=== PATIENT | female | born 1940 | race Caucasian/White ===

== ENCOUNTER 2017-10-31 10:10 | Emergency (ER) | payer OTHER ==
--- NOTE | 2017-10-31 11:12 | RAD REPORT ---
EXAM DESCRIPTION: CT - CTHCSPWOC - 10/31/2017 11:03 am CLINICAL HISTORY: Fall, head and neck injury COMPARISON: CT imaging February 2017 TECHNIQUE: Axial 5 mm thick images of the head were obtained. Axial 2 mm thick images of the cervic al spine were obtained with sagittal and coronal reconstruction images generated and reviewed. All CT scans are performed using dose optimization technique as appropriate and may include automated exposure control or mA/KV adjustment according to patient size. FINDINGS: No intracranial hemorrhage, mass, edema or acute intracranial finding. No acute cortical based infarc tion. Mild to moderate atrophy and chronic ischemic changes are present. Ventricular size is in propo rtion. Intracranial findings are similar to the comparison. There is a small right parietal scalp hem atoma. No extra-axial fluid collections. Mastoid air cells and paranasal sinuses are clear. No globe or orbit abnormality seen. Cervical bodies are normal in height. Subluxation of C3 on C4 is similar to the comparison. Prominent degenerative disc and endplate changes present at C6-7. Significant but less prominent degenerative changes involve the discs and endplates at C3-4, C4-5 and C5-6. Advanced facet joint degenerative alicia nges are present at C3-4 with mild bilateral foraminal encroachment. Left foraminal encroachment at C 4-5 and mild bilateral encroachment at C5-6. Patient generally has significant facet degenerative alicia nge throughout the cervical spine. No fracture or acute bony abnormality. Central canal detail is inh erently limited. No paraspinal mass or hematoma. IMPRESSION: Atrophy and chronic ischemic change similar to comparison. No acute finding. Advanced cervical spine degenerative change similar to comparison. No acute findings confirmed.
--- NOTE | 2017-10-31 11:13 | RAD REPORT ---
EXAM DESCRIPTION: RAD - Humerus Right - 10/31/2017 11:00 am CLINICAL HISTORY: Fall, shoulder pain COMPARISON: None. FINDINGS: No fracture is identified. There is no dislocation or periosteal reaction noted. Mild dege nerative change at the AC joint. No suspicious soft tissue calcification. IMPRESSION: Negative right humerus examination for acute or significant finding.
--- NOTE | 2017-10-31 11:14 | RAD REPORT ---
EXAM DESCRIPTION: RAD - Chest Single View - 10/31/2017 11:00 am CLINICAL HISTORY: Fall, chest pain COMPARISON: November 2015 TECHNIQUE: AP portable chest image was obtained 1046 hours . FINDINGS: No focal mass or consolidation. Lung markings are prominent but not clearly different. Hea rt size and vasculature are similar to comparison. Heart and vasculature are normal. No measurable pl eural effusion and no pneumothorax. Bony degenerative change present. No acute finding suspected. No acute aortic findings suspected. IMPRESSION: No acute cardiopulmonary process. Chest findings are similar to November 2015.
--- NOTE | 2017-10-31 11:22 | ER ---
Nurse's Notes [facility] Name: Ember Meade Age: 77 yrs Sex: Female : 1940 Arrival Date: 10/31/2017 Time: : Bed 6 Private MD: Diagnosis: Superficial injury of head;Scalp Hematoma Presentation: 10/31 10:08 Presenting complaint: EMS states: pt doesn't know if she tripped or lost her balance sv but she hit her right forehead and right knee after falling. Pt has a hx of repeated falls. BP 154/87 RH-76 96% RA. Care prior to arrival: None. Mechanism of Injury: Fall from standing position. Trauma event details: Injury occurred in the [facility], Injury occurred: at home. Injury occurred: October 31, 2017. 10:08 Acuity: SANTOSH 3 sv 10:08 Method Of Arrival: EMS: [facility] sv 10:08 Transition of care: patient was not received from another setting of care. Onset of sv symptoms was October 31, 2017. Risk Assessment: Do you want to hurt yourself or someone else? Patient reports no desire to harm self or others. Initial Sepsis Screen: Does the patient meet any 2 criteria? No. Patient's initial sepsis screen is negative. Does the patient have a suspected source of infection? No. Patient's initial sepsis screen is negative. Triage Assessment: 10:10 General: Appears in no apparent distress. uncomfortable, Behavior is calm, cooperative, sv appropriate for age. Pain: Complains of pain in right side of forehead and right knee Pain currently is 3 out of 10 on a pain scale. EENT: No signs and/or symptoms were reported regarding the EENT system. Neuro: Level of Consciousness is awake, alert, obeys commands, Oriented to person, place, time, situation, Moves all extremities. Full function Speech is normal. Respiratory: Respiratory effort is even, unlabored, Respiratory pattern is regular, symmetrical. Derm: Skin is pink, warm \T\ dry. Musculoskeletal: Range of motion: intact in all extremities. Injury Description: Abrasion sustained to right knee is not bleeding Head injury sustained to right side of forehead is closed, unknown LOC was sustained 30-60 minutes ago. Trauma Activation: Not Applicable Physician: ED Physician; Name: ; Notified At: ; Arrived At: Physician: General Surgeon; Name: ; Notified At: ; Arrived At: Physician: Radiology; Name: ; Notified At: ; Arrived At: Physician: Respiratory; Name: ; Notified At: ; Arrived At: Physician: Lab; Name: ; Notified At: ; Arrived At: Historical: - Allergies: 10: NKA; sv - Home Meds: 10: alendronate 70 mg Oral tab 1 tab once wkly [Active]; aripiprazole 5 mg Oral tab 1 tab sv once daily [Active]; aspirin 81 mg Oral TbEC 2 tabs once daily [Active]; benztropine 0.5 mg Oral tab 1 tab once daily [Active]; Calcium 500 + D Oral twice a day [Active]; carvedilol 3.125 mg Oral tab 1 tab 2 times per day [Active]; docusate sodium 100 mg Oral cap 1 cap 2 times per day [Active]; duloxetine 30 mg Oral cpDR 1 cap once daily [Active]; quetiapine 50 mg Oral tab 1 tab at bedtime [Active]; ropinirole 3 mg Oral tab 1 tab 4 times per day [Active]; tramadol 50 mg Oral tab 1 tab every 4 hours [Active]; Restasis ophthalmic ophthalmic [Active]; - PMHx: 10:22 Anemia; Depression; Esophagitis; Hypertension; Hypothyroidism; Schizophrenia; sv - PSHx: 10: Appendectomy; sv - Immunization history:: Adult Immunizations up to date. - Social history:: Smoking status: Patient/guardian denies using tobacco. - Ebola Screening: : No symptoms or risks identified at this time. - Code Status:: Full code. Screenin:28 Abuse screen: Denies threats or abuse. Denies injuries from another. Nutritional sv screening: No deficits noted. Tuberculosis screening: No symptoms or risk factors identified. Fall Risk Fall in past 12 months (25 points). No secondary diagnosis (0 pts). IV access (20 points). Ambulatory Aid- None/Bed Rest/Nurse Assist (0 pts). Gait- Normal/Bed Rest/Wheelchair (0 pts) Mental Status- Oriented to own ability (0 pts). Total Velasquez Fall Scale indicates High Risk Score (45 or more points). Fall prevention measures have been instituted. Side Rails Up X 2 Placed Close to Nursing Station Frequent Obs/Assessments Occuring As available patient and family educated on Fall Prevention Program and Strategies. Assessment: 10:26 Reassessment: No changes from previously documented assessment. See triage assessment. sv 10:50 Injury Description: Head injury sustained to right side of forehead and right occipital sv area is closed. 11:06 Reassessment: Patient appears in no apparent distress at this time. No changes from sv previously documented assessment. Patient and/or family updated on plan of care and expected duration. Pain level reassessed. Patient is alert, oriented x 3, equal unlabored respirations, skin warm/dry/pink. 11:45 Reassessment: Spoke with Kassidy, nursing staff from [facility], report given, awaiting hb transport to [facility] at this time. 11:53 Reassessment: Patient appears in no apparent distress at this time. No changes from sv previously documented assessment. Patient and/or family updated on plan of care and expected duration. Pain level reassessed. Patient is alert, oriented x 3, equal unlabored respirations, skin warm/dry/pink. Vital Signs: 10:23 BP 166 / 87; Pulse 71; Resp 15; Temp 98.9(TE); Pulse Ox 99% ; Pain 3/10; sv 11:50 BP 160 / 88; Pulse 72; Resp 18; Pulse Ox 99% ; sv 12:45 BP 158 / 72; Pulse 74; Resp 16; Pulse Ox 99% ; sv Vitals: 10:28 Cardiac Rhythm Assessment Sinus rhythm W/unifocal PVC's. sv Shabbir Coma Score: 10:18 Eye Response: spontaneous(4). Verbal Response: oriented(5). Motor Response: obeys sv commands(6). Total: 15. Trauma Score (Adult): 10:18 Eye Response: spontaneous(1); Verbal Response: oriented(1); Motor Response: obeys sv commands(2); Systolic BP: > 89 mm Hg(4); Respiratory Rate: 10 to 29 per min(4); Shabbir Score: 15; Trauma Score: 12 ED Course: 10:08 Arm band placed on right wrist. Patient placed in an exam room, on a stretcher, on sv manager cardiac, on pulse oximetry. 10:10 Patient has correct armband on for positive identification. Placed in gown. Bed in low sv position. Call light in reach. Side rails up X2. court recording monitor on. Pulse ox on. NIBP on. Door closed. Head of bed elevated. 10:17 Patient arrived in ED. sv 10:17 Erna Saenz, RN is Primary Nurse. sv 10:17 Olegario Barth PA is PHCP. [facility] 10:17 Bala Chawla MD is Attending Physician. [facility] 10:19 Triage completed. sv 10:28 Missed attempt(s): 22 gauge in left forearm. Bleeding controlled, band aid applied, dh3 catheter tip intact. 10:30 Missed attempt(s): 22 gauge in left hand. Bleeding controlled, band aid applied, dh3 catheter tip intact. 10:41 Inserted saline lock: 24 gauge in left hand, using aseptic technique. Blood collected. [facility] 10:41 X-ray(s) taken. sv 10:58 X-ray completed. Portable x-ray completed in exam room. Patient tolerated procedure la2 well. 11:00 Humerus Right XRAY In Process Unspecified. EDMS 11:00 Chest Single View XRAY In Process Unspecified. EDMS 11:03 CT Head C Spine In Process Unspecified. EDMS 11:06 Patient moved back from [address]. sv 11:53 No provider procedures requiring assistance completed. IV discontinued, intact, sv bleeding controlled, No redness/swelling at site. Pressure dressing applied. Administered Medications: No medications were administered Outcome: 11:22 Discharge ordered by . [facility] 11:53 Discharged to home via wheelchair, Waiting for transportation from [facility] to come sv get her. 11:53 Condition: stable 11:53 Discharge instructions given to patient, Instructed on discharge instructions, follow up and referral plans. Demonstrated understanding of instructions, follow-up care. 13:13 Patient left the ED. sv Signatures: Dispatcher [employer] EDMS Erna Saenz, Olegario Frey RN, PA PA jmm Baxter, Heather, RN RN hb Herrera, Deanna [facility] Cony Chan2
--- NOTE | 2017-10-31 11:22 | EDPHYS ---
Physician Documentation [facility] Name: Ember Meade Age: 77 yrs Sex: Female : 1940 Arrival Date: 10/31/2017 Time: : Bed 6 Private MD: ED Physician Bala Chawla HPI: 10/31 10:25 This 77 yrs old Female presents to ER via EMS with complaints of Fall Injury, jmm Head Injury-Adult. 10:25 Details of fall: The patient fell from an upright position, while walking. Onset: The jmm symptoms/episode began/occurred acutely, just prior to arrival. This is a 77 year old female with a history of htn that presents to the ED with a fall which occurred just prior to arrival. The patient states that as she was walking, she turned and slipped, falling on her right side hitting her head against a counter. Patient denies LOC, vomiting, but states she felt dazed. Also complains of pain to her right arm and right rib cage. Patient denies other injury. Historical: - Allergies: 10: NKA; sv - Home Meds: 10:22 alendronate 70 mg Oral tab 1 tab once wkly [Active]; aripiprazole 5 mg Oral tab 1 tab sv once daily [Active]; aspirin 81 mg Oral TbEC 2 tabs once daily [Active]; benztropine 0.5 mg Oral tab 1 tab once daily [Active]; Calcium 500 + D Oral twice a day [Active]; carvedilol 3.125 mg Oral tab 1 tab 2 times per day [Active]; docusate sodium 100 mg Oral cap 1 cap 2 times per day [Active]; duloxetine 30 mg Oral cpDR 1 cap once daily [Active]; quetiapine 50 mg Oral tab 1 tab at bedtime [Active]; ropinirole 3 mg Oral tab 1 tab 4 times per day [Active]; tramadol 50 mg Oral tab 1 tab every 4 hours [Active]; Restasis ophthalmic ophthalmic [Active]; - PMHx: 10:22 Anemia; Depression; Esophagitis; Hypertension; Hypothyroidism; Schizophrenia; sv - PSHx: 10:22 Appendectomy; sv - Immunization history:: Adult Immunizations up to date. - Social history:: Smoking status: Patient/guardian denies using tobacco. - Ebola Screening: : No symptoms or risks identified at this time. - Code Status:: Full code. ROS: 10:25 Constitutional: Negative for fever, chills, and weight loss. jmm 10:25 Respiratory: Negative for shortness of breath, cough, wheezing, and pleuritic chest pain, Abdomen/GI: Negative for abdominal pain, nausea, vomiting, diarrhea, and constipation, Back: Negative for injury and pain. 10:25 Cardiovascular: Positive for traumatic chest pain. 10:25 Neuro: Positive for headache. 10:25 All other systems are negative. Exam: 10:25 Constitutional: This is a well developed, well nourished patient who is awake, alert, jmm and in no acute distress. 10:25 Head/face: hematoma noted to the right frontal bone. 10:25 Neck: C-spine: appears grossly normal, no vertebral tenderness, no crepitus. 10:25 Chest/axilla: right lateral chest pain on palpation. 10:25 Cardiovascular: Rate: normal, Rhythm: regular, Pulses: no pulse deficits are appreciated. 10:25 Respiratory: the patient does not display signs of respiratory distress, Respirations: normal, Breath sounds: are clear throughout. 10:25 Musculoskeletal/extremity: ROM: intact in all extremities, ecchymosis noted ot the right mid humeral region, TTP, compartments soft, NVI. 10:25 Skin: Appearance: Color: normal in color. 10:25 Neuro: Orientation: is normal, Mentation: is normal, Memory: is normal. 10:25 Psych: Behavior/mood is pleasant, cooperative. Vital Signs: 10:23 BP 166 / 87; Pulse 71; Resp 15; Temp 98.9(TE); Pulse Ox 99% ; Pain 3/10; sv 11:50 BP 160 / 88; Pulse 72; Resp 18; Pulse Ox 99% ; sv 12:45 BP 158 / 72; Pulse 74; Resp 16; Pulse Ox 99% ; sv Shabbir Coma Score: 10:18 Eye Response: spontaneous(4). Verbal Response: oriented(5). Motor Response: obeys sv commands(6). Total: 15. Trauma Score (Adult): 10:18 Eye Response: spontaneous(1); Verbal Response: oriented(1); Motor Response: obeys sv commands(2); Systolic BP: > 89 mm Hg(4); Respiratory Rate: 10 to 29 per min(4); Helen Score: 15; Trauma Score: 12 MDM: 10:23 Patient medically screened. [facility] 11:20 ED course: Imaging studies negative. Patient is alert and non toxic in appearance in [facility] the ED. fall appears to be mechanical in nature. . 11:21 Data reviewed: vital signs, nurses notes, radiologic studies, CT scan, plain films. [facility] Counseling: I had a detailed discussion with the patient and/or guardian regarding: the historical points, exam findings, and any diagnostic results supporting the discharge/admit diagnosis, the need for outpatient follow up, to return to the emergency department if symptoms worsen or persist or if there are any questions or concerns that arise at home. 10/31 10:25 Order name: CT Head C Spine; Complete Time: 11:18 [facility] 10/31 10:25 Order name: Humerus Right XRAY; Complete Time: 11:18 [facility] 10/31 10:25 Order name: Chest Single View XRAY; Complete Time: 11:18 [facility] Administered Medications: No medications were administered Disposition: 14:40 Co-signature as Attending Physician, Bala Chawla MD. rn Disposition: 10/31/17 11:22 Discharged to Home. Impression: Superficial injury of head, Scalp Hematoma. - Condition is Stable. - Discharge Instructions: Head Injury, Adult. - Medication Reconciliation Form, Thank You Letter, Antibiotic Education, Prescription Opioid Use form. - Follow up: Private Physician; When: 2 - 3 days; Reason: Recheck today's complaints, Continuance of care, Re-evaluation by your physician. Signatures: Dispatcher [employer] Erna West RN RN Olegario Mcguire PA PA [facility] Bala Chawla MD MD metal furniture repairer: (The following items were deleted from the chart) 13:13 11:22 10/31/2017 11:22 Discharged to Home. Impression: Superficial injury of head; sv Scalp Hematoma. Condition is Stable. Forms are Medication Reconciliation Form, Thank You Letter, Antibiotic Education, Prescription Opioid Use. Follow up: Private Physician; When: 2 - 3 days; Reason: Recheck today's complaints, Continuance of care, Re-evaluation by your physician. [facility]
[2017-10-31 13:19] VITALS: TEMP 98.9; O2SAT 99
[2017-10-31 13:21] VITALS: BP 158/72
== END 2017-10-31 13:13 | disposition home or self-care (01) ==
LOC: ER 10:10
DX: S00.03XA Contusion of scalp, initial encounter (principal); W01.0XXA Fall on same level from slipping, tripping and stumbling without subsequent striking against object, initial encounter; Y93.01 Activity, walking, marching and hiking; Y92.9 Unspecified place or not applicable; I10 Essential (primary) hypertension; E03.9 Hypothyroidism, unspecified; F32.9 Major depressive disorder, single episode, unspecified; Z79.82 Long term (current) use of aspirin
CPT/HCPCS: 70450; 71045; 72125; 99285

== ENCOUNTER 2019-02-13 14:11 | Emergency (ER) | payer OTHER ==
--- OUTSIDE RECORDS SUMMARY | 2019-02-13 14:14 | XMS REPORT ---
:1940 Author Organization [facility] Address [address] [place] [place] [address] Care Team Providers Name Role Phone Unavailable Unavailable Unavailable Problems This patient has no known problems. Allergies, Adverse Reactions, Alerts This patient has no known allergies or adverse reactions. Medications This patient has no known medications.
--- NOTE | 2019-02-13 15:06 | RAD REPORT ---
EXAM DESCRIPTION: CT - CTHCSPWOC - 02/13/2019 2:57 pm CLINICAL HISTORY: Trauma, head and neck injury. PAIN COMPARISON: Head C Spine Mpr Wo Con dated 10/31/2017; Head C Spine Mpr Wo Con dated 03/06/2017; Head C Spine Mpr Wo Con dated 06/01/2016; Head C Spine Mpr Wo Con dated 11/28/2015 TECHNIQUE: Axial 5 mm thick images of the head were obtained. Axial 2 mm thick images of the cervical spine were obtained with sagittal and coronal reconstruction images generated and reviewed. All CT scans are performed using dose optimization technique as appropriate and may include automated exposure control or mA/KV adjustment according to patient size. FINDINGS: CT HEAD WITHOUT CONTRAST: No acute hemorrhage, hydrocephalus or extra-axial collection is identified.Mild brain.No areas of bra in edema or midline shift. The paranasal sinuses and mastoids are clear.The calvarium is intact. CT CERVICAL SPINE WITHOUT CONTRAST: No fracture or subluxation.Multilevel degenerative changes are present, most notable involving the lo wer levels of the cervical spine. Stable 3 mm degenerative anterolisthesis of C3 on 4.No prevertebral soft tissues swelling is identified. IMPRESSION: No acute intracranial or cervical spine findings.
[2019-02-13] MEDS ORDERED: ACETAMINOPHEN 500 MG TAB ONE (15:08)
--- NOTE | 2019-02-13 15:38 | RAD REPORT ---
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 Old traumatic changes affect the right hemipelvis. No evidence of AVN. No acute fracture or dislocation.
--- NOTE | 2019-02-13 15:39 | RAD REPORT ---
EXAM DESCRIPTION: RAD - Lumbar Spine 3 Views - 02/13/2019 3:31 pm CLINICAL HISTORY: PAIN Radiculopathy COMPARISON: No comparisons FINDINGS: Vertebral body heights appear maintained. No compression fracture noted. Vacuum disc degen eration is present L4-5. Moderate anterolisthesis of L5 on S1.
--- NOTE | 2019-02-13 15:48 | EDPHYS ---
Physician Documentation [facility] Name: Ember Meade Age: 79 yrs Sex: Female : 1940 Arrival Date: 02/13/2019 Time: 14:12 Bed 6 Private MD: ED Physician Jesus Russo HPI: 02/13 15:17 This 79 yrs old Female presents to ER via Wheelchair with complaints of Fall jr8 Injury. 15:17 Details of fall: The patient fell from an upright position, while standing. Onset: The jr8 symptoms/episode began/occurred acutely, today. Associated injuries: The patient sustained injury to the head, injury to the low back. Severity of symptoms: At their worst the symptoms were mild, in the emergency department the symptoms are unchanged. The patient has not experienced similar symptoms in the past. The patient has not recently seen a physician. Accidental fall backwards. Hit head and low back. Denies LOC. Historical: - Allergies: 14:16 NKA; la1 - PMHx: 14:16 Anemia; Depression; Esophagitis; Hypertension; Schizophrenia; la1 - Immunization history:: Adult Immunizations up to date. - Social history:: Smoking status: Patient/guardian denies using tobacco. - Ebola Screening: : No symptoms or risks identified at this time. ROS: 15:17 Eyes: Negative for injury, pain, redness, and discharge, ENT: Negative for injury, jr8 pain, and discharge, Neck: Negative for injury, pain, and swelling, Cardiovascular: Negative for chest pain, palpitations, and edema, Respiratory: Negative for shortness of breath, cough, wheezing, and pleuritic chest pain, Abdomen/GI: Negative for abdominal pain, nausea, vomiting, diarrhea, and constipation, MS/Extremity: Negative for injury and deformity, Skin: Negative for injury, rash, and discoloration, Neuro: Negative for headache, weakness, numbness, tingling, and seizure. 15:17 Back: Positive for pain at rest, pain with movement, of the low back area. Exam: 15:17 Eyes: Pupils equal round and reactive to light, extra-ocular motions intact. Lids and jr8 lashes normal. Conjunctiva and sclera are non-icteric and not injected. Cornea within normal limits. Periorbital areas with no swelling, redness, or edema. ENT: Nares patent. No nasal discharge, no septal abnormalities noted. Tympanic membranes are normal and external auditory canals are clear. Oropharynx with no redness, swelling, or masses, exudates, or evidence of obstruction, uvula midline. Mucous membranes moist. Neck: Trachea midline, no thyromegaly or masses palpated, and no cervical lymphadenopathy. Supple, full range of motion without nuchal rigidity, or vertebral point tenderness. No Meningismus. Cardiovascular: Regular rate and rhythm with a normal S1 and S2. No gallops, murmurs, or rubs. Normal PMI, no JVD. No pulse deficits. Respiratory: Lungs have equal breath sounds bilaterally, clear to auscultation and percussion. No rales, rhonchi or wheezes noted. No increased work of breathing, no retractions or nasal flaring. Abdomen/GI: Soft, non-tender, with normal bowel sounds. No distension or tympany. No guarding or rebound. No evidence of tenderness throughout. Skin: Warm, dry with normal turgor. Normal color with no rashes, no lesions, and no evidence of cellulitis. MS/ Extremity: Pulses equal, no cyanosis. Neurovascular intact. Full, normal range of motion. Neuro: Awake and alert, GCS 15, oriented to person, place, time, and situation. Cranial nerves II-XII grossly intact. Motor strength 5/5 in all extremities. Sensory grossly intact. Cerebellar exam normal. Normal gait. 15:17 Back: pain, that is mild, of the right low back. Vital Signs: 14:18 BP 155 / 76; Pulse 80; Resp 16; Temp 98.0; Pulse Ox 99% on R/A; Weight 61.23 kg; Height la1 4 ft. 10 in. (147.32 cm); 14:18 Body Mass Index 28.21 (61.23 kg, 147.32 cm) la1 MDM: 14:38 Patient medically screened. jr8 15:17 Data reviewed: vital signs, nurses notes, radiologic studies, CT scan, plain films. jr8 Data interpreted: Pulse oximetry: on room air is 99 %. Interpretation: normal. Counseling: I had a detailed discussion with the patient and/or guardian regarding: the historical points, exam findings, and any diagnostic results supporting the discharge/admit diagnosis, radiology results, the need for outpatient follow up, a family practitioner, to return to the emergency department if symptoms worsen or persist or if there are any questions or concerns that arise at home. 02/13 14:38 Order name: CT Head C Spine; Complete Time: 15:17 jr8 02/13 14:38 Order name: XRAY Lumbar Spine (3 Views); Complete Time: 15:46 jr8 02/13 15:06 Order name: XRAY Hip RIGHT 2 view; Complete Time: 15:46 tw2 Administered Medications: 15:08 Drug: Tylenol 500 mg Route: PO; tw2 15:46 Follow up: Response: No adverse reaction; Pain is decreased jl7 Disposition: 18:21 Co-signature as Attending Physician, Jesus Russo MD Did not see or evaluate patient. ps1 Signing chart for administrative purposes. Not an endorsement of care provided. . Disposition: 02/13/19 15:47 Discharged to Home. Impression: Low back pain, Acute pain due to trauma. - Condition is Stable. - Discharge Instructions: Back Pain, Adult, Head Injury, Adult, Fall Prevention in the Home, Musculoskeletal Pain, Heat Therapy. - Medication Reconciliation Form, Thank You Letter, Antibiotic Education, Prescription Opioid Use form. - Follow up: Private Physician; When: As needed; Reason: Recheck today's complaints, Continuance of care, Re-evaluation by your physician. - Problem is new. - Symptoms have improved. Signatures: Dispatcher [employer] EDMS Jaspal Mittal PA PA jr8 Bear Low RN RN la1 Laureen Odell RN RN tw2 Jesus Russo MD MD ps1 Jw Hirsch RN jl7 Corrections: (The following items were deleted from the chart) 15:56 15:47 02/13/2019 15:47 Discharged to Home. Impression: Low back pain; Acute pain due to tw2 trauma. Condition is Stable. Forms are Medication Reconciliation Form, Thank You Letter, Antibiotic Education, Prescription Opioid Use. Follow up: Private Physician; When: As needed; Reason: Recheck today's complaints, Continuance of care, Re-evaluation by your physician. Problem is new. Symptoms have improved. jr8
--- NOTE | 2019-02-13 15:48 | ER ---
Nurse's Notes [facility] Name: Ember Meade Age: 79 yrs Sex: Female : 1940 Arrival Date: 02/13/2019 Time: 14:12 Bed 6 Private MD: Diagnosis: Low back pain;Acute pain due to trauma Presentation: 02/13 14:16 Presenting complaint: Sister states she fell backwards hitting the back of her head and la1 lower back, Denies LOC, denies vomiting, no blood thinners. Transition of care: patient was not received from another setting of care. Onset of symptoms was February 13, 2019. Risk Assessment: Do you want to hurt yourself or someone else? Patient reports no desire to harm self or others. Initial Sepsis Screen: Does the patient meet any 2 criteria? No. Patient's initial sepsis screen is negative. Does the patient have a suspected source of infection? No. Patient's initial sepsis screen is negative. Care prior to arrival: None. 14:16 Method Of Arrival: Wheelchair la1 14:16 Acuity: SANTOSH 3 la1 Historical: - Allergies: 14:16 NKA; la1 - PMHx: 14:16 Anemia; Depression; Esophagitis; Hypertension; Schizophrenia; la1 - Immunization history:: Adult Immunizations up to date. - Social history:: Smoking status: Patient/guardian denies using tobacco. - Ebola Screening: : No symptoms or risks identified at this time. Screenin:19 Abuse screen: Denies threats or abuse. Nutritional screening: No deficits noted. tw2 Tuberculosis screening: No symptoms or risk factors identified. Fall Risk Secondary diagnosis (15 points) impaired mobility. Assessment: 14:40 General: Appears in no apparent distress. uncomfortable, Behavior is calm, cooperative, jl7 appropriate for age. Pain: Complains of pain in coccyx Pain currently is 5 out of 10 on a pain scale. Quality of pain is described as aching, Is continuous. Neuro: Level of Consciousness is awake, alert, obeys commands, Oriented to person, place, time, situation. Cardiovascular: Patient's skin is warm and dry. Respiratory: Airway is patent Respiratory effort is even, unlabored, Respiratory pattern is regular, symmetrical. Derm: Skin is pink, warm \T\ dry. Musculoskeletal: Range of motion: intact in all extremities. 15:56 Reassessment: Patient appears in no apparent distress at this time. No changes from tw2 previously documented assessment. Patient and/or family updated on plan of care and expected duration. Pain level reassessed. Patient is alert, oriented x 3, equal unlabored respirations, skin warm/dry/pink. Vital Signs: 14:18 BP 155 / 76; Pulse 80; Resp 16; Temp 98.0; Pulse Ox 99% on R/A; Weight 61.23 kg; Height la1 4 ft. 10 in. (147.32 cm); 14:18 Body Mass Index 28.21 (61.23 kg, 147.32 cm) la1 ED Course: 14:12 Patient arrived in ED. as 14:17 Triage completed. la1 14:17 Arm band placed on left wrist. la1 14:20 Jw Hirsch RN is Primary Nurse. jl7 14:20 Bed in low position. Call light in reach. Side rails up X2. tw2 14:33 Jaspal Mittal PA is PHCP. jr8 14:33 Jesus Russo MD is Attending Physician. jr8 15:05 CT Head C Spine In Process Unspecified. EDMS 15:30 XRAY Lumbar Spine (3 Views) In Process Unspecified. EDMS 15:30 XRAY Hip RIGHT 2 view In Process Unspecified. EDMS 15:56 No provider procedures requiring assistance completed. Patient did not have IV access tw2 during this emergency room visit. Administered Medications: 15:08 Drug: Tylenol 500 mg Route: PO; tw2 15:46 Follow up: Response: No adverse reaction; Pain is decreased jl7 Outcome: 15:47 Discharge ordered by . jr8 15:56 Discharged to home via wheelchair. tw2 15:56 Condition: stable 15:56 Discharge instructions given to patient, Instructed on discharge instructions, follow up and referral plans. Demonstrated understanding of instructions, follow-up care. 15:56 Patient left the ED. tw2 Signatures: Dispatcher [employer] EDMS Chantelle Moctezuma Josh, PA PA jr8 Bear Low RN RN la1 Laureen Odell RN RN tw2 Jw Hirsch RN RN jl7
[2019-02-13 18:27] VITALS: BP 155/76; TEMP 98; O2SAT 99
== END 2019-02-13 15:56 | disposition home or self-care (01) ==
LOC: ER 14:11
DX: G89.11 Acute pain due to trauma (principal); W18.39XA Other fall on same level, initial encounter; Y93.89 Activity, other specified; Y92.9 Unspecified place or not applicable; I10 Essential (primary) hypertension
CPT/HCPCS: 70450; 72100; 72125; 99283

== ENCOUNTER 2019-02-14 09:39 | Emergency (ER) | payer OTHER ==
--- OUTSIDE RECORDS SUMMARY | 2019-02-14 09:41 | XMS REPORT ---
:1940 [facility] Address [address] [place] [place] [address] Care Team Providers Name Role Phone Unavailable Unavailable Unavailable Problems This patient has no known problems. Allergies, Adverse Reactions, Alerts This patient has no known allergies or adverse reactions. Medications This patient has no known medications.
[2019-02-14 10:54] LABS: Absolute Lymphocytes (CBC) 1.5 K/uL (0.7-4.9); Basophils % 0.8 % (0-1.3); Lymphocytes % 23.4 % (15.3-44.8); RBC Red Blood Cell Count 3.86 M/uL (3.86-4.86)
--- NOTE | 2019-02-14 10:59 | RAD REPORT ---
EXAM DESCRIPTION: RAD - Knee Left 3 View - 02/14/2019 10:50 am CLINICAL HISTORY: fall injury COMPARISON: Knee Left 3 View dated 03/24/2017; Knee Left 3 View dated 06/01/2016 FINDINGS: Comminuted fracture involves the patella. Small lipoma hemarthrosis is evident. 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 IMPRESSION: Comminuted patella fracture.
[2019-02-14 11:10] LABS: Magnesium 2.2 mg/dL (1.8-2.4)
--- NOTE | 2019-02-14 11:25 | EDPHYS ---
Physician Documentation [facility] Name: Ember Meade Age: 79 yrs Sex: Female : 1940 Arrival Date: 02/14/2019 Time: 09:42 Bed 16 Private MD: ED Physician Jesus Russo HPI: 02/14 10:32 This 79 yrs old Female presents to ER via Wheelchair with complaints of Fall jr8 Injury, Knee Pain. 10:32 Details of fall: The patient fell from an upright position, while standing. Onset: The jr8 symptoms/episode began/occurred acutely, today. Associated injuries: The patient sustained left leg, painful injury. Severity of symptoms: At their worst the symptoms were mild, in the emergency department the symptoms are unchanged. The patient has experienced similar episodes in the past, a few times. The patient has been recently seen by a physician:. Patient stated that she started to feel unsteady on feet. Fell hitting left knee. Had another fall yesterday and was evaluated with negative injuries. Multiple falls from unknown cause over the past few weeks. Denies any other complaints at this time . Historical: - Allergies: 09:47 NKA; la1 - PMHx: 09:47 Anemia; Depression; Esophagitis; Hypertension; Hypothyroidism; Schizophrenia; la1 - Immunization history:: Adult Immunizations up to date. - Social history:: Smoking status: Patient/guardian denies using tobacco. - Ebola Screening: : No symptoms or risks identified at this time. ROS: 10:32 Eyes: Negative for injury, pain, redness, and discharge, ENT: Negative for injury, jr8 pain, and discharge, Neck: Negative for injury, pain, and swelling, Cardiovascular: Negative for chest pain, palpitations, and edema, Respiratory: Negative for shortness of breath, cough, wheezing, and pleuritic chest pain, Abdomen/GI: Negative for abdominal pain, nausea, vomiting, diarrhea, and constipation, Back: Negative for injury and pain, Skin: Negative for injury, rash, and discoloration, Neuro: Negative for headache, weakness, numbness, tingling, and seizure. 10:32 MS/extremity: Positive for pain, tenderness, of the left knee. Exam: 10:32 Head/Face: Normocephalic, atraumatic. Eyes: Pupils equal round and reactive to light, jr8 extra-ocular motions intact. Lids and lashes normal. Conjunctiva and sclera are non-icteric and not injected. Cornea within normal limits. Periorbital areas with no swelling, redness, or edema. ENT: Nares patent. No nasal discharge, no septal abnormalities noted. Tympanic membranes are normal and external auditory canals are clear. Oropharynx with no redness, swelling, or masses, exudates, or evidence of obstruction, uvula midline. Mucous membranes moist. Neck: Trachea midline, no thyromegaly or masses palpated, and no cervical lymphadenopathy. Supple, full range of motion without nuchal rigidity, or vertebral point tenderness. No Meningismus. Cardiovascular: Regular rate and rhythm with a normal S1 and S2. No gallops, murmurs, or rubs. Normal PMI, no JVD. No pulse deficits. Respiratory: Lungs have equal breath sounds bilaterally, clear to auscultation and percussion. No rales, rhonchi or wheezes noted. No increased work of breathing, no retractions or nasal flaring. Abdomen/GI: Soft, non-tender, with normal bowel sounds. No distension or tympany. No guarding or rebound. No evidence of tenderness throughout. Back: No spinal tenderness. No costovertebral tenderness. Full range of motion. Skin: Warm, dry with normal turgor. Normal color with no rashes, no lesions, and no evidence of cellulitis. Neuro: Awake and alert, GCS 15, oriented to person, place, time, and situation. Cranial nerves II-XII grossly intact. Motor strength 5/5 in all extremities. Sensory grossly intact. Cerebellar exam normal. 10:32 Musculoskeletal/extremity: Extremities: grossly normal except: noted in the left knee: pain, notable effusion to left knee. No bruising noted. No obvious deformity present , ROM: intact in all extremities, full active range of motion, full passive range of motion, limited active range of motion due to pain, limited passive range of motion due to pain, Circulation is intact in all extremities. Sensation intact. Vital Signs: 09:47 BP 116 / 73; Pulse 75; Resp 16; Temp 98.5; Pulse Ox 100% on R/A; la1 10:45 BP 139 / 64; Pulse 71; Resp 16; Pulse Ox 96% on R/A; Pain 5/10; rb1 11:44 BP 122 / 68; Pulse 75; Resp 17; Pulse Ox 96% on R/A; rb1 Procedures: 11:12 Splinting: Splint applied to left leg using knee immobilizer, applied by nurse. jr8 Examined by me, post splint application: neurovascular intact, 2+ distal pulses palpable, brisk capillary refill noted, Patient tolerated well. MDM: 10:01 Patient medically screened. jr8 11:12 Data reviewed: vital signs, nurses notes, lab test result(s), EKG, radiologic studies, jr8 plain films. Data interpreted: Pulse oximetry: on room air is 100 %. Interpretation: normal. Counseling: I had a detailed discussion with the patient and/or guardian regarding: the historical points, exam findings, and any diagnostic results supporting the discharge/admit diagnosis, lab results, radiology results, the need for outpatient follow up, a orthopedic surgeon, to return to the emergency department if symptoms worsen or persist or if there are any questions or concerns that arise at home. 02/14 10:13 Order name: CBC with Diff; Complete Time: 11:05 8 02/14 10:13 Order name: Basic Metabolic Panel; Complete Time: 11:11 8 02/14 09:53 Order name: EKG; Complete Time: 09:53 02/14 09:53 Order name: EKG - Nurse/Tech; Complete Time: 10:33 02/14 10:13 Order name: XRAY Knee LEFT 3 view; Complete Time: 11:05 8 02/14 10:13 Order name: Magnesium; Complete Time: 11:11 8 02/14 10:13 Order name: IV; Complete Time: 10:33 8 02/14 11:06 Order name: Knee Immobilizer; Complete Time: 12:04 [facility] Administered Medications: No medications were administered Disposition: 17:51 Co-signature as Attending Physician, Jesus Russo MD Did not see or evaluate patient. ps1 Chart signed for administrative purposes. Not an endorsement of care. . Disposition: 02/14/19 11:24 Discharged to Home. Impression: Comminuted fracture of patella. - Condition is Stable. - Discharge Instructions: Patellar Fracture, Adult. - Prescriptions for Mobic 7.5 mg Oral Tablet - take 1 tablet by ORAL route once daily take with food; 20 tablet. - Medication Reconciliation Form, Thank You Letter, Antibiotic Education, Prescription Opioid Use form. - Follow up: Meng Curiel MD; When: 5 - 6 days; Reason: Recheck today's complaints, Continuance of care, Re-evaluation by your physician. - Problem is new. - Symptoms have improved. Signatures: Dispatcher [employer] EDMS Serena Henry RN RN iw Jaspal Mittal PA PA jr8 Bear Low RN RN la1 Tila Farah RN RN ph Jesus Russo MD MD ps1 Corrections: (The following items were deleted from the chart) 12:23 11:24 02/14/2019 11:24 Discharged to Home. Impression: Comminuted fracture of patella. ph Condition is Stable. Forms are Medication Reconciliation Form, Thank You Letter, Antibiotic Education, Prescription Opioid Use. Follow up: Meng Curiel; When: 5 - 6 days; Reason: Recheck today's complaints, Continuance of care, Re-evaluation by your physician. Problem is new. Symptoms have improved. jr8
--- NOTE | 2019-02-14 11:25 | ER ---
Nurse's Notes [facility] Name: Ember Meade Age: 79 yrs Sex: Female : 1940 Arrival Date: 02/14/2019 Time: 09:42 Bed 16 Private MD: Diagnosis: Comminuted fracture of patella Presentation: 02/14 09:46 Presenting complaint: Patient states: I was here for a fall yesterday and I fell again la1 this morning, today my left knee hurts. Pt denies LOC, states her foot "dragged" which caused her to fall forward. Transition of care: patient was not received from another setting of care. Onset of symptoms was February 14, 2019. Risk Assessment: Do you want to hurt yourself or someone else? Patient reports no desire to harm self or others. Initial Sepsis Screen: Does the patient meet any 2 criteria? No. Patient's initial sepsis screen is negative. Does the patient have a suspected source of infection? No. Patient's initial sepsis screen is negative. Care prior to arrival: None. 09:46 Method Of Arrival: Wheelchair la1 09:46 Acuity: SANTOSH 3 la1 Triage Assessment: 09:55 General: Appears in no apparent distress. comfortable, Behavior is calm, cooperative. rb1 Historical: - Allergies: 09:47 NKA; la1 - PMHx: 09:47 Anemia; Depression; Esophagitis; Hypertension; Hypothyroidism; Schizophrenia; la1 - Immunization history:: Adult Immunizations up to date. - Social history:: Smoking status: Patient/guardian denies using tobacco. - Ebola Screening: : No symptoms or risks identified at this time. Screenin:55 Abuse screen: Denies threats or abuse. Nutritional screening: No deficits noted. rb1 Tuberculosis screening: No symptoms or risk factors identified. Fall Risk Fall in past 12 months (25 points). Secondary diagnosis (15 points) impaired mobility, No IV (0 pts). Ambulatory Aid- Crutches/Cane/Walker (15 pts). Gait- Impaired (20 pts.). Mental Status- Oriented to own ability (0 pts). Total Velasquez Fall Scale indicates High Risk Score (45 or more points). Fall prevention measures have been instituted. Side Rails Up X 2 Placed Close to Nursing Station 1:1 Attendant Assigned Frequent Obs/Assessments Occuring Family Present and informed to notify staff if the need to leave the bedside As available patient and family educated on Fall Prevention Program and Strategies. Assessment: 09:55 General: Appears in no apparent distress. comfortable, Behavior is calm, cooperative. rb1 General: Denies Denies hitting head or LOC. Neuro: Level of Consciousness is awake, alert, obeys commands, Oriented to person, place, time, situation. Cardiovascular: Capillary refill < 3 seconds is brisk in bilateral fingers. Respiratory: Airway is patent Respiratory effort is even, unlabored, Respiratory pattern is regular, symmetrical. GI: No signs and/or symptoms were reported involving the gastrointestinal system. : No signs and/or symptoms were reported regarding the genitourinary system. Derm: Skin is pink, warm \\T\\ dry. Musculoskeletal: Range of motion: limited in left knee. 09:55 Pain: Complains of pain in left leg Pain currently is 8 out of 10 on a pain scale. Pain rb1 began 0915 Aggravated by weight bearing. 10:55 Reassessment: Patient appears in no apparent distress at this time. No changes from rb1 previously documented assessment. Family at the bedside. 11:32 Reassessment: Discharge pending due to transportation. Family went to get her [facility] wheelchair to transport the pt. home. Pt. is in a knee immobilizer and cannot walk with it. 11:54 Reassessment: Patient appears in no apparent distress at this time. Patient and/or rb1 family updated on plan of care and expected duration. Pain level reassessed. Patient is alert, oriented x 3, equal unlabored respirations, skin warm/dry/pink. Awaiting transportation. Family is on their way. Vital Signs: 09:47 BP 116 / 73; Pulse 75; Resp 16; Temp 98.5; Pulse Ox 100% on R/A; la1 10:45 BP 139 / 64; Pulse 71; Resp 16; Pulse Ox 96% on R/A; Pain 5/10; rb1 11:44 BP 122 / 68; Pulse 75; Resp 17; Pulse Ox 96% on R/A; rb1 ED Course: 09:42 Patient arrived in ED. as 09:47 Triage completed. la1 09:48 Arm band placed on right wrist. la1 09:53 Consuelo Porras, RN is Primary Nurse. rb1 09:55 Patient has correct armband on for positive identification. Bed in low position. Call rb1 light in reach. Side rails up X 1. Pulse ox on. NIBP on. Warm blanket given. 09:58 Jaspal Mittal PA is PHCP. jr8 09:58 Jesus Russo MD is Attending Physician. jr8 10:30 EKG done, by document image technician. reviewed by Jaspal PINTO. sm3 10:33 Initial lab(s) drawn, by ED staff, sent to lab. Inserted saline lock: 22 gauge em1 antecubital area, using aseptic technique. wrist, using aseptic technique. Blood collected. Missed attempt(s): 22 gauge in left wrist. Bleeding controlled, band aid applied, catheter tip intact. 10:51 XRAY Knee LEFT 3 view In Process Unspecified. EDMS 11:24 Meng Curiel MD is Referral Physician. jr8 12:04 Knee immobilizer applied on left knee. em1 12:15 IV discontinued, intact, bleeding controlled, No redness/swelling at site. Pressure rb1 dressing applied. 12:20 No provider procedures requiring assistance completed. rb1 Administered Medications: No medications were administered Outcome: 11:24 Discharge ordered by . jr8 12:20 Discharged to home via wheelchair, with family. rb1 12:20 Condition: stable 12:20 Discharge instructions given to patient, Instructed on discharge instructions, follow up and referral plans. medication usage, Demonstrated understanding of instructions, follow-up care, medications, Prescriptions given X 1. 12:23 Patient left the ED. ph Signatures: Dispatcher [employer] EDMS Chantelle Moctezuma Eric em1 Jaspal Mittal PA PA jr8 Bear Low, RN RN la1 Tila Farah RN RN Consuelo Porras, RN RN rb1 Usha Olivera sm3
[2019-02-14 12:28] VITALS: BP 116/73; TEMP 98.5; O2SAT 100
--- NOTE | 2019-02-14 16:32 | EKG ---
Test Date: 2019-02-14 Test Time: 09:57:08 Investment Strategist: JACQUELINE MEASUREMENT RESULTS: Intervals: Rate: 72 TX: 136 QRSD: 120 QT: 440 QTc: 481 [place]: P: 56 TX: 136 QRS: 76 T: 13 INTERPRETIVE STATEMENTS: Normal sinus rhythm Right bundle branch block Abnormal ECG Compared to ECG 03/22/2014 10:25:22 No significant changes Electronically Signed On 02-14-19 16:30:17 PREP COOK by Andi Casey
== END 2019-02-14 12:23 | disposition home or self-care (01) ==
LOC: ER 09:39
DX: S82.042A Displaced comminuted fracture of left patella, initial encounter for closed fracture (principal); W19.XXXA Unspecified fall, initial encounter; Y93.89 Activity, other specified; Y92.9 Unspecified place or not applicable; I10 Essential (primary) hypertension
CPT/HCPCS: 36415; 80048; 83735; 85025; 93005; 99284

== ENCOUNTER 2019-03-27 23:02 | Emergency (ER) | payer OTHER ==
--- OUTSIDE RECORDS SUMMARY | 2019-03-27 23:04 | XMS REPORT ---
:1940 [facility] Address [address] [place] [address] Care Team Providers Name Role Phone Unavailable Unavailable Unavailable Problems This patient has no known problems. Allergies, Adverse Reactions, Alerts This patient has no known allergies or adverse reactions. Medications This patient has no known medications.
[2019-03-28] MEDS ORDERED: HYDROCODONE/APAP 5/325 MG TAB ONE (00:27)
--- NOTE | 2019-03-28 01:55 | ER ---
Nurse's Notes [facility] Name: Ember Meade Age: 79 yrs Sex: Female : 1940 Arrival Date: 03/27/2019 Time: 23:07 Bed 6 Private MD: Diagnosis: Pain left leg Presentation: 03/27 23:33 Presenting complaint: Child states: fractured left patella 6 weeks ago and were seeing 5 Dr. Bar, has appt Wednesday afternoon. Brace was removed on 03/23. Pt had been complaining of left ankle pain but they believed it was from the brace. But there is still pain and left ankle and leg is swollen up to knee. pt is unable to sleep comfortably. Pt took an advil at 1500 and tramadol at 2100. Pain rated at 3/10 at this time but 10/10 when weight bearing. Transition of care: patient was not received from another setting of care. Onset of symptoms was March 23, 2018. Risk Assessment: Do you want to hurt yourself or someone else? Patient reports no desire to harm self or others. Care prior to arrival: None. 23:33 Method Of Arrival: Wheelchair [facility] 23:33 Acuity: SANTOSH 4 5 03/28 01:20 Initial Sepsis Screen: Does the patient meet any 2 criteria? No. Patient's initial ea sepsis screen is negative. Does the patient have a suspected source of infection? No. Patient's initial sepsis screen is negative. Historical: - Allergies: 03/27 23:41 NKA; dm5 - Home Meds: 23:41 tramadol 50 mg Oral tab 1 tab every 4 hours [Active]; Cymbalta 20 mg oral cpDR 1 cap 2 dm5 times per day [Active]; aspirin 81 mg Oral TbEC 2 tabs once daily [Active]; benztropine 0.5 mg Oral tab 1 tab once daily [Active]; carvedilol 3.125 mg Oral tab 1 tab 2 times per day [Active]; docusate sodium 100 mg Oral cap 1 cap 2 times per day [Active]; ropinirole 3 mg Oral tab 1 tab 4 times per day [Active]; quetiapine 25 mg oral tab 1 tab nightly [Active]; Restasis ophthalmic [Active]; alendronate 70 mg Oral tab 1 tab once wkly [Active]; aripiprazole 5 mg Oral tab 1 tab once daily [Active]; Calcium 500 + D Oral twice a day [Active]; duloxetine 30 mg Oral cpDR 1 cap once daily [Active]; - PMHx: 23:41 Depression; Esophagitis; Hypertension; Schizophrenia; dm5 - PSHx: 23:41 R Tibia fx repair; Appendectomy; dm5 - Immunization history:: Adult Immunizations up to date. - Social history:: Smoking status: Patient/guardian denies using tobacco. - Ebola Screening: : No symptoms or risks identified at this time. Screenin/07 00:32 Abuse screen: Denies threats or abuse. Nutritional screening: No deficits noted. ea Tuberculosis screening: No symptoms or risk factors identified. Fall Risk None identified. Assessment: 00:32 General: Appears in no apparent distress. Behavior is calm, cooperative, appropriate ea for age. Pain: Complains of pain in left leg. Neuro: Level of Consciousness is awake, alert, obeys commands, Oriented to person, place, time. Cardiovascular: Patient's skin is warm and dry. Respiratory: Airway is patent Respiratory effort is even, unlabored, Respiratory pattern is regular, symmetrical. Derm: Skin is pink, warm \T\ dry. Musculoskeletal: Swelling present in left lateral ankle. 01:20 Reassessment: Patient and/or family updated on plan of care and expected duration. Pain ea level reassessed. Patient is alert, oriented x 3, equal unlabored respirations, skin warm/dry/pink. 02:00 Reassessment: Patient and/or family updated on plan of care and expected duration. Pain ea level reassessed. Patient is alert, oriented x 3, equal unlabored respirations, skin warm/dry/pink. Discharge instruction given to family and patient, both verbalize the understaging of instruction. Pt denies pain at this time. Pt left ED via wheelchair assisted by family. Pt tolerating well. Patient states feeling better. Vital Signs: 03/27 23:41 BP 113 / 61; Pulse 76; Resp 18; Temp 97.7; Pulse Ox 98% on R/A; Weight 61.23 kg; Height dm5 4 ft. 10 in. (147.32 cm); Pain 3/10; 03/28 01:27 BP 139 / 64; Pulse 70; Resp 18; Pulse Ox 98% ; ea 03/27 23:41 Body Mass Index 28.21 (61.23 kg, 147.32 cm) 5 ED Course: 03/27 23:07 Patient arrived in ED. ds1 23:36 Triage completed. dm5 03/28 00:10 Rober Ramey MD is Attending Physician. pkl 00:23 Astrid Patel, RN is Primary Nurse. ea 01:20 Patient has correct armband on for positive identification. Placed in gown. Bed in low ea position. Call light in reach. Side rails up X2. 01:21 Arm band placed on right wrist. Patient placed in an exam room, on a stretcher, on ea pulse oximetry. 01:29 Meng Bar MD is Referral Physician. pkl 01:37 Ankle Left 3 View XRAY In Process Unspecified. EDMS 01:37 Foot Left 3 View XRAY In Process Unspecified. EDMS 02:00 US Extremity Venous Unilateral Ltd In Process Unspecified. EDMS 02:00 No provider procedures requiring assistance completed. Patient did not have IV access ea during this emergency room visit. Administered Medications: 00:28 Drug: [place] 5 mg-325 mg 1 tabs {Note: RASS 0.} Route: PO; ea 02:12 Follow up: Response: No adverse reaction; RASS: Alert and Calm (0) ea Outcome: 01:30 Discharge ordered by . pkl 02:00 Discharged to home via wheelchair, with family. ea 02:00 Condition: stable 02:00 Discharge instructions given to patient, family, Instructed on discharge instructions, follow up and referral plans. medication usage, Demonstrated understanding of instructions, follow-up care, medications, Prescriptions given X 1. 02:06 Patient left the ED. ea Signatures: Dispatcher [employer] Whit Lee RN RN 5 Rober Ramey MD MD pk SmithDomiinci ds Astrid Patel, EDIE RN armando Corrections: (The following items were deleted from the chart) 02:12 01:30 Response: No adverse reaction ea ea
--- NOTE | 2019-03-28 01:58 | EDPHYS ---
Physician Documentation [facility] Name: Ember Meade Age: 79 yrs Sex: Female : 1940 Arrival Date: 03/27/2019 Time: 23:07 Bed 6 Private MD: ED Physician Rober Ramey HPI: 03/28 00:21 This 79 yrs old Female presents to ER via Wheelchair with complaints of Leg pkl Pain - Ankle-L. 00:21 The patient presents with pain, that is acute. The complaints affect the left ankle and pkl foot. Onset: The symptoms/episode began/occurred 2 day(s) ago. Associated signs and symptoms: Pertinent positives: swelling, of the left leg. Historical: - Allergies: 03/27 23:41 NKA; dm5 - Home Meds: 23:41 tramadol 50 mg Oral tab 1 tab every 4 hours [Active]; Cymbalta 20 mg oral cpDR 1 cap 2 dm5 times per day [Active]; aspirin 81 mg Oral TbEC 2 tabs once daily [Active]; benztropine 0.5 mg Oral tab 1 tab once daily [Active]; carvedilol 3.125 mg Oral tab 1 tab 2 times per day [Active]; docusate sodium 100 mg Oral cap 1 cap 2 times per day [Active]; ropinirole 3 mg Oral tab 1 tab 4 times per day [Active]; quetiapine 25 mg oral tab 1 tab nightly [Active]; Restasis ophthalmic [Active]; alendronate 70 mg Oral tab 1 tab once wkly [Active]; aripiprazole 5 mg Oral tab 1 tab once daily [Active]; Calcium 500 + D Oral twice a day [Active]; duloxetine 30 mg Oral cpDR 1 cap once daily [Active]; - PMHx: 23:41 Depression; Esophagitis; Hypertension; Schizophrenia; dm5 - PSHx: 23:41 R Tibia fx repair; Appendectomy; dm5 - Immunization history:: Adult Immunizations up to date. - Social history:: Smoking status: Patient/guardian denies using tobacco. - Ebola Screening: : No symptoms or risks identified at this time. ROS: 03/28 00:21 Eyes: Negative for injury, pain, redness, and discharge, ENT: Negative for injury, pkl pain, and discharge, Neck: Negative for injury, pain, and swelling, Cardiovascular: Negative for chest pain, palpitations, and edema, Respiratory: Negative for shortness of breath, cough, wheezing, and pleuritic chest pain, Abdomen/GI: Negative for abdominal pain, nausea, vomiting, diarrhea, and constipation, Back: Negative for injury and pain, : Negative for injury, bleeding, discharge, and swelling. MS/extremity: Positive for pain, swelling, of the left leg and ankle. Skin: Negative for rash. Neuro: Negative for altered mental status. Exam: 00:21 Head/Face: Normocephalic, atraumatic. Eyes: Pupils equal round and reactive to light, pkl extra-ocular motions intact. Lids and lashes normal. Conjunctiva and sclera are non-icteric and not injected. Cornea within normal limits. Periorbital areas with no swelling, redness, or edema. ENT: Nares patent. No nasal discharge, no septal abnormalities noted. Tympanic membranes are normal and external auditory canals are clear. Oropharynx with no redness, swelling, or masses, exudates, or evidence of obstruction, uvula midline. Mucous membranes moist. Neck: Trachea midline, no thyromegaly or masses palpated, and no cervical lymphadenopathy. Supple, full range of motion without nuchal rigidity, or vertebral point tenderness. No Meningismus. Chest/axilla: Normal chest wall appearance and motion. Nontender with no deformity. No lesions are appreciated. Cardiovascular: Regular rate and rhythm with a normal S1 and S2. No gallops, murmurs, or rubs. Normal PMI, no JVD. No pulse deficits. Respiratory: Lungs have equal breath sounds bilaterally, clear to auscultation and percussion. No rales, rhonchi or wheezes noted. No increased work of breathing, no retractions or nasal flaring. Abdomen/GI: Soft, non-tender, with normal bowel sounds. No distension or tympany. No guarding or rebound. No evidence of tenderness throughout. Back: No spinal tenderness. No costovertebral tenderness. Full range of motion. Skin: Warm, dry with normal turgor. Normal color with no rashes, no lesions, and no evidence of cellulitis. Neuro: Awake and alert, GCS 15, oriented to person, place, time, and situation. Cranial nerves II-XII grossly intact. Motor strength 5/5 in all extremities. Sensory grossly intact. Cerebellar exam normal. Normal gait. 00:21 Musculoskeletal/extremity: Extremities: grossly normal except: noted in the left leg: pain, swelling, noted in the left ankle and foot: pain, swelling, tenderness. Vital Signs: 03/27 23:41 BP 113 / 61; Pulse 76; Resp 18; Temp 97.7; Pulse Ox 98% on R/A; Weight 61.23 kg; Height dm5 4 ft. 10 in. (147.32 cm); Pain 3/; 03/28 01:27 BP 139 / 64; Pulse 70; Resp 18; Pulse Ox 98% ; ea 03/27 23:41 Body Mass Index 28.21 (61.23 kg, 147.32 cm) dm5 MDM: 00:10 Patient medically screened. pkl 01:28 Data reviewed: vital signs, nurses notes, radiologic studies, plain films, ultrasound. pkl 03/28 00:20 Order name: Ankle Left 3 View XRAY pkl 03/28 00:20 Order name: Foot Left 3 View XRAY pkl 03/28 00:20 Order name: US Extremity Venous Unilateral Ltd pkl Administered Medications: 00:28 Drug: [place] 5 mg-325 mg 1 tabs {Note: RASS 0.} Route: PO; ea 02:12 Follow up: Response: No adverse reaction; RASS: Alert and Calm (0) ea Disposition: 03/28/19 01:30 Discharged to Home. Impression: Pain left leg. - Condition is Stable. - Prescriptions for Tylenol- Codeine #3 300-30 mg Oral Tablet - take 1 tablet by ORAL route every 8 hours As needed; 15 tablet. - Medication Reconciliation Form, Thank You Letter, Antibiotic Education, Prescription Opioid Use form. - Follow up: Meng Curiel MD; When: 2 - 3 days; Reason: Re-evaluation by your physician. - Problem is new. - Symptoms have improved. Signatures: Dispatcher [employer] Whit Alonso RN RN dm5 Rober Ramey MD MD pkl Antunez, Elena, RN RN ea Corrections: (The following items were deleted from the chart) 02:06 01:30 03/28/2019 01:30 Discharged to Home. Impression: Pain left leg. Condition is ea Stable. Forms are Medication Reconciliation Form, Thank You Letter, Antibiotic Education, Prescription Opioid Use. Follow up: Meng Curiel; When: 2 - 3 days; Reason: Re-evaluation by your physician. Problem is new. Symptoms have improved. pkl
[2019-03-28 02:27] VITALS: TEMP 97.7; O2SAT 98
[2019-03-28 02:28] VITALS: BP 139/64
--- NOTE | 2019-03-28 07:52 | RAD REPORT ---
[facility] DES[facility]28[facility]2019 1:10 am CLINICAL HISTORY: left leg pain and swelling. COMPARISON: None. FINDINGS: Left common femoral, superficial femoral, popliteal and posterior tibial veins are compre ssible and demonstrate augmentation. Doppler demonstrates good flow. A 2.8 centimeter left Du's cyst IMPRESSION: No evidence of deep venous thrombosis involving the left lower extremity. 2.8 centimeter left Du's cyst
--- NOTE | 2019-03-28 07:54 | RAD REPORT ---
EXAM DESCRIPTION: RAD - Ankle Left 3 View -03/28/2019 12:55 am CLINICAL HISTORY: Left ankle pain FINDINGS: No fracture or dislocation is seen. Soft tissue swelling
--- NOTE | 2019-03-28 07:57 | RAD REPORT ---
EXAM DESCRIPTION: RAD - Foot Left 3 View - 03/28/2019 12:56 am CLINICAL HISTORY: Left Foot pain FINDINGS: The bones are osteoporotic. Soft tissue swelling is seen. Spur extends off posterior aspect of the calcaneus. 6 millimeter bony density lies medial to the medi al cuneiform bone. This presumably is chronic. An acute avulsion fracture although possible is consid ered less likely and should be correlated clinically. No dislocation
== END 2019-03-28 02:06 | disposition home or self-care (01) ==
LOC: ER 23:02
DX: M79.605 Pain in left leg (principal); I10 Essential (primary) hypertension; F32.9 Major depressive disorder, single episode, unspecified
CPT/HCPCS: 93971; 99284

== ENCOUNTER 2019-11-18 10:26 | Emergency (ER) | payer OTHER ==
--- OUTSIDE RECORDS SUMMARY | 2019-11-18 10:29 | XMS REPORT | Summary of Care ---
:1940 Author Organization [facility] Address [address] [place] [address] Care Team Providers Name Role Phone Pcp, Patient Does Not Have A Primary Care Provider +1-000-00 0-0000 Reason for Visit Radiology Services (Routine) Status Reason Specialty Diagnoses / Referred By Referred To Procedures Contact Contact New Request Diagnostic Diagnoses Pain Meng Bar Radiology Procedures XR KNEE <3 VW LEFT MD Eugene [address] [place] [address] Encounter Details Date Type Department Care Team Description 11/01/2019 [facility] [address] [facility] [address] [place] [phone] Allergies No Known Allergiesdocumented as of this encounter (statuses as of 11/02/2019) Medications Medication Sig Dispensed Refills Start Date End Date Status ARIPiprazole (ABILIFY) 5 Take 5 mg by 0 Active mg tablet mouth at bedtime. aspirin 81 mg chewable Take 81 mg by 0 Active tablet mouth daily. benztropine (COGENTIN) Take 0.5 mg by 0 Active 0.5 mg tablet mouth 2 (two) times daily. CALCIUM Take by mouth 2 0 Act deep CARBONATE/VITAMIN D3 (two) times (CALCIUM 500 + D, D3, daily. ORAL) carvedilol (COREG) 3.125 Take 3.125 mg by 0 Active mg tablet mouth 2 (two) times daily with meals. docusate (COLACE) 100 mg Take 100 mg by 0 Active capsule mouth 2 (two) times daily. DULoxetine (CYMBALTA) 30 Take 30 mg by 0 Active mg capsule mouth daily. escitalopram oxalate Take 10 mg by 0 Active (LEXAPRO) 10 mg tablet mouth at bedtime. ibandronate (BONIVA) 150 Take 150 mg by 0 Active mg tablet mouth once every month. meloxicam (MOBIC) 15 mg Take 15 mg by 0 Active tablet mouth daily. MULTIVIT-MIN/FA/CA Take by mouth. 0 Active CARB/VIT K (ONE-A-DAY WOMEN'S 50+ ORAL) bromfenac (PROLENSA) Place in left 0 Active 0.07 % Drop eye. QUEtiapine (SEROQUEL) 50 Take 50 mg by 0 Active mg tablet mouth at bedtime. cycloSPORINE (RESTASIS) Place 1 Drop in 0 Active 0.05 % drops both eyes every 12 (twelve) hours. rOPINIRole (REQUIP) 3 mg Take 3 mg by 0 Active tablet mouth 4 (four) times daily. tiZANidine (ZANAFLEX) 4 Take 4 mg by 0 Active mg tabletIndications: mouth every 6 1/2 tablet as needed (six) hours as needed. Indications: 1/2 tablet as needed diclofenac (VOLTAREN) 75 0 12/27/2014 Active mg EC tablet methylPREDNISolone Take 21 tablets 1 Each 0 05/17/2017 Active (MEDROL, LEXY,) 4 mg by mouth tablets SEE-INSTRUCTIONS . follow package directions alendronate 70 mg tablet Take 70 mg by 0 Active mouth. sulfamethoxazole-trimeth TAKE 1 TABLET BY 0 05/12/19 18 Active oprim 800-160 mg per MOUTH EVERY 12 tablet HOURS FOR 10 DAYS documented as of this encounter (statuses as of 11/02/2019) Active Problems Problem Noted Date Lumbar radiculopathy 01/28/2015 documented as of this encounter (statuses as of 11/02/2019) Social History Tobacco Use Types Packs/Day Years Used Date Never Smoker Smokeless Tobacco: Never Used Alcohol Use Drinks/Week oz/Week Comments No 0 Standard drinks or equivalent 0.0 Sex Assigned at Date Recorded Not on file COVID-19 Exposure Response Date Recorded In the last month, have you been in contact with No / Unsure 11/01/2019 2:45 PM CDT someone who was confirmed or suspected to have Coronavirus / COVID-19? documented as of this encounter Last Filed Vital Signs Not on filedocumented in this encounter Plan of Treatment Name Type Priority Associated Diagnoses Date/Ti me XR KNEE <3 VW LEFT IMAGING Routine Pain 0 3:11 PM CDT Name Type Priority Associated Diagnoses Order S chedule XR KNEE <3 VW LEFT IMAGING Routine Pain ONCE for 1 Occurrences starting 2019 until 11/01/2019 Health Maintenance Due Date Last Done Comments DTaP,Tdap,and Td Vaccines (1 - Tdap) 1957 Zoster Recombinant Vaccine (SHINGRIX) (1 of 2) 01/06/1988 Medicare Wellness Visit 2003 Osteoporosis Screening 2003 PNEUMOCOCCAL VACCINES 65+ (1 of 1 - PPSV23) 2003 INFLUENZA VACCINE (#1) 2019 Depression Screening 03/23/2020 03/23/2019 documented as of this encounter Results Not on filedocumented in this encounter Visit Diagnoses Diagnosis Pain Generalized pain documented in this encounter Insurance Payer Benefit Plan / Subscriber ID Effective Dates Phone Addre ss Type Group MEDICARE MEDICARE PART [id number] 1972-Presen [phone] Medicare A & B t 2 [id number] [place] [address] [facility] MEDICAID OF [id number] 2014-Presen [phone] Medicaid [place] t 0 [id number] [place] [address] documented as of this encounter
--- OUTSIDE RECORDS SUMMARY | 2019-11-18 10:29 | XMS REPORT | Continuity of Care Document ---
:1940 Author Organization [facility] Address [address] [place] [address] Care Team Providers Name Role Phone Hudson SWARTZ Primary Care Physician Unavailable [place] ALLRED Attending Clinician Unavailable Doctor Unassigned, Name Attending Clinician Unavailable Dipika GONZALEZ, L Attending Clinician Austin IRIZARRY, G Attending Clinician Unavailable [place] ALLRED Admitting Clinician Unavailable Payers Payer Name Policy Type Policy Number Effective Date Expiration Date S our MEDICARE PART A AND [id number] 1974 B 00:00:00 [place]ICA[place] [id number] 2015 TRADITIONAL STAR 00:00:00 PLUS SSI Problems Condition Condition Condition Status Onset Resolution Last Treating Co mments Source Name Details Category Date Date Treatment Clinician Date Personal Personal Disease Active 2016-03 Overview: history of history of 0-09 Added An derso colonic colonic 00:00: automatic n polyp polyp 00 ally from request for surgery [id number] Allergies, Adverse Reactions, Alerts This patient has no known allergies or adverse reactions. Family History Family Member Diagnosis Comments Start Date Stop Date Source Natural father Heart disease MD Quang hurst Natural mother Heart disease MD Quang hurst Social History Social Habit Start Date Stop Date Quantity Comments Source Sex Assigned At MD Zendejas on Tobacco use and 2017-11-29 2017-11-29 Never used MD Zendejas on exposure 00:00:00 00:00:00 Alcohol intake 2017-11-29 2017-11-29 Current drinker MD Dora anton 00:00:00 00:00:00 of alcohol (finding) Alcohol Comment 2015-09-20 2015-09-20 paxton Zendejas on 00:00:00 00:00:00 Smoking Status Start Date Stop Date Source Never smoker MD [place] Medications Ordered Filled Start Stop Current Ordering Indication Dosage Frequency Signature Comments Components Source Medication Medication Date Date Medication? Clinician (SIG) Name Name ARIPiprazol 2018-0 Yes 5mg Take 5 mg M D e (ABILIFY) 907 by mouth Quang rso 10 mg 15:37: at n tablet 36 bedtime. IBANDRONATE 2018-0 Yes 150mg Take 150 M D SODIUM 9-07 mg by Anderso (BONIVA 15:37: mouth n ORAL) 36 daily. carvedilol 2018-0 Yes 1{tbl} Take 1 MD (COREG) 11-26 tablet by Anderso 3.125 mg 15:37: mouth n tablet 36 daily. QUEtiapine 2018-0 Yes 25mg Take 25 mg M D (SEROquel) 07 by mouth Rishi so 25 mg 15:37: at n tablet 36 bedtime. bisacodyl 2018-0 Yes 10mg Take 10 mg MD (DULCOLAX) 07 by mouth 3 And erso 5 mg EC 15:37: (three) n tablet 36 times a day. calcium 2018-0 Yes 1{tbl} Take 1 MD carbonate-v 11-26 tablet by And erso itamin D3 15:37: mouth 2 n (calcium-vi 36 (two) tamin D) times a 1,250 mg day with (500 mg as meals. elemental)- 200 units tablet rOPINIRole 2018-0 Yes 3mg Take 3 mg MD (REQUIP) 3 07 by mouth 4 And erso mg tablet 15:37: (four) n 36 times a day. tiZANidine 2018-0 Yes 2mg Take 2 mg MD (ZANAFLEX) 07 by mouth 3 And erso 4 MG 15:37: (three) n capsule 36 times a day. traMADol 2018-0 Yes 50mg Take 50 mg MD (ULTRAM) 50 07 by mouth Quang rso mg tablet 15:37: every 4 n 36 (four) hours as needed. DULoxetine 2018-0 Yes 30mg Take 30 mg M D (CYMBALTA) 907 by mouth Rishi so 30 mg 15:37: daily. n capsule 36 escitalopra 2018-0 Yes 10mg Take 10 mg MD m (LEXAPRO) 11-26 by mouth. And erso 10 mg 15:37: n tablet 36 meloxicam Yes 15mg Take 15 mg MD (MOBIC) 15 11-26 by mouth Rishi so mg tablet 15:37: daily. n 36 aspirin 81 Yes 81mg Take 81 mg M D mg EC 11-26 by mouth Anderso tablet 15:37: daily. n 36 cycloSPORIN Yes 1[drp] Administer MD E 11-26 1 drop to Anderso (RESTASIS) 15:37: both eyes n 0.05% 36 twice ophthalmic daily. emulsion alendronate Yes postmenopau 70mg Take 70 mg MD (FOSAMAX) 11-26 valeria by mouth Aashish o 70 mg 15:37: osteoporosi every 7 n tablet 36 s days. . peg Yes Colonoscopy Use as MD 3350-electr 11-16 planned directed A celia benton 00:00: by n (GOLYTELY) 00 ordering [id number] provider. .74 g solution promethazin Yes 5mL Take 5 mL M D e-codeine 1-20 by mouth Aashish o (PHENERGAN 00:00: nightly as n with 00 needed. CODEINE) 6.25-10 mg/5 mL syrup Procedures This patient has no known procedures. Plan of Care Planned Activity Planned Date Details Comments Source Future Appointment 2019-12-05 09:50:00 Tahira Allred MD, [address] [place] [address] Future Appointment 2019-12-05 09:50:00 Tahira Allred MD, [address], [place] [address] Encounters Start End Encounter Admission Attending Care Care Encounter Source Date/Time Date/Time Type Type Clinicians Facility Department ID 2019-09-14 Outpatient HUBER ALLRED Tommy/Hep/Nu [id number] 06:51:13 TAHIRA ma 2019-12-04 2019-12-04 Outpatient [facility] [id number] 00:00:00 00:00:00 Aashish o n 2019-11-09 2019-11-09 Orders Doctor SHEIKH [id number] 00:00:00 00:00:00 Only Unassigned, [place] [id number] [facility] [id number] 2019-11-01 2019-11-01 Office Dipika TNROSA [id number] 14:43:31 15:28:43 Visit [facility] [id number] Surgical [id number] Special [id number] [address] Results This patient has no known results.
--- OUTSIDE RECORDS SUMMARY | 2019-11-18 10:29 | XMS REPORT | Summary of Care ---
:1940 Author Organization [facility] Address [address] [place] [address] Care Team Providers Name Role Phone Pcp, Patient Does Not Have A Primary Care Provider +[id number] 0-0000 Reason for Referral Radiology Services (Routine) Status Reason Specialty Diagnoses / Referred By Referred To Procedures Contact Contact New Request Diagnostic Diagnoses Pain Meng Bar Radiology Procedures XR KNEE <3 VW LEFT MD Eugene [address] [place] [address] Reason for Visit Reason Comments New Evaluation Lt knee pain Encounter Details Date Type Department Care Team Description 11/01/2019 Office Visit [facility] [place] [facility]opaedic Meng Bar , Pain (Primary Dx) Surgery- Felipa GONZALEZ [address] [facility] [address] [place] [address] [address] [place], [place] [phone] Allergies No Known Allergiesdocumented as of this encounter (statuses as of 11/08/2019) Medications Medication Sig Dispensed Refills Start Date [...] as of this encounter (statuses as of 11/08/2019) Active Problems Problem Noted Date Lumbar radiculopathy 01/28/2015 documented as of this encounter (statuses as of 11/08/2019) Social History Tobacco Use Types Packs/Day Years [...] of this encounter Last Filed Vital Signs Vital Sign Reading Time Taken Comments Blood Pressure 137/80 11/01/2019 2:59 PM CDT Pulse 80 11/01/2019 2:59 PM CDT Temperature - - Respiratory Rate - - Oxygen Saturation - - Inhaled Oxygen Concentration - - Weight 61.2 kg (135 lb) 11/01/2019 2:51 PM CDT stated Height 149.9 cm (4' 11") 11/01/2019 2:51 PM CDT Body Mass Index 27.27 11/01/2019 2:51 PM CDT documented in this encounter Progress Notes Meng Bar MD - 11/01/2019 3:00 PM CDT Cc: Chief Complaint Patient presents with New Evaluation Lt knee pain Vitals: 11/01/19 1451 BP: (!) 170/82 Pulse: 87 Weight: 61.2 kg (135 lb) Height: 59" (149.9 cm) [id number] [place], [place] - [address] AT [facility] X months, 03/2019 Xray, and US done at [facility]. Has swelling in leg to her foot. Came in wbat using walker. Brought in films with reports. Has not been able to come in sooner due to covid. 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 Painful with physical activity, bending, standing, walking, squatting. All Vitals taken, allergies and all medications reviewed, fall risk assessed. Pain level 4. Josefina Schmidt 11/01/2019 2:53 PM Ember Meade is a 79 year old female. Knee Pain The incident occurred more than 1 week ago. The incident occurred at home. There was no injury mechanism. The pain is present in the left knee. The quality of the pain is described as aching, burning and stabbing. The pain is at a severity of 8/10. The pain is severe. The pain has been worsening sinceonset. Associated symptoms include an inability to bear weight and a loss of motion. The symptoms are aggravated by movement and weight bearing. She has tried NSAIDs, non-weight bearing, rest, immobilization, ice, heat, elevation and acetaminophen for the symptoms. The treatment provided no relief. Allergies Ember has No Known Allergies. Medications Outpatient Medications Prior to Visit Medication Sig Dispense Refill alendronate 70 mg tablet Take 70 mg by mouth. sulfamethoxazole-trimethoprim 800-160 mg per tablet TAKE 1 TABLET BY MOUTH EVERY 12 HOURS FOR 10DAYS 0 methylPREDNISolone (MEDROL, LEXY,) 4 mg tablets Take 21 tablets by mouth SEE- INSTRUCTIONS. followpackage directions 1 Each 0 diclofenac (VOLTAREN) 75 mg EC tablet ARIPiprazole (ABILIFY) 5 mg tablet Take 5 mg by mouth at bedtime. aspirin 81 mg chewable tablet Take 81 mg by mouth daily. benztropine (COGENTIN) 0.5 mg tablet Take 0.5 mg by mouth 2 (two) times daily. bromfenac (PROLENSA) 0.07 % Drop Place in left eye. CALCIUM CARBONATE/VITAMIN D3 (CALCIUM 500 + D, D3, ORAL) Take by mouth 2 (two) times daily. carvedilol (COREG) 3.125 mg tablet Take 3.125 mg by mouth 2 (two) times daily with meals. cycloSPORINE (RESTASIS) 0.05 % drops Place 1 Drop in both eyes every 12 (twelve) hours. docusate (COLACE) 100 mg capsule Take 100 mg by mouth 2 (two) times daily. DULoxetine (CYMBALTA) 30 mg capsule Take 30 mg by mouth daily. escitalopram oxalate (LEXAPRO) 10 mg tablet Take 10 mg by mouth at bedtime. ibandronate (BONIVA) 150 mg tablet Take 150 mg by mouth once every month. meloxicam (MOBIC) 15 mg tablet Take 15 mg by mouth daily. MULTIVIT-MIN/FA/CA CARB/VIT K (ONE-A-DAY WOMEN'S 50+ ORAL) Take by mouth. QUEtiapine (SEROQUEL) 50 mg tablet Take 50 mg by mouth at bedtime. rOPINIRole (REQUIP) 3 mg tablet Take 3 mg by mouth 4 (four) times daily. tiZANidine (ZANAFLEX) 4 mg tablet Take 4 mg by mouth every 6 (six) hours as needed. Indications:1/2 tablet as needed No facility-administered medications prior to visit. Histories Past Medical History: Diagnosis Date Hypertension Schizophrenia Tremor Past Surgical History: Procedure Laterality Date APPENDECTOMY IN COLONOSCOPY STOMA RMVL LES BY HOT BIOPSY FORCEPS 08/2014 TIBIA ORIF Right 10/[address] Bar Social History Socioeconomic History Marital status: Single Spouse name: Not on file Number of children: Not on file Years of education: Not on file Highest education level: Not on file Occupational History Not on file Social Needs Financial resource strain: Not on file Food insecurity Worry: Not on file Inability: Not on file Transportation needs Medical: Not on file Non-medical: Not on file Tobacco Use Smoking status: Never Smoker Smokeless tobacco: Never Used Substance and Sexual Activity Alcohol use: No Alcohol/week: 0.0 standard drinks Drug use: Not on file Sexual activity: Not on file Lifestyle Physical activity Days per week: Not on file Minutes per session: Not on file Stress: Not on file Relationships Social connections Talks on phone: Not on file Gets together: Not on file Attends jewish service: Not on file Active member of club or organization: Not on file Attends meetings of clubs or organizations: Not on file Relationship status: Not on file Intimate partner violence Fear of current or ex partner: Not on file Emotionally abused: Not on file Physically abused: Not on file Forced sexual activity: Not on file Other Topics Concern Not on file Social History Narrative Not on file Family History Problem Relation Age of Onset Heart Mother Heart Father Review of Systems Constitutional: Negative. HENT: Negative. Eyes: Negative. Respiratory: Negative. Breasts: Negative. Cardiovascular: Negative. Gastrointestinal: Negative. Genitourinary: Negative. Musculoskeletal: Positive for joint swelling. Skin: Negative. Neurological: Negative. Psychiatric/Behavioral: Negative. Endocrine: Endocrine negative Vital Signs Physical Exam Vitals signs and nursing note reviewed. Musculoskeletal: Comments: General: Well-developed well-nourished oriented to person place and time HEENT normocephalic atraumatic atraumatic pupils equal round reactive to light extraocular muscles intact Cervical thoracic and lumbar spine without focal deficit normal kyphosis and lordosis Chest clear to auscultation and percussion Cardiovascular regular rate and rhythm without gallop rub or murmur soft without organomegaly Normal bowel sounds Neurologic: Focal myotome or dermatomal deficits Vascular: Intact symmetrical bilateral upper and lower extremities Skin without stasis varicosities or breakdown Extremities without cyanosis clubbing or edema Lymphatics no peripheral lymphedema Psych normal mood and affect. Neurovascular function is intact. To include brisk capillary refill warm pink skin active motor function and sensory function intact. Assessment/Plan Left knee osteoarthritis Patient's knee(s) is/are wearing out and will eventually need a total knee replacement but will takepreventative measures prior to discussing surgery. Will take this in a stepwise fashion first beginning with NSAIDs. Next would be a cortisone injection. A cortisone injection will only help with the inflammatory response. Cortisone injections will be given no less than 3 months in a 3 year time frame. Hymalecular weight hylaronic acid injection series would follow cortisone injections. If the response is well to the cortisone this is usually an indication of how one will respond to Hymalecular weight hylaronic injections. These injections are given once weekly to the affected knee for 3 weeks. This can give at least 6 months of relief in 3 out of 4 people. If these steps do not help the last option would be to have a total knee replacement. The Rehab department will reach out to discuss making an appointment for an informational session called Total Replacement Boot Camp. This does not mean you are ready for a total knee replacement, it's simply preparation should you eventually decide to have/need a joint replacement. Patient's only option at this point is to have a total knee replacement. Prescription for an uploading brace written today. documented in this encounter Plan of Treatment Name Type Priority Associated Diagnoses Date/Ti me XR KNEE <3 VW LEFT IMAGING Routine Pain 0 3:11 PM CDT Name Type Priority Associated Diagnoses Order S chedule XR KNEE <3 VW LEFT IMAGING Routine Pain Expected: 11/01/2019, Expires: 2020 Health Maintenance Due Date Last Done Comments DTaP,Tdap,and Td Vaccines (1 - Tdap) 1957 Zoster Recombinant Vaccine (SHINGRIX) (1 of 2) 01/06/1988 Medicare Wellness Visit 2003 Osteoporosis Screening 2003 PNEUMOCOCCAL VACCINES 65+ (1 of 1 - PPSV23) 2003 INFLUENZA VACCINE (#1) 2019 Depression Screening 03/23/2020 03/23/2019 documented as of this encounter Results Not on filedocumented in this encounter Visit Diagnoses Diagnosis Pain - Primary Generalized pain documented in this encounter Insurance Payer Benefit Plan / Subscriber ID Effective Dates Phone Addre ss Type Group MEDICARE MEDICARE PART [id number] 1974-Jane [phone] Medicare A & B t 2 [id number] [place] [id number] [facility] MEDICAID OF [id number] 2014-Jane [phone] Medicaid [place] t 0 [id number] [place] [address] documented as of this encounter
--- OUTSIDE RECORDS SUMMARY | 2019-11-18 10:29 | XMS REPORT | Summary of Care ---
:1940 Author Organization [facility] Address [address] [place] [address] Care Team Providers Name Role Phone Pcp, Patient Does Not Have A Primary Care Provider +[id number] 0-0000 Encounter Details Date Type Department Care Team Description 11/09/2019 Orders Only [facility] Doctor Unassigned, No [address] [facility] [place] [address] [address] [place] [address] Allergies No Known Allergiesdocumented as of this encounter (statuses as of 11/09/2019) Medications Medication Sig Dispensed Refills Start Date [...] as of this encounter (statuses as of 11/09/2019) Active Problems Problem Noted Date Lumbar radiculopathy 01/28/2015 documented as of this encounter (statuses as of 11/09/2019) Social History Tobacco Use Types Packs/Day Years [...] filedocumented in this encounter Plan of Treatment Health Maintenance Due Date Last Done Comments DTaP,Tdap,and Td Vaccines (1 - Tdap) 1957 Zoster Recombinant Vaccine (SHINGRIX) (1 of 2) 01/06/1988 Medicare Wellness Visit 2003 Osteoporosis Screening 2003 PNEUMOCOCCAL VACCINES 65+ (1 of 1 - PPSV23) 2003 INFLUENZA VACCINE (#1) 2019 Depression Screening 03/23/2020 03/23/2019 documented as of this encounter Procedures Procedure Name Priority Date/Time Associated Diagnosis Comme nts EXTERNAL PROVIDER Routine 11/09/2019 12:01 AM CDT RECORDS documented in this encounter Results Not on filedocumented in this encounter Insurance Payer Benefit Plan / Subscriber ID Effective Dates Phone Addre ss Type Group MEDICARE MEDICARE PART [id number] 1974-[place] [phone] Medicare A & B t 2 [id number] [place] [id number] [facility] MEDICAID OF [id number] 2016-Jane [phone] Medicaid [place] t 0 [id number] [place] [address] documented as of this encounter
--- OUTSIDE RECORDS SUMMARY | 2019-11-18 10:29 | XMS REPORT | Summary of Care ---
:1940 Author Organization [facility] Address [address] [place] [address] Care Team Providers Name Role Phone Pcp, Patient Does Not Have A Primary Care Provider +1-000-00 0-0000 Reason for Referral Radiology Services (Routine) Status Reason Specialty Diagnoses / Referred By Referred To Procedures Contact Contact New Request Diagnostic Diagnoses Pain Meng Bar Radiology Procedures XR KNEE <3 VW LEFT MD Eugene [address] [place] [address] Reason for Visit Reason Comments New Evaluation Lt knee pain Encounter Details Date Type Department Care Team Description 11/01/2019 Office Visit [facility] Orthopaedic Meng Bar , Pain (Primary Dx) Surgery- Felipa GONZALEZ [address] [facility] [address] [place] [address] [address] [place], [place] [phone] Allergies No Known Allergiesdocumented as of [...] Height: 59" (149.9 cm) [id number] [place], [place] - [address] AT [facility] X months, 03/2019 Xray, and US done at [facility]. Has swelling in leg to her [...] Past Surgical History: Procedure Laterality Date APPENDECTOMY CA COLONOSCOPY STOMA RMVL LES BY HOT BIOPSY [...] Addre ss Type Group MEDICARE MEDICARE PART [id number] 1974-Jane [phone] Medicare A & B t 2 [id number] [place] [id number] [facility] MEDICAID OF [id number] 2016-Jane [phone] Medicaid [place] t 0 [id number] [place] [address] documented as of this encounter
--- NOTE | 2019-11-18 11:54 | RAD REPORT ---
EXAM DESCRIPTION: CT - [id number] - 11/18/2019 11:23 am CLINICAL HISTORY: PAINfall, head and neck trauma COMPARISON: Head C Spine Mpr Wo Con dated 02/13/2019 TECHNIQUE: Axial 5 mm thick images of the head were obtained. Axial 2 mm thick images of the cervic al spine were obtained with sagittal and coronal reconstruction images generated and reviewed. All CT scans are performed using dose optimization technique as appropriate and may include automated exposure control or mA/KV adjustment according to patient size. FINDINGS: No intracranial hemorrhage, mass, edema or acute intracranial finding. No acute cortical b ased infarction. Atrophy and chronic ischemic changes are present with ventricles in proportion. Occupational Therapy Assist binh ischemic changes are present. Arterial and physiologic calcifications are present. No extra-axial fluid collections. Mastoid air cells and paranasal sinuses are clear. No globe or orbit abnormality seen. Intracranial findings are similar to comparison. Cervical bodies are normal in height. Anterior subluxation C3 on C4 has not changed. Slight anterior subluxation C7 on T1 also unchanged. All disc spaces except C2-3 show loss in height. This is severe at C6-7. Advanced endplate degenerative change noted at the C6-7 level. No fracture or acute bony abn ormality. Bony foraminal encroachment noted on the left at C3-4, left C4-5. Canal is borderline steno tic at C6-7. Central canal detail is inherently limited. No paraspinal mass or hematoma. IMPRESSION: Atrophy and chronic ischemic changes matching comparison. No acute intracranial finding. Advanced cervical spine degenerative change without acute finding. Pattern is similar to comparison. Negative CT cervical spine examination for acute or significant finding.
--- NOTE | 2019-11-18 11:58 | RAD REPORT ---
EXAM DESCRIPTION: Shoulder Right 2 View - 11/18/2019 11:37 am CLINICAL HISTORY: PAIN, fall with shoulder trauma COMPARISON: No comparisons TECHNIQUE: Internal and external rotation views of the right shoulder were obtained. FINDINGS: There is no fracture or dislocation. Mild degenerative change at the AC joint. Acromial h umeral joint space is normal. No acute or suspicious findings. IMPRESSION: No fracture or acute finding identifiable.
--- NOTE | 2019-11-18 12:17 | ER ---
Nurse's Notes [facility] Name: Ember Meade Age: 79 yrs Sex: Female : 1940 Arrival Date: 11/18/2019 Time: 10:27 Bed 13 Private MD: Diagnosis: Acute post-traumatic headache Presentation: 11/17 10:37 Chief complaint: Patient states: Was cleaning under a table 30 minutes ago when she ss lost balance and fell backwards and hit the back of her head on the floor. Denies pain. No obvious injury noted. Denies LOC. Coronavirus screen: Client denies travel out of the [place] in the last 14 days. Ebola Screen: Patient denies exposure to infectious person. Patient denies travel to an Ebola-affected area in the 21 days before illness onset. Initial Sepsis Screen: Does the patient meet any 2 criteria? No. Patient's initial sepsis screen is negative. Does the patient have a suspected source of infection? No. Patient's initial sepsis screen is negative. Risk Assessment: Do you want to hurt yourself or someone else? Patient reports no desire to harm self or others. Onset of symptoms was November 18, 2019. 10:37 Method Of Arrival: Wheelchair ss 10:37 Acuity: SANTOSH 4 ss Historical: - Allergies: 10:35 No Known Drug Allergies; ss - PMHx: 10:35 Anemia; Esophagitis; Hypertension; Schizophrenia; Depression; ss - PSHx: 10:35 R Tibia fx repair; Appendectomy; ss - Immunization history:: Adult Immunizations up to date. - Social history:: Smoking status: Patient denies any tobacco usage or history of. Patient/guardian denies using alcohol, street drugs, The patient lives with family. - Family history:: not pertinent. Screenin:05 Abuse screen: Denies threats or abuse. Denies injuries from another. Nutritional iw screening: No deficits noted. Tuberculosis screening: No symptoms or risk factors identified. Fall Risk Fall in past 12 months (25 points). Assessment: 11:04 General: Appears in no apparent distress. Behavior is calm, cooperative. Pain: iw Complains of pain in back of head. Neuro: Level of Consciousness is awake, alert, obeys commands, Moves all extremities. Cardiovascular: Patient's skin is warm and dry. Respiratory: Respiratory effort is even, unlabored. Derm: Skin is fragile, is thin. 12:01 Reassessment: Patient appears in no apparent distress at this time. Patient and/or ls4 family updated on plan of care and expected duration. Pain level reassessed. Patient is alert, oriented x 3, equal unlabored respirations, skin warm/dry/pink. Vital Signs: 10:35 BP 157 / 78; Pulse 71; Resp 17; Temp 97.6(O); Pulse Ox 98% on R/A; Weight 58.97 kg; ss Height 4 ft. 10 in. (147.32 cm); Pain 0/10; 10:37 BP 157 / 78; Pulse 71; Resp 17; Temp 97.6(O); Pulse Ox 98% on R/A; Weight 58.97 kg; ss Height 4 ft. 10 in. (147.32 cm); Pain 0/10; 10:37 Body Mass Index 27.17 (58.97 kg, 147.32 cm) ED Course: 10:27 Patient arrived in ED. ds1 10:35 Arm band placed on right wrist. ss 10:38 Triage completed. ss 10:41 Khanh Silver MD is Attending Physician. ma2 10:57 Serena Henry, EDIE is Primary Nurse. iw 11:23 CT Head C Spine In Process Unspecified. EDMS 11:38 Shoulder Right (2 View) XRAY In Process Unspecified. EDMS 12:49 Patient did not have IV access during this emergency room visit. ls4 Administered Medications: No medications were administered Outcome: 12:17 Discharge ordered by . ma2 12:48 Discharged to home via wheelchair, DAUGHTER BROUG[facility] HER BACK TO [facility]. DISCHARGE ls4 PAPERS AND PRESCRIPTION GIVEN TO HER. 12:48 Condition: stable 12:48 Discharge instructions given to patient, family, Instructed on discharge instructions, follow up and referral plans. medication usage, safety practices, Demonstrated understanding of instructions, follow-up care, medications, Prescriptions given X 1. 12:49 Patient left the ED. ls4 Signatures: Dispatcher [employer] EDNV Shawna Smith ds1 Serena Henry, EDIE IRIZARRY Joselyn Bui RN RN Khanh Silver MD MD ma2 Sherley Velazquez RN RN ls4
--- NOTE | 2019-11-18 12:17 | EDPHYS ---
Physician Documentation [facility] Name: Ember Meade Age: 79 yrs Sex: Female : 1940 Arrival Date: 11/18/2019 Time: 10:27 Bed 13 Private MD: ED Physician Khanh Silver HPI: 11/17 11:41 This 79 yrs old Female presents to ER via Wheelchair with complaints of Fall ma2 Injury - Hit Head. 11:41 Details of fall: The patient fell from a height. Onset: The symptoms/episode ma2 began/occurred suddenly, 1 day(s) ago. Severity of symptoms: At their worst the symptoms were moderate, in the emergency department the symptoms are unchanged. The patient has not experienced similar symptoms in the past. Historical: - Allergies: 10:35 No Known Drug Allergies; ss - PMHx: 10:35 Anemia; Esophagitis; Hypertension; Schizophrenia; Depression; ss - PSHx: 10:35 R Tibia fx repair; Appendectomy; ss - Immunization history:: Adult Immunizations up to date. - Social history:: Smoking status: Patient denies any tobacco usage or history of. Patient/guardian denies using alcohol, street drugs, The patient lives with family. - Family history:: not pertinent. ROS: 11:41 Constitutional: Negative for fever, chills, and weight loss. ma2 11:41 All other systems are negative. Exam: 11:41 Constitutional: This is a well developed, well nourished patient who is awake, alert, ma2 and in no acute distress. Head/Face: Normocephalic, atraumatic. ENT: Nares patent. No nasal discharge, no septal abnormalities noted. Tympanic membranes are normal and external auditory canals are clear. Oropharynx with no redness, swelling, or masses, exudates, or evidence of obstruction, uvula midline. Mucous membranes moist. Chest/axilla: Normal chest wall appearance and motion. Nontender with no deformity. No lesions are appreciated. Cardiovascular: Regular rate and rhythm with a normal S1 and S2. No gallops, murmurs, or rubs. Normal PMI, no JVD. No pulse deficits. Respiratory: Lungs have equal breath sounds bilaterally, clear to auscultation and percussion. No rales, rhonchi or wheezes noted. No increased work of breathing, no retractions or nasal flaring. Abdomen/GI: Soft, non-tender, with normal bowel sounds. No distension or tympany. No guarding or rebound. No evidence of tenderness throughout. Skin: Warm, dry with normal turgor. Normal color with no rashes, no lesions, and no evidence of cellulitis. MS/ Extremity: Pulses equal, no cyanosis. Neurovascular intact. Full, normal range of motion. Neuro: Awake and alert, GCS 15, oriented to person, place, time, and situation. Cranial nerves II-XII grossly intact. Motor strength 5/5 in all extremities. Sensory grossly intact. Cerebellar exam normal. Normal gait. Vital Signs: 10:35 BP 157 / 78; Pulse 71; Resp 17; Temp 97.6(O); Pulse Ox 98% on R/A; Weight 58.97 kg; ss Height 4 ft. 10 in. (147.32 cm); Pain 0/10; 10:37 BP 157 / 78; Pulse 71; Resp 17; Temp 97.6(O); Pulse Ox 98% on R/A; Weight 58.97 kg; ss Height 4 ft. 10 in. (147.32 cm); Pain 0/10; 10:37 Body Mass Index 27.17 (58.97 kg, 147.32 cm) MDM: 10:41 Patient medically screened. [facility] 11:41 Differential diagnosis: abrasion, fracture, laceration, multiple trauma, sprain, strain.[facility] 12:16 Data reviewed: vital signs, nurses notes. Counseling: I had a detailed discussion with [facility] the patient and/or guardian regarding: the historical points, exam findings, and any diagnostic results supporting the discharge/admit diagnosis, the presence of at least one elevated blood pressure reading (>120/80) during this emergency department visit, the need for outpatient follow up. Response to treatment: the patient's symptoms have markedly improved after treatment. 11/17 10:52 Order name: CT Head C Spine; Complete Time: 12:14 [facility] 11/17 10:52 Order name: Shoulder Right (2 View) XRAY; Complete Time: 12:14 nd2 Administered Medications: No medications were administered Disposition: 11/18/19 12:17 Discharged to Home. Impression: Acute post-traumatic headache. - Condition is Stable. - Discharge Instructions: Fall Prevention in Hospitals, Adult. - Prescriptions for Diclofenac Sodium 75 mg Oral Tablet Sustained Release - take 1 tablet by ORAL route 2 times per day; 30 tablet. - Medication Reconciliation Form, Thank You Letter, Antibiotic Education, Prescription Opioid Use form. - Follow up: Private Physician; When: Tomorrow; Reason: Continuance of care. Signatures: Dispatcher [employer] EDGA Joselyn Bui RN RN Khanh Silver MD MD ma2 Sherley Velazquez RN RN ls4 Corrections: (The following items were deleted from the chart) 12:49 12:17 11/18/2019 12:17 Discharged to Home. Impression: Acute post-traumatic headache. ls4 Condition is Stable. Forms are Medication Reconciliation Form, Thank You Letter, Antibiotic Education, Prescription Opioid Use. Follow up: Private Physician; When: Tomorrow; Reason: Continuance of care. ma2
[2019-11-22 00:55] VITALS: TEMP 97.4
[2019-11-22 00:56] VITALS: BP 101/50; O2SAT 99
== END 2019-11-18 12:49 | disposition home or self-care (01) ==
LOC: ER 10:26
DX: G44.319 Acute post-traumatic headache, not intractable (principal); W19.XXXA Unspecified fall, initial encounter; Y93.89 Activity, other specified; Y92.9 Unspecified place or not applicable; I10 Essential (primary) hypertension
CPT/HCPCS: 70450; 72125; 99283

== ENCOUNTER 2021-04-26 09:31 | Emergency (ER) | payer OTHER ==
--- OUTSIDE RECORDS SUMMARY | 2021-04-26 09:34 | XMS REPORT | Clinical Summary ---
:1940 Author Organization [facility] MD [facility] Address [address] [place] [address] Care Team Providers Name Role Phone Hudson Peña MD Primary Care Provider Joao Valdovinos MD Unavailable Joao Valdovinos MD Unavailable Rosalino Hastings MD Unavailable MD Prabhakar Unavailable Benito Martinez NP Unavailable Hudson Arriaga Unavailable Hudson Peña MD Unavailable Allergies No known active allergies Medications Medication Sig Dispensed Refills Start Date End Date Status promethazine-codeine Take 5 mL by mouth 0 04/10/2015 Active (PHENERGAN with nightly as needed. CODEINE) 6.25-10 mg/5 mL syrup ARIPiprazole (ABILIFY) Take 5 mg by mouth 0 Active 10 mg tablet at bedtime. IBANDRONATE SODIUM Take 150 mg by 0 Active (BONIVA ORAL) mouth daily. carvedilol (COREG) Take 1 tablet by 0 Active 3.125 mg tablet mouth daily. QUEtiapine (SEROquel) Take 25 mg by 0 Active 25 mg tablet mouth at bedtime. bisacodyl (DULCOLAX) 5 Take 10 mg by 0 Active mg EC tablet mouth 3 (three) times a day. calcium Take 1 tablet by 0 Act deep carbonate-vitamin D3 mouth 2 (two) (calcium-vitamin D) times a day with 1,250 mg (500 mg as meals. elemental)-200 units tablet rOPINIRole (REQUIP) 3 Take 3 mg by mouth 0 Active mg tablet 4 (four) times a day. tiZANidine (ZANAFLEX) Take 2 mg by mouth 0 Active 4 MG capsule 3 (three) times a day. traMADol (ULTRAM) 50 Take 50 mg by 0 Active mg tablet mouth every 4 (four) hours as needed. DULoxetine (CYMBALTA) Take 30 mg by 0 Active 30 mg capsule mouth daily. escitalopram (LEXAPRO) Take 10 mg by 0 Active 10 mg tablet mouth. meloxicam (MOBIC) 15 Take 15 mg by 0 Active mg tablet mouth daily. aspirin 81 mg EC Take 81 mg by 0 Active tablet mouth daily. cycloSPORINE Administer 1 drop 0 Active (RESTASIS) 0.05% to both eyes twice ophthalmic emulsion daily. alendronate (FOSAMAX) Take 70 mg by 0 Active 70 mg mouth every 7 tabletIndications: days. . postmenopausal osteoporosis peg 3350-electrolytes Use as directed by 4000 mL 0 8 Active ([employer]) ordering provider. 236-22.74-6.74 g solutionIndications: Colonoscopy planned peg 3350-electrolytes Use as directed by 4000 mL 0 0 Active ([employer] [place]) ordering provider. 236-22.74-6.74 g solutionIndications: Colonoscopy planned Active Problems Problem Noted Date Personal history of colonic polyp 12/28/2016 Overview: Added automatically from request for magdiel kim [id number] Surgical History Surgery Date Site/Laterality Comments COLONOSCOPY 02/11/2015 multiple OTHER SURGICAL 02/11/2015 EMR w/ [place] py HISTORY APPENDECTOMY TIBIA FRACTURE 03/22/2012 - Right w/ right tibial ludy insertion SURGERY 03/21/2013 GA 09/20/2015 Anus/N/A Procedure: DIAGN OSTIC FLEXIBLE SIGMOIDOSCOPY,DIAGNOS SIGMOIDOSC OPY, WITH OR WITHOUT TIC COLLECTION OF SP ECIMEN(S) BY BRUSHING OR WASH ING; Surgeon: Esperanza Stoddard i, MD; Location: MAIN ENDOSCOPY; Service: GASTROENTEROLOGY GA EGD TRANSORAL 09/20/2015 Anus/N/A Procedure: FLEX IBLE ENDOSCOPIC MUCOSAL ESOPHAGOGASTR ODUODENOSCOPY WITH RESECTION MUCOSAL RESECTIO N; Surgeon: Esperanza Allred MD; Location: MAIN ENDOSCOPY; Serv ice: GASTROENTEROLOGY GA 01/15/2016 Anus/N/A Procedure: DIAGN OSTIC FLEXIBLE SIGMOIDOSCOPY,DIAGNOS SIGMOIDOSC OPY, WITH OR WITHOUT TIC COLLECTION OF SP ECIMEN(S) BY BRUSHING OR WASH ING; Surgeon: Esperanza Stoddard i, MD; Location: MAIN ENDOSCOPY; Service: GASTROENTEROLOGY GA COLONOSCOPY FLX 04/17/2016 N/A Procedure: FL EXIBLE COLONOSCOPY W/ENDOSCOPIC MUCOSAL WITH ENDOSC OPIC MUCOSAL RESECTION; RESECTION Surgeon: Esperanza Allred MD; Location: MAIN E NDOSCOPY; Service: GASTROENTEROLOGY GA COLONOSCOPY FLX 11/06/2016 N/A Procedure: FL EXIBLE COLONOSCOPY W/ENDOSCOPIC MUCOSAL WITH ENDOSC OPIC MUCOSAL RESECTION; RESECTION Surgeon: Esperanza Allred MD; Location: MAIN E NDOSCOPY; Service: GASTROENTEROLOGY GA COLONOSCOPY FLX DX 11/26/2017 N/A Procedure: DIAGNOSTIC FLEXIBLE W/COLLJ SPEC WHEN COLONOSCOPY GA OXIMAL TO SPLENIC PFRMD FLEXURE; Surgeo n: Esperanza Allred MD; Lo cation: MAIN ENDOSCOPY; Serv ice: GASTROENTEROLOGY Medical History Medical History Date Comments Polyp Tubulovillous Adenom a Sciatica Schizophrenia mild since 1970s Hypertension Schizophrenia Family History Medical History Relation Name Comments Heart disease Father Heart disease Mother Relation Name Status Comments Father Mother Social History Tobacco Use Types Packs/Day Years Used Date Never Smoker Smokeless Tobacco: Never Used Alcohol Use Standard Drinks/Week Comments Yes 0 (1 standard drink = 0.6 oz pure alcoho l) rare Alcohol Habits Answer Date Recorded How often do you have a drink containing alcohol? Not asked How many drinks containing alcohol do you have on a typical Not asked day when you are drinking? How often do you have six or more drinks on one occasion? No t asked Comment: rare 09/20/2015 Sex Assigned at Date Recorded Not on file Obstetrics History Last Filed Vital Signs Not on file Plan of Treatment Health Maintenance Due Date Last Done Comments COVID-19 Vaccination (1) 1945 Results Not on fileafter 04/26/2020 Insurance Payer Benefit Plan / Subscriber ID Effective Phone Address T ype Group Dates MEDICARE MEDICARE PART A [id number] 1972-Pres [phone] [employer] Medicare AND B ent [address] [employer] [id number] [place] [id number] 2015-Pres [address] Medicaid TRADITIONAL TRADITIONAL ent [id number] [place] [address] Advance Directives Type Date Recorded Patient Core Fitter Explanati on Advance Directives: Medical 01/17/2015 12:00 AM Historical 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 of 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 Relationship Specialty Start Date End Date Rojas Peña MD PCP - General 05/22/[address] [place] [id number] Hola Valdovinos MD PCP - External Referring 12/24/14 [address] [facility] [address] [place] [address] Hola Valdovinos MD PCP - External Follow Up A 12/24/14 [address] [facility] [address] [place] [address] Kirk Hastings MD PCP - External Follow Up B 01/01/15 [address] [facility] [place] [address] Meng Radford MD Physician [address] [place] [address] Joi Martinez, HOME SUPPORT WORKER Nurse Practitioner 05/29/151514 [place] [address] Archana Arriaga PA Physician [employer] 05/29/15 [place] [address] Rojas Peña MD Physician 05/29/151514 [place] [address]
--- OUTSIDE RECORDS SUMMARY | 2021-04-26 09:40 | XMS REPORT | Continuity of Care Document ---
:1940 Author Organization [facility] t Address [address] [place] [place] [address] Care Team Providers Name Role Phone Hudson SWARTZ Primary Care Physician Unavailable [place] RCOW Attending Clinician Unavailable Doctor Unassigned, Name Attending Clinician Unavailable Stocks, W Attending Clinician Unavailable Ric GONZALEZ, L Attending Clinician Eugene LARIOS Attending Clinician Unavailable Ana Laura MORA S Attending Clinician Daisy DEE Attending Clinician Unavailable [place] CROW Admitting Clinician Unavailable Stocks, W Admitting Clinician Unavailable Payers Payer Name Policy Type Policy Number Effective Date Expiration Date S [facility] [place] A AND [id number] 1972 B 00:00:00 MEDICAID [place] [id number] 2015 TRADITIONAL STAR 00:00:00 PLUS SSI Problems Condition Condition Condition Status Onset Resolution Last Treating Co mments Source Name Details Category Date Date Treatment Clinician Date Personal Personal Disease Active 2016-03 Overview: history of history of 0-09 Formattin Anderso colonic colonic 00:00: g of this n polyp polyp 00 note might be different from the original. Added automatic ally from request for surgery [id number] Lumbar Lumbar Disease Active 2014-03 [facility] radiculopa radiculopa - it y of thy thy 00:00: [address] Branch Allergies, Adverse Reactions, Alerts Allergy Allergy Status Severity Reaction(s) Onset Inactive Treating Comm ents Source Name Type Date Date Clinician No Known DA Active U 2020-03 [facility]-13 [place] s [facility] No Known DA Active U 2020-03 [facility] Allergie 1-30 [place] s 00:00: [place] 00 [facility] NO KNOWN Drug Active Univers ALLERGIE Class ity of S [place] [facility] Family History Family Member Diagnosis Comments Start Date Stop Date Source Natural father Heart disease MD Quang hurst Natural mother Heart disease MD Quang [place] Social History Social Habit Start Date Stop Date Quantity Comments Source Exposure to Not sure [facility] [place] [facility]-CoV-2 [facility] [place] [facility] (event) Branch History SDOH [place] Alcohol Binge History SDOH [facility] [place] Alcohol Frequency History SDOH [facility] [place] Alcohol Std Drinks Alcohol intake 2017-11-29 2017-11-29 Current drinker MD Dora anton 00:00:00 00:00:00 of alcohol (finding) History SDOH 2015-09-20 2015-09-20 rare [facility] [place] Alcohol Comment 00:00:00 00:00:00 Tobacco use and 2015-09-20 2015-09-20 Smokeless tobacco MD [place] exposure 00:00:00 00:00:00 non-user Sex Ass[birth year] At [birth year] MD Zendejas on 00:00:00 00:00:00 Smoking Status Start Date Stop Date Source [facility] smoker [facility] Medications Ordered Filled Start Stop Current Ordering Indication Dosage Frequency Signature Comments Components Source Medication Medication Date Date Medication? Clinician (SIG) Name Name ARIPiprazol Yes 5mg Take 5 mg U nivers e (ABILIFY) 8-25 by mouth ity of 5 mg tablet 18:40: at [place] [address] bedtime. Medical Branch aspirin 81 Yes 81mg Take 81 mg U nivers mg chewable 8-25 by mouth ity of tablet 18:40: daily. [place] [address] Medical Branch benztropine Yes .5mg Take 0.5 Un kayla (COGENTIN) 8-25 mg by ity of 0.5 mg 18:40: mouth 2 [place] tablet 54 (two) Medical times Branch daily. CALCIUM Yes Take by Univer s CARBONATE/V 8-25 mouth 2 ity o f ITAMIN D3 18:40: (two) [place] (CALCIUM 54 times Medical 500 + D, daily. Branch D3, ORAL) carvedilol Yes 3.125mg Take 3.125 Univers (COREG) 8-25 mg by ity of 3.125 mg 18:40: mouth 2 [place] tablet 54 (two) Medical times Branch daily with meals. docusate Yes 100mg Take 100 Univ ers (COLACE) 8-25 mg by ity of 100 mg 18:40: mouth 2 [place] capsule 54 (two) Medical times Branch daily. DULoxetine Yes 30mg Take 30 mg U nivers (CYMBALTA) 8-25 by mouth ity o f 30 mg 18:40: daily. [place] capsule 54 Medical Branch escitalopra Yes 10mg Take 10 mg Univers m oxalate 8-25 by mouth ity of (LEXAPRO) 18:40: at [place] 10 mg 54 bedtime. Medical tablet Branch ibandronate Yes 150mg Take 150 U nivers (BONIVA) 8-25 mg by ity of 150 mg 18:40: mouth once [place] tablet 54 every Medical month. Branch meloxicam Yes 15mg Take 15 mg Un kayla (MOBIC) 15 8-25 by mouth ity o f mg tablet 18:40: daily. [address] Branch MULTIVIT-WV Yes Take by Un kayla N/FA/CA 8-25 mouth. ity of CARB/VIT K 18:40: [place] (ONE-A-DAY 54 Medical WOMEN'S 50+ Branch ORAL) bromfenac Yes Place in Uni vers (PROLENSA) 8-25 left eye. ity of 0.07 % Drop 18:40: [address] Branch QUEtiapine Yes 50mg Take 50 mg U nivers (SEROQUEL) 8-25 by mouth ity o f 50 mg 18:40: at [place] tablet 54 bedtime. Medical Branch cycloSPORIN Yes 1[drp] Place 1 U nivers E 8-25 Drop in ity of (RESTASIS) 18:40: [place] eyes [place] 0.05 % 54 every 12 Medical drops (twelve) Branch hours. rOPINIRole Yes 3mg Take 3 mg Un kayla (REQUIP) 3 8-25 by mouth 4 ity of mg tablet 18:40: (four) [place] 54 times Medical daily. Branch tiZANidine Yes 4mg Take 4 mg Un kayla (ZANAFLEX) 8-25 by mouth ity o f 4 mg tablet 18:40: every 6 [place] 54 (six) Medical hours as Branch needed. Indication s: 1/2 tablet as needed alendronate Yes 70mg Take 70 mg Univers 70 mg 8-25 by mouth. ity of tablet 18:40: [place] [address] Medical Branch ARIPiprazol Yes 5mg Take 5 mg U nivers e (ABILIFY) 8-25 by mouth ity of 5 mg tablet 18:40: at [place] 54 bedtime. Medical Branch aspirin 81 Yes 81mg Take 81 mg U nivers mg chewable 8-25 by mouth ity of tablet 18:40: daily. [place] [address] Medical Branch benztropine Yes .5mg Take 0.5 Un kayla (COGENTIN) 8-25 mg by ity of 0.5 mg 18:40: mouth 2 [place] tablet 54 (two) Medical times Branch daily. CALCIUM Yes Take by Univer s CARBONATE/V 8-25 mouth 2 ity o f ITAMIN D3 18:40: (two) [place] (CALCIUM 54 times Medical 500 + D, daily. Branch D3, ORAL) carvedilol Yes 3.125mg Take 3.125 Univers (COREG) 8-25 mg by ity of 3.125 mg 18:40: mouth 2 [place] tablet 54 (two) Medical times Branch daily with meals. docusate Yes 100mg Take 100 Univ ers (COLACE) 8-25 mg by ity of 100 mg 18:40: mouth 2 [place] capsule 54 (two) Medical times Branch daily. DULoxetine Yes 30mg Take 30 mg U nivers (CYMBALTA) 8-25 by mouth ity o f 30 mg 18:40: daily. [place] capsule Medical Branch escitalopra Yes 10mg Take 10 mg Univers m oxalate 8-25 by mouth ity of (LEXAPRO) 18:40: at [place] 10 mg 54 bedtime. Medical tablet Branch ibandronate Yes 150mg Take 150 U nivers (BONIVA) 8-25 mg by ity of 150 mg 18:40: mouth once [place] tablet 54 every Medical month. Branch meloxicam Yes 15mg Take 15 mg Un kayla (MOBIC) 15 8-25 by mouth ity o f mg tablet 18:40: daily. [place] [address] Medical Branch MULTIVIT-WV Yes Take by Un kayla N/FA/CA 8-25 mouth. ity of CARB/VIT K 18:40: [place] (ONE-A-DAY 54 Medical WOMEN'S 50+ Branch ORAL) bromfenac Yes Place in Uni vers (PROLENSA) 8-25 left eye. ity of 0.07 % Drop 18:40: [place] [address] Medical Branch QUEtiapine Yes 50mg Take 50 mg U nivers (SEROQUEL) 8-25 by mouth ity o f 50 mg 18:40: at [place] tablet 54 bedtime. Medical Branch cycloSPORIN Yes 1[drp] Place 1 U nivers E 8-25 Drop in ity of (RESTASIS) 18:40: [place] eyes [place] 0.05 % 54 every 12 Medical drops (twelve) Branch hours. rOPINIRole Yes 3mg Take 3 mg Un kayla (REQUIP) 3 8-25 by mouth 4 ity of mg tablet 18:40: (four) [place] 54 times Medical daily. Branch tiZANidine Yes 4mg Take 4 mg Un [place] (ZANAFLEX) 8-25 by mouth ity o f 4 mg tablet 18:40: every 6 [place] 54 (six) Medical hours as Branch needed. Indication s: 1/2 tablet as needed alendronate Yes 70mg Take 70 mg [facility] 70 mg 8-25 by mouth. ity of tablet 18:40: [place] [address] Medical Branch ARIPiprazol Yes 5mg Take 5 mg U nivers e (ABILIFY) 8-25 by mouth ity of 5 mg tablet 18:40: at [place] 54 bedtime. Medical Branch aspirin 81 Yes 81mg Take 81 mg U nivers mg chewable 8-25 by mouth ity of tablet 18:40: daily. [place] [address] Medical Branch benztropine Yes .5mg Take 0.5 Un [place] (COGENTIN) 8-25 mg by ity of 0.5 mg 18:40: mouth 2 [place] tablet 54 (two) Medical times Branch daily. CALCIUM Yes Take by Univer s CARBONATE/V 8-25 mouth 2 ity o f ITAMIN D3 18:40: (two) [place] (CALCIUM 54 times Medical 500 + D, daily. Branch D3, ORAL) carvedilol Yes 3.125mg Take 3.125 Univers (COREG) 8-25 mg by ity of 3.125 mg 18:40: mouth 2 [place] tablet 54 (two) Medical times Branch daily with meals. docusate Yes 100mg Take 100 Univ ers (COLACE) 8-25 mg by ity of 100 mg 18:40: mouth 2 [place] capsule 54 (two) Medical times Branch daily. DULoxetine Yes 30mg Take 30 mg U nivers (CYMBALTA) 8-25 by mouth ity o f 30 mg 18:40: daily. [place] capsule 54 Medical Branch escitalopra Yes 10mg Take 10 mg Univers m oxalate 8-25 by mouth ity of (LEXAPRO) 18:40: at [place] 10 mg 54 bedtime. Medical tablet Branch ibandronate Yes 150mg Take 150 U nivers (BONIVA) 8-25 mg by ity of 150 mg 18:40: mouth once [place] tablet 54 every Medical month. Branch meloxicam Yes 15mg Take 15 mg Un kay[place] (MOBIC) 15 8-25 by mouth ity o f mg tablet 18:40: daily. [place] [address] Medical Branch MULTIVIT-WV Yes Take by Un kayla N/FA/CA 8-25 mouth. ity of CARB/VIT K 18:40: [place] (ONE-A-DAY 54 Medical WOMEN'S 50+ Branch ORAL) bromfenac Yes Place in Uni vers (PROLENSA) 8-25 left eye. ity of 0.07 % Drop 18:40: [place] [address] Medical Branch QUEtiapine Yes 50mg Take 50 mg U nivers (SEROQUEL) 8-25 by mouth ity o f 50 mg 18:40: at [place] tablet 54 bedtime. Medical Branch cycloSPORIN Yes 1[drp] Place 1 U nivers E 8-25 Drop in ity of (RESTASIS) 18:40: [place] eyes [place] 0.05 % 54 every 12 Medical drops (twelve) Branch hours. rOPINIRole Yes 3mg Take 3 mg Un kayla (REQUIP) 3 8-25 by mouth 4 ity of mg tablet 18:40: (four) [place] 54 times Medical daily. Branch tiZANidine Yes 4mg Take 4 mg Un [place] (ZANAFLEX) 8-25 by mouth ity o f 4 mg tablet 18:40: every 6 [place] 54 (six) Medical hours as Branch needed. Indication s: 1/2 tablet as needed alendronate Yes 70mg Take 70 mg Univers 70 mg 8-25 by mouth. ity of tablet 18:40: [place] [address] Medical Branch ARIPiprazol Yes 5mg Take 5 mg U nivers e (ABILIFY) 8-25 by mouth ity of 5 mg tablet 13:40: at [place] [address] bedtime. Medical Branch aspirin 81 0 Yes 81mg Take 81 mg U nivers mg chewable 8-25 by mouth ity of tablet 13:40: daily. [place] [address] Medical Branch benztropine Yes .5mg Take 0.5 Un [place] (COGENTIN) 8-25 mg by ity of 0.5 mg 13:40: mouth 2 [place] tablet 54 (two) Medical times Branch daily. CALCIUM Yes Take by Univer s CARBONATE/V 8-25 mouth 2 ity o f ITAMIN D3 13:40: (two) [place] (CALCIUM 54 times [facility] 500 + D, daily. Branch D3, ORAL) carvedilol Yes 3.125mg Take 3.125 Univers (COREG) 8-25 mg by ity of 3.125 mg 13:40: mouth 2 [place] tablet 54 (two) Medical times Branch daily with meals. docusate 0 Yes 100mg Take 100 Univ ers (COLACE) 8-25 mg by ity of 100 mg 13:40: mouth 2 [place] capsule 54 (two) Medical times Branch daily. DULoxetine Yes 30mg Take 30 mg U nivers (CYMBALTA) 8-25 by mouth ity o f 30 mg 13:40: daily. [place] capsule 54 Medical Branch escitalopra Yes 10mg Take 10 mg Univers m oxalate 8-25 by mouth ity of (LEXAPRO) 13:40: at [place] 10 mg 54 bedtime. Medical tablet Branch ibandronate Yes 150mg Take 150 U nivers (BONIVA) 8-25 mg by ity of 150 mg 13:40: mouth once [place] tablet 54 every Medical month. Branch meloxicam Yes 15mg Take 15 mg Un [place] (MOBIC) 15 8-25 by mouth ity o f mg tablet 13:40: daily. [place] [address] Medical Branch MULTIVIT-WV Yes Take by Un kayla N/FA/CA 8-25 mouth. ity of CARB/VIT K 13:40: [place] (ONE-A-DAY 54 Medical WOMEN'S 50+ Branch ORAL) bromfenac Yes Place in Uni vers (PROLENSA) 8-25 left eye. ity of 0.07 % Drop 13:40: [place] [address] Medical Branch QUEtiapine Yes 50mg Take 50 mg U nivers (SEROQUEL) 8-25 by mouth ity o f 50 mg 13:40: at [place] tablet 54 bedtime. Medical Branch cycloSPORIN Yes 1[drp] Place 1 U nivers E 8-25 Drop in ity of (RESTASIS) 13:40: [place] eyes [place] 0.05 % 54 every 12 Medical drops (twelve) Branch hours. rOPINIRole Yes 3mg Take 3 mg Un kayla (REQUIP) 3 8-25 by mouth 4 ity of mg tablet 13:40: (four) [place] 54 times Medical daily. Branch tiZANidine Yes 4mg Take 4 mg Un kay[place] (ZANAFLEX) 8-25 by mouth ity o f 4 mg tablet 13:40: every 6 [place] 54 (six) Medical hours as Branch needed. Indication s: 1/2 tablet as needed alendronate Yes 70mg Take 70 mg Univers 70 mg 8-25 by mouth. ity of tablet 13:40: [place] [address] Medical Branch traMADoL 50 2020-0 2020- No [id number] 50mg Take 1 Uni vers mg tablet 08-02 tablet by ity of 00:00: 04:59 mouth [place] 00 :00 every 6 Medical (six) Branch hours for 7 days. Indication s: acute pain traMADoL 50 2020-0 2020- No [id number] 50mg Take 1 Uni vers mg tablet 08-02- tablet by ity of 00:00: 04:59 mouth [place] 00 :00 every 6 Medical (six) Branch hours for 7 days. Indication s: acute pain traMADoL 50 2020-0 2020- No [id number] 50mg Take 1 Uni vers mg tablet 08-02- tablet by ity of 00:00: 04:59 mouth [place] 00 :00 every 6 Medical (six) Branch hours for 7 days. Indication s: acute pain traMADoL 50 2020-0 2020- No [id number] 50mg Take 1 Uni vers mg tablet 08-02 tablet by ity of 00:00: 04:59 mouth [place] 00 :00 every 6 Medical (six) Branch hours for 7 days. Indication s: acute pain DICLOFENAC 2020-0 Yes [id number] TAKE 1 Univers 75 mg EC 9-24 TABLET BY ity of tablet 00:00: MOUTH [place] 00 TWICE A Medical DAY WITH A Branch MEAL DICLOFENAC 2020-0 Yes [id number] TAKE 1 Univers 75 mg EC 9-24 TABLET BY ity of tablet 00:00: MOUTH [place] 00 TWICE A Medical DAY WITH A Branch MEAL DICLOFENAC 2020-0 Yes [id number] TAKE 1 Univers 75 mg EC 9-24 TABLET BY ity of tablet 00:00: MOUTH [place] 00 TWICE A Medical DAY WITH A Branch MEAL DICLOFENAC 2020-0 Yes [id number] TAKE 1 Univers 75 mg EC 9-24 TABLET BY ity of tablet 00:00: MOUTH [place] 00 TWICE A Medical DAY WITH A Branch MEAL DICLOFENAC 2020-0 Yes [id number] TAKE 1 [facility] 75 mg EC 9-24 TABLET BY ity of tablet 00:00: MOUTH [place] 00 TWICE A Medical DAY WITH A Branch MEAL DICLOFENAC 2020-0 Yes [id number] TAKE 1 Univers 75 mg EC 9-24 TABLET BY ity of tablet 00:00: MOUTH [place] 00 TWICE A Medical DAY WITH A Branch MEAL DICLOFENAC 2020-0 Yes [id number] TAKE 1 [facility] 75 mg EC 9-24 TABLET BY ity of tablet 00:00: MOUTH [place] 00 TWICE A Medical DAY WITH A Branch MEAL DICLOFENAC 2020-0 Yes [id number] TAKE 1 Univers 75 mg EC 9-24 TABLET BY ity of tablet 00:00: MOUTH [place] 00 TWICE A Medical DAY WITH A Branch MEAL DICLOFENAC 2020-0 Yes [id number] TAKE 1 Univers 75 mg EC 9-24 TABLET BY ity of tablet 00:00: MOUTH [place] 00 TWICE A Medical DAY WITH A Branch MEAL DICLOFENAC 2020-0 Yes [id number] TAKE 1 [facility] 75 mg EC 9-24 TABLET BY ity of tablet 00:00: MOUTH 00 TWICE A Medical DAY WITH A Branch MEAL DICLOFENAC 2020-0 Yes [id number] TAKE 1 [facility] 75 mg EC 9-24 TABLET BY ity of tablet 00:00: MOUTH [place] 00 TWICE A Medical DAY WITH A Branch MEAL DICLOFENAC 2020-0 Yes [id number] TAKE 1 [facility] 75 mg EC 9-24 TABLET BY ity of tablet 00:00: MOUTH 00 TWICE A Medical DAY WITH A Branch MEAL DICLOFENAC 2020-0 Yes [id number] TAKE 1 [facility] 75 mg EC 9-24 TABLET BY ity of tablet 00:00: MOUTH 00 TWICE A Medical DAY WITH A Branch MEAL DICLOFENAC 2020-0 Yes [id number] TAKE 1 [facility] 75 mg EC 9-24 TABLET BY ity of tablet 00:00: MOUTH 00 TWICE A Medical DAY WITH A Branch MEAL DICLOFENAC 2020-0 Yes [id number] TAKE 1 [facility] 75 mg EC 9-24 TABLET BY ity of tablet 00:00: MOUTH 00 TWICE A Medical DAY WITH A Branch MEAL DICLOFENAC 2020-0 Yes [id number] TAKE 1 [facility] 75 mg EC 9-24 TABLET BY ity of tablet 00:00: MOUTH 00 TWICE A Medical DAY WITH A Branch MEAL DICLOFENAC 2020-0 Yes [id number] TAKE 1 [facility] 75 mg EC 9-24 TABLET BY ity of tablet 00:00: MOUTH [place] 00 TWICE A Medical DAY WITH A Branch MEAL DICLOFENAC 2020-0 Yes [id number] TAKE 1 [facility] 75 mg EC 9-24 TABLET BY ity of tablet 00:00: MOUTH 00 TWICE A Medical DAY WITH A Branch MEAL DICLOFENAC 2020-0 Yes [id number] TAKE 1 [facility] 75 mg EC 9-24 TABLET BY ity of tablet 00:00: MOUTH [place] 00 TWICE A Medical DAY WITH A Branch MEAL DICLOFENAC 2020-0 Yes [id number] TAKE 1 [facility] 75 mg EC 9-24 TABLET BY ity of tablet 00:00: MOUTH 00 TWICE A Medical DAY WITH A Branch MEAL DICLOFENAC 2020-0 Yes [id number] TAKE 1 [facility] 75 mg EC 9-24 TABLET BY ity of tablet 00:00: MOUTH [place] 00 TWICE A Medical DAY WITH A Branch MEAL DICLOFENAC 2020-0 Yes [id number] TAKE 1 [facility] 75 mg EC 9-24 TABLET BY ity of tablet 00:00: MOUTH [place] 00 TWICE A Medical DAY WITH A Branch MEAL DICLOFENAC 2020-0 Yes [id number] TAKE 1 [facility] 75 mg EC 9-24 TABLET BY ity of tablet 00:00: MOUTH [place] 00 TWICE A Medical DAY WITH A Branch MEAL DICLOFENAC 2020-0 Yes [id number] TAKE 1 [facility] 75 mg EC 9-24 TABLET BY ity of tablet 00:00: MOUTH [place] 00 TWICE A Medical DAY WITH A Branch MEAL peg 2020-0 Yes Colonoscopy Use as 3350-electr 11-20 planned directed A ndeloco olycarlos 00:00: by n ([place]) 00 ordering [id number] provider. .74 g solution DICLOFENAC 2020-0 2020- No [id number] 75mg TAKE 1 Univers 75 mg EC 4-21 05-22 TABLET BY ity o f tablet 00:00: 04:59 MOUTH 2 [place] 00 :00 (TWO) Medical TIMES Branch DAILY WITH MEALS FOR 30 DAYS. diclofenac 2020-0 2020- No [id number] 75mg Take 1 Univers 75 mg EC 3-26 04-26 tablet by ity o f tablet 00:00: 04:59 mouth 2 [place] 00 :00 (two) Medical times Branch daily with meals for 30 days. diclofenac 2020-0 2020- No [id number] 75mg Take 1 Univers 75 mg EC 3-26 04-21 tablet by ity o f tablet 00:00: 00:00 mouth 2 [place] 00 :00 (two) Medical times Branch daily with meals for 30 days. ARIPiprazol 2018-0 Yes 5mg Take 5 mg M D e (ABILIFY) 9-07 by mouth Quang rso 10 mg 10:37: at n tablet 36 bedtime. IBANDRONATE 2018-0 Yes 150mg Take 150 M D SODIUM 9-07 mg by Anderso (BONIVA 10:37: mouth n ORAL) 36 daily. carvedilol 2018-0 Yes 1{tbl} Take 1 MD (COREG) -07 tablet by Anderso 3.125 mg 10:37: mouth n tablet 36 daily. QUEtiapine 2018-0 Yes 25mg Take 25 mg M D (SEROquel) 907 by mouth Rishi so 25 mg 10:37: at n tablet 36 bedtime. bisacodyl 2018-0 Yes 10mg Take 10 mg MD (DULCOLAX) 9-07 by mouth 3 And erso 5 mg EC 10:37: (three) n tablet 36 times a day. calcium 2018-0 Yes 1{tbl} Take 1 MD carbonate-v 11-26 tablet by And erso itamin D3 10:37: mouth 2 n (calcium-vi 36 (two) tamin D) times a 1,250 mg day with (500 mg as meals. elemental)- 200 units tablet rOPINIRole 2018-0 Yes 3mg Take 3 mg MD (REQUIP) 3 9-07 by mouth 4 And erso mg tablet 10:37: (four) n 36 times a day. tiZANidine 2018-0 Yes 2mg Take 2 mg MD (ZANAFLEX) -07 by mouth 3 And erso 4 MG 10:37: (three) n capsule 36 times a day. traMADol 2018-0 Yes 50mg Take 50 mg MD (ULTRAM) 50 07 by mouth Quang rso mg tablet 10:37: every 4 n 36 (four) hours as needed. DULoxetine 2018-0 Yes 30mg Take 30 mg M D (CYMBALTA) 07 by mouth Rishi so 30 mg 10:37: daily. n capsule 36 escitalopra 2018-0 Yes 10mg Take 10 mg MD m (LEXAPRO) 07 by mouth. And erso 10 mg 10:37: n tablet 36 meloxicam 2018-0 Yes 15mg Take 15 mg MD (MOBIC) 15 11-26 by mouth Rishi so mg tablet 10:37: daily. n 36 aspirin 81 2018-0 Yes 81mg Take 81 mg M D mg EC 11-26 by mouth Anderso tablet 10:37: daily. n 36 cycloSPORIN 2018-0 Yes 1[drp] Administer MD E 11-26 1 drop to Anderso (RESTASIS) 10:37: both eyes n 0.05% 36 twice ophthalmic daily. emulsion alendronate 2018-0 Yes postmenopau 70mg Take 70 mg MD (FOSAMAX) 11-26 valeria by mouth Aashish o 70 mg 10:37: osteoporosi every 7 n tablet 36 s days. . peg 2017-0 Yes Colonoscopy Use as 3350-electr 11-16 planned directed A nderso olytes 00:00: by n ([place]) 00 ordering [id number] provider. .74 g solution alendronate 2017-0 Yes 70mg Take 70 mg Univers 70 mg 2-27 by mouth. ity of tablet 20:47: [address] alendronate 2018-0 Yes 70mg Take 70 mg Univers 70 mg 2-27 by mouth. ity of tablet 20:47: [address] alendronate 2017- Yes 70mg Take 70 mg Univers 70 mg 2-27 by mouth. ity of tablet 20:47: [address] alendronate 2017- Yes 70mg Take 70 mg Univers 70 mg 2-27 by mouth. ity of tablet 20:47: [address] alendronate 2017- Yes 70mg Take 70 mg Univers 70 mg 2-27 by mouth. ity of tablet 20:47: [address] alendronate 2017- Yes 70mg Take 70 mg Univers 70 mg 2-27 by mouth. ity of tablet 20:47: [address] alendronate Yes 70mg Take 70 mg Univers 70 mg 2-27 by mouth. ity of tablet 20:47: [address] alendronate 2017-0 Yes 70mg Take 70 mg Univers 70 mg 2-27 by mouth. ity of tablet 20:47: [address] alendronate Yes 70mg Take 70 mg Univers 70 mg 2-27 by mouth. ity of tablet 20:47: [address] alendronate 2017-0 Yes 70mg Take 70 mg Univers 70 mg 2-27 by mouth. ity of tablet 20:47: [address] alendronate 2017-0 Yes 70mg Take 70 mg Univers 70 mg 2-27 by mouth. ity of tablet 20:47: [address] alendronate 2018-0 Yes 70mg Take 70 mg Univers 70 mg 2-27 by mouth. ity of tablet 20:47: [address] alendronate 2017-0 Yes 70mg Take 70 mg Univers 70 mg 2-27 by mouth. ity of tablet 20:47: [address] alendronate 2017-0 Yes 70mg Take 70 mg Univers 70 mg 2-27 by mouth. ity of tablet 20:47: [address] alendronate Yes 70mg Take 70 mg Univers 70 mg 2-27 by mouth. ity of tablet 20:47: [address] alendronate 2017-0 Yes 70mg Take 70 mg Univers 70 mg 2-27 by mouth. ity of tablet 20:47: [address] alendronate Yes 70mg Take 70 mg Univers 70 mg 2-27 by mouth. ity of tablet 20:47: [address] alendronate Yes 70mg Take 70 mg Univers 70 mg 2-27 by mouth. ity of tablet 20:47: [address] alendronate Yes 70mg Take 70 mg Univers 70 mg 2-27 by mouth. ity of tablet 20:47: [address] alendronate Yes 70mg Take 70 mg Univers 70 mg 2-27 by mouth. ity of tablet 20:47: [address] alendronate Yes 70mg Take 70 mg Univers 70 mg 2-27 by mouth. ity of tablet 20:47: [address] alendronate Yes 70mg Take 70 mg Univers 70 mg 2-27 by mouth. ity of tablet 20:47: [address] alendronate Yes 70mg Take 70 mg Univers 70 mg 2-27 by mouth. ity of tablet 20:47: [address] alendronate Yes 70mg Take 70 mg Univers 70 mg 2-27 by mouth. ity of tablet 20:47: [address] alendronate Yes 70mg Take 70 mg Univers 70 mg 2-27 by mouth. ity of tablet 20:47: [address] alendronate 0 Yes 70mg Take 70 mg Univers 70 mg 2-27 by mouth. ity of tablet 20:47: [address] alendronate 2017-0 Yes 70mg Take 70 mg Univers 70 mg 2-27 by mouth. ity of tablet 20:47: [address] alendronate 0 Yes 70mg Take 70 mg Univers 70 mg 2-27 by mouth. ity of tablet 20:47: [address] alendronate 2017-0 Yes 70mg Take 70 mg Univers 70 mg 2-27 by mouth. ity of tablet 20:47: [address] alendronate 2018-0 Yes 70mg Take 70 mg Univers 70 mg 2-27 by mouth. ity of tablet 20:47: [address] meloxicam 2018-0 Yes 15mg Take 15 mg Un kayla (MOBIC) 15 2-26 by mouth ity o f mg tablet 22:08: daily. [address] tiZANidine 2018-0 Yes 4mg Take 4 mg Un kayla (ZANAFLEX) 2-26 by mouth ity o f 4 mg tablet 22:08: every 6 [place] 29 (six) Medical hours as Branch needed. Indication s: 1/2 tablet as needed meloxicam 2018-0 Yes 15mg Take 15 mg Un kayla (MOBIC) 15 2-26 by mouth ity o f mg tablet 22:08: daily. [address] tiZANidine 2017-0 Yes 4mg Take 4 mg Un [place] (ZANAFLEX) 2-26 by mouth ity o f 4 mg tablet 22:08: every 6 [place] 29 (six) Medical hours as Branch needed. Indication s: 1/2 tablet as needed meloxicam 2018-0 Yes 15mg Take 15 mg Un kayla (MOBIC) 15 2-26 by mouth ity o f mg tablet 22:08: daily. [address] tiZANidine 2018-0 Yes 4mg Take 4 mg Un kayla (ZANAFLEX) 2-26 by mouth ity o f 4 mg tablet 22:08: every 6 [place] 29 (six) Medical hours as Branch needed. Indication s: 1/2 tablet as needed meloxicam 2018-0 Yes 15mg Take 15 mg Un [place]la (MOBIC) 15 2-26 by mouth ity o f mg tablet 22:08: daily. [address] tiZANidine 2018-0 Yes 4mg Take 4 mg Un kayla (ZANAFLEX) 2-26 by mouth ity o f 4 mg tablet 22:08: every 6 [place] 29 (six) Medical hours as Branch needed. Indication s: 1/2 tablet as needed meloxicam 2018-0 Yes 15mg Take 15 mg Un [place]la (MOBIC) 15 2-26 by mouth ity o f mg tablet 22:08: daily. [address] tiZANidine 2018-0 Yes 4mg Take 4 mg Un kayla (ZANAFLEX) 2-26 by mouth ity o f 4 mg tablet 22:08: every 6 [place] as 29 (six) Medical hours as Branch needed. Indication s: 1/2 tablet as needed meloxicam 2018-0 Yes 15mg Take 15 mg [facility] (MOBIC) 15 2-26 by mouth ity o f mg tablet 22:08: daily. [address] tiZANidine 2018-0 Yes 4mg Take 4 mg [facility] (ZANAFLEX) 2-26 by mouth ity o f 4 mg tablet 22:08: every 6 [place] [facility] (six) Medical hours as Branch needed. Indication s: 1/2 tablet as needed meloxicam 2018-0 Yes 15mg Take 15 mg [facility] (MOBIC) 15 2-26 by mouth ity o f mg tablet 22:08: daily. [address] tiZANidine 2018-0 Yes 4mg Take 4 mg [facility] (ZANAFLEX) 2-26 by mouth ity o f 4 mg tablet 22:08: every 6 [place] (six) Medical hours as Branch needed. Indication s: 1/2 tablet as needed meloxicam 2018-0 Yes 15mg Take 15 mg [facility] [place] (MOBIC) 15 2-26 by mouth ity o f mg tablet 22:08: daily. [address] tiZANidine 2018-0 Yes 4mg Take 4 mg [facility] (ZANAFLEX) 2-26 by mouth ity o f 4 mg tablet 22:08: every 6 [place] (six) Medical hours as Branch needed. Indication s: 1/2 tablet as needed meloxicam 2018-0 Yes 15mg Take 15 mg [facility] (MOBIC) 15 2-26 by mouth ity o f mg tablet 22:08: daily. [address] tiZANidine 2018-0 Yes 4mg Take 4 mg [facility] (ZANAFLEX) 2-26 by mouth ity o f 4 mg tablet 22:08: every 6 [place] (six) Medical hours as Branch needed. Indication s: 1/2 tablet as needed meloxicam 2018-0 Yes 15mg Take 15 mg [place] (MOBIC) 15 2-26 by mouth ity o f mg tablet 22:08: daily. [address] tiZANidine 2018-0 Yes 4mg Take 4 mg [facility] (ZANAFLEX) 2-26 by mouth ity o f 4 mg tablet 22:08: every 6 [place] (six) Medical hours as Branch needed. Indication s: 1/2 tablet as needed meloxicam 2018-0 Yes 15mg Take 15 mg [place] (MOBIC) 15 2-26 by mouth ity o f mg tablet 22:08: daily. [address] tiZANidine 2018-0 Yes 4mg Take 4 mg [facility] (ZANAFLEX) 2-26 by mouth ity o f 4 mg tablet 22:08: every 6 [place] (six) Medical hours as Branch needed. Indication s: 1/2 tablet as needed meloxicam 2018-0 Yes 15mg Take 15 mg [place] (MOBIC) 15 2-26 by mouth ity o f mg tablet 22:08: daily. [address] tiZANidine 2018-0 Yes 4mg Take 4 mg [facility] (ZANAFLEX) 2-26 by mouth ity o f 4 mg tablet 22:08: every 6 [place] (six) Medical hours as Branch needed. Indication s: 1/2 tablet as needed meloxicam 2018-0 Yes 15mg Take 15 mg [facility] (MOBIC) 15 2-26 by mouth ity o f mg tablet 22:08: daily. [address] tiZANidine 2018-0 Yes 4mg Take 4 mg [facility] (ZANAFLEX) 2-26 by mouth ity o f 4 mg tablet 22:08: every 6 [place] (six) Medical hours as Branch needed. Indication s: 1/2 tablet as needed meloxicam 2018-0 Yes 15mg Take 15 mg [facility] (MOBIC) 15 2-26 by mouth ity o f mg tablet 22:08: daily. [address] tiZANidine 2018-0 Yes 4mg Take 4 mg [facility] (ZANAFLEX) 2-26 by mouth ity o f 4 mg tablet 22:08: every 6 [place] (six) Medical hours as Branch needed. Indication s: 1/2 tablet as needed meloxicam 2018-0 Yes 15mg Take 15 mg [facility] (MOBIC) 15 2-26 by mouth ity o f mg tablet 22:08: daily. [address] tiZANidine 2018-0 Yes 4mg Take 4 mg [facility] (ZANAFLEX) 2-26 by mouth ity o f 4 mg tablet 22:08: every 6 [place] (six) Medical hours as Branch needed. Indication s: 1/2 tablet as needed meloxicam 2018-0 Yes 15mg Take 15 mg [facility] (MOBIC) 15 2-26 by mouth ity o f mg tablet 22:08: daily. [address] tiZANidine 2018-0 Yes 4mg Take 4 mg [facility] (ZANAFLEX) 2-26 by mouth ity o f 4 mg tablet 22:08: every 6 [place] (six) Medical hours as Branch needed. Indication s: 1/2 tablet as needed meloxicam 2018-0 Yes 15mg Take 15 mg [place] (MOBIC) 15 2-26 by mouth ity o f mg tablet 22:08: daily. [address] tiZANidine 2018-0 Yes 4mg Take 4 mg [facility] (ZANAFLEX) 2-26 by mouth ity o f 4 mg tablet 22:08: every 6 [place] (six) Medical hours as Branch needed. Indication s: 1/2 tablet as needed meloxicam 2018-0 Yes 15mg Take 15 mg [facility] (MOBIC) 15 2-26 by mouth ity o f mg tablet 22:08: daily. [address] tiZANidine 2018-0 Yes 4mg Take 4 mg [facility] (ZANAFLEX) 2-26 by mouth ity o f 4 mg tablet 22:08: every 6 [place] (six) Medical hours as Branch needed. Indication s: 1/2 tablet as needed meloxicam 2018-0 Yes 15mg Take 15 mg [place] (MOBIC) 15 2-26 by mouth ity o f mg tablet 22:08: daily. [address] tiZANidine 2018-0 Yes 4mg Take 4 mg [facility] (ZANAFLEX) 2-26 by mouth ity o f 4 mg tablet 22:08: every 6 [place] (six) Medical hours as Branch needed. Indication s: 1/2 tablet as needed meloxicam 2018-0 Yes 15mg Take 15 mg [facility] (MOBIC) 15 2-26 by mouth ity o f mg tablet 22:08: daily. [address] tiZANidine 2018-0 Yes 4mg Take 4 mg [facility] (ZANAFLEX) 2-26 by mouth ity o f 4 mg tablet 22:08: every 6 [place] (six) Medical hours as Branch needed. Indication s: 1/2 tablet as needed meloxicam 2018-0 Yes 15mg Take 15 mg [facility] [place] (MOBIC) 15 2-26 by mouth ity o f mg tablet 22:08: daily. [address] tiZANidine 2018-0 Yes 4mg Take 4 mg [facility] (ZANAFLEX) 2-26 by mouth ity o f 4 mg tablet 22:08: every 6 [place] (six) Medical hours as Branch needed. Indication s: 1/2 tablet as needed meloxicam 2018-0 Yes 15mg Take 15 mg [place] (MOBIC) 15 2-26 by mouth ity o f mg tablet 22:08: daily. [address] tiZANidine 2018-0 Yes 4mg Take 4 mg [facility] (ZANAFLEX) 2-26 by mouth ity o f 4 mg tablet 22:08: every 6 [place] (six) Medical hours as Branch needed. Indication s: 1/2 tablet as needed meloxicam 2018-0 Yes 15mg Take 15 mg [place] (MOBIC) 15 2-26 by mouth ity o f mg tablet 22:08: daily. [address] tiZANidine 2018-0 Yes 4mg Take 4 mg [facility] (ZANAFLEX) 2-26 by mouth ity o f 4 mg tablet 22:08: every 6 [place] (six) Medical hours as Branch needed. Indication s: 1/2 tablet as needed meloxicam 2018-0 Yes 15mg Take 15 mg [place] (MOBIC) 15 2-26 by mouth ity o f mg tablet 22:08: daily. [address] tiZANidine 2018-0 Yes 4mg Take 4 mg [facility] [place] (ZANAFLEX) 2-26 by mouth ity o f 4 mg tablet 22:08: every 6 [place] (six) Medical hours as Branch needed. Indication s: 1/2 tablet as needed meloxicam 2018-0 Yes 15mg Take 15 mg [facility] [place] (MOBIC) 15 2-26 by mouth ity o f mg tablet 22:08: daily. [address] tiZANidine 2018-0 Yes 4mg Take 4 mg [facility] [place] (ZANAFLEX) 2-26 by mouth ity o f 4 mg tablet 22:08: every 6 [place] (six) Medical hours as Branch needed. Indication s: 1/2 tablet as needed meloxicam 2018-0 Yes 15mg Take 15 mg [place] (MOBIC) 15 2-26 by mouth ity o f mg tablet 22:08: daily. [address] tiZANidine 2018-0 Yes 4mg Take 4 mg [facility] (ZANAFLEX) 2-26 by mouth ity o f 4 mg tablet 22:08: every 6 [place] (six) Medical hours as Branch needed. Indication s: 1/2 tablet as needed meloxicam 2018-0 Yes 15mg Take 15 mg [place] (MOBIC) 15 2-26 by mouth ity o f mg tablet 22:08: daily. [address] tiZANidine 2018-0 Yes 4mg Take 4 mg [facility] (ZANAFLEX) 2-26 by mouth ity o f 4 mg tablet 22:08: every 6 [place] (six) Medical hours as Branch needed. Indication s: 1/2 tablet as needed meloxicam 2018-0 Yes 15mg Take 15 mg [place] (MOBIC) 15 2-26 by mouth ity o f mg tablet 22:08: daily. [address] tiZANidine 2018-0 Yes 4mg Take 4 mg [facility] (ZANAFLEX) 2-26 by mouth ity o f 4 mg tablet 22:08: every 6 [place] (six) Medical hours as Branch needed. Indication s: 1/2 tablet as needed meloxicam 2018-0 Yes 15mg Take 15 mg [place] (MOBIC) 15 2-26 by mouth ity o f mg tablet 22:08: daily. [address] tiZANidine 2018-0 Yes 4mg Take 4 mg [facility] (ZANAFLEX) 2-26 by mouth ity o f 4 mg tablet 22:08: every 6 [place] (six) Medical hours as Branch needed. Indication s: 1/2 tablet as needed meloxicam 2018-0 Yes 15mg Take 15 mg [facility] (MOBIC) 15 2-26 by mouth ity o f mg tablet 22:08: daily. [place] [id number] Medical Branch tiZANidine 2018-0 Yes 4mg Take 4 mg [facility] (ZANAFLEX) 2-26 by mouth ity o f 4 mg tablet 22:08: every 6 [place] [facility] 29 (six) Medical hours as Branch needed. Indication s: 1/2 tablet as needed methylPREDN 2018-0 Yes 84mg Take 21 [facility] ISolone 2-26 tablets by ity of (MEDROL, 00:00: mouth [place] LEXY,) 4 mg 00 SEE-INSTRU Med ical tablets CTIONS. Branch follow package directions methylPREDN 2018-0 Yes 84mg Take 21 [facility] ISolone 2-26 tablets by ity of (MEDROL, 00:00: mouth [place] LEXY,) 4 mg 00 SEE-INSTRU Med ical tablets CTIONS. Branch follow package directions methylPREDN 2018-0 Yes 84mg Take 21 [facility] ISolone 2-26 tablets by ity of (MEDROL, 00:00: mouth [place] LEXY,) 4 mg 00 SEE-INSTRU Med ical tablets CTIONS. Branch follow package directions methylPREDN 2018-0 Yes 84mg Take 21 [facility] ISolone 2-26 tablets by ity of (MEDROL, 00:00: mouth [place] LEXY,) 4 mg 00 SEE-INSTRU Med ical tablets CTIONS. Branch follow package directions methylPREDN 2018-0 Yes 84mg Take 21 [facility] ISolone 2-26 tablets by ity of (MEDROL, 00:00: mouth [place] LEXY,) 4 mg 00 SEE-INSTRU Med ical tablets CTIONS. Branch follow package directions methylPREDN 2018-0 Yes 84mg Take 21 [facility] ISolone 2-26 tablets by ity of (MEDROL, 00:00: mouth [place] LEX[place],) 4 mg 00 SEE-INSTRU Med ical tablets CTIONS. Branch follow package directions methylPREDN 2018-0 Yes 84mg Take 21 [facility] ISolone 2-26 tablets by ity of (MEDROL, 00:00: mouth [place] LEX[place],) 4 mg 00 SEE-INSTRU Med ical tablets CTIONS. Branch follow package directions methylPREDN 2018-0 Yes 84mg Take 21 [facility] ISolone 2-26 tablets by ity of (MEDROL, 00:00: mouth [place] LEX[place],) 4 mg 00 SEE-INSTRU Med ical tablets CTIONS. Branch follow package directions methylPREDN 2018-0 Yes 84mg Take 21 [facility] ISolone 2-26 tablets by ity of (MEDROL, 00:00: mouth [place] LEXY,) 4 mg 00 SEE-INSTRU Med ical tablets CTIONS. Branch follow package directions methylPREDN 2018-0 Yes 84mg Take 21 [facility] ISolone 2-26 tablets by ity of (MEDROL, 00:00: mouth [place] LEX[place],) 4 mg 00 SEE-INSTRU Med ical tablets CTIONS. Branch follow package directions methylPREDN 2018-0 Yes 84mg Take 21 [facility] ISolone 2-26 tablets by ity of (MEDROL, 00:00: mouth [place] LEX[place],) 4 mg 00 SEE-INSTRU Med ical tablets CTIONS. Branch follow package directions methylPREDN 2018-0 Yes 84mg Take 21 [facility] ISolone 2-26 tablets by ity of (MEDROL, 00:00: mouth [place] L[place],) 4 mg 00 SEE-INSTRU Med ical tablets CTIONS. Branch follow package directions methylPREDN 2018-0 Yes 84mg Take 21 [facility] ISolone 2-26 tablets by ity of (MEDROL, 00:00: mouth [place] LEX[place],) 4 mg 00 SEE-INSTRU Med ical tablets CTIONS. Branch follow package directions methylPREDN 2018-0 Yes 84mg Take 21 [facility] ISolone 2-26 tablets by ity of (MEDROL, 00:00: mouth [place] LEX[place],) 4 mg 00 SEE-INSTRU Med ical tablets CTIONS. Branch follow package directions methylPREDN 2018-0 Yes 84mg Take 21 [facility] ISolone 2-26 tablets by ity of (MEDROL, 00:00: mouth [place] L[place],) 4 mg 00 SEE-INSTRU Med ical tablets CTIONS. Branch follow package directions methylPREDN 2018-0 Yes 84mg Take 21 [facility] ISolone 2-26 tablets by ity of (MEDROL, 00:00: mouth [place] L[place],) 4 mg 00 SEE-INSTRU Med ical tablets CTIONS. Branch follow package directions methylPREDN 2018-0 Yes 84mg Take 21 [facility] ISolone 2-26 tablets by ity of (MEDROL, 00:00: mouth [place] LEX[place],) 4 mg 00 SEE-INSTRU Med ical tablets CTIONS. Branch follow package directions methylPREDN 2018-0 Yes 84mg Take 21 [facility] ISolone 2-26 tablets by ity of (MEDROL, 00:00: mouth [place],) 4 mg 00 SEE-INSTRU Med ical tablets CTIONS. Branch follow package directions methylPREDN 2018-0 Yes 84mg Take 21 [facility] ISolone 2-26 tablets by ity of (MEDROL, 00:00: mouth [place],) 4 mg 00 SEE-INSTRU Med ical tablets CTIONS. Branch follow package directions methylPREDN 2018-0 Yes 84mg Take 21 [facility] ISolone 2-26 tablets by ity of (MEDROL, 00:00: mouth [place],) 4 mg 00 SEE-INSTRU Med ical tablets CTIONS. Branch follow package directions methylPREDN 2018-0 Yes 84mg Take 21 [facility] ISolone 2-26 tablets by ity of (MEDROL, 00:00: mouth [place] L[place],) 4 mg 00 SEE-INSTRU Med ical tablets CTIONS. Branch follow package directions methylPREDN 2018-0 Yes 84mg Take 21 [facility] ISolone 2-26 tablets by ity of (MEDROL, 00:00: mouth [place] L[place],) 4 mg 00 SEE-INSTRU Med ical tablets CTIONS. Branch follow package directions methylPREDN 2018-0 Yes 84mg Take 21 [facility] ISolone 2-26 tablets by ity of (MEDROL, 00:00: mouth [place] L[place],) 4 mg 00 SEE-INSTRU Med ical tablets CTIONS. Branch follow package directions methylPREDN 2018-0 Yes 84mg Take 21 [facility] ISolone 2-26 tablets by ity of (MEDROL, 00:00: mouth [place],) 4 mg 00 SEE-INSTRU Med ical tablets CTIONS. Branch follow package directions methylPREDN 2018-0 Yes 84mg Take 21 [facility] ISolone 2-26 tablets by ity of (MEDROL, 00:00: mouth [place],) 4 mg 00 SEE-INSTRU Med ical tablets CTIONS. Branch follow package directions methylPREDN 2018-0 Yes 84mg Take 21 [facility] ISolone 2-26 tablets by ity of (MEDROL, 00:00: mouth [place],) 4 mg 00 SEE-INSTRU Med ical tablets CTIONS. Branch follow package directions methylPREDN 2018-0 Yes 84mg Take 21 [facility] ISolone 2-26 tablets by ity of (MEDROL, 00:00: mouth [place],) 4 mg 00 SEE-INSTRU Med ical tablets CTIONS. Branch follow package directions methylPREDN 2018-0 Yes 84mg Take 21 [facility] ISolone 2-26 tablets by ity of (MEDROL, 00:00: mouth [place],) 4 mg 00 SEE-INSTRU Med ical tablets CTIONS. Branch follow package directions methylPREDN 2018-0 Yes 84mg Take 21 [facility] ISolone 2-26 tablets by ity of (MEDROL, 00:00: mouth [place] L[place],) 4 mg 00 SEE-INSTRU Med ical tablets CTIONS. Branch follow package directions methylPREDN 2018-0 Yes 84mg Take 21 [facility] ISolone 2-26 tablets by ity of (MEDROL, 00:00: mouth [place],) 4 mg 00 SEE-INSTRU Med ical tablets CTIONS. Branch follow package directions methylPREDN 2018-0 Yes 84mg Take 21 [facility] ISolone 2-26 tablets by ity of (MEDROL, 00:00: mouth [place],) 4 mg 00 SEE-INSTRU Med ical tablets CTIONS. Branch follow package directions methylPREDN 2018-0 Yes 84mg Take 21 [facility] ISolone 2-26 tablets by ity of (MEDROL, 00:00: mouth [place],) 4 mg 00 SEE-INSTRU Med ical tablets CTIONS. Branch follow package directions methylPREDN 2018-0 Yes 84mg Take 21 [facility] ISolone 2-26 tablets by ity of (MEDROL, 00:00: mouth [place],) 4 mg 00 SEE-INSTRU Med ical tablets CTIONS. Branch follow package directions methylPREDN 2018-0 Yes 84mg Take 21 [facility] ISolone 2-26 tablets by ity of (MEDROL, 00:00: mouth [place] LEX[place],) 4 mg 00 SEE-INSTRU Med ical tablets CTIONS. Branch follow package directions sulfamethox 2018-0 Yes TAKE 1 [facility] azole-trime 2-21 TABLET BY ity of thoprim 00:00: MOUTH [place] 800-160 mg 00 EVERY 12 Medic al per tablet HOURS FOR [facility] ch 10 DAYS sulfamethox 2018-0 Yes TAKE 1 [facility] azole-trime 2-21 TABLET BY ity of thoprim 00:00: MOUTH [place] 800-160 mg 00 EVERY 12 Medic al per tablet HOURS FOR [facility] ch 10 DAYS sulfamethox 2018 Yes TAKE 1 [facility] azole-trime 2-21 TABLET BY ity of thoprim 00:00: MOUTH [place] 800-160 mg 00 EVERY 12 Medic al per tablet HOURS FOR [facility] ch 10 DAYS sulfamethox 2018 Yes TAKE 1 [facility] azole-trime 2-21 TABLET BY ity of thoprim 00:00: MOUTH [place] 800-160 mg 00 EVERY 12 Medic al per tablet HOURS FOR [facility] ch 10 DAYS sulfamethox Yes TAKE 1 [facility] azole-trime 2-21 TABLET BY ity of thoprim 00:00: MOUTH [place] 800-160 mg 00 EVERY 12 Medic al per tablet HOURS FOR [facility] ch 10 DAYS sulfamethox Yes TAKE 1 [facility] azole-trime 2-21 TABLET BY ity of thoprim 00:00: MOUTH [place] 800-160 mg 00 EVERY 12 Medic al per tablet HOURS FOR [facility] ch 10 DAYS sulfamethox Yes TAKE 1 [facility] azole-trime 2-21 TABLET BY ity of thoprim 00:00: MOUTH [place] 800-160 mg 00 EVERY 12 Medic al per tablet HOURS FOR [facility] ch 10 DAYS sulfamethox Yes TAKE 1 [facility] azole-trime 2-21 TABLET BY ity of thoprim 00:00: MOUTH [place] 800-160 mg 00 EVERY 12 Medic al per tablet HOURS FOR [facility] ch 10 DAYS sulfamethox Yes TAKE 1 [facility] azole-trime 2-21 TABLET BY ity of thoprim 00:00: MOUTH [place] 800-160 mg 00 EVERY 12 Medic al per tablet HOURS FOR [facility] ch 10 DAYS sulfamethox 2018 Yes TAKE 1 [facility] azole-trime 2-21 TABLET BY ity of thoprim 00:00: MOUTH [place] 800-160 mg 00 EVERY 12 Medic al per tablet HOURS FOR [facility] ch 10 DAYS sulfamethox 2018 Yes TAKE 1 [facility] azole-trime 2-21 TABLET BY ity of thoprim 00:00: MOUTH [place] 800-160 mg 00 EVERY 12 Medic al per tablet HOURS FOR [facility] ch 10 DAYS sulfamethox 2018 Yes TAKE 1 [facility] azole-trime 2-21 TABLET BY ity of thoprim 00:00: MOUTH [place] 800-160 mg 00 EVERY 12 Medic al per tablet HOURS FOR [facility] ch 10 DAYS sulfamethox Yes TAKE 1 [facility] azole-trime 2-21 TABLET BY ity of thoprim 00:00: MOUTH [place] 800-160 mg 00 EVERY 12 Medic al per tablet HOURS FOR [facility] ch 10 DAYS sulfamethox 2018 Yes TAKE 1 [facility] azole-trime 2-21 TABLET BY ity of thoprim 00:00: MOUTH [place] 800-160 mg 00 EVERY 12 Medic al per tablet HOURS FOR [facility] ch 10 DAYS sulfamethox Yes TAKE 1 [facility] azole-trime 2-21 TABLET BY ity of thoprim 00:00: MOUTH [place] 800-160 mg 00 EVERY 12 Medic al per tablet HOURS FOR [facility] ch 10 DAYS sulfamethox Yes TAKE 1 [facility] azole-trime 2-21 TABLET BY ity of thoprim 00:00: MOUTH [place] 800-160 mg 00 EVERY 12 Medic al per tablet HOURS FOR [facility] ch 10 DAYS sulfamethox Yes TAKE 1 [facility] azole-trime 2-21 TABLET BY ity of thoprim 00:00: MOUTH [place] 800-160 mg 00 EVERY 12 Medic al per tablet HOURS FOR [facility] ch 10 DAYS sulfamethox Yes TAKE 1 [facility] azole-trime 2-21 TABLET BY ity of thoprim 00:00: MOUTH [place] 800-160 mg 00 EVERY 12 Medic al per tablet HOURS FOR [facility] ch 10 DAYS sulfamethox 2018 Yes TAKE 1 [facility] azole-trime 2-21 TABLET BY ity of thoprim 00:00: MOUTH [place] 800-160 mg 00 EVERY 12 Medic al per tablet HOURS FOR [facility] ch 10 DAYS sulfamethox 2018 Yes TAKE 1 [facility] azole-trime 2-21 TABLET BY ity of thoprim 00:00: MOUTH [place] 800-160 mg 00 EVERY 12 Medic al per tablet HOURS FOR [facility] ch 10 DAYS sulfamethox 2018 Yes TAKE 1 [facility] azole-trime 2-21 TABLET BY ity of thoprim 00:00: MOUTH [place] 800-160 mg 00 EVERY 12 Medic al per tablet HOURS FOR Bran ch 10 DAYS sulfamethox 2018 Yes TAKE 1 [facility] azole-trime 2-21 TABLET BY ity of thoprim 00:00: MOUTH [place] 800-160 mg 00 EVERY 12 Medic al per tablet HOURS FOR Bran ch 10 DAYS sulfamethox 2018 Yes TAKE 1 [facility] azole-trime 2-21 TABLET BY ity of thoprim 00:00: MOUTH [place] 800-160 mg 00 EVERY 12 Medic al per tablet HOURS FOR Bran ch 10 DAYS sulfamethox 2018 Yes TAKE 1 [facility] azole-trime 2-21 TABLET BY ity of thoprim 00:00: MOUTH [place] 800-160 mg 00 EVERY 12 Medic al per tablet HOURS FOR Bran ch 10 DAYS sulfamethox 2018 Yes TAKE 1 [facility] azole-trime 2-21 TABLET BY ity of thoprim 00:00: MOUTH [place] 800-160 mg 00 EVERY 12 Medic al per tablet HOURS FOR Bran ch 10 DAYS sulfamethox Yes TAKE 1 [facility] azole-trime 2-21 TABLET BY ity of thoprim 00:00: MOUTH [place] 800-160 mg 00 EVERY 12 Medic al per tablet HOURS FOR Bran ch 10 DAYS sulfamethox Yes TAKE 1 [facility] azole-trime 2-21 TABLET BY ity of thoprim 00:00: MOUTH [place] 800-160 mg 00 EVERY 12 Medic al per tablet HOURS FOR Bran ch 10 DAYS sulfamethox 2018 Yes TAKE 1 [facility] azole-trime 2-21 TABLET BY ity of thoprim 00:00: MOUTH [place] 800-160 mg 00 EVERY 12 Medic al per tablet HOURS FOR Bran ch 10 DAYS sulfamethox 2018 Yes TAKE 1 [facility] azole-trime 2-21 TABLET BY ity of thoprim 00:00: MOUTH [place] 800-160 mg 00 EVERY 12 Medic al per tablet HOURS FOR Bran ch 10 DAYS sulfamethox 2018 Yes TAKE 1 [facility] azole-trime 2-21 TABLET BY ity of thoprim 00:00: MOUTH [place] 800-160 mg 00 EVERY 12 Medic al per tablet HOURS FOR Bran ch 10 DAYS sulfamethox 2018 Yes TAKE 1 [facility] azole-trime 2-21 TABLET BY ity of thoprim 00:00: MOUTH [place] 800-160 mg 00 EVERY 12 Medic al per tablet HOURS FOR Bran ch 10 DAYS sulfamethox 2018 Yes TAKE 1 [facility] azole-trime 2-21 TABLET BY ity of thoprim 00:00: MOUTH [place] 800-160 mg 00 EVERY 12 Medic al per tablet HOURS FOR Bran ch 10 DAYS sulfamethox 2018 Yes TAKE 1 [facility] azole-trime 2-21 TABLET BY ity of thoprim 00:00: MOUTH [place] 800-160 mg 00 EVERY 12 Medic al per tablet HOURS FOR Bran ch 10 DAYS sulfamethox Yes TAKE 1 [facility] azole-trime 2-21 TABLET BY ity of thoprim 00:00: MOUTH [place] 800-160 mg 00 EVERY 12 Medic al per tablet HOURS FOR Bran ch 10 DAYS promethazin Yes 5mL Take 5 mL M D e-codeine 1-20 by mouth [place] o (PHENERGAN 00:00: nightly as n with 00 needed. CODEINE) 6.25-10 mg/5 mL syrup ARIPiprazol 2014-03 Yes 5mg Take 5 mg U nivers e (ABILIFY) 2-10 by mouth ity of 5 mg tablet 17:44: at [place] 16 bedtime. Medical Branch aspirin 81 2014-03 Yes 81mg Take 81 mg [facility] mg chewable 2-10 by mouth ity of tablet 17:44: daily. [place] [address] Medical Branch benztropine 2014-03 Yes .5mg Take 0.5 [facility] (COGENTIN) 2-10 mg by ity of 0.5 mg 17:44: mouth 2 [place] tablet 16 (two) Medical times Branch daily. CALCIUM 2014-03 Yes Take by [facility] CARBONATE/V 2-10 mouth 2 ity o f ITAMIN D3 17:44: (two) [place] (CALCIUM 16 times Medical 500 + D, daily. Branch D3, ORAL) carvedilol 2014-03 Yes 3.125mg Take 3.125 [facility] (COREG) 2-10 mg by ity of 3.125 mg 17:44: mouth 2 [place] tablet 16 (two) Medical times Branch daily with meals. docusate 2014-03 Yes 100mg Take 100 Univ ers (COLACE) 2-10 mg by ity of 100 mg 17:44: mouth 2 [place] capsule 16 (two) Medical times Branch daily. DULoxetine 2014-03 Yes 30mg Take 30 mg U nivers (CYMBALTA) 2-10 by mouth ity o f 30 mg 17:44: daily. [place] capsule 16 Medical Branch escitalopra 2014-03 Yes 10mg Take 10 mg [facility] m oxalate 2-10 by mouth ity of (LEXAPRO) 17:44: at [place] 10 mg 16 bedtime. Medical tablet Branch ibandronate 2014-03 Yes 150mg Take 150 U nivers (BONIVA) 2-10 mg by ity of 150 mg 17:44: mouth once [place] tablet 16 every Medical month. Branch MULTIVIT-WV 2014-03 Yes Take by [facility] N/FA/CA 2-10 mouth. ity of CARB/VIT K 17:44: [place] (ONE-A-DAY 16 Medical WOMEN'S 50+ Branch ORAL) bromfenac 2014-[address] in Uni vers (PROLENSA) 2-10 left eye. ity of 0.07 % Drop 17:44: [place] [address] Medical Branch QUEtiapine 2014-03 Yes 50mg Take 50 mg U n[facility] (SEROQUEL) 2-10 by mouth ity o f 50 mg 17:44: at [place] tablet 16 bedtime. Medical Branch cycloSPORIN 2014-03 Yes 1[drp] Place 1 U nivers E 2-10 Drop in ity of (RESTASIS) 17:44: both eyes [place] 0.05 % 16 every 12 Medical drops (twelve) Branch hours. rOPINIRole 2014-03 Yes 3mg Take 3 mg [facility] (REQUIP) 3 2-10 by mouth 4 ity of mg tablet 17:44: (four) [place] 16 times Medical daily. Branch ARIPiprazol 2014-03 Yes 5mg Take 5 mg U nivers e (ABILIFY) 2-10 by mouth ity of 5 mg tablet 17:44: at [place] [address] bedtime. Medical Branch aspirin 81 2014-03 Yes 81mg Take 81 mg [facility] mg chewable 2-10 by mouth ity of tablet 17:44: daily. [place] [address] Medical Branch benztropine 2014-03 Yes .5mg Take 0.5 [facility] (COGENTIN) 2-10 mg by ity of 0.5 mg 17:44: mouth 2 [place] tablet 16 (two) Medical times Branch daily. CALCIUM 2014-03 Yes Take by Univer s CARBONATE/V 2-10 mouth 2 ity o f ITAMIN D3 17:44: (two) [place] (CALCIUM 16 times Medical 500 + D, daily. Branch D3, ORAL) carvedilol 2014-03 Yes 3.125mg Take 3.125 [facility] (COREG) 2-10 mg by ity of 3.125 mg 17:44: mouth 2 [place] tablet 16 (two) Medical times Branch daily with meals. docusate 2014-03 Yes 100mg Take 100 Univ ers (COLACE) 2-10 mg by ity of 100 mg 17:44: mouth 2 [place] capsule 16 (two) Medical times Branch daily. DULoxetine 2014-03 Yes 30mg Take 30 mg U nivers (CYMBALTA) 2-10 by mouth ity o f 30 mg 17:44: daily. [place] capsule 16 Medical Branch escitalopra 2014-03 Yes 10mg Take 10 mg [facility] m oxalate 2-10 by mouth ity of (LEXAPRO) 17:44: at [place] 10 mg 16 bedtime. Medical tablet Branch ibandronate 2014-03 Yes 150mg Take 150 U nivers (BONIVA) 2-10 mg by ity of 150 mg 17:44: mouth once [place] tablet 16 every Medical month. Branch MULTIVIT-WV 2014-03 Yes Take by [facility] N/FA/CA 2-10 mouth. ity of CARB/VIT K 17:44: [place] (ONE-A-DAY 16 Medical WOMEN'S 50+ Branch ORAL) bromfenac 2014-[address] in Uni vers (PROLENSA) 2-10 left eye. ity of 0.07 % Drop 17:44: [place] [address] Medical Branch QUEtiapine 2014-03 Yes 50mg Take 50 mg U nivers (SEROQUEL) 2-10 by mouth ity o f 50 mg 17:44: at [place] tablet 16 bedtime. Medical Branch cycloSPORIN 2014-03 Yes 1[drp] Place 1 U nivers E 2-10 Drop in ity of (RESTASIS) 17:44: both eyes [place] 0.05 % 16 every 12 Medical drops (twelve) Branch hours. rOPINIRole 2014-03 Yes 3mg Take 3 mg [facility] (REQUIP) 3 2-10 by mouth 4 ity of mg tablet 17:44: (four) [place] [address] times Medical daily. Branch ARIPiprazol 2014-03 Yes 5mg Take 5 mg [facility] nivers e (ABILIFY) 2-10 by mouth ity of 5 mg tablet 17:44: at [place] 16 bedtime. Medical Branch aspirin 81 2014-03 Yes 81mg Take 81 mg [facility]ivers mg chewable 2-10 by mouth ity of tablet 17:44: daily. [place] [address] Medical Branch benztropine 2014-03 Yes .5mg Take 0.5 [facility] [place] (COGENTIN) 2-10 mg by ity of 0.5 mg 17:44: mouth 2 [place] tablet 16 (two) Medical times Branch daily. CALCIUM 2014-03 Yes Take by Univer s CARBONATE/V 2-10 mouth 2 ity o f ITAMIN D3 17:44: (two) [place] (CALCIUM 16 times Medical 500 + D, daily. Branch D3, ORAL) carvedilol 2014-03 Yes 3.125mg Take 3.125 [facility] (COREG) 2-10 mg by ity of 3.125 mg 17:44: mouth 2 [place] tablet 16 (two) Medical times Branch daily with meals. docusate 2014-03 Yes 100mg Take 100 [facility] ers (COLACE) 2-10 mg by ity of 100 mg 17:44: mouth 2 [place] capsule 16 (two) Medical times Branch daily. DULoxetine 2014-03 Yes 30mg Take 30 mg [facility] nivers (CYMBALTA) 2-10 by mouth ity o f 30 mg 17:44: daily. [place] capsule 16 Medical Branch escitalopra 2014-03 Yes 10mg Take 10 mg [facility] m oxalate 2-10 by mouth ity of (LEXAPRO) 17:44: at [place] 10 mg 16 bedtime. Medical tablet Branch ibandronate 2014-03 Yes 150mg Take 150 U nivers (BONIVA) 2-10 mg by ity of 150 mg 17:44: mouth once [place] tablet 16 every Medical month. Branch MULTIVIT-WV 2014-03 Yes Take by [facility] N/FA/CA 2-10 mouth. ity of CARB/VIT K 17:44: [place] (ONE-A-DAY 16 Medical WOMEN'S 50+ Branch ORAL) bromfenac 2014-[address] in [facility] vers (PROLENSA) 2-10 left eye. ity of 0.07 % Drop 17:44: [place] [address] Medical Branch QUEtiapine 2014-03 Yes 50mg Take 50 mg U nivers (SEROQUEL) 2-10 by mouth ity o f 50 mg 17:44: at [place] tablet 16 bedtime. Medical Branch cycloSPORIN 2014-03 Yes 1[drp] Place 1 [facility] nivers E 2-10 Drop in ity of (RESTASIS) 17:44: both eyes [place] 0.05 % 16 every 12 Medical drops (twelve) Branch hours. rOPINIRole 2014-03 Yes 3mg Take 3 mg [facility] (REQUIP) 3 2-10 by mouth 4 ity of mg tablet 17:44: (four) [place] 16 times Medical daily. Branch ARIPiprazol 2014-03 Yes 5mg Take 5 mg [facility] nivers e (ABILIFY) 2-10 by mouth ity of 5 mg tablet 17:44: at [place] 16 bedtime. Medical Branch aspirin 81 2014-03 Yes 81mg Take 81 mg [facility] n[facility] mg chewable 2-10 by mouth ity of tablet 17:44: daily. [place] [address] Medical Branch benztropine 2014-03 Yes .5mg Take 0.5 [facility] (COGENTIN) 2-10 mg by ity of 0.5 mg 17:44: mouth 2 [place] tablet 16 (two) Medical times Branch daily. CALCIUM 2014-03 Yes Take by Univer s CARBONATE/V 2-10 mouth 2 ity o f ITAMIN D3 17:44: (two) [place] (CALCIUM [address] [place] [address] 500 + D, daily. Branch D3, ORAL) carvedilol 2014-03 Yes 3.125mg Take 3.125 [facility] (COREG) 2-10 mg by ity of 3.125 mg 17:44: mouth 2 [place] tablet 16 (two) Medical times [place] daily with meals. docusate 2014-03 Yes 100mg Take 100 [facility] ers (COLACE) 2-10 mg by ity of 100 mg 17:44: mouth 2 [place] capsule 16 (two) Medical times Branch daily. DULoxetine 2014-03 Yes 30mg Take 30 mg [facility] nivers (CYMBALTA) 2-10 by mouth ity o f 30 mg 17:44: daily. [place] capsule 16 Medical Branch escitalopra 2014-03 Yes 10mg Take 10 mg [facility] m oxalate 2-10 by mouth ity of (LEXAPRO) 17:44: at [place] 10 mg 16 bedtime. Medical tablet Branch ibandronate 2014-03 Yes 150mg Take 150 U nivers (BONIVA) 2-10 mg by ity of 150 mg 17:44: mouth once [place] tablet 16 every Medical month. Branch MULTIVIT-[place] 2014-03 Yes Take by [facility] N/FA/CA 2-10 mouth. ity of CARB/VIT K 17:44: [place] (ONE-A-DAY 16 Medical WOMEN'S 50+ Branch ORAL) bromfenac 2014-[address] in [facility] vers (PROLENSA) 2-10 left eye. ity of 0.07 % Drop 17:44: [place] [address] Medical Branch QUEtiapine 2014-03 Yes 50mg Take 50 mg U nivers (SEROQUEL) 2-10 by mouth ity o f 50 mg 17:44: at [place] tablet 16 bedtime. Medical Branch cycloSPORIN 2014-03 Yes 1[drp] Place 1 [facility] nivers E 2-10 Drop in ity of (RESTASIS) 17:44: both eyes [place] 0.05 % 16 every 12 Medical drops (twelve) Branch hours. rOPINIRole 2014-03 Yes 3mg Take 3 mg [facility] (REQUIP) 3 2-10 by mouth 4 ity of mg tablet 17:44: (four) [place] 16 times Medical daily. Branch ARIPiprazol 2014-03 Yes 5mg Take 5 mg [facility] n[facility] e (ABILIFY) 2-10 by mouth ity of 5 mg tablet 17:44: at [place] [address] bedtime. Medical Branch aspirin 81 2014-03 Yes 81mg Take 81 mg U nivers mg chewable 2-10 by mouth ity of tablet 17:44: daily. [address] Branch benztropine 2014-03 Yes .5mg Take 0.5 [facility] (COGENTIN) 2-10 mg by ity of 0.5 mg 17:44: mouth 2 [place] tablet 16 (two) Medical times Branch daily. CALCIUM 2014-03 Yes Take by Univer s CARBONATE/V 2-10 mouth 2 ity o f ITAMIN D3 17:44: (two) [place] (CALCIUM 16 times [facility] 500 + D, daily. Branch D3, ORAL) carvedilol 2014-03 Yes 3.125mg Take 3.125 [facility] (COREG) 2-10 mg by ity of 3.125 mg 17:44: mouth 2 [place] tablet 16 (two) Medical times Branch daily with meals. docusate 2014-03 Yes 100mg Take 100 [facility] ers (COLACE) 2-10 mg by ity of 100 mg 17:44: mouth 2 [place] capsule 16 (two) Medical times Branch daily. DULoxetine 2014-03 Yes 30mg Take 30 mg U nivers (CYMBALTA) 2-10 by mouth ity o f 30 mg 17:44: daily. [place] capsule 16 Medical Branch escitalopra 2014-03 Yes 10mg Take 10 mg [facility] m oxalate 2-10 by mouth ity of (LEXAPRO) 17:44: at [place] 10 mg 16 bedtime. Medical tablet Branch ibandronate 2014-03 Yes 150mg Take 150 U nivers (BONIVA) 2-10 mg by ity of 150 mg 17:44: mouth once [place] tablet 16 every Medical month. Branch MULTIVIT-WV 2014-03 Yes Take by [facility] N/FA/CA 2-10 mouth. ity of CARB/VIT K 17:44: [place] (ONE-A-DAY 16 Medical WOMEN'S 50+ Branch ORAL) bromfenac 2014-[address] in [facility] vers (PROLENSA) 2-10 left eye. ity of 0.07 % Drop 17:44: [place] [address] Medical Branch QUEtiapine 2014-03 Yes 50mg Take 50 mg U nivers (SEROQUEL) 2-10 by mouth ity o f 50 mg 17:44: at [place] tablet 16 bedtime. Medical Branch cycloSPORIN 2014-03 Yes 1[drp] Place 1 U nivers E 2-10 Drop in ity of (RESTASIS) 17:44: both eyes [place] 0.05 % 16 every 12 Medical drops (twelve) Branch hours. rOPINIRole 2014-03 Yes 3mg Take 3 mg [facility] [place] (REQUIP) 3 2-10 by mouth 4 ity of mg tablet 17:44: (four) [place] 16 times Medical daily. Branch ARIPiprazol 2014-03 Yes 5mg Take 5 mg U nivers e (ABILIFY) 2-10 by mouth ity of 5 mg tablet 17:44: at [place] 16 bedtime. Medical Branch aspirin 81 2014-03 Yes 81mg Take 81 mg U nivers mg chewable 2-10 by mouth ity of tablet 17:44: daily. [place] [address] Medical Branch benztropine 2014-03 Yes .5mg Take 0.5 [facility] [place] (COGENTIN) 2-10 mg by ity of 0.5 mg 17:44: mouth 2 [place] tablet 16 (two) Medical times Branch daily. CALCIUM 2014-03 Yes Take by Univer s CARBONATE/V 2-10 mouth 2 ity o f ITAMIN D3 17:44: (two) [place] (CALCIUM 16 times Medical 500 + D, daily. Branch D3, ORAL) carvedilol 2014-03 Yes 3.125mg Take 3.125 [facility] (COREG) 2-10 mg by ity of 3.125 mg 17:44: mouth 2 [place] tablet 16 (two) Medical times Branch daily with meals. docusate 2014-03 Yes 100mg Take 100 Univ ers (COLACE) 2-10 mg by ity of 100 mg 17:44: mouth 2 [place] capsule 16 (two) Medical times Branch daily. DULoxetine 2014-03 Yes 30mg Take 30 mg U nivers (CYMBALTA) 2-10 by mouth ity o f 30 mg 17:44: daily. [place] capsule 16 Medical Branch escitalopra 2014-03 Yes 10mg Take 10 mg [facility] m oxalate 2-10 by mouth ity of (LEXAPRO) 17:44: at [place] 10 mg 16 bedtime. Medical tablet Branch ibandronate 2014-03 Yes 150mg Take 150 U nivers (BONIVA) 2-10 mg by ity of 150 mg 17:44: mouth once [place] tablet 16 every Medical month. Branch MULTIVIT-WV 2014-03 Yes Take by [facility] N/FA/CA 2-10 mouth. ity of CARB/VIT K 17:44: [place] (ONE-A-DAY 16 Medical WOMEN'S 50+ Branch ORAL) bromfenac 2014-[address] in Uni vers (PROLENSA) 2-10 left eye. ity of 0.07 % Drop 17:44: [place] [address] Medical Branch QUEtiapine 2014-03 Yes 50mg Take 50 mg U nivers (SEROQUEL) 2-10 by mouth ity o f 50 mg 17:44: at [place] tablet 16 bedtime. Medical Branch cycloSPORIN 2014-03 Yes 1[drp] Place 1 U nivers E 2-10 Drop in ity of (RESTASIS) 17:44: both eyes [place] 0.05 % 16 every 12 Medical drops (twelve) Branch hours. rOPINIRole 2014-03 Yes 3mg Take 3 mg [facility] (REQUIP) 3 2-10 by mouth 4 ity of mg tablet 17:44: (four) [place] [address] times Medical daily. Branch ARIPiprazol 2014-03 Yes 5mg Take 5 mg U nivers e (ABILIFY) 2-10 by mouth ity of 5 mg tablet 17:44: at [place] 16 bedtime. Medical Branch aspirin 81 2014-03 Yes 81mg Take 81 mg U nivers mg chewable 2-10 by mouth ity of tablet 17:44: daily. [place] [address] Medical Branch benztropine 2014-03 Yes .5mg Take 0.5 [facility] [place] (COGENTIN) 2-10 mg by ity of 0.5 mg 17:44: mouth 2 [place] tablet 16 (two) Medical times Branch daily. CALCIUM 2014-03 Yes Take by Univer s CARBONATE/V 2-10 mouth 2 ity o f ITAMIN D3 17:44: (two) [place] (CALCIUM 16 times Medical 500 + D, daily. Branch D3, ORAL) carvedilol 2014-03 Yes 3.125mg Take 3.125 [facility] (COREG) 2-10 mg by ity of 3.125 mg 17:44: mouth 2 [place] tablet 16 (two) Medical times [place] daily with meals. docusate 2014-03 Yes 100mg Take 100 Univ ers (COLACE) 2-10 mg by ity of 100 mg 17:44: mouth 2 [place] capsule 16 (two) Medical times [place] daily. DULoxetine 2014-03 Yes 30mg Take 30 mg U nivers (CYMBALTA) 2-10 by mouth ity o f 30 mg 17:44: daily. [place] capsule Medical Branch escitalopra 2014-03 Yes 10mg Take 10 mg [facility] m oxalate 2-10 by mouth ity of (LEXAPRO) 17:44: at [place] 10 mg 16 bedtime. Medical tablet Branch ibandronate 2014-03 Yes 150mg Take 150 U nivers (BONIVA) 2-10 mg by ity of 150 mg 17:44: mouth once [place] tablet 16 every Medical month. Branch MULTIVIT-WV 2014-03 Yes Take by [facility] N/FA/CA 2-10 mouth. ity of CARB/VIT K 17:44: [place] (ONE-A-DAY 16 Medical WOMEN'S 50+ Branch ORAL) bromfenac 2014-[address] in Uni vers (PROLENSA) 2-10 left eye. ity of 0.07 % Drop 17:44: [place] [address] Medical Branch QUEtiapine 2014-03 Yes 50mg Take 50 mg U nivers (SEROQUEL) 2-10 by mouth ity o f 50 mg 17:44: at [place] tablet 16 bedtime. Medical Branch cycloSPORIN 2014-03 Yes 1[drp] Place 1 U nivers E 2-10 Drop in ity of (RESTASIS) 17:44: both eyes [place] 0.05 % 16 every 12 Medical drops (twelve) Branch hours. rOPINIRole 2014-03 Yes 3mg Take 3 mg [facility] (REQUIP) 3 2-10 by mouth 4 ity of mg tablet 17:44: (four) [place] 16 times Medical daily. Branch ARIPiprazol 2014-03 Yes 5mg Take 5 mg U nivers e (ABILIFY) 2-10 by mouth ity of 5 mg tablet 17:44: at [place] 16 bedtime. Medical Branch aspirin 81 2014-03 Yes 81mg Take 81 mg U nivers mg chewable 2-10 by mouth ity of tablet 17:44: daily. [place] [address] Medical Branch benztropine 2014-03 Yes .5mg Take 0.5 [facility] [place] (COGENTIN) 2-10 mg by ity of 0.5 mg 17:44: mouth 2 [place] tablet 16 (two) Medical times Branch daily. CALCIUM 2014-03 Yes Take by Univer s CARBONATE/V 2-10 mouth 2 ity o f ITAMIN D3 17:44: (two) [place] (CALCIUM 16 times Medical 500 + D, daily. Branch D3, ORAL) carvedilol 2014-03 Yes 3.125mg Take 3.125 [facility] (COREG) 2-10 mg by ity of 3.125 mg 17:44: mouth 2 [place] tablet 16 (two) Medical times Branch daily with meals. docusate 2014-03 Yes 100mg Take 100 Univ ers (COLACE) 2-10 mg by ity of 100 mg 17:44: mouth 2 [place] capsule 16 (two) Medical times Branch daily. DULoxetine 2014-03 Yes 30mg Take 30 mg U nivers (CYMBALTA) 2-10 by mouth ity o f 30 mg 17:44: daily. [place] capsule 16 Medical Branch escitalopra 2014-03 Yes 10mg Take 10 mg [facility] m oxalate 2-10 by mouth ity of (LEXAPRO) 17:44: at [place] 10 mg 16 bedtime. Medical tablet Branch ibandronate 2014-03 Yes 150mg Take 150 U nivers (BONIVA) 2-10 mg by ity of 150 mg 17:44: mouth once [place] tablet 16 every Medical month. Branch MULTIVIT-WV 2014-03 Yes Take by [facility] N/FA/CA 2-10 mouth. ity of CARB/VIT K 17:44: [place] (ONE-A-DAY 16 Medical WOMEN'S 50+ Branch ORAL) bromfenac 2014-[address] in Uni vers (PROLENSA) 2-10 left eye. ity of 0.07 % Drop 17:44: [place] [address] Medical Branch QUEtiapine 2014-03 Yes 50mg Take 50 mg U nivers (SEROQUEL) 2-10 by mouth ity o f 50 mg 17:44: at [place] tablet 16 bedtime. Medical Branch cycloSPORIN 2014-03 Yes 1[drp] Place 1 U nivers E 2-10 Drop in ity of (RESTASIS) 17:44: both eyes [place] 0.05 % 16 every 12 Medical drops (twelve) Branch hours. rOPINIRole 2014-03 Yes 3mg Take 3 mg [facility] [place] (REQUIP) 3 2-10 by mouth 4 ity of mg tablet 17:44: (four) [place] [address] times Medical daily. Branch ARIPiprazol 2014-03 Yes 5mg Take 5 mg U nivers e (ABILIFY) 2-10 by mouth ity of 5 mg tablet 17:44: at [place] [address] bedtime. Medical Branch aspirin 81 2014-03 Yes 81mg Take 81 mg U nivers mg chewable 2-10 by mouth ity of tablet 17:44: daily. [address] Branch benztropine 2014-03 Yes .5mg Take 0.5 [facility] [place] (COGENTIN) 2-10 mg by ity of 0.5 mg 17:44: mouth 2 [place] tablet 16 (two) Medical times [place] daily. CALCIUM 2014-03 Yes Take by Univer s CARBONATE/V 2-10 mouth 2 ity o f ITAMIN D3 17:44: (two) [place] (CALCIUM times [facility] 500 + D, daily. Branch D3, ORAL) carvedilol 2014-03 Yes 3.125mg Take 3.125 [facility] (COREG) 2-10 mg by ity of 3.125 mg 17:44: mouth 2 [place] tablet 16 (two) Medical times [place] daily with meals. docusate 2014-03 Yes 100mg Take 100 Univ ers (COLACE) 2-10 mg by ity of 100 mg 17:44: mouth 2 [place] capsule 16 (two) Medical times Branch daily. DULoxetine 2014-03 Yes 30mg Take 30 mg U nivers (CYMBALTA) 2-10 by mouth ity o f 30 mg 17:44: daily. [place] capsule 16 Medical Branch escitalopra 2014-03 Yes 10mg Take 10 mg [facility] m oxalate 2-10 by mouth ity of (LEXAPRO) 17:44: at [place] 10 mg 16 bedtime. Medical tablet Branch ibandronate 2014-03 Yes 150mg Take 150 U nivers (BONIVA) 2-10 mg by ity of 150 mg 17:44: mouth once [place] tablet 16 every Medical month. Branch MULTIVIT-[place] 2014-03 Yes Take by Un [facility] N/FA/CA 2-10 mouth. ity of CARB/VIT K 17:44: [place] (ONE-A-DAY 16 Medical WOMEN'S 50+ Branch ORAL) bromfenac 2014-[address] in Uni vers (PROLENSA) 2-10 left eye. ity of 0.07 % Drop 17:44: [place] [address] Medical Branch QUEtiapine 2014-03 Yes 50mg Take 50 mg U nivers (SEROQUEL) 2-10 by mouth ity o f 50 mg 17:44: at [place] tablet 16 bedtime. Medical Branch cycloSPORIN 2014-03 Yes 1[drp] Place 1 U nivers E 2-10 Drop in ity of (RESTASIS) 17:44: both eyes [place] 0.05 % 16 every 12 Medical drops (twelve) Branch hours. rOPINIRole 2014-03 Yes 3mg Take 3 mg [facility] [place] (REQUIP) 3 2-10 by mouth 4 ity of mg tablet 17:44: (four) [place] [address] times Medical daily. Branch ARIPiprazol 2014-03 Yes 5mg Take 5 mg U nivers e (ABILIFY) 2-10 by mouth ity of 5 mg tablet 17:44: at [place] 16 bedtime. Medical Branch aspirin 81 2014-03 Yes 81mg Take 81 mg U nivers mg chewable 2-10 by mouth ity of tablet 17:44: daily. [place] [address] Medical Branch benztropine 2014-03 Yes .5mg Take 0.5 [facility] [place] (COGENTIN) 2-10 mg by ity of 0.5 mg 17:44: mouth 2 [place] tablet 16 (two) Medical times Branch daily. CALCIUM 2014-03 Yes Take by Univer s CARBONATE/V 2-10 mouth 2 ity o f ITAMIN D3 17:44: (two) [place] (CALCIUM 16 times Medical 500 + D, daily. Branch D3, ORAL) carvedilol 2014-03 Yes 3.125mg Take 3.125 [facility] (COREG) 2-10 mg by ity of 3.125 mg 17:44: mouth 2 [place] tablet 16 (two) Medical times Branch daily with meals. docusate 2014-03 Yes 100mg Take 100 Univ ers (COLACE) 2-10 mg by ity of 100 mg 17:44: mouth 2 [place] capsule 16 (two) Medical times Branch daily. DULoxetine 2014-03 Yes 30mg Take 30 mg U nivers (CYMBALTA) 2-10 by mouth ity o f 30 mg 17:44: daily. [place] capsule 16 Medical Branch escitalopra 2014-03 Yes 10mg Take 10 mg [facility] m oxalate 2-10 by mouth ity of (LEXAPRO) 17:44: at [place] 10 mg 16 bedtime. Medical tablet Branch ibandronate 2014-03 Yes 150mg Take 150 U nivers (BONIVA) 2-10 mg by ity of 150 mg 17:44: mouth once [place] tablet 16 every Medical month. Branch MULTIVIT-[place] 2014-03 Yes Take by [facility] N/FA/CA 2-10 mouth. ity of CARB/VIT K 17:44: [place] (ONE-A-DAY 16 Medical WOMEN'S 50+ Branch ORAL) bromfenac 2014-[address] in Uni vers (PROLENSA) 2-10 left eye. ity of 0.07 % Drop 17:44: [place] [address] Medical Branch QUEtiapine 2014-03 Yes 50mg Take 50 mg U nivers (SEROQUEL) 2-10 by mouth ity o f 50 mg 17:44: at [place] tablet 16 bedtime. Medical Branch cycloSPORIN 2014-03 Yes 1[drp] Place 1 U nivers E 2-10 Drop in ity of (RESTASIS) 17:44: both eyes [place] 0.05 % 16 every 12 Medical drops (twelve) Branch hours. rOPINIRole 2014-03 Yes 3mg Take 3 mg [place] (REQUIP) 3 2-10 by mouth 4 ity of mg tablet 17:44: (four) [place] 16 times Medical daily. Branch ARIPiprazol 2014-03 Yes 5mg Take 5 mg U nivers e (ABILIFY) 2-10 by mouth ity of 5 mg tablet 17:44: at [place] 16 bedtime. Medical Branch aspirin 81 2014-03 Yes 81mg Take 81 mg U nivers mg chewable 2-10 by mouth ity of tablet 17:44: daily. [place] [address] Medical Branch benztropine 2014-03 Yes .5mg Take 0.5 [facility] [place] (COGENTIN) 2-10 mg by ity of 0.5 mg 17:44: mouth 2 [place] tablet 16 (two) Medical times Branch daily. CALCIUM 2014-03 Yes Take by Univer s CARBONATE/V 2-10 mouth 2 ity o f ITAMIN D3 17:44: (two) [place] (CALCIUM 16 times Medical 500 + D, daily. Branch D3, ORAL) carvedilol 2014-03 Yes 3.125mg Take 3.125 [facility] (COREG) 2-10 mg by ity of 3.125 mg 17:44: mouth 2 [place] tablet 16 (two) Medical times Branch daily with meals. docusate 2014-03 Yes 100mg Take 100 Univ ers (COLACE) 2-10 mg by ity of 100 mg 17:44: mouth 2 [place] capsule 16 (two) Medical times Branch daily. DULoxetine 2014-03 Yes 30mg Take 30 mg U nivers (CYMBALTA) 2-10 by mouth ity o f 30 mg 17:44: daily. [place] capsule 16 Medical Branch escitalopra 2014-03 Yes 10mg Take 10 mg [facility] m oxalate 2-10 by mouth ity of (LEXAPRO) 17:44: at [place] 10 mg 16 bedtime. Medical tablet Branch ibandronate 2014-03 Yes 150mg Take 150 U nivers (BONIVA) 2-10 mg by ity of 150 mg 17:44: mouth once [place] tablet 16 every Medical month. Branch MULTIVIT-[place] 2014-03 Yes Take by [facility] N/FA/CA 2-10 mouth. ity of CARB/VIT K 17:44: [place] (ONE-A-DAY 16 Medical WOMEN'S 50+ Branch ORAL) bromfenac 2014-[address] [facility] vers (PROLENSA) 2-10 left eye. ity of 0.07 % Drop 17:44: [place] 16 Medical Branch QUEtiapine 2014-03 Yes 50mg Take 50 mg U nivers (SEROQUEL) 2-10 by mouth ity o f 50 mg 17:44: at [place] tablet 16 bedtime. Medical Branch cycloSPORIN 2014-03 Yes 1[drp] Place 1 U nivers E 2-10 Drop in ity of (RESTASIS) 17:44: both eyes [place] 0.05 % 16 every 12 Medical drops (twelve) Branch hours. rOPINIRole 2014-03 Yes 3mg Take 3 mg [facility] (REQUIP) 3 2-10 by mouth 4 ity of mg tablet 17:44: (four) [place] 16 times Medical daily. Branch ARIPiprazol 2014-03 Yes 5mg Take 5 mg U nivers e (ABILIFY) 2-10 by mouth ity of 5 mg tablet 17:44: at [place] [address] bedtime. Medical Branch aspirin 81 2014-03 Yes 81mg Take 81 mg U nivers mg chewable 2-10 by mouth ity of tablet 17:44: daily. [address] Branch benztropine 2014-03 Yes .5mg Take 0.5 [facility] [place] (COGENTIN) 2-10 mg by ity of 0.5 mg 17:44: mouth 2 [place] tablet 16 (two) Medical times Branch daily. CALCIUM 2014-03 Yes Take by Univer s CARBONATE/V 2-10 mouth 2 ity o f ITAMIN D3 17:44: (two) [place] (CALCIUM 16 times [facility] 500 + D, daily. Branch D3, ORAL) carvedilol 2014-03 Yes 3.125mg Take 3.125 [facility] (COREG) 2-10 mg by ity of 3.125 mg 17:44: mouth 2 [place] tablet 16 (two) Medical times Branch daily with meals. docusate 2014-03 Yes 100mg Take 100 Univ ers (COLACE) 2-10 mg by ity of 100 mg 17:44: mouth 2 [place] capsule 16 (two) Medical times Branch daily. DULoxetine 2014-03 Yes 30mg Take 30 mg U nivers (CYMBALTA) 2-10 by mouth ity o f 30 mg 17:44: daily. [place] [address] Medical Branch escitalopra 2014-03 Yes 10mg Take 10 mg [facility] m oxalate 2-10 by mouth ity of (LEXAPRO) 17:44: at [place] 10 mg 16 bedtime. Medical tablet Branch ibandronate 2014-03 Yes 150mg Take 150 U nivers (BONIVA) 2-10 mg by ity of 150 mg 17:44: mouth once [place] tablet 16 every Medical month. Branch MULTIVIT-[place] 2014-03 Yes Take by [facility] N/FA/CA 2-10 mouth. ity of CARB/VIT K 17:44: [place] (ONE-A-DAY 16 Medical WOMEN'S 50+ Branch ORAL) bromfenac 2014-[address] in Uni vers (PROLENSA) 2-10 left eye. ity of 0.07 % Drop 17:44: [place] [address] Medical Branch QUEtiapine 2014-03 Yes 50mg Take 50 mg U nivers (SEROQUEL) 2-10 by mouth ity o f 50 mg 17:44: at [place] tablet 16 bedtime. Medical Branch cycloSPORIN 2014-03 Yes 1[drp] Place 1 U nivers E 2-10 Drop in ity of (RESTASIS) 17:44: both eyes [place] 0.05 % 16 every 12 Medical drops (twelve) Branch hours. rOPINIRole 2014-03 Yes 3mg Take 3 mg [facility] (REQUIP) 3 2-10 by mouth 4 ity of mg tablet 17:44: (four) [place] 16 times Medical daily. Branch ARIPiprazol 2014-03 Yes 5mg Take 5 mg U nivers e (ABILIFY) 2-10 by mouth ity of 5 mg tablet 17:44: at [place] 16 bedtime. Medical Branch aspirin 81 2014-03 Yes 81mg Take 81 mg U nivers mg chewable 2-10 by mouth ity of tablet 17:44: daily. [place] [address] Medical Branch benztropine 2014-03 Yes .5mg Take 0.5 [facility] [place] (COGENTIN) 2-10 mg by ity of 0.5 mg 17:44: mouth 2 [place] tablet 16 (two) Medical times Branch daily. CALCIUM 2014-03 Yes Take by Univer s CARBONATE/V 2-10 mouth 2 ity o f ITAMIN D3 17:44: (two) [place] (CALCIUM 16 times Medical 500 + D, daily. Branch D3, ORAL) carvedilol 2014-03 Yes 3.125mg Take 3.125 Univers (COREG) 2-10 mg by ity of 3.125 mg 17:44: mouth 2 [place] tablet 16 (two) Medical times Branch daily with meals. docusate 2014-03 Yes 100mg Take 100 Univ ers (COLACE) 2-10 mg by ity of 100 mg 17:44: mouth 2 [place] capsule 16 (two) Medical times Branch daily. DULoxetine 2014-03 Yes 30mg Take 30 mg U nivers (CYMBALTA) 2-10 by mouth ity o f 30 mg 17:44: daily. [place] capsule 16 Medical Branch escitalopra 2014-03 Yes 10mg Take 10 mg [facility] m oxalate 2-10 by mouth ity of (LEXAPRO) 17:44: at [place] 10 mg 16 bedtime. Medical tablet Branch ibandronate 2014-03 Yes 150mg Take 150 U nivers (BONIVA) 2-10 mg by ity of 150 mg 17:44: mouth once [place] tablet 16 every Medical month. Branch MULTIVIT-[place] 2014-03 Yes Take by [facility] N/FA/CA 2-10 mouth. ity of CARB/VIT K 17:44: [place] (ONE-A-DAY 16 Medical WOMEN'S 50+ Branch ORAL) bromfenac 2014-[address] in [facility] vers (PROLENSA) 2-10 left eye. ity of 0.07 % Drop 17:44: [place] [address] Medical Branch QUEtiapine 2014-03 Yes 50mg Take 50 mg U nivers (SEROQUEL) 2-10 by mouth ity o f 50 mg 17:44: at [place] tablet 16 bedtime. Medical Branch cycloSPORIN 2014-03 Yes 1[drp] Place 1 U nivers E 2-10 Drop in ity of (RESTASIS) 17:44: both eyes [place] 0.05 % 16 every 12 Medical drops (twelve) Branch hours. rOPINIRole 2014-03 Yes 3mg Take 3 mg [facility] (REQUIP) 3 2-10 by mouth 4 ity of mg tablet 17:44: (four) [place] [address] times Medical daily. Branch ARIPiprazol 2014-03 Yes 5mg Take 5 mg U nivers e (ABILIFY) 2-10 by mouth ity of 5 mg tablet 17:44: at [place] 16 bedtime. Medical Branch aspirin 81 2014-03 Yes 81mg Take 81 mg U nivers mg chewable 2-10 by mouth ity of tablet 17:44: daily. [place] [address] Medical Branch benztropine 2014-03 Yes .5mg Take 0.5 [facility] [place] (COGENTIN) 2-10 mg by ity of 0.5 mg 17:44: mouth 2 [place] tablet 16 (two) Medical times Branch daily. CALCIUM 2014-03 Yes Take by Univer s CARBONATE/V 2-10 mouth 2 ity o f ITAMIN D3 17:44: (two) [place] (CALCIUM 16 times Medical 500 + D, daily. Branch D3, ORAL) carvedilol 2014-03 Yes 3.125mg Take 3.125 Univers (COREG) 2-10 mg by ity of 3.125 mg 17:44: mouth 2 [place] tablet 16 (two) Medical times [place] daily with meals. docusate 2014-03 Yes 100mg Take 100 Univ ers (COLACE) 2-10 mg by ity of 100 mg 17:44: mouth 2 [place] capsule 16 (two) Medical times [place] daily. DULoxetine 2014-03 Yes 30mg Take 30 mg U nivers (CYMBALTA) 2-10 by mouth ity o f 30 mg 17:44: daily. [place] capsule Medical Branch escitalopra 2014-03 Yes 10mg Take 10 mg [facility] oxalate 2-10 by mouth ity of (LEXAPRO) 17:44: at [place] 10 mg 16 bedtime. Medical tablet Branch ibandronate 2014-03 Yes 150mg Take 150 U nivers (BONIVA) 2-10 mg by ity of 150 mg 17:44: mouth once [place] tablet 16 every Medical month. Branch MULTIVIT-WV 2014-03 Yes Take by [facility] N/FA/CA 2-10 mouth. ity of CARB/VIT K 17:44: [place] (ONE-A-DAY 16 Medical WOMEN'S 50+ Branch ORAL) bromfenac 2014-[address] in [facility] (PROLENSA) 2-10 left eye. ity of 0.07 % Drop 17:44: [address] Branch QUEtiapine 2014-03 Yes 50mg Take 50 mg [facility] nivers (SEROQUEL) 2-10 by mouth ity o f 50 mg 17:44: at [place] tablet 16 bedtime. Medical Branch cycloSPORIN 2014-03 Yes 1[drp] Place 1 U nivers E 2-10 Drop in ity of (RESTASIS) 17:44: both eyes [place] 0.05 % 16 every 12 Medical drops (twelve) Branch hours. rOPINIRole 2014-03 Yes 3mg Take 3 mg [facility] (REQUIP) 3 2-10 by mouth 4 ity of mg tablet 17:44: (four) [place] 16 times Medical daily. Branch ARIPiprazol 2014-03 Yes 5mg Take 5 mg [facility] nivers e (ABILIFY) 2-10 by mouth ity of 5 mg tablet 17:44: at [place] 16 bedtime. Medical Branch aspirin 81 2014-03 Yes 81mg Take 81 mg [facility] mg chewable 2-10 by mouth ity of tablet 17:44: daily. [place] [address] Medical Branch benztropine 2014-03 Yes .5mg Take 0.5 [facility] (COGENTIN) 2-10 mg by ity of 0.5 mg 17:44: mouth 2 [place] tablet 16 (two) Medical times Branch daily. CALCIUM 2014-03 Yes Take by Univer s CARBONATE/V 2-10 mouth 2 ity o f ITAMIN D3 17:44: (two) [place] (CALCIUM 16 times Medical 500 + D, daily. Branch D3, ORAL) carvedilol 2014-03 Yes 3.125mg Take 3.125 [facility] (COREG) 2-10 mg by ity of 3.125 mg 17:44: mouth 2 [place] tablet 16 (two) Medical times Branch daily with meals. docusate 2014-03 Yes 100mg Take 100 [facility] ers (COLACE) 2-10 mg by ity of 100 mg 17:44: mouth 2 [place] capsule 16 (two) Medical times Branch daily. DULoxetine 2014-03 Yes 30mg Take 30 mg [facility] (CYMBALTA) 2-10 by mouth ity o f 30 mg 17:44: daily. [place] capsule 16 Medical Branch escitalopra 2014-03 Yes 10mg Take 10 mg [facility] oxalate 2-10 by mouth ity of (LEXAPRO) 17:44: at [place] 10 mg 16 bedtime. Medical tablet Branch ibandronate 2014-03 Yes 150mg Take 150 [facility] n[facility] (BONIVA) 2-10 mg by ity of 150 mg 17:44: mouth once [place] tablet 16 every Medical month. Branch MULTIVIT-WV 2014-03 Yes Take by [facility] N/FA/CA 2-10 mouth. ity of CARB/VIT K 17:44: [place] (ONE-A-DAY 16 Medical WOMEN'S 50+ Branch ORAL) bromfenac 2014-[address] in [facility] (PROLENSA) 2-10 left eye. ity of 0.07 % Drop 17:44: [place] [address] Medical Branch QUEtiapine 2014-03 Yes 50mg Take 50 mg [facility] (SEROQUEL) 2-10 by mouth ity o f 50 mg 17:44: at [place] tablet 16 bedtime. Medical Branch cycloSPORIN 2014-03 Yes 1[drp] Place 1 U nivers E 2-10 Drop in ity of (RESTASIS) 17:44: both eyes [place] 0.05 % 16 every 12 Medical drops (twelve) Branch hours. rOPINIRole 2014-03 Yes 3mg Take 3 mg [facility] (REQUIP) 3 2-10 by mouth 4 ity of mg tablet 17:44: (four) [place] 16 times Medical daily. Branch ARIPiprazol 2014-03 Yes 5mg Take 5 mg [facility] nivers e (ABILIFY) 2-10 by mouth ity of 5 mg tablet 17:44: at [place] [address] bedtime. Medical Branch aspirin 81 2014-03 Yes 81mg Take 81 mg [facility] mg chewable 2-10 by mouth ity of tablet 17:44: daily. [address] Branch benztropine 2014-03 Yes .5mg Take 0.5 [facility] (COGENTIN) 2-10 mg by ity of 0.5 mg 17:44: mouth 2 [place] tablet 16 (two) Medical times Branch daily. CALCIUM 2014-03 Yes Take by Univer s CARBONATE/V 2-10 mouth 2 ity o f ITAMIN D3 17:44: (two) [place] (CALCIUM 16 times [facility] 500 + D, daily. Branch D3, ORAL) carvedilol 2014-03 Yes 3.125mg Take 3.125 [facility] (COREG) 2-10 mg by ity of 3.125 mg 17:44: mouth 2 [place] tablet 16 (two) Medical times [place] daily with meals. docusate 2014-03 Yes 100mg Take 100 [facility] ers (COLACE) 2-10 mg by ity of 100 mg 17:44: mouth 2 [place] capsule 16 (two) Medical times Branch daily. DULoxetine 2014-03 Yes 30mg Take 30 mg [facility] n[facility] (CYMBALTA) 2-10 by mouth ity o f 30 mg 17:44: daily. [place] [address] Medical Branch escitalopra 2014-03 Yes 10mg Take 10 mg [facility] oxalate 2-10 by mouth ity of (LEXAPRO) 17:44: at [place] 10 mg 16 bedtime. Medical tablet Branch ibandronate 2014-03 Yes 150mg Take 150 [facility] nivers (BONIVA) 2-10 mg by ity of 150 mg 17:44: mouth once [place] tablet 16 every Medical month. Branch MULTIVIT-WV 2014-03 Yes Take by [facility] N/FA/CA 2-10 mouth. ity of CARB/VIT K 17:44: [place] (ONE-A-DAY 16 Medical WOMEN'S 50+ Branch ORAL) bromfenac 2014-[address] in [facility] (PROLENSA) 2-10 left eye. ity of 0.07 % Drop 17:44: [place] [address] Medical Branch QUEtiapine 2014-03 Yes 50mg Take 50 mg [facility] n[facility] (SEROQUEL) 2-10 by mouth ity o f 50 mg 17:44: at [place] tablet 16 bedtime. Medical Branch cycloSPORIN 2014-03 Yes 1[drp] Place 1 [facility] nivers E 2-10 Drop in ity of (RESTASIS) 17:44: both eyes [place] 0.05 % 16 every 12 Medical drops (twelve) Branch hours. rOPINIRole 2014-03 Yes 3mg Take 3 mg [facility] (REQUIP) 3 2-10 by mouth 4 ity of mg tablet 17:44: (four) [place] [address] times Medical daily. Branch ARIPiprazol 2014-03 Yes 5mg Take 5 mg [facility] nivers e (ABILIFY) 2-10 by mouth ity of 5 mg tablet 17:44: at [place] 16 bedtime. Medical Branch aspirin 81 2014-03 Yes 81mg Take 81 mg [facility] nivers mg chewable 2-10 by mouth ity of tablet 17:44: daily. [place] [address] Medical Branch benztropine 2014-03 Yes .5mg Take 0.5 [facility] (COGENTIN) 2-10 mg by ity of 0.5 mg 17:44: mouth 2 [place] tablet 16 (two) Medical times Branch daily. CALCIUM 2014-03 Yes Take by Univer s CARBONATE/V 2-10 mouth 2 ity o f ITAMIN D3 17:44: (two) [place] (CALCIUM 16 times Medical 500 + D, daily. Branch D3, ORAL) carvedilol 2014-03 Yes 3.125mg Take 3.125 [facility] (COREG) 2-10 mg by ity of 3.125 mg 17:44: mouth 2 [place] tablet 16 (two) Medical times Branch daily with meals. docusate 2014-03 Yes 100mg Take 100 [facility] ers (COLACE) 2-10 mg by ity of 100 mg 17:44: mouth 2 [place] capsule 16 (two) Medical times Branch daily. DULoxetine 2014-03 Yes 30mg Take 30 mg [facility] nivers (CYMBALTA) 2-10 by mouth ity o f 30 mg 17:44: daily. [place] capsule Medical Branch escitalopra 2014-03 Yes 10mg Take 10 mg [facility] oxalate 2-10 by mouth ity of (LEXAPRO) 17:44: at [place] 10 mg 16 bedtime. Medical tablet Branch ibandronate 2014-03 Yes 150mg Take 150 [facility] nivers (BONIVA) 2-10 mg by ity of 150 mg 17:44: mouth once [place] tablet 16 every Medical month. Branch MULTIVIT-WV 2014-03 Yes Take by Un [facility] N/FA/CA 2-10 mouth. ity of CARB/VIT K 17:44: [place] (ONE-A-DAY 16 Medical WOMEN'S 50+ Branch ORAL) bromfenac 2014-[address] in [facility] vers (PROLENSA) 2-10 left eye. ity of 0.07 % Drop 17:44: [place] [address] Medical Branch QUEtiapine 2014-03 Yes 50mg Take 50 mg [facility] nivers (SEROQUEL) 2-10 by mouth ity o f 50 mg 17:44: at [place] tablet 16 bedtime. Medical Branch cycloSPORIN 2014-03 Yes 1[drp] Place 1 U nivers E 2-10 Drop in ity of (RESTASIS) 17:44: both eyes [place] 0.05 % 16 every 12 Medical drops (twelve) Branch hours. rOPINIRole 2014-03 Yes 3mg Take 3 mg [facility] (REQUIP) 3 2-10 by mouth 4 ity of mg tablet 17:44: (four) [place] 16 times Medical daily. Branch ARIPiprazol 2014-03 Yes 5mg Take 5 mg U nivers e (ABILIFY) 2-10 by mouth ity of 5 mg tablet 17:44: at [place] 16 bedtime. Medical Branch aspirin 81 2014-03 Yes 81mg Take 81 mg [facility] nivers mg chewable 2-10 by mouth ity of tablet 17:44: daily. [place] [address] Medical Branch benztropine 2014-03 Yes .5mg Take 0.5 [facility] (COGENTIN) 2-10 mg by ity of 0.5 mg 17:44: mouth 2 [place] tablet 16 (two) Medical times Branch daily. CALCIUM 2014-03 Yes Take by Univer s CARBONATE/V 2-10 mouth 2 ity o f ITAMIN D3 17:44: (two) [place] (CALCIUM 16 times Medical 500 + D, daily. Branch D3, ORAL) carvedilol 2014-03 Yes 3.125mg Take 3.125 [facility] (COREG) 2-10 mg by ity of 3.125 mg 17:44: mouth 2 [place] tablet 16 (two) Medical times Branch daily with meals. docusate 2014-03 Yes 100mg Take 100 [facility] ers (COLACE) 2-10 mg by ity of 100 mg 17:44: mouth 2 [place] capsule 16 (two) Medical times Branch daily. DULoxetine 2014-03 Yes 30mg Take 30 mg [facility] n[facility] (CYMBALTA) 2-10 by mouth ity o f 30 mg 17:44: daily. [place] capsule Medical Branch escitalopra 2014-03 Yes 10mg Take 10 mg [facility] m oxalate 2-10 by mouth ity of (LEXAPRO) 17:44: at [place] 10 mg 16 bedtime. Medical tablet Branch ibandronate 2014-03 Yes 150mg Take 150 U nivers (BONIVA) 2-10 mg by ity of 150 mg 17:44: mouth once [place] tablet 16 every Medical month. Branch MULTIVIT-WV 2014-03 Yes Take by Un [facility] N/FA/CA 2-10 mouth. ity of CARB/VIT K 17:44: [place] (ONE-A-DAY 16 Medical WOMEN'S 50+ Branch ORAL) bromfenac 2014-[address] [facility] vers (PROLENSA) 2-10 left eye. ity of 0.07 % Drop 17:44: [place] [address] Medical Branch QUEtiapine 2014-03 Yes 50mg Take 50 mg U nivers (SEROQUEL) 2-10 by mouth ity o f 50 mg 17:44: at [place] tablet 16 bedtime. Medical Branch cycloSPORIN 2014-03 Yes 1[drp] Place 1 U nivers E 2-10 Drop in ity of (RESTASIS) 17:44: both eyes [place] 0.05 % 16 every 12 Medical drops (twelve) Branch hours. rOPINIRole 2014-03 Yes 3mg Take 3 mg [facility] (REQUIP) 3 2-10 by mouth 4 ity of mg tablet 17:44: (four) [place] 16 times Medical daily. Branch ARIPiprazol 2014-03 Yes 5mg Take 5 mg U nivers e (ABILIFY) 2-10 by mouth ity of 5 mg tablet 17:44: at [place] 16 bedtime. Medical Branch aspirin 81 2014-03 Yes 81mg Take 81 mg U nivers mg chewable 2-10 by mouth ity of tablet 17:44: daily. [place] [address] Medical Branch benztropine 2014-03 Yes .5mg Take 0.5 [facility] (COGENTIN) 2-10 mg by ity of 0.5 mg 17:44: mouth 2 [place] tablet 16 (two) Medical times Branch daily. CALCIUM 2014-03 Yes Take by Univer s CARBONATE/V 2-10 mouth 2 ity o f ITAMIN D3 17:44: (two) [place] (CALCIUM [address] [place] [address] 500 + D, daily. Branch D3, ORAL) carvedilol 2014-03 Yes 3.125mg Take 3.125 [facility] (COREG) 2-10 mg by ity of 3.125 mg 17:44: mouth 2 [place] tablet 16 (two) Medical times Branch daily with meals. docusate 2014-03 Yes 100mg Take 100 Univ ers (COLACE) 2-10 mg by ity of 100 mg 17:44: mouth 2 [place] capsule 16 (two) Medical times Branch daily. DULoxetine 2014-03 Yes 30mg Take 30 mg U nivers (CYMBALTA) 2-10 by mouth ity o f 30 mg 17:44: daily. [place] capsule 16 Medical Branch escitalopra 2014-03 Yes 10mg Take 10 mg [facility] m oxalate 2-10 by mouth ity of (LEXAPRO) 17:44: at [place] 10 mg 16 bedtime. Medical tablet Branch ibandronate 2014-03 Yes 150mg Take 150 U nivers (BONIVA) 2-10 mg by ity of 150 mg 17:44: mouth once [place] tablet 16 every Medical month. Branch MULTIVIT-WV 2014-03 Yes Take by Un kayla N/FA/CA 2-10 mouth. ity of CARB/VIT K 17:44: [place] (ONE-A-DAY 16 Medical WOMEN'S 50+ Branch ORAL) bromfenac 2014-[address] in [facility] vers (PROLENSA) 2-10 left eye. ity of 0.07 % Drop 17:44: [place] [address] Medical Branch QUEtiapine 2014-03 Yes 50mg Take 50 mg U nivers (SEROQUEL) 2-10 by mouth ity o f 50 mg 17:44: at [place] tablet 16 bedtime. Medical Branch cycloSPORIN 2014-03 Yes 1[drp] Place 1 U nivers E 2-10 Drop in ity of (RESTASIS) 17:44: both eyes [place] 0.05 % 16 every 12 Medical drops (twelve) Branch hours. rOPINIRole 2014-03 Yes 3mg Take 3 mg [facility] (REQUIP) 3 2-10 by mouth 4 ity of mg tablet 17:44: (four) [place] 16 times Medical daily. Branch ARIPiprazol 2014-03 Yes 5mg Take 5 mg U nivers e (ABILIFY) 2-10 by mouth ity of 5 mg tablet 17:44: at [place] [address] bedtime. Medical Branch aspirin 81 2014-03 Yes 81mg Take 81 mg U nivers mg chewable 2-10 by mouth ity of tablet 17:44: daily. [place] [address] Medical Branch benztropine 2014-03 Yes .5mg Take 0.5 [facility] (COGENTIN) 2-10 mg by ity of 0.5 mg 17:44: mouth 2 [place] tablet 16 (two) Medical times Branch daily. CALCIUM 2014-03 Yes Take by Univer s CARBONATE/V 2-10 mouth 2 ity o f ITAMIN D3 17:44: (two) [place] (CALCIUM 16 times Medical 500 + D, daily. Branch D3, ORAL) carvedilol 2014-03 Yes 3.125mg Take 3.125 [facility] (COREG) 2-10 mg by ity of 3.125 mg 17:44: mouth 2 [place] tablet 16 (two) Medical times [place] daily with meals. docusate 2014-03 Yes 100mg Take 100 Univ ers (COLACE) 2-10 mg by ity of 100 mg 17:44: mouth 2 [place] capsule 16 (two) Medical times Branch daily. DULoxetine 2014-03 Yes 30mg Take 30 mg U nivers (CYMBALTA) 2-10 by mouth ity o f 30 mg 17:44: daily. [place] capsule 16 Medical Branch escitalopra 2014-03 Yes 10mg Take 10 mg [facility] m oxalate 2-10 by mouth ity of (LEXAPRO) 17:44: at [place] 10 mg 16 bedtime. Medical tablet Branch ibandronate 2014-03 Yes 150mg Take 150 U nivers (BONIVA) 2-10 mg by ity of 150 mg 17:44: mouth once [place] tablet 16 every Medical month. Branch MULTIVIT-WV 2014-03 Yes Take by Un kay[facility] N/FA/CA 2-10 mouth. ity of CARB/VIT K 17:44: [place] (ONE-A-DAY 16 Medical WOMEN'S 50+ Branch ORAL) bromfenac 2014-[address] in [facility] vers (PROLENSA) 2-10 left eye. ity of 0.07 % Drop 17:44: [place] [address] Medical Branch QUEtiapine 2014-03 Yes 50mg Take 50 mg U nivers (SEROQUEL) 2-10 by mouth ity o f 50 mg 17:44: at [place] tablet 16 bedtime. Medical Branch cycloSPORIN 2014-03 Yes 1[drp] Place 1 U nivers E 2-10 Drop in ity of (RESTASIS) 17:44: both eyes [place] 0.05 % 16 every 12 Medical drops (twelve) Branch hours. rOPINIRole 2014-03 Yes 3mg Take 3 mg [facility] (REQUIP) 3 2-10 by mouth 4 ity of mg tablet 17:44: (four) [place] [address] times Medical daily. Branch ARIPiprazol 2014-03 Yes 5mg Take 5 mg U nivers e (ABILIFY) 2-10 by mouth ity of 5 mg tablet 17:44: at [place] 16 bedtime. Medical Branch aspirin 81 2014-03 Yes 81mg Take 81 mg U nivers mg chewable 2-10 by mouth ity of tablet 17:44: daily. [place] [address] Medical Branch benztropine 2014-03 Yes .5mg Take 0.5 [facility] [place] (COGENTIN) 2-10 mg by ity of 0.5 mg 17:44: mouth 2 [place] tablet 16 (two) Medical times Branch daily. CALCIUM 2014-03 Yes Take by Univer s CARBONATE/V 2-10 mouth 2 ity o f ITAMIN D3 17:44: (two) [place] (CALCIUM 16 times Medical 500 + D, daily. Branch D3, ORAL) carvedilol 2014-03 Yes 3.125mg Take 3.125 [facility] (COREG) 2-10 mg by ity of 3.125 mg 17:44: mouth 2 [place] tablet 16 (two) Medical times Branch daily with meals. docusate 2014-03 Yes 100mg Take 100 Univ ers (COLACE) 2-10 mg by ity of 100 mg 17:44: mouth 2 [place] capsule 16 (two) Medical times Branch daily. DULoxetine 2014-03 Yes 30mg Take 30 mg U nivers (CYMBALTA) 2-10 by mouth ity o f 30 mg 17:44: daily. [place] capsule Medical Branch escitalopra 2014-03 Yes 10mg Take 10 mg [facility] m oxalate 2-10 by mouth ity of (LEXAPRO) 17:44: at [place] 10 mg 16 bedtime. Medical tablet Branch ibandronate 2014-03 Yes 150mg Take 150 U nivers (BONIVA) 2-10 mg by ity of 150 mg 17:44: mouth once [place] tablet 16 every Medical month. Branch MULTIVIT-WV 2014-03 Yes Take by Un kayla N/FA/CA 2-10 mouth. ity of CARB/VIT K 17:44: [place] (ONE-A-DAY 16 Medical WOMEN'S 50+ Branch ORAL) bromfenac 2014-[address] in [facility] vers (PROLENSA) 2-10 left eye. ity of 0.07 % Drop 17:44: [place] [address] Medical Branch QUEtiapine 2014-03 Yes 50mg Take 50 mg U nivers (SEROQUEL) 2-10 by mouth ity o f 50 mg 17:44: at [place] tablet 16 bedtime. Medical Branch cycloSPORIN 2014-03 Yes 1[drp] Place 1 U nivers E 2-10 Drop in ity of (RESTASIS) 17:44: both eyes [place] 0.05 % 16 every 12 Medical drops (twelve) Branch hours. rOPINIRole 2014-03 Yes 3mg Take 3 mg [facility] [place] (REQUIP) 3 2-10 by mouth 4 ity of mg tablet 17:44: (four) [place] 16 times Medical daily. Branch ARIPiprazol 2014-03 Yes 5mg Take 5 mg U nivers e (ABILIFY) 2-10 by mouth ity of 5 mg tablet 17:44: at [place] 16 bedtime. Medical Branch aspirin 81 2014-03 Yes 81mg Take 81 mg U nivers mg chewable 2-10 by mouth ity of tablet 17:44: daily. [place] [address] Medical Branch benztropine 2014-03 Yes .5mg Take 0.5 [facility] [place] (COGENTIN) 2-10 mg by ity of 0.5 mg 17:44: mouth 2 [place] tablet 16 (two) Medical times Branch daily. CALCIUM 2014-03 Yes Take by Univer s CARBONATE/V 2-10 mouth 2 ity o f ITAMIN D3 17:44: (two) [place] (CALCIUM 16 times Medical 500 + D, daily. Branch D3, ORAL) carvedilol 2014-03 Yes 3.125mg Take 3.125 [facility] (COREG) 2-10 mg by ity of 3.125 mg 17:44: mouth 2 [place] tablet 16 (two) Medical times Branch daily with meals. docusate 2014-03 Yes 100mg Take 100 Univ ers (COLACE) 2-10 mg by ity of 100 mg 17:44: mouth 2 [place] capsule 16 (two) Medical times Branch daily. DULoxetine 2014-03 Yes 30mg Take 30 mg U nivers (CYMBALTA) 2-10 by mouth ity o f 30 mg 17:44: daily. [place] capsule 16 Medical Branch escitalopra 2014-03 Yes 10mg Take 10 mg [facility] m oxalate 2-10 by mouth ity of (LEXAPRO) 17:44: at [place] 10 mg 16 bedtime. Medical tablet Branch ibandronate 2014-03 Yes 150mg Take 150 U nivers (BONIVA) 2-10 mg by ity of 150 mg 17:44: mouth once [place] tablet 16 every Medical month. Branch MULTIVIT-WV 2014-03 Yes Take by Un kay[facility] N/FA/CA 2-10 mouth. ity of CARB/VIT K 17:44: [place] (ONE-A-DAY 16 Medical WOMEN'S 50+ Branch ORAL) bromfenac 2014-[address] in [facility] vers (PROLENSA) 2-10 left eye. ity of 0.07 % Drop 17:44: [place] [address] Medical Branch QUEtiapine 2014-03 Yes 50mg Take 50 mg U nivers (SEROQUEL) 2-10 by mouth ity o f 50 mg 17:44: at [place] tablet 16 bedtime. Medical Branch cycloSPORIN 2014-03 Yes 1[drp] Place 1 U nivers E 2-10 Drop in ity of (RESTASIS) 17:44: both eyes [place] 0.05 % 16 every 12 Medical drops (twelve) Branch hours. rOPINIRole 2014-03 Yes 3mg Take 3 mg [facility] [place] (REQUIP) 3 2-10 by mouth 4 ity of mg tablet 17:44: (four) [place] [address] times Medical daily. Branch ARIPiprazol 2014-03 Yes 5mg Take 5 mg U nivers e (ABILIFY) 2-10 by mouth ity of 5 mg tablet 17:44: at [place] [address] bedtime. Medical Branch aspirin 81 2014-03 Yes 81mg Take 81 mg U nivers mg chewable 2-10 by mouth ity of tablet 17:44: daily. [address] Branch benztropine 2014-03 Yes .5mg Take 0.5 [facility] (COGENTIN) 2-10 mg by ity of 0.5 mg 17:44: mouth 2 [place] tablet 16 (two) Medical times Branch daily. CALCIUM 2014-03 Yes Take by Univer s CARBONATE/V 2-10 mouth 2 ity o f ITAMIN D3 17:44: (two) [place] (CALCIUM [address] [place] [address] 500 + D, daily. Branch D3, ORAL) carvedilol 2014-03 Yes 3.125mg Take 3.125 [facility] (COREG) 2-10 mg by ity of 3.125 mg 17:44: mouth 2 [place] tablet 16 (two) Medical times Branch daily with meals. docusate 2014-03 Yes 100mg Take 100 Univ ers (COLACE) 2-10 mg by ity of 100 mg 17:44: mouth 2 [place] capsule 16 (two) Medical times Branch daily. DULoxetine 2014-03 Yes 30mg Take 30 mg U nivers (CYMBALTA) 2-10 by mouth ity o f 30 mg 17:44: daily. [place] capsule Medical Branch escitalopra 2015-1 Yes 10mg Take 10 mg [facility] m oxalate 2-10 by mouth ity of (LEXAPRO) 17:44: at [place] 10 mg 16 bedtime. Medical tablet Branch ibandronate 2014-03 Yes 150mg Take 150 U nivers (BONIVA) 2-10 mg by ity of 150 mg 17:44: mouth once [place] tablet 16 every Medical month. Branch MULTIVIT-WV 2014-03 Yes Take by Un kayla N/FA/CA 2-10 mouth. ity of CARB/VIT K 17:44: [place] (ONE-A-DAY 16 Medical WOMEN'S 50+ Branch ORAL) bromfenac 2014-[address] in [facility] vers (PROLENSA) 2-10 left eye. ity of 0.07 % Drop 17:44: [place] [address] Medical Branch QUEtiapine 2014-03 Yes 50mg Take 50 mg U nivers (SEROQUEL) 2-10 by mouth ity o f 50 mg 17:44: at [place] tablet 16 bedtime. Medical Branch cycloSPORIN 2014-03 Yes 1[drp] Place 1 U nivers E 2-10 Drop in ity of (RESTASIS) 17:44: both eyes [place] 0.05 % 16 every 12 Medical drops (twelve) Branch hours. rOPINIRole 2014-03 Yes 3mg Take 3 mg [facility] (REQUIP) 3 2-10 by mouth 4 ity of mg tablet 17:44: (four) [place] 16 times Medical daily. Branch ARIPiprazol 2014-03 Yes 5mg Take 5 mg U nivers e (ABILIFY) 2-10 by mouth ity of 5 mg tablet 17:44: at [place] 16 bedtime. Medical Branch aspirin 81 2014-03 Yes 81mg Take 81 mg U nivers mg chewable 2-10 by mouth ity of tablet 17:44: daily. [place] [address] Medical Branch benztropine 2014-03 Yes .5mg Take 0.5 [facility] [place] (COGENTIN) 2-10 mg by ity of 0.5 mg 17:44: mouth 2 [place] tablet 16 (two) Medical times Branch daily. CALCIUM 2014-03 Yes Take by Univer s CARBONATE/V 2-10 mouth 2 ity o f ITAMIN D3 17:44: (two) [place] (CALCIUM 16 times Medical 500 + D, daily. Branch D3, ORAL) carvedilol 2014-03 Yes 3.125mg Take 3.125 [facility] (COREG) 2-10 mg by ity of 3.125 mg 17:44: mouth 2 [place] tablet 16 (two) Medical times Branch daily with meals. docusate 2014-03 Yes 100mg Take 100 Univ ers (COLACE) 2-10 mg by ity of 100 mg 17:44: mouth 2 [place] capsule 16 (two) Medical times Branch daily. DULoxetine 2014-03 Yes 30mg Take 30 mg U nivers (CYMBALTA) 2-10 by mouth ity o f 30 mg 17:44: daily. [place] capsule 16 Medical Branch escitalopra 2014-03 Yes 10mg Take 10 mg [facility] m oxalate 2-10 by mouth ity of (LEXAPRO) 17:44: at [place] 10 mg 16 bedtime. Medical tablet Branch ibandronate 2014-03 Yes 150mg Take 150 U nivers (BONIVA) 2-10 mg by ity of 150 mg 17:44: mouth once [place] tablet 16 every Medical month. Branch MULTIVIT-[place] 2014-03 Yes Take by Un kayla N/FA/CA 2-10 mouth. ity of CARB/VIT K 17:44: [place] (ONE-A-DAY 16 Medical WOMEN'S 50+ Branch ORAL) bromfenac 2014-[address] in [facility] vers (PROLENSA) 2-10 left eye. ity of 0.07 % Drop 17:44: [place] [address] Medical Branch QUEtiapine 2014-03 Yes 50mg Take 50 mg U nivers (SEROQUEL) 2-10 by mouth ity o f 50 mg 17:44: at [place] tablet 16 bedtime. Medical Branch cycloSPORIN 2014-03 Yes 1[drp] Place 1 U nivers E 2-10 Drop in ity of (RESTASIS) 17:44: both eyes [place] 0.05 % 16 every 12 Medical drops (twelve) Branch hours. rOPINIRole 2014-03 Yes 3mg Take 3 mg [facility] (REQUIP) 3 2-10 by mouth 4 ity of mg tablet 17:44: (four) [place] [address] times Medical daily. Branch ARIPiprazol 2014-03 Yes 5mg Take 5 mg U nivers e (ABILIFY) 2-10 by mouth ity of 5 mg tablet 17:44: at [place] 16 bedtime. Medical Branch aspirin 81 2014-03 Yes 81mg Take 81 mg U nivers mg chewable 2-10 by mouth ity of tablet 17:44: daily. [place] [address] Medical Branch benztropine 2014-03 Yes .5mg Take 0.5 [facility] [place] (COGENTIN) 2-10 mg by ity of 0.5 mg 17:44: mouth 2 [place] tablet 16 (two) Medical times Branch daily. CALCIUM 2014-03 Yes Take by Univer s CARBONATE/V 2-10 mouth 2 ity o f ITAMIN D3 17:44: (two) [place] (CALCIUM 16 times Medical 500 + D, daily. Branch D3, ORAL) carvedilol 2014-03 Yes 3.125mg Take 3.125 [facility] (COREG) 2-10 mg by ity of 3.125 mg 17:44: mouth 2 [place] tablet 16 (two) Medical times [place] daily with meals. docusate 2014-03 Yes 100mg Take 100 Univ ers (COLACE) 2-10 mg by ity of 100 mg 17:44: mouth 2 [place] capsule 16 (two) Medical times [place] daily. DULoxetine 2014-03 Yes 30mg Take 30 mg U nivers (CYMBALTA) 2-10 by mouth ity o f 30 mg 17:44: daily. [place] capsule Medical Branch escitalopra 2014-03 Yes 10mg Take 10 mg [facility] m oxalate 2-10 by mouth ity of (LEXAPRO) 17:44: at [place] 10 mg 16 bedtime. Medical tablet Branch ibandronate 2014-03 Yes 150mg Take 150 U nivers (BONIVA) 2-10 mg by ity of 150 mg 17:44: mouth once [place] tablet 16 every Medical month. Branch MULTIVIT-[place] 2014-03 Yes Take by Un [facility]la N/FA/CA 2-10 mouth. ity of CARB/VIT K 17:44: [place] (ONE-A-DAY 16 Medical WOMEN'S 50+ Branch ORAL) bromfenac 2014-[address] in [facility] vers (PROLENSA) 2-10 left eye. ity of 0.07 % Drop 17:44: [place] [address] Medical Branch QUEtiapine 2014-03 Yes 50mg Take 50 mg U nivers (SEROQUEL) 2-10 by mouth ity o f 50 mg 17:44: at [place] tablet 16 bedtime. Medical Branch cycloSPORIN 2014-03 Yes 1[drp] Place 1 U nivers E 2-10 Drop in ity of (RESTASIS) 17:44: both eyes [place] 0.05 % 16 every 12 Medical drops (twelve) Branch hours. rOPINIRole 2014-03 Yes 3mg Take 3 mg [facility] (REQUIP) 3 2-10 by mouth 4 ity of mg tablet 17:44: (four) [place] 16 times Medical daily. Branch ARIPiprazol 2014-03 Yes 5mg Take 5 mg U nivers e (ABILIFY) 2-10 by mouth ity of 5 mg tablet 17:44: at [place] 16 bedtime. Medical Branch aspirin 81 2014-03 Yes 81mg Take 81 mg U nivers mg chewable 2-10 by mouth ity of tablet 17:44: daily. [place] [address] Medical Branch benztropine 2014-03 Yes .5mg Take 0.5 Un kayla (COGENTIN) 2-10 mg by ity of 0.5 mg 17:44: mouth 2 [place] tablet 16 (two) Medical times Branch daily. CALCIUM 2014-03 Yes Take by Univer s CARBONATE/V 2-10 mouth 2 ity o f ITAMIN D3 17:44: (two) [place] (CALCIUM 16 times Medical 500 + D, daily. Branch D3, ORAL) carvedilol 2014-03 Yes 3.125mg Take 3.125 Univers (COREG) 2-10 mg by ity of 3.125 mg 17:44: mouth 2 [place] tablet 16 (two) Medical times Branch daily with meals. docusate 2014-03 Yes 100mg Take 100 Univ ers (COLACE) 2-10 mg by ity of 100 mg 17:44: mouth 2 [place] capsule 16 (two) Medical times Branch daily. DULoxetine 2014-03 Yes 30mg Take 30 mg U nivers (CYMBALTA) 2-10 by mouth ity o f 30 mg 17:44: daily. [place] capsule 16 Medical Branch escitalopra 2014-03 Yes 10mg Take 10 mg Univers m oxalate 2-10 by mouth ity of (LEXAPRO) 17:44: at [place] 10 mg 16 bedtime. Medical tablet Branch ibandronate 2014-03 Yes 150mg Take 150 U nivers (BONIVA) 2-10 mg by ity of 150 mg 17:44: mouth once [place] tablet 16 every Medical month. Branch MULTIVIT-WV 2015-1 Yes Take by Un kayla N/FA/CA 2-10 mouth. ity of CARB/VIT K 17:44: [place] (ONE-A-DAY 16 Medical WOMEN'S 50+ Branch ORAL) bromfenac 2014-[address] in Uni vers (PROLENSA) 2-10 left eye. ity of 0.07 % Drop 17:44: [place] [address] Medical Branch QUEtiapine 2014-03 Yes 50mg Take 50 mg U nivers (SEROQUEL) 2-10 by mouth ity o f 50 mg 17:44: at [place] tablet 16 bedtime. Medical Branch cycloSPORIN 2014-03 Yes 1[drp] Place 1 U nivers E 2-10 Drop in ity of (RESTASIS) 17:44: [place] eyes [place] 0.05 % 16 every 12 Medical drops (twelve) Branch hours. rOPINIRole 2014-03 Yes 3mg Take 3 mg Un kayla (REQUIP) 3 2-10 by mouth 4 ity of mg tablet 17:44: (four) [place] [address] times Medical daily. Branch ARIPiprazol 2014-03 Yes 5mg Take 5 mg U nivers e (ABILIFY) 2-10 by mouth ity of 5 mg tablet 17:44: at [place] [address] bedtime. Medical Branch aspirin 81 2014-03 Yes 81mg Take 81 mg U nivers mg chewable 2-10 by mouth ity of tablet 17:44: daily. [address] Branch benztropine 2014-03 Yes .5mg Take 0.5 Un kayla (COGENTIN) 2-10 mg by ity of 0.5 mg 17:44: mouth 2 [place] tablet 16 (two) Medical times Branch daily. CALCIUM 2014-03 Yes Take by Univer s CARBONATE/V 2-10 mouth 2 ity o f ITAMIN D3 17:44: (two) [place] (CALCIUM 16 times [facility] 500 + D, daily. Branch D3, ORAL) carvedilol 2014-03 Yes 3.125mg Take 3.125 Univers (COREG) 2-10 mg by ity of 3.125 mg 17:44: mouth 2 [place] tablet 16 (two) Medical times Branch daily with meals. docusate 2014-03 Yes 100mg Take 100 Univ ers (COLACE) 2-10 mg by ity of 100 mg 17:44: mouth 2 [place] capsule 16 (two) Medical times Branch daily. DULoxetine 2014-03 Yes 30mg Take 30 mg U nivers (CYMBALTA) 2-10 by mouth ity o f 30 mg 17:44: daily. [place] capsule Medical Branch escitalopra 2014-03 Yes 10mg Take 10 mg Univers m oxalate 2-10 by mouth ity of (LEXAPRO) 17:44: at [place] 10 mg 16 bedtime. Medical tablet Branch ibandronate 2014-03 Yes 150mg Take 150 U nivers (BONIVA) 2-10 mg by ity of 150 mg 17:44: mouth once [place] tablet 16 every Medical month. Branch MULTIVIT-WV 2014-03 Yes Take by Un kayla N/FA/CA 2-10 mouth. ity of CARB/VIT K 17:44: [place] (ONE-A-DAY 16 Medical WOMEN'S 50+ Branch ORAL) bromfenac 2014-[address] in Uni vers (PROLENSA) 2-10 left eye. ity of 0.07 % Drop 17:44: [place] [address] Medical Branch QUEtiapine 2014-03 Yes 50mg Take 50 mg U nivers (SEROQUEL) 2-10 by mouth ity o f 50 mg 17:44: at [place] tablet 16 bedtime. Medical Branch cycloSPORIN 2014-03 Yes 1[drp] Place 1 U nivers E 2-10 Drop in ity of (RESTASIS) 17:44: [place] eyes [place] 0.05 % 16 every 12 Medical drops (twelve) Branch hours. rOPINIRole 2014-03 Yes 3mg Take 3 mg Un kayla (REQUIP) 3 2-10 by mouth 4 ity of mg tablet 17:44: (four) [place] [address] times Medical daily. Branch ARIPiprazol 2014-03 Yes 5mg Take 5 mg U nivers e (ABILIFY) 2-10 by mouth ity of 5 mg tablet 17:44: at [place] 16 bedtime. Medical Branch aspirin 81 2014-03 Yes 81mg Take 81 mg U nivers mg chewable 2-10 by mouth ity of tablet 17:44: daily. [place] [address] Medical Branch benztropine 2014-03 Yes .5mg Take 0.5 Un kay[place] (COGENTIN) 2-10 mg by ity of 0.5 mg 17:44: mouth 2 [place] tablet 16 (two) Medical times Branch daily. CALCIUM 2014-03 Yes Take by Univer s CARBONATE/V 2-10 mouth 2 ity o f ITAMIN D3 17:44: (two) [place] (CALCIUM 16 times Medical 500 + D, daily. Branch D3, ORAL) carvedilol 2014-03 Yes 3.125mg Take 3.125 Univers (COREG) 2-10 mg by ity of 3.125 mg 17:44: mouth 2 [place] tablet 16 (two) Medical times Branch daily with meals. docusate 2014-03 Yes 100mg Take 100 Univ ers (COLACE) 2-10 mg by ity of 100 mg 17:44: mouth 2 [place] capsule 16 (two) Medical times Branch daily. DULoxetine 2014-03 Yes 30mg Take 30 mg U nivers (CYMBALTA) 2-10 by mouth ity o f 30 mg 17:44: daily. [place] capsule Medical Branch escitalopra 2014-03 Yes 10mg Take 10 mg Univers m oxalate 2-10 by mouth ity of (LEXAPRO) 17:44: at [place] 10 mg 16 bedtime. Medical tablet Branch ibandronate 2014-03 Yes 150mg Take 150 U nivers (BONIVA) 2-10 mg by ity of 150 mg 17:44: mouth once [place] tablet 16 every Medical month. Branch MULTIVIT-WV 2014-03 Yes Take by Un kayla N/FA/CA 2-10 mouth. ity of CARB/VIT K 17:44: [place] (ONE-A-DAY 16 Medical WOMEN'S 50+ Branch ORAL) bromfenac 2014-[address] in Uni vers (PROLENSA) 2-10 left eye. ity of 0.07 % Drop 17:44: [place] [address] Medical Branch QUEtiapine 2014-03 Yes 50mg Take 50 mg U nivers (SEROQUEL) 2-10 by mouth ity o f 50 mg 17:44: at [place] tablet 16 bedtime. Medical Branch cycloSPORIN 2014-03 Yes 1[drp] Place 1 U nivers E 2-10 Drop in ity of (RESTASIS) 17:44: [place] eyes [place] 0.05 % 16 every 12 Medical drops (twelve) Branch hours. rOPINIRole 2014-03 Yes 3mg Take 3 mg Un kayla (REQUIP) 3 2-10 by mouth 4 ity of mg tablet 17:44: (four) [place] 16 times Medical daily. Branch ARIPiprazol 2014-03 Yes 5mg Take 5 mg U nivers e (ABILIFY) 2-10 by mouth ity of 5 mg tablet 17:44: at [place] 16 bedtime. Medical Branch aspirin 81 2014-03 Yes 81mg Take 81 mg U nivers mg chewable 2-10 by mouth ity of tablet 17:44: daily. [place] [address] Medical Branch benztropine 2014-03 Yes .5mg Take 0.5 Un kayla (COGENTIN) 2-10 mg by ity of 0.5 mg 17:44: mouth 2 [place] tablet 16 (two) Medical times Branch daily. CALCIUM 2014-03 Yes Take by Univer s CARBONATE/V 2-10 mouth 2 ity o f ITAMIN D3 17:44: (two) [place] (CALCIUM 16 times Medical 500 + D, daily. Branch D3, ORAL) carvedilol 2014-03 Yes 3.125mg Take 3.125 Univers (COREG) 2-10 mg by ity of 3.125 mg 17:44: mouth 2 [place] tablet 16 (two) Medical times [place] daily with meals. docusate 2014-03 Yes 100mg Take 100 Univ ers (COLACE) 2-10 mg by ity of 100 mg 17:44: mouth 2 [place] capsule 16 (two) Medical times Branch daily. DULoxetine 2014-03 Yes 30mg Take 30 mg U nivers (CYMBALTA) 2-10 by mouth ity o f 30 mg 17:44: daily. [place] capsule Medical Branch escitalopra 2014-03 Yes 10mg Take 10 mg Univers m oxalate 2-10 by mouth ity of (LEXAPRO) 17:44: at [place] 10 mg 16 bedtime. Medical tablet Branch ibandronate 2014-03 Yes 150mg Take 150 U nivers (BONIVA) 2-10 mg by ity of 150 mg 17:44: mouth once [place] tablet 16 every Medical month. Branch MULTIVIT-WV 2014-03 Yes Take by Un kayla N/FA/CA 2-10 mouth. ity of CARB/VIT K 17:44: [place] (ONE-A-DAY 16 Medical WOMEN'S 50+ Branch ORAL) bromfenac 2014-[address] [facility] vers (PROLENSA) 2-10 left eye. ity of 0.07 % Drop 17:44: [place] [address] Medical Branch QUEtiapine 2014-03 Yes 50mg Take 50 mg U nivers (SEROQUEL) 2-10 by mouth ity o f 50 mg 17:44: at [place] tablet 16 bedtime. Medical Branch cycloSPORIN 2014-03 Yes 1[drp] Place 1 U nivers E 2-10 Drop in ity of (RESTASIS) 17:44: [place] eyes [place] 0.05 % 16 every 12 Medical drops (twelve) Branch hours. rOPINIRole 2014-03 Yes 3mg Take 3 mg Un kayla (REQUIP) 3 2-10 by mouth 4 ity of mg tablet 17:44: (four) [place] 16 times Medical daily. Branch ARIPiprazol 2014-03 Yes 5mg Take 5 mg U nivers e (ABILIFY) 2-10 by mouth ity of 5 mg tablet 17:44: at [place] 16 bedtime. Medical Branch aspirin 81 2014-03 Yes 81mg Take 81 mg U nivers mg chewable 2-10 by mouth ity of tablet 17:44: daily. [place] [address] Medical Branch benztropine 2014-03 Yes .5mg Take 0.5 Un kayla (COGENTIN) 2-10 mg by ity of 0.5 mg 17:44: mouth 2 [place] tablet 16 (two) Medical times Branch daily. CALCIUM 2014-03 Yes Take by Univer s CARBONATE/V 2-10 mouth 2 ity o f ITAMIN D3 17:44: (two) [place] (CALCIUM 16 times Medical 500 + D, daily. Branch D3, ORAL) carvedilol 2014-03 Yes 3.125mg Take 3.125 Univers (COREG) 2-10 mg by ity of 3.125 mg 17:44: mouth 2 [place] tablet 16 (two) Medical times Branch daily with meals. docusate 2014-03 Yes 100mg Take 100 Univ ers (COLACE) 2-10 mg by ity of 100 mg 17:44: mouth 2 [place] capsule 16 (two) Medical times Branch daily. DULoxetine 2014-03 Yes 30mg Take 30 mg U nivers (CYMBALTA) 2-10 by mouth ity o f 30 mg 17:44: daily. [place] capsule 16 Medical Branch escitalopra 2014-03 Yes 10mg Take 10 mg Univers m oxalate 2-10 by mouth ity of (LEXAPRO) 17:44: at [place] 10 mg 16 bedtime. Medical tablet Branch ibandronate 2014-03 Yes 150mg Take 150 U nivers (BONIVA) 2-10 mg by ity of 150 mg 17:44: mouth once [place] tablet 16 every Medical month. Branch MULTIVIT-WV 2014-03 Yes Take by Un kayla N/FA/CA 2-10 mouth. ity of CARB/VIT K 17:44: [place] (ONE-A-DAY 16 Medical WOMEN'S 50+ Branch ORAL) bromfenac 2014-[address] in Uni vers (PROLENSA) 2-10 left eye. ity of 0.07 % Drop 17:44: [place] 16 Medical Branch QUEtiapine 2014-03 Yes 50mg Take 50 mg U nivers (SEROQUEL) 2-10 by mouth ity o f 50 mg 17:44: at [place] tablet 16 bedtime. Medical Branch cycloSPORIN 2014-03 Yes 1[drp] Place 1 U nivers E 2-10 Drop in ity of (RESTASIS) 17:44: both eyes [place] 0.05 % 16 every 12 Medical drops (twelve) Branch hours. rOPINIRole 2014-03 Yes 3mg Take 3 mg Un kayla (REQUIP) 3 2-10 by mouth 4 ity of mg tablet 17:44: (four) [place] 16 times Medical daily. Branch diclofenac 2014-03 Yes Univers (VOLTAREN) 0-08 ity of 75 mg EC 00:00: [place] tablet 00 Medical Branch diclofenac 2014-03 Yes Univers (VOLTAREN) 0-08 ity of 75 mg EC 00:00: [place] tablet 00 Medical [place] diclofenac 2014-03 Yes Univers (VOLTAREN) 0-08 ity of 75 mg EC 00:00: [place] tablet 00 Medical Branch diclofenac 2014-03 Yes Univers (VOLTAREN) 0-08 ity of 75 mg EC 00:00: [place] tablet 00 [facility] Branch diclofenac 2014-03 Yes Univers (VOLTAREN) 0-08 ity of 75 mg EC 00:00: [place] tablet 00 [facility] diclofenac 2014-03 Yes Univers (VOLTAREN) 0-08 ity of 75 mg EC 00:00: [place] tablet 00 [facility] diclofenac 2014-03 Yes Univers (VOLTAREN) 0-08 ity of 75 mg EC 00:00: [place] tablet 00 [facility] diclofenac 2014-03 Yes Univers (VOLTAREN) 0-08 ity of 75 mg EC 00:00: [place] tablet 00 [facility] diclofenac 2014-03 Yes Univers (VOLTAREN) 0-08 ity of 75 mg EC 00:00: [place] tablet 00 Medical Branch diclofenac 2014-03 Yes Univers (VOLTAREN) 0-08 ity of 75 mg EC 00:00: [place] tablet 00 Medical Branch diclofenac 2014-03 2020- No Univer s (VOLTAREN) 0-08 09-24 ity of 75 mg EC 00:00: 00:00 [place] tablet 00 :00 Medical Branch Vital Signs Vital Name Observation Time Observation Value Comments Source Systolic blood 2020-11-13 18:41:00 120 mm[Hg] Univer sity of pressure [facility] Diastolic blood 2020-11-13 18:41:00 79 mm[Hg] Unive rsity of [facility] Heart rate 2020-11-13 18:41:00 71 /min Universi ty of [facility] Respiratory rate 2020-11-13 18:41:00 20 /min [facility] Body height 2020-11-13 18:41:00 147.3 cm Universi ty of [facility] Body weight 2020-11-13 18:41:00 61.236 kg Universi ty of [facility] BMI 2020-11-13 18:41:00 28.22 kg/m2 Universi ty [facility] Oxygen saturation in 2020-11-13 18:41:00 93 /min [facility] Arterial blood by [facility] Pulse oximetry Branch Respiratory rate 2020-10-16 19:35:00 20 /min [facility] Body weight 2020-10-16 19:35:00 61.236 kg Universi ty of [place] [facility] [place] BMI 2020-10-16 19:35:00 28.22 kg/m2 Universi ty [facility] Systolic blood 2020-08-02 15:33:00 155 mm[Hg] Univer sity of [facility] Diastolic blood 2020-08-02 15:33:00 79 mm[Hg] Unive rsity of [facility] Heart rate 2020-08-02 15:31:00 71 /min Universi ty of [facility] Body height 2020-08-02 15:31:00 147.3 cm Universi ty of [facility] Body weight 2020-08-02 15:31:00 61.236 kg Universi ty of [place] [facility] BMI 2020-08-02 15:31:00 28.22 kg/m2 Universi ty of [place] [facility] Systolic blood 2020-07-15 19:58:00 149 mm[Hg] Univer sity of pressure [place] [facility] Diastolic blood 2020-07-15 19:58:00 77 mm[Hg] Unive rsity of pressure [place] [facility] Heart rate 2020-07-15 19:55:00 72 /min Universi ty of [place] [facility] Body weight 2020-07-15 19:55:00 60.782 kg Universi ty of [place] [facility] BMI 2020-07-15 19:55:00 27.06 kg/m2 Universi ty of [place] [facility] Systolic blood 2020-05-17 15:52:00 131 mm[Hg] Univer sity of pressure [place] [facility] Diastolic blood 2020-05-17 15:52:00 75 mm[Hg] Unive rsity of pressure [facility] [place] [facility] Branch Body height 2020-05-17 15:48:00 149.9 cm Universi ty of [place] [facility] Body weight 2020-05-17 15:48:00 61.236 kg Universi ty of [place] [facility] BMI 2020-05-17 15:48:00 27.27 kg/m2 Universi ty of [place] [facility] Systolic blood 2019-11-01 19:59:00 137 mm[Hg] Univer sity of pressure [place] [facility] Diastolic blood 2019-11-01 19:59:00 80 mm[Hg] Unive rsity of pressure [facility] [place] [facility] Branch Heart rate 2019-11-01 19:59:00 80 /min Universi ty of [place] [facility] Body height 2019-11-01 19:51:00 149.9 cm Universi ty of [place] [facility] Body weight 2019-11-01 19:51:00 61.236 kg stated Universi ty of [place] [facility] BMI 2019-11-01 19:51:00 27.27 kg/m2 Universi ty of [place] [facility] Systolic blood 2019-11-01 19:59:00 137 mm[Hg] Univer sity of pressure [place] [facility] Diastolic blood 2019-11-01 19:59:00 80 mm[Hg] Unive rsity of pressure [place] [facility] Heart rate 2019-11-01 19:59:00 80 /min Universi ty [facility] Medical Branch Body height 2019-11-01 19:51:00 149.9 cm Universi ty [facility] Medical Branch Body weight 2019-11-01 19:51:00 61.236 kg stated Universi ty [facility] Medical Branch BMI 2019-11-01 19:51:00 27.27 kg/m2 Universi ty [facility] Medical Branch Procedures Procedure Date / Time Performed Performing Clinician Sour e EXTERNAL PROVIDER 2021-04-15 06:01:00 Doctor Unassigned, No Univ ersity of [place] RECORDS Name Medical Branch [id number] 2021-03-03 00:00:00 [facility] 2020-11-27 05:01:00 Doctor Unassigned, No Univer [facility]ity of [place] RELEASE/CLEARANCE Name Medical Branch FORMS REFERRAL- 2020-10-16 05:01:00 Doctor Unassigned, No Univer [facility]ity of [place] REQUEST/RESPONSE Name Medical Branch REFERRAL- 2020-09-25 05:01:00 Doctor Unassigned, No Univer [facility]ity of [place] REQUEST/RESPONSE Name Medical Branch REFERRAL- 2020-09-04 05:01:00 Doctor Unassigned, No Univer [facility]ity of [place] REQUEST/RESPONSE Name Medical Branch XR KNEE <3 VW LEFT 2020-08-02 15:30:41 Desiree Larios Univers ity of [place] [facility] XR HAND <3 VW LEFT 2020-08-02 15:30:40 Dseiree Larios Univers ity of [place] [facility] MEDICAL 2020-01-15 05:01:00 Doctor Unassigned, No Univer sity of [place] RELEASE/CLEARANCE Name Medical Branch FORMS EXTERNAL PROVIDER 2019-11-09 05:01:00 Doctor Unassigned, No Univ ersity of [place] RECORDS Name Medical Branch REFERRAL- 2019-05-22 06:01:00 Doctor Unassigned, No [facility]iver [facility]ity of [place] REQUEST/RESPONSE Name Medical Branch REFERRAL- 2019-04-26 06:01:00 Doctor Unassigned, No Univer [facility]ity of [place] REQUEST/RESPONSE Name Medical Branch REFERRAL- 2019-04-03 06:01:00 Doctor Unassigned, No Univer [facility]ity of [place] REQUEST/RESPONSE Name Medical Branch Plan of Care Planned Activity Planned Date Details Comments Source Future Scheduled Test 1943 00:00:00 COVID-19 Vaccination MD [place] (1) [code = COVID-19 Vaccination (1)] Encounters Start End Encounter Admission Attending Care Care Encounter Source Date/Time Date/Time Type Type Clinicians Facility Department ID 2021-04-24 Outpatient [facility] [id number] 18:39:06 [facility] anil 2021-04-24 Outpatient [facility] [id number] 18:39:06 [facility] n 2019-09-14 Outpatient TRISTIN HUBER Tommy/Hep/Nu [id number] 06:51:13 TRUDYRAMONChantel bajwa [facility] 2021-04-15 2021-04-15 Orders Doctor SHEIKH 1.2.840.[id number] [place] [address] 00:00:00 00:00:00 Only Unassigned, [place] [id number] ity of [place] [facility] [id number] Burt as [id number] [facility] 009 Branch 2021-03-03 2021-03-05 Inpatient EL Stocks, HCATO ADMI [id number] [facility] 08:35:00 13:36:00 Gavin [facility] [place] [facility] 2021-03-03 2021-03-05 Inpatient EL Stocks, HCATO ADMI [id number] [facility] 08:35:00 13:36:00 Gavin [id number] [place] [facility] 2021-02-18 2021-02-18 Outpatient EL Stocks, HCATO 3DAY [id number] [facility] 09:00:00 23:00:00 Gavin [id number] [place] [facility] 2021-02-18 2021-02-18 Outpatient Stocks, HCACL LABO [id number] [facility] 19:00:00 19:00:00 Gavin [id number] [facility] 2020-11-27 2020-11-27 Orders Doctor SHEIKH 1.2.840.114 [id number] [facility] 00:00:00 00:00:00 Only Unassigned, [place] [id number] ity of [place] [facility] 4.2.7.2.686 [place] as [phone] [facility] 009 Branch 2020-11-13 2020-11-13 Office MICK Larios [id number] Univers 13:30:34 14:09:00 Visit Desiree [facility] [id number] it y of [place] 4.2.7.2.686 Burt as [place]?Blea [phone] Ne dical kney [address] [place] [facility] 2020-11-13 2020-11-[address] [facility] [id number] Univers 13:15:00 13:15:00 DESIREE [id number] ity [facility] 2020-11-13 2020-11-13 [facility] [id number] Univers 13:15:00 13:15:00 DESIREE itjanet [facility] 2020-11-11 2020-11-11 Letter Doctor AGUILAR 1.2.840.114 [id number] Univers 00:00:00 00:00:00 (Out) Unassigned, [place] [id number] ity of [place] [facility] 4.2.7.2.686 B[place] as [phone] [address] 2020-11-11 2020-11-11 Letter Doctor AGUILAR 1.2.840.114 [id number] Univers 00:00:00 00:00:00 (Out) Unassigned, [place] [id number] ity of [place] [facility] 4.2.7.2.686 [place] as [id number] [address] 2020-11-07 2020-11-07 [facility] 1.2.840.114 [id number] Univers 00:00:00 00:00:00 Desiree [facility] [id number] it y of Surgical 4.2.7.2.686 [place] as Specialti [id number] Ne dical es 198 [facility] 2020-10-16 2020-10-16 [facility] [id number] Univers 14:32:41 14:55:40 Visit Desiree Row[place] [id number] it y of Surgical 4.2.7.2.686 [place] as Specialti [id number] Ne dical es 198 [facility] 2020-10-16 2020-10-[address] [facility] [id number] Univers 14:45:00 14:45:00 DESIREE [id number] ity of [facility] 2020-10-16 2020-10-16 [facility] [id number] Univers 14:45:00 14:45:00 DESIREE ity of [facility] 2020-10-16 2020-10-16 Orders Doctor SHEIKH 1.2.840.114 [id number] Univers 00:00:00 00:00:00 Only Unassigned, [place] [id number] ity of [place] [facility] 4.2.7.2.686 Burt as [id number] [address] 2020-09-25 2020-09-25 Orders Doctor AGUILAR 1.2.840.114 [id number] Univers 00:00:00 00:00:00 Only Unassigned, [place] [id number] ity of [place] [facility] 4.2.7.2.686 B[place] as [id number] [address] 2020-09-04 2020-09-04 Orders Doctor AGUILAR 1.2.840.114 [id number] Univers 00:00:00 00:00:00 Only Unassigned, [place] [id number] ity of [place] [facility] 4.2.7.2.686 [place] as [id number] [address] 2020-08-05 2020-08-[address] [facility] [id number] Univers 13:30:00 13:30:00 DESIREE [id number] ity of [facility] 2020-08-02 2020-08-02 [facility] 1.2.840.114 [id number] Univers 10:30:41 23:59:00 Encounter Desiree [facility] [id number] ity of Surgical 4.2.7.2.686 [place] as Specialti [phone] Ne dical 809 [facility] 2020-08-02 2020-08-02 [facility] 1.2.840.114 [id number] Univers 10:30:40 23:59:00 Encounter Desiree [facility] [id number] ity of Surgical 4.2.7.2.686 [place] as Specialti [phone] Ne dical es 809 Branch [place] 2020-08-02 2020-08-02 Office [facility] [id number] Univers 10:23:58 10:57:05 Visit Desiree Rowe [id number] it y of Surgical 4.2.7.2.686 [place] as Specialti [id number] Ne dical es 198 [facility] 2020-08-02 2020-08-02 [facility] [id number] Univers 10:30:00 10:30:00 DESIREE [id number] ity [facility] 2020-08-02 2020-08-02 [facility] [id number] Univers 10:30:00 10:30:00 [facility] 2020-07-15 2020-07-15 [facility] 1.2.840.114 [id number] Univers 15:20:13 23:59:00 Encounter Desiree Rowe [id number] ity of Surgical 4.2.7.2.686 [place] as Specialti [phone] Ne dical es 809 [facility] 2020-07-15 2020-07-15 [facility] 1.2.840.114 [id number] Univers 15:20:12 23:59:00 Encounter Desiree Rowe [id number] ity of Surgical 4.2.7.2.686 [place] as Specialti [phone] Ne dical es 809 Vashti [place] 2020-07-15 2020-07-15 Office [facility] [id number] Univers 14:45:06 15:29:11 Visit Desiree Rowe [id number] it y of Surgical 4.2.7.2.686 [place] as Specialti [id number] Ne dical es 198 [facility] 2020-07-15 2020-07-15 [facility]patient [facility] [id number] Univers 14:45:00 14:45:00 DESIREE [id number] [facility] 2020-07-15 2020-07-15 [facility] [id number] Univers 14:45:00 14:45:00 [facility] [place] [facility] 2020-05-17 2020-05-17 Office [facility] [id number] Univers 09:44:09 10:14:20 Visit Desiree Health [id number] it y of Surgical 4.2.7.2.686 [place] as Specialti [id number] Ne dical es 198 [facility] 2020-05-17 2020-05-17 [facility] [id number] Univers 09:45:00 09:45:00 DESIREE [id number] [facility] 2020-05-17 2020-05-17 [facility] [id number] Univers 09:45:00 09:45:00 [facility] [place] [facility] 2020-01-15 2020-01-15 Orders Doctor AGUILAR 1.2.840.114 [id number] 00:00:00 00:00:00 Only Unassigned, [place] 350.1.13.10 [place] [facility] 4.2.7.2.686 [id number] [facility] [facility] 2020-01-15 2020-01-15 Orders Doctor AGUILAR 1.2.840.114 [id number] Univers 00:00:00 00:00:00 Only Unassigned, [place] 350.1.13.10 ity of [place] [facility] 4.2.7.2.686 Burt as [phone] [address] 2019-12-13 2019-12-13 [facility] 1.2.840.114 [id number] 00:00:00 00:00:00 [facility] [id number] Surgical 4.2.7.2.686 Specialti [phone] es [address] [place] [address] 2019-12-13 2019-12-13 [facility] 1.2.840.114 [id number] Univers 00:00:00 00:00:00 [facility]ana S [facility] [id number] it y of Surgical 4.2.7.2.686 Burt as Specialti [phone] Me dical es 198 [facility] 2019-12-04 2019-12-04 Outpatient MDA MDA [id number] 00:00:00 00:00:00 Aashish o n 2019-11-09 2019-11-09 Orders Doctor AGUILAR 1.2.840.114 [id number] 00:00:00 00:00:00 Only Unassigned, [place] 350.1.13.10 [facility] 4.2.7.2.686 [id number] [id number] 2019-11-09 2019-11-09 Orders Doctor AGUILAR 1.2.840.114 [id number] [facility] 00:00:00 00:00:00 Only Unassigned, [place] 350.1.13.10 [place] of [place] [facility] 4.2.7.2.686 Burt as [phone] [address] 2019-11-01 2019-11-01 [facility] 1.2.840.114 [id number] Univers 15:11:43 23:59:00 Encounter Desiree [employer] 350.1.13.10 ity of Surgical 4.2.7.2.686 [place] as Specialti [phone] Ne dical es 809 [facility] 2019-11-01 2019-11-01 Office [facility] [id number] 14:43:31 15:28:43 Visit [facility] 350.1.13.10 Surgical 4.2.7.2.686 Specialti [phone] es [address] [place] [address] 2019-11-01 2019-11-01 Office [facility] [id number] Univers 14:43:31 15:28:43 Visit [facility] [employer] 350.1.13.10 it y of Surgical 4.2.7.2.686 [place] as Specialti [phone] Ne dical es 198 [facility] 2019-11-01 2019-11-01 [facility] [id number] Univers 15:00:00 15:00:00 DESIREE [id number] ity of [facility] 2019-11-01 2019-11-[address] [facility] [id number] Univers 15:00:00 15:00:00 [facility] 2019-08-30 2019-08-[address] [facility] [id number] [id number]-20 Univers 15:30:00 15:30:00 DESIREE ity [facility] 2019-08-30 2019-08-30 [facility] [id number] Univers 15:30:00 15:30:00 DESIREE [facility] 2019-07-09 2019-07-09 Refill [facility] 1.2.840.114 [id number] Univers 00:00:00 00:00:00 [facility] 350.1.13.10 it y of Surgical 4.2.7.2.686 Burt as Specialti [phone] Me dical es 198 [facility] 2019-06-15 2019-06-15 Telemedici [facility] 1.2.840.114 [id number] Univers 13:17:07 13:55:44 ne Visit [facility] 350.1.13.10 i ty of Surgical 4.2.7.2.686 B[place] as Specialti [phone] Me dical es 198 [facility] 2019-06-15 2019-06-[address] [facility] [id number] Univers 13:15:00 13:15:00 SVETLANA [id number] [facility] 2019-06-15 2019-06-[address] [facility] [id number] Univers 13:15:00 13:15:00 SVETLANA [facility] 2019-06-14 2019-06-14 Telephone [facility] 1.2.840.114 [id number] Univers 00:00:00 00:00:00 Desiree L Health 350.1.13.10 it y of Surgical 4.2.7.2.686 [place] as Specialti [phone] Me dical es 198 [facility] 2019-06-07 2019-06-07 [facility] [id number] Univers 13:30:00 13:30:00 DESIREE [id number] [facility] 2019-06-07 2019-06-[address] [facility] [id number] Univers 13:30:00 13:30:00 DESIREE janet [facility] 2019-06-05 2019-06-[address] [facility] [id number] Univers 15:45:00 15:45:00 DESIREE [id number] [facility] 2019-06-05 2019-06-[address] [facility] [id number] Univers 15:45:00 15:45:00 DESIREE [facility] 2019-05-22 2019-05-22 Orders Doctor AGUILAR 1.2.840.114 [id number] Univers 00:00:00 00:00:00 Only Unassigned, [place] 350.1.13.10 [facility] [place] [facility] 4.2.7.2.686 Burt as [phone] [address] 2019-04-26 2019-04-26 Orders Doctor SHEIKH 1.2.840.114 [id number] Univers 00:00:00 00:00:00 Only Unassigned, [place] 350.1.13.10 [facility] [place] [facility] 4.2.7.2.686 Burt as [phone] [address] 2019-04-03 2019-04-03 Orders Doctor AGUILAR 1.2.840.114 [id number] Univers 00:00:00 00:00:00 Only Unassigned, [place] 350.1.13.10 [facility] [place] [facility] 4.2.7.2.686 Burt as [phone] [address] 2019-03-23 2019-03-[address] [facility] [id number] Univers 10:46:59 23:59:00 [facility] Results Test Description Test Time Test Comments Results Result Comments Source BASIC METABOLIC PANEL 2021-03-04 07:04:00 Test Item Value Reference Range Interpretation Comme nts SODIUM (test code = NA) 141 mmol/L 136-145 N POTASSIUM (test code = K) 5.1 mmol/L 3.5-5.1 N CHLORIDE (test code = CL) 107.0 mmol/L 98-107 N CARBON DIOXIDE (test code = 22.4 mmol/L 21-32 N CO2) GLUCOSE (test code = GLU) 152 mg/dL 70-110 H BLOOD UREA NITROGEN (test code 37 mg/dL 7-18 H = BUN) GLOMERULAR FILTRATION RATE 57.6 >60 U nit of measure: (test code = GFR) mL/min/1.7 3 [id number] Range:Healthy A dults >90 mL/min/1.73 m2 For Chronic Kidney Disease: Stage II Mi ld Decrease in GFR 60-9 0 Stage III Moderate Decrease in GFR 30-59 Stage IV Severe Decrease in GFR 15-29 Stage V Kidney Failure <15 CREATININE (test code = CREAT) 0.93 mg/dL 0.55-1.30 N CALCIUM (test code = CA) 7.8 mg/dL 8.2-10.1 L SPECIMEN COMMENT: POD #1HGB [id number] 06:15:00 Test Item Value Reference Range Interpretation Comments HEMOGLOBIN (test code = HGB) 10.5 g/dL 12-16 L HEMATOCRIT (test code = HCT) 33.2 % 37-47 L SPECIMEN COMMENT: POD #1VITAMIN D 25-HYDROXY (TOTAL)2021-02-19 07:05:00 Test Item Value Reference Range Interpretation Comments VITAMIN D 45.2 ng/mL 30.0-100.0 Vitamin D defic iency has 25-HYDROXY (TOTAL) been defi kimberlyn by the (test code = [place] ofMed icine and VITD25) an Endocrine So ety practice guidel ine as alevel of serum 25-OH vitamin D less than 20 ng/mL (1,2).The Endocrine Society went on to further define vitamin Dinsufficiency as a level between 21 and 29 ng/mL (2).1. IOM (Ins titute of Medicine). 2010 . Dietary reference int akes for calcium and D. Mercado [place]: The [employer] .2. Arelis MF, Bryon [place], Katie-Karey i BRAUN, et al. Evaluatio n, treatment, and prevention of vitamin D deficiency: an Endocrine Society clinica l practice guideline. ROMMEL EM. 2010; 96(7):1911-30.P erformed At: [facility] [id number] [place], [place] [id number] Kyle L MD Ph:[phone] COMPREHENSIVE METABOLIC [id number] 18:29:00 Test Item Value Reference Range Interpretation Comments SODIUM (test code = 144 mmol/L 136-145 N NA) POTASSIUM (test code = 4.7 mmol/L 3.5-5.1 N K) CHLORIDE (test code = 107.0 mmol/L 98-107 N CL) CARBON DIOXIDE (test 27.5 mmol/L 21-32 N code = CO2) GLUCOSE (test code = 78 mg/dL 70-110 N GLU) BLOOD UREA NITROGEN 24 mg/dL 7-18 H (test code = BUN) GLOMERULAR FILTRATION 65.7 >60 Unit o f measure: RATE (test code = GFR) mL/mi n/1.73 [id number] Range:Healthy Adults >90 mL/min/1.73 m2 For Chronic Kidney Disease: St age II Mild Decrease in GFR 60-90 St age III Moderate Decrease in GFR 30-59 Stage IV Severe Decre ase in GFR 15- 29 Stage V Kidney Failure <15 CREATININE (test code 0.83 mg/dL 0.55-1.30 N = CREAT) TOTAL PROTEIN (test 6.4 g/dL 6.4-8.2 N code = PROT) ALBUMIN (test code = 3.1 g/dL 3.4-5.0 L ALB) GLOBULIN (test code = 3.3 g/dL 2.2-4.2 N GLOB) ALBUMIN/GLOBULIN RATIO 0.9 0.7-2.0 N (test code = A/G) CALCIUM (test code = 8.8 mg/dL 8.2-10.1 N CA) BILIRUBIN TOTAL (test 0.20 mg/dL 0.2-1.00 N code = BILT) SGOT/AST (test code = 23.0 U/L 15-37 N AST) SGPT/ALT (test code = 27.0 U/L 12-78 N Please note new ALT) normal range. ALKALINE PHOSPHATASE 56 U/L 46-116 N TOTAL (test code = ALKP) CBC W/AUTO [id number] 17:51:00 Test Item Value Reference Range Interpretation Comments WHITE BLOOD CELL (test code = WBC) 6.2 K/mm3 5.8-11.0 N RED BLOOD CELL (test code = RBC) 4.08 M/mm3 4.2-5.4 L HEMOGLOBIN (test code = HGB) 12.1 g/dL 12-16 N HEMATOCRIT (test code = HCT) 38.3 % 37-47 N MEAN CELL VOLUME (test code = MCV) 94 fL 80-98 N MEAN CELL HGB (test code = MCH) 29.7 pg 27-34 N MEAN CELL HGB CONCENTRATION (test 31.6 g/dL 30.8-34.1 N code = MCHC) RED CELL DISTRIBUTION WIDTH (test 13.1 % 11-16 N code = RDW) PLT (test code = PLT) 279 K/mm3 130-400 N MEAN PLATELET VOLUME (test code = 11.2 fL 8.9-12.1 N MPV) NEUTROPHIL % (test code = NT%) 55.9 % 45-70 N LYMPHOCYTE % (test code = LY%) 28.6 % 20-40 N MONOCYTE % (test code = MO%) 10.8 % 3-10 H EOSINOPHIL % (test code = EO%) 3.6 % 1-5 N BASOPHIL % (test code = BA%) 0.8 % 0.0-1.1 N NEUTROPHIL # (test code = NT#) 3.45 K/mm3 2.00-7.50 N LYMPHOCYTE # (test code = LY#) 1.77 K/mm3 1.50-4.00 N MONOCYTE # (test code = MO#) 0.67 K/mm3 0.2-0.8 N EOSINOPHIL # (test code = EO#) 0.22 K/mm3 0.04-0.4 N BASOPHIL # (test code = BA#) 0.05 K/mm3 0.02-0.10 N MANUAL DIFF REQUIRED (test code = NO MANUAL DIFF MDIFF) NUCLEATED RED BLOOD CELL (test 0 % 0-0 N code = NRBC) PROTHROMBIN [id number] 17:51:00 Test Item Value Reference Range Interpretation Comments PROTHROMBIN TIME 11.0 secs 10.1-12.5 N PATIENT (test code = PTP) INTERNATIONAL NORMAL 0.96 <2.0 RECOMME NDED THERAPEUTIC RATIO (test code = RANGE FOR ORAL INR) ANTICOAGULANTTR EATMENT: CONDI TION INRProphylaxis of venous thrombos is in 2.0 - 3.0 high-risk medic al or surgical patientsTreatme nt of venous thrombos is 2.0 - 3.0Prevention o f embolism 2.0 - 3.0Prevention o f recurrent embol ism, or 3.0 - 4. 5 patients with mechanical pros thetic intravascular v fairchild IS PATIENT ON ANTICOAGULANTS ? NHas Lab been notified if Patient is on Heparin Drip? NOIf Yes, orderCBC, OCCULT BLOOD, PT every other day NTHROMBOPLASTIN TIME [id number] 17:51:00 Test Item Value Reference Range Interpretation Comments PTT ACTIVATED (test code = APTT) 32.5 secs 24.9-37.0 N IS PATIENT ON ANTICOAGULANTS ? NHas Lab been notified if Patient is on Heparin Drip? NOIf Yes, orderCBC, OCCULT BLOOD, PT every other day NXR HAND <3 VW [id number] 16:40:53Fracture in acceptable alignmentUnCarrollton Regional Medical CenterXR KNEE <3 VW [id number] 16:40:31Fracture healing well [facility]
[2021-04-26] MEDS ORDERED: PANTOPRAZOLE 40 MG INJ ONE (10:08)
[2021-04-26] MEDS ORDERED: MAGNES/ALUMIN/SIMET 30ML UCUP ONE (10:08)
[2021-04-26] MEDS ORDERED: LIDOCAINE VISCOUS 2% SOLN 15 ML UDC ONE (10:09)
[2021-04-26 11:34] LABS: Absolute Lymphocytes (CBC) 1.3 K/uL (0.7-4.9); Hematocrit 37.3 % (36.0-45.0); Lymphocytes % 19.8 % (15.3-44.8); MPV 9.1 fL (7.6-11.3); RBC Red Blood Cell Count 4.12 M/uL (3.86-4.86)
[2021-04-26 11:55] LABS: Bilirubin Direct 0.1 mg/dL (0-0.2); Bilirubin Total 0.4 mg/dL (0.2-1.0); Potassium 4.2 mmol/L (3.5-5.1); Protein, Total 6.7 g/dL (6.4-8.2); Troponin High Sensitivity 10.3 pg/mL (<58.9)
--- NOTE | 2021-04-26 12:42 | RAD REPORT ---
EXAM DESCRIPTION: CT - Abdomen Pelvis W Contrast - 04/26/2021 12:21 pm CLINICAL HISTORY: Abdominal pain/epigastric pain COMPARISON: 2018 TECHNIQUE: Computed axial tomography of the abdomen pelvis was obtained. 100 cc Isovue-300 was admin istered intravenously. Oral contrast was not requested which limits evaluation of bowel. All CT scans are performed using dose optimization technique as appropriate and may include automated exposure control or mA/KV adjustment according to patient size. FINDINGS: Bilateral calcified lung granulomas. The stomach is moderately distended. Thickening of the wall of the distal stomach. The liver, spleen, pancreas, and adrenals Several left renal parenchymal calculi with adjacent thinning of the cortex unchanged. Small left lisseth al cyst Marked right hydronephrosis has progressed since the prior exam. Right ureter is dilated. Right uret er is narrowed as it crosses right common iliac artery. Right cortical thinning. No evidence of diverticulitis. Calcified fibroid uterus. Small hiatal hernia. Mild anterior subluxation L5 on S1. Spondylolysis L5 IMPRESSION: Moderate gastric distention. Thickening of the wall of the distal stomach may indicate i nflammation or mass Chronic right hydronephrosis and right hydroureter. The right hydronephrosis has progressed and is ma rked. Site of obstruction may be crossing right common iliac artery resulting in compression of the u reter.
--- NOTE | 2021-04-26 13:14 | EDPHYS ---
Physician Documentation [facility] Name: Ember Meade Age: 81 yrs Sex: Female : 1940 Arrival Date: 04/26/2021 Time: 09:32 Bed 5 Private MD: Bert Shay ED Physician Bala Chawla HPI: 04/26 09:51 This 81 yrs old Female presents to ER via Ambulatory with complaints of indigestion, rn upper abd pain, chest pain. 09:51 The patient presents with abdominal pain in the epigastric area. Onset: The rn symptoms/episode began/occurred this morning. The symptoms radiate to chest. Associated signs and symptoms: Pertinent positives: chest pain, nausea, Pertinent negatives: blood in stools, fever, hematuria, shortness of breath, vomiting blood. The symptoms are described as burning. Modifying factors: The symptoms are alleviated by nothing, the symptoms are aggravated by food, touching the area. Severity of pain: At its worst the pain was moderate in the emergency department the pain is unchanged. The patient has experienced similar episodes in the past. The patient has been recently seen by a physician:. Patient reports woke up with epigastric pain and chest pain this morning. States feels like burning sensation. Associated with nausea but no vomiting. No bloody or dark stool. Denies trauma. Denies shortness of breath. Has a history of acid reflux and esophagitis, doesn't take antacids regularly, reports got back on Prilosec and Tums this week. Also reports increase in coffee intake. Had taco salad last night. Reports had a similar episode a couple days ago but got better with antacids, worse today so came in for evaluation. Daughter states recently had knee surgery and had cardiac clearance at that time.. Historical: - Allergies: 09:39 NKA; jh5 - PMHx: 09:39 Anemia; Schizophrenia; Esophagitis; Hypertension; Depression; jh5 - PSHx: 09:39 left knee replacement; jh5 - Immunization history:: Adult Immunizations up to date. - Social history:: Smoking status: Patient denies any tobacco usage or history of. - Family history:: not pertinent. - Hospitalizations: : No recent hospitalization is reported. ROS: 09:51 Constitutional: Negative for fever, chills, and weight loss, Eyes: Negative for injury, rn pain, redness, and discharge, Neck: Negative for injury, pain, and swelling, Cardiovascular: Negative for palpitations, and edema, Respiratory: Negative for shortness of breath, wheezing, and pleuritic chest pain, Abdomen/GI: Positive for upper abdominal pain and nausea Back: Negative for injury and pain, : Negative for injury, bleeding, discharge, and swelling, MS/Extremity: Negative for injury and deformity, Skin: Negative for injury, rash, and discoloration, Neuro: Negative for headache, weakness, numbness, tingling, and seizure. Exam: 09:51 Constitutional: This is a well developed, well nourished patient who is awake, alert, rn and in no acute distress. Ambulatory to room with walker without assistance from others Head/Face: Normocephalic, atraumatic. Eyes: Normal conjunctiva. Periorbital areas with no swelling, redness, or edema. Cardiovascular: Regular rate and rhythm. No pulse deficits. Respiratory: Speaking full sentences, unlabored. No increased work of breathing, no retractions or nasal flaring. Abdomen/GI: Soft, mild epigastric and subxiphoid tenderness. No rebound. No masses. Skin: Warm, dry MS/ Extremity: Pulses equal, no cyanosis. Neuro: Awake and alert, GCS 15, oriented to person, place, time, and situation. Cranial nerves II-XII grossly intact. Motor strength 5/5 in all extremities. Sensory grossly intact. Cerebellar exam normal. Normal gait. Vital Signs: 09:35 BP 160 / 69; Pulse 82; Resp 16; Temp 98.6; Pulse Ox 100% ; Weight 63.5 kg; Height 5 ft. [facility] 1 in. (154.94 cm); Pain 4/10; 11:40 Pulse 83; Resp 16 S; Pulse Ox 100% on R/A; jd3 14:07 BP 130 / 71; Pulse 81; Resp 16 S; Pulse Ox 100% on R/A; jd3 09:35 Body Mass Index 26.45 (63.50 kg, 154.94 cm) [facility] MDM: 09:40 Patient medically screened. rn 13:12 Differential diagnosis: gastritis, gastroesophageal reflux disease, gastritis, PUD, rn gastric ulcer. Data reviewed: vital signs, nurses notes, lab test result(s), EKG, radiologic studies, CT scan, and as a result, I will discharge patient. Counseling: I had a detailed discussion with the patient and/or guardian regarding: the historical points, exam findings, and any diagnostic results supporting the discharge/admit diagnosis, lab results, radiology results, the need for outpatient follow up, to return to the emergency department if symptoms worsen or persist or if there are any questions or concerns that arise at home. Response to treatment: the patient's symptoms have markedly improved after treatment, and as a result, I will discharge patient. Special discussion: Based on the patient's Hx, exam, and Dx evaluation, there is no indication for emergent surgery or inpatient Tx. It is understood by the patient/guardian that if the Sx's persist or worsen they need to return immediately for re-evaluation. I discussed with the patient/guardian in detail that at this point there is no indication for admission to the hospital. It is understood, however, that if the symptoms persist or worsen the patient needs to return immediately for re-evaluation. Based on the history and exam findings, there is no indication for further emergent testing or inpatient evaluation. I discussed with the patient/guardian the need to see the caramel candy maker for further evaluation of the symptoms. ED course: Patient markedly improved after GI cocktail. CT shows signs of gastritis/esophagitis which fit with patient's presentation. EKG and troponin without signs of ischemia. Will discharge home with Protonix prescription and GI follow-up. Return precautions regarding GI bleed given and understood to family and patient.. 04/26 09:50 Order name: Basic Metabolic Panel; Complete Time: 12:04/26 09:50 Order name: CBC with Diff; Complete Time: 12:04/26 09:50 Order name: Hepatic Function; Complete Time: 12:04/26 09:50 Order name: Lipase; Complete Time: 12:04/26 09:50 Order name: CT Abd/Pelvis - IV Contrast Only; Complete Time: 12:56 rn 04/26 09:50 Order name: Troponin High Sensitivity; Complete Time: 12:04/26 09:50 Order name: IV Saline Lock; Complete Time: 10:29 rn 04/26 09:50 Order name: Labs collected and sent; Complete Time: 11:04 04/26 09:50 Order name: EKG; Complete Time: 09:51 rn 04/26 09:50 Order name: EKG - Nurse/Tech; Complete Time: 10:09 rn Administered Medications: 10:14 Drug: GI Cocktail without - (Maalox Suspension 30 ml, Lidocaine Liquid 2 % 15 jd3 ml) Route: PO; 11:10 Follow up: Response: No adverse reaction jd3 10:28 Drug: ProTONIX (pantoprazole) 40 mg Route: IVP; Site: right antecubital; jd3 11:25 Follow up: Response: No adverse reaction jd3 Disposition Summary: 04/26/21 13:14 Discharge Ordered Location: Home rn Problem: an ongoing problem rn Symptoms: have improved rn Condition: Stable rn Diagnosis - Acute gastritis without bleeding rn - Gastro-esophageal reflux disease with esophagitis rn Followup: rn - With: John Barba MD - When: 1 week - Reason: Recheck today's complaints, Re-evaluation by your physician Discharge Instructions: - Discharge Summary Sheet rn - Food Choices for Gastroesophageal Reflux Disease, Adult rn - Esophagitis rn - Gastritis, Adult rn - Gastroesophageal Reflux Disease, Adult rn Forms: - Medication Reconciliation Form rn - Thank You Letter rn - 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 States rn feels like burning sensation. Associated with nausea but no vomiting. No bloody or dark stool. Denies trauma. Denies shortness of breath. Has a history of acid reflux and esophagitis, doesn't take antacids regularly, reports got back on Prilosec and Tums this week. Also reports increase in coffee intake. Had taco salad last night. Reports had a similar episode a couple days ago but got better with antacids, worse today so came in for evaluation.. rn
--- NOTE | 2021-04-26 13:14 | ER ---
Nurse's Notes [facility] Name: Ember Meade Age: 81 yrs Sex: Female : 1940 Arrival Date: 04/26/2021 Time: 09:32 Bed 5 Private MD: Bert Shay Diagnosis: Acute gastritis without bleeding;Gastro-esophageal reflux disease with esophagitis Presentation: 04/26 09:35 Chief complaint: Patient states: midsternal chest pressure that feels like indigestion [facility] and gets worse when she moves around; started early this morning and states it's worse after eating and drinking. Coronavirus screen: Vaccine status: Patient reports receiving the 2nd dose of the covid vaccine. Client denies travel out of the [place] in the last 14 days. Ebola Screen: Patient negative for fever greater than or equal to 101.5 degrees Fahrenheit, and additional compatible Ebola Virus Disease symptoms Patient denies exposure to infectious person. Patient denies travel to an Ebola-affected area in the 21 days before illness onset. Initial Sepsis Screen: Does the patient meet any 2 criteria? No. Patient's initial sepsis screen is negative. Does the patient have a suspected source of infection? No. Patient's initial sepsis screen is negative. Risk Assessment: Do you want to hurt yourself or someone else? Patient reports no desire to harm self or others. Onset of symptoms was April 26, 2021. 09:35 Method Of Arrival: Ambulatory [facility] 09:35 Acuity: SANTOSH 3 jh5 Triage Assessment: 09:39 General: Appears uncomfortable, well groomed, well developed, Behavior is calm, 5 cooperative, appropriate for age. Pain: Complains of pain in chest. Historical: - Allergies: 09:39 NKA; jh5 - PMHx: 09:39 Anemia; Schizophrenia; Esophagitis; Hypertension; Depression; 5 - PSHx: 09:39 left knee replacement; 5 - Immunization history:: Adult Immunizations up to date. - Social history:: Smoking status: Patient denies any tobacco usage or history of. - Family history:: not pertinent. - Hospitalizations: : No recent hospitalization is reported. Screenin:33 Abuse screen: Denies threats or abuse. Nutritional screening: No deficits noted. jd3 Tuberculosis screening: No symptoms or risk factors identified. Fall Risk Ambulatory Aid- None/Bed Rest/Nurse Assist (0 pts). Gait- Normal/Bed Rest/Wheelchair (0 pts) Mental Status- Oriented to own ability (0 pts). Total Velasquez Fall Scale indicates No Risk (0-24 pts). Assessment: 09:40 General: Appears in no apparent distress. comfortable, Behavior is calm, cooperative, jd3 appropriate for age. Pain: Complains of pain in chest Quality of pain is described as burning, dull. Neuro: Level of Consciousness is awake, alert, obeys commands, Oriented to person, place, time, situation. Cardiovascular: Capillary refill < 3 seconds Patient's skin is warm and dry. Rhythm is regular. Respiratory: Airway is patent Respiratory effort is even, unlabored, Respiratory pattern is regular, symmetrical, Denies cough, shortness of breath. GI: Abdomen is non-distended, Abd is soft and non tender X 4 quads. Reports indigestion. : No signs and/or symptoms were reported regarding the genitourinary system. EENT: No signs and/or symptoms were reported regarding the EENT system. Derm: Skin is intact, Skin is dry, Skin is normal, Skin temperature is warm. Musculoskeletal: Circulation, motion, and sensation intact. Range of motion: intact in all extremities. 10:31 Reassessment: Patient appears in no apparent distress at this time. Patient and/or jd3 family updated on plan of care and expected duration. Pain level reassessed. Patient is alert, oriented x 3, equal unlabored respirations, skin warm/dry/pink. Patient states feeling better. Patient states symptoms have improved. 11:39 Reassessment: Patient appears in no apparent distress at this time. No changes from jd3 previously documented assessment. Patient and/or family updated on plan of care and expected duration. Pain level reassessed. Patient is alert, oriented x 3, equal unlabored respirations, skin warm/dry/pink. 14:06 Reassessment: Patient appears in no apparent distress at this time. Patient and/or jd3 family updated on plan of care and expected duration. Pain level reassessed. Patient is alert, oriented x 3, equal unlabored respirations, skin warm/dry/pink. Patient states feeling better. Patient states symptoms have improved. Vital Signs: 09:35 BP 160 / 69; Pulse 82; Resp 16; Temp 98.6; Pulse Ox 100% ; Weight 63.5 kg; Height 5 ft. jh5 1 in. (154.94 cm); Pain 4/10; 11:40 Pulse 83; Resp 16 S; Pulse Ox 100% on R/A; jd3 14:07 BP 130 / 71; Pulse 81; Resp 16 S; Pulse Ox 100% on R/A; jd3 09:35 Body Mass Index 26.45 (63.50 kg, 154.94 cm) 5 ED Course: 09:32 Patient arrived in ED. am2 09:32 Bert Shay MD is Private Physician. am2 09:39 Triage completed. jh5 09:39 Arm band placed on right wrist. jh5 09:40 Bala Chawla MD is Attending Physician. rn 09:43 Kevin Rosado RN is Primary Nurse. jd3 10:10 groundwater monitoring technician on. Pulse ox on. NIBP on. jh6 10:33 Patient has correct armband on for positive identification. Bed in low position. Call jd3 light in reach. Side rails up X 1. Adult w/ patient. 10:40 Inserted saline lock: 20 gauge in right forearm, using aseptic technique. ke1 12:21 CT Abd/Pelvis - IV Contrast Only In Process Unspecified. EDMS 13:13 John Barba MD is Referral Physician. rn 14:06 No provider procedures requiring assistance completed. IV discontinued, intact, jd3 bleeding controlled, No redness/swelling at site. Pressure dressing applied. Administered Medications: 10:14 Drug: GI Cocktail without - (Maalox Suspension 30 ml, Lidocaine Liquid 2 % 15 jd3 ml) Route: PO; 11:10 Follow up: Response: No adverse reaction jd3 10:28 Drug: ProTONIX (pantoprazole) 40 mg Route: IVP; Site: right antecubital; jd3 11:25 Follow up: Response: No adverse reaction jd3 Outcome: 13:14 Discharge ordered by . rn 14:06 Discharged to home ambulatory, with family. jd3 14:06 Condition: stable 14:06 Discharge instructions given to patient, family, Instructed on discharge instructions, follow up and referral plans. medication usage, Demonstrated understanding of instructions, follow-up care, medications, Prescriptions given X 1. 14:08 Patient left the ED. jd3 Signatures: Dispatcher [employer] EDMS Bala Chawla MD MD rn Moreno, Amanda am2 Davies, Jonathon, RN RN jd3 Nicole Batista RN RN jh5 Lucero Arriaga RN RN jh6 Pily Lua RN RN ke1
[2021-04-26 14:13] VITALS: TEMP 98.6; O2SAT 100
[2021-04-26 14:16] VITALS: BP 130/71
--- NOTE | 2021-04-27 14:45 | EKG ---
Test Date: 2021-04-26 Test Time: 10:09:26 [employer] Spray Supervisor: SOLOMON MEASUREMENT RESULTS: Intervals: Rate: 66 DC: 128 QRSD: 120 QT: 440 QTc: 461 [place]: P: 47 DC: 128 QRS: 53 T: 26 INTERPRETIVE STATEMENTS: Normal sinus rhythm Right bundle branch block Abnormal ECG Compared to ECG 02/14/2019 09:57:08 No significant changes Electronically Signed On 04-27-21 14:43:37 COMPENSATION AND BENEFITS MANAGER by Andi Casey
== END 2021-04-26 14:08 | disposition home or self-care (01) ==
LOC: ER 09:31
DX: K29.00 Acute gastritis without bleeding (principal); K21.00 Gastro-esophageal reflux disease with esophagitis, without bleeding; I10 Essential (primary) hypertension
CPT/HCPCS: 93005; 85025; 80048; 36415; 80076; 84484; 83690; 74177; 96374; 99284; Q9967; C9113

== ENCOUNTER 2021-10-22 06:56 | Emergency (ER) | payer OTHER ==
--- OUTSIDE RECORDS SUMMARY | 2021-10-22 06:58 | XMS REPORT | Clinical Summary ---
:1940 Author Organization [facility] MD [facility] Address [address] [place] [address] Care Team Providers Name Role Phone Rojas Peña MD Primary Care Provider Hola Valdovinos MD Unavailable Hola Valdovinos MD Unavailable Kirk Hastings MD Unavailable Meng Radford MD Unavailable Joi Martinez NP Unavailable Archana Arriaga Unavailable Rojas Peña MD Unavailable Allergies No known active [...] directed by 4000 mL 0 8 Active ([employer]ignite) ordering provider. 236-22.74-6.74 g solutionIndications: Colonoscopy planned peg 3350-electrolytes Use as directed by 4000 mL 0 0 Active (Konokopialy) ordering provider. 236-22.74-6.74 g solutionIndications: Colonoscopy planned Active Problems Problem Noted Date Personal history of colonic polyp 12/28/2016 Overview: Added automatically from request for magdiel kim [id number] Surgical History Surgery Date Site/Laterality Comments COLONOSCOPY 02/11/2015 multiple OTHER SURGICAL 02/11/2015 EMR w/ [facility]os[facility] py HISTORY APPENDECTOMY TIBIA FRACTURE 03/22/2012 - Right w/ right tibial ludy insertion SURGERY 03/21/2013 [place] 09/20/2015 Anus/N/A Procedure: DIAGN OSTIC FLEXIBLE SIGMOIDOSCOPY,DIAGNOS SIGMOIDOSC OPY, WITH OR WITHOUT TIC COLLECTION OF SP ECIMEN(S) BY BRUSHING OR WASH ING; Surgeon: Esperanza Stoddard i, MD; Location: MAIN ENDOSCOPY; Service: GASTROENTEROLOGY [place] EGD TRANSORAL 09/20/2015 Anus/N/A Procedure: FLEX IBLE ENDOSCOPIC MUCOSAL ESOPHAGOGASTR ODUODENOSCOPY WITH RESECTION MUCOSAL RESECTIO N; Surgeon: Esperanza Allred MD; Location: MAIN ENDOSCOPY; Servi ce: GASTROENTEROLOGY FL 01/15/2016 Anus/N/A Procedure: DIAGN OSTIC FLEXIBLE SIGMOIDOSCOPY,DIAGNOS SIGMOIDOSC OPY, WITH OR WITHOUT TIC COLLECTION OF SP ECIMEN(S) BY BRUSHING OR WASH ING; Surgeon: Esperanza Stoddard i, MD; Location: MAIN ENDOSCOPY; Service: GASTROENTEROLOGY FL COLONOSCOPY FLX 04/17/2016 N/A Procedure: FL EXIBLE COLONOSCOPY W/ENDOSCOPIC MUCOSAL WITH ENDOSC OPIC MUCOSAL RESECTION; RESECTION Surgeon: Esperanza Allred MD; Location: MAIN E NDOSCOPY; Service: GASTROENTEROLOGY FL COLONOSCOPY FLX 11/06/2016 N/A Procedure: FL EXIBLE COLONOSCOPY W/ENDOSCOPIC MUCOSAL WITH ENDOSC OPIC MUCOSAL RESECTION; RESECTION Surgeon: Esperanza Allred MD; Location: MAIN E NDOSCOPY; Service: GASTROENTEROLOGY FL COLONOSCOPY FLX DX 11/26/2017 N/A Procedure: DIAGNOSTIC FLEXIBLE W/COLLJ SPEC WHEN COLONOSCOPY FL OXIMAL TO SPLENIC PFRMD FLEXURE; Surgeon : Esperanza Allred MD; Loc ation: MAIN ENDOSCOPY; Servi ce: GASTROENTEROLOGY Medical History Medical History Date Comments [...] Due Date Last Done Comments COVID-19 Vaccination (#1) 1940 Results Not on fileafter 10/22/2020 Insurance Payer Benefit Plan / Subscriber ID Effective Phone Address T ype Group Dates MEDICARE MEDICARE PART A [id number] 1972-Pres [phone] [employer] Medicare AND B ent [address] [employer] [place] [id number] [place] [id number] 2015-Pres [address] Medicaid TRADITIONAL TRADITIONAL ent [id number] [place] [address] Ember Meade Personal/Family Self [address] [place] (Home) [place] [id number] [id number] ([place]) [place] [address] Ember Meade Personal/Family Self [address] [place] (Home) 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 Relationship Specialty Start Date End Date Rojas Peña MD PCP - General 05/22/[address] [place] [id number] Hola Valdovinos MD PCP - External Referring 12/24/14 [address] [facility] [place] [address] Hola Valdovinos MD PCP - External Follow Up A 12/24/14 [address] [facility] [place] [address] Kirk Hastings MD PCP - External Follow Up B 01/01/15 [address] [facility] [place] [address] Meng Radford MD Physician 05/29/15 [address] [place] [address] Joi Martinez, FINANCE OFFICER Nurse Practitioner 05/29/[address] [place] [address] Archana Arriaga PA Physician Grain Unloader 05/29/15 [place] [address] Rojas Peña MD Physician 05/29/15 [facility] [place] [address]
--- OUTSIDE RECORDS SUMMARY | 2021-10-22 07:05 | XMS REPORT | Continuity of Care Document ---
:1940 Author Organization [facility] t Address [address] [place] [address] Care Team Providers Name Role Phone DARREL SWARTZ Primary Care Physician Unavailable TAHIRA CROW Attending Clinician Unavailable Doctor Unassigned, [place] Attending Clinician Unavailable Gavin Levy Attending Clinician Unavailable Desiree Larios MD Attending Clinician DESIREE LARIOS Attending Clinician Unavailable Svetlana Gifford Attending Clinician SVETLANA DEE Attending Clinician Unavailable TAHIRA CROW Admitting Clinician Unavailable Gavin Levy Admitting Clinician Unavailable Payers Payer Name Policy Type Policy Number Effective Date Expiration Date [place] MEDICARE PART A AND [id number] 1974 B 00:00:00 [place]ICAID [place] [id number] 2015 TRADITIONAL STAR 00:00:00 PLUS SSI Problems Condition Condition Condition Status Onset Resolution Last Treating Co mments Source Name Details Category Date Date Treatment Clinician Date Personal Personal Disease Active 2016-03 Overview: Un kayla history of history of 0-09 Formattin ity of colonic colonic 00:00: g of this [place] polyp polyp 00 note MD might be Anderso different n from the Cancer original. Center Added automatic ally from request for surgery [id number] Lumbar Lumbar Disease Active 2014-03 Univers radiculopa radiculopa 03-30 it y of thy thy 00:00: [place] 00 Medical Branch Allergies, Adverse Reactions, Alerts Allergy Allergy Status Severity Reaction(s) Onset Inactive Treating Comm ents Source Name Type Date Date Clinician No Known DA Active U 2020-03 [facility] Allergie 2-13 [place] [facility] No Known DA Active U 2020-03 [facility] Allergie 130 Clear s 00:00: [place] 00 [facility] NO KNOWN Drug Active Univers ALLERGIE Class [facility] [place] [facility] Family History Family Member Diagnosis Comments Start Date Stop Date Source Natural father Heart disease [facility] [place] [facility] Natural mother Heart disease Univers ity [facility] Social History Social Habit Start Date Stop Date Quantity Comments Source Exposure to Not sure [facility] SARS-CoV-2 [place] Medical (event) Branch History SDOH University o f Alcohol Frequency [facility] History [facility] University o f Alcohol Std [place] MD [place] [facility] History [facility] University o f Alcohol Binge [place] MD Dora anton [facility] Center Alcohol intake 2017-11-29 2017-11-29 Current drinker Unive rsity of 00:00:00 00:00:00 of alcohol [place] MD Rishi [facility] Tobacco use and 2017-11-26 2017-11-26 Smokeless tobacco Un iversity of exposure 00:00:00 00:00:00 non-user [place] MD [facility] History SDOH 2015-09-20 2015-09-20 rare University o f Alcohol Comment 00:00:00 00:00:00 [place] [facility] Sex Assigned At [birth year] Universit y of 00:00:00 00:00:00 [place] MD [facility] Smoking Status Start Date Stop Date Source Never smoker [facility] Medical [place] Medications Ordered Filled Start Stop Current Ordering Indication Dosage Frequency Signature Comments Components Source Medication Medication Date Date Medication? Clinician (SIG) Name Name ARIPiprazol Yes 5mg Take 5 mg U nivers e (ABILIFY) 8-25 by mouth ity of 5 mg tablet 18:40: at [place] 54 bedtime. Medical Branch aspirin 81 Yes 81mg Take 81 mg U nivers mg chewable 8-25 by mouth ity of tablet 18:40: daily. [place] [address] Medical Branch benztropine Yes .5mg Take 0.5 Un kayla (COGENTIN) 8-25 mg by ity of 0.5 mg 18:40: mouth 2 [place] tablet 54 (two) Medical times Branch daily. CALCIUM Yes Take by Univers CARBONATE/V 8-25 mouth 2 ity o f ITAMIN D3 18:40: (two) [place] (CALCIUM 54 times Medical 500 + D, daily. Branch D3, ORAL) carvedilol Yes 3.125mg Take 3.125 Univers (COREG) 8-25 mg by ity of 3.125 mg 18:40: mouth 2 [place] tablet 54 (two) Medical times Branch daily with meals. docusate 0 Yes 100mg Take 100 Univ ers (COLACE) 8-25 mg by ity of 100 mg 18:40: mouth 2 [place] capsule 54 (two) Medical times Branch daily. DULoxetine Yes 30mg Take 30 mg U nivers (CYMBALTA) 8-25 by mouth ity o f 30 mg 18:40: daily. [place] capsule 54 Medical Branch escitalopra Yes 10mg Take 10 mg Univers m oxalate 8-25 by mouth ity of (LEXAPRO) 18:40: at [place] 10 mg 54 bedtime. Medical tablet Branch ibandronate Yes 150mg Take 150 U nivers (BONIVA) 8-25 mg by ity of 150 mg 18:40: mouth once [place] tablet 54 every Medical month. Branch meloxicam Yes 15mg Take 15 mg Un kayla (MOBIC) 15 8-25 by mouth ity o f mg tablet 18:40: daily. [place] [address] Medical Branch MULTIVIT-FL Yes Take by Uni vers N/FA/CA 8-25 mouth. ity of CARB/VIT K 18:40: [place] (ONE-A-DAY 54 Medical WOMEN'S 50+ Branch ORAL) bromfenac [address] [facility] ers (PROLENSA) 8-25 left eye. ity of 0.07 % Drop 18:40: [place] [address] Medical Branch QUEtiapine Yes 50mg Take 50 [...] 8-25 by mouth. ity of tablet 18:40: [place] [address] Medical Branch ARIPiprazol Yes 5mg Take 5 mg U nivers e (ABILIFY) 8-25 by mouth ity of 5 mg tablet 18:40: at [place] [address] bedtime. Medical Branch aspirin 81 Yes 81mg Take 81 mg U nivers mg chewable 8-25 by mouth ity of tablet 18:40: daily. [place] [address] Medical Branch benztropine Yes .5mg Take 0.5 Un [place] (COGENTIN) 8-25 mg by ity of 0.5 mg 18:40: mouth 2 [place] tablet 54 (two) Medical times Branch daily. CALCIUM Yes Take by Univers CARBONATE/V 8-25 mouth 2 ity o f ITAMIN D3 18:40: (two) [place] (CALCIUM 54 times Medical 500 + D, [...] ity o f 30 mg 18:40: daily. [place] capsule 54 Medical Branch escitalopra Yes 10mg Take 10 mg Univers m oxalate 8-25 by mouth ity of (LEXAPRO) 18:40: at [place] 10 mg 54 bedtime. Medical tablet Branch ibandronate Yes 150mg Take 150 U nivers (BONIVA) 8-25 mg by ity of 150 mg 18:40: mouth once [place] tablet 54 every Medical month. Branch meloxicam Yes 15mg Take 15 mg Un [place] (MOBIC) 15 8-25 by mouth ity o f mg tablet 18:40: daily. [place] [address] Medical Branch MULTIVIT-FL Yes Take by Uni vers N/FA/CA 8-25 mouth. ity of CARB/VIT K 18:40: [place] (ONE-A-DAY 54 Medical WOMEN'S 50+ Branch ORAL) bromfenac Yes Place in Univ ers (PROLENSA) 8-25 left eye. ity of 0.07 % Drop 18:40: [place] [address] Medical Branch QUEtiapine Yes 50mg Take 50 mg U nivers (SEROQUEL) 8-25 by mouth ity o f 50 mg 18:40: at [place] tablet 54 bedtime. Medical Branch cycloSPORIN Yes 1[drp] Place 1 U nivers E 8-25 Drop in ity of (RESTASIS) 18:40: [place] eyes [place] 0.05 % 54 every 12 Medical drops (twelve) Branch hours. rOPINIRole Yes 3mg Take 3 mg Un [place] (REQUIP) 3 8-25 by mouth 4 ity of mg tablet 18:40: (four) [place] 54 times Medical daily. Branch tiZANidine Yes 4mg Take 4 mg [place] (ZANAFLEX) 8-25 by mouth ity o f 4 mg tablet 18:40: every 6 [place] 54 (six) Medical hours as Branch needed. Indication s: 1/2 tablet as needed alendronate Yes 70mg Take 70 mg Univers 70 mg 8-25 by mouth. ity of tablet 18:40: [place] [address] Medical Branch ARIPiprazol Yes 5mg Take 5 mg U nivers e (ABILIFY) 8-25 by mouth ity of 5 mg tablet 18:40: at [place] 54 bedtime. Medical Branch aspirin 81 0 Yes 81mg Take 81 mg U nivers mg chewable 8-25 by mouth ity of tablet 18:40: daily. [place] [address] Medical Branch benztropine 0 Yes .5mg Take 0.5 Un [place] (COGENTIN) 8-25 mg by ity of 0.5 mg 18:40: mouth 2 [place] tablet 54 (two) Medical times Branch daily. CALCIUM Yes Take by Univers CARBONATE/V 8-25 mouth 2 ity o f ITAMIN D3 18:40: (two) [place] (CALCIUM 54 times Medical 500 + D, [...] ity o f 30 mg 18:40: daily. [place] capsule 54 Medical Branch escitalopra Yes 10mg Take 10 mg Univers m oxalate 8-25 by mouth ity of (LEXAPRO) 18:40: at [place] 10 mg 54 bedtime. Medical tablet Branch ibandronate Yes 150mg Take 150 U nivers (BONIVA) 8-25 mg by ity of 150 mg 18:40: mouth once [place] tablet 54 every Medical month. Branch meloxicam Yes 15mg Take 15 mg Un [place] (MOBIC) 15 8-25 by mouth ity o f mg tablet 18:40: daily. [place] [address] Medical Branch MULTIVIT-FL Yes Take by Uni vers N/FA/CA 8-25 mouth. ity of CARB/VIT K 18:40: [place] (ONE-A-DAY 54 Medical WOMEN'S 50+ Branch ORAL) bromfenac Yes Place in Univ ers (PROLENSA) 8-25 left eye. ity of 0.07 % Drop 18:40: [place] [address] Medical Branch QUEtiapine Yes 50mg Take 50 mg U nivers (SEROQUEL) 8-25 by mouth ity o f 50 mg 18:40: at [facility] 54 bedtime. Medical Branch cycloSPORIN Yes 1[drp] Place 1 U nivers E 8-25 Drop in ity of (RESTASIS) 18:40: [place] eyes [place] 0.05 % 54 every 12 Medical drops (twelve) Branch hours. rOPINIRole Yes 3mg Take 3 mg Un [place] (REQUIP) 3 8-25 by mouth 4 ity of mg tablet 18:40: (four) [place] [address] times Medical daily. Branch tiZANidine Yes 4mg Take 4 mg [place] (ZANAFLEX) 8-25 by mouth ity o f 4 mg tablet 18:40: every 6 [place] 54 (six) Medical hours as Branch needed. Indication s: 1/2 tablet as needed alendronate Yes 70mg Take 70 mg Univers 70 mg 8-25 by mouth. ity of tablet 18:40: [address] Branch ARIPiprazol Yes 5mg Take 5 mg U nivers e (ABILIFY) 8-25 by mouth ity of 5 mg tablet 13:40: at [place] [address] bedtime. Medical Branch aspirin 81 Yes 81mg Take 81 mg U nivers mg chewable 8-25 by mouth ity of tablet 13:40: daily. [address] Branch benztropine Yes .5mg Take 0.5 [place] (COGENTIN) 8-25 mg by ity of 0.5 mg 13:40: mouth 2 [place] tablet 54 (two) Medical times Branch daily. CALCIUM Yes Take by Univers CARBONATE/V 8-25 mouth 2 ity o f ITAMIN D3 13:40: (two) [place] (CALCIUM 54 times Medical 500 + D, daily. Branch D3, ORAL) carvedilol Yes 3.125mg Take 3.125 Univers (COREG) 8-25 mg by ity of 3.125 mg 13:40: mouth 2 [place] tablet 54 (two) Medical times Branch daily with meals. docusate Yes 100mg Take 100 Univ ers (COLACE) 8-25 mg by ity of 100 mg 13:40: mouth 2 [place] capsule 54 (two) Medical times Branch daily. DULoxetine Yes 30mg Take 30 mg U nivers (CYMBALTA) 8-25 by mouth ity o f 30 mg 13:40: daily. [place] capsule 54 Medical Branch escitalopra Yes 10mg Take 10 mg Univers m oxalate 8-25 by mouth ity of (LEXAPRO) 13:40: at [place] 10 mg 54 bedtime. Medical tablet Branch ibandronate Yes 150mg Take 150 U nivers (BONIVA) 8-25 mg by ity of 150 mg 13:40: mouth once [place] tablet 54 every Medical month. Branch meloxicam Yes 15mg Take 15 mg Un [place] (MOBIC) 15 8-25 by mouth ity o f mg tablet 13:40: daily. [place] [address] Medical Branch MULTIVIT-FL Yes Take by Uni vers N/FA/CA 8-25 mouth. ity of CARB/VIT K 13:40: [place] (ONE-A-DAY 54 Medical WOMEN'S 50+ Branch ORAL) bromfenac Yes Place in Univ ers (PROLENSA) 8-25 left eye. ity of 0.07 % Drop 13:40: [place] [address] Medical Branch QUEtiapine Yes 50mg Take 50 mg U nivers (SEROQUEL) 8-25 by mouth ity o f 50 mg 13:40: at [place] tablet 54 bedtime. Medical Branch cycloSPORIN Yes 1[drp] Place 1 U nivers E 8-25 Drop in ity of (RESTASIS) 13:40: [place] eyes [place] 0.05 % 54 every 12 Medical drops (twelve) Branch hours. rOPINIRole Yes 3mg Take 3 mg Un [place] (REQUIP) 3 8-25 by mouth 4 ity of mg tablet 13:40: (four) [place] 54 times Medical daily. Branch tiZANidine Yes 4mg Take 4 mg [place] (ZANAFLEX) 8-25 by mouth ity o f 4 mg tablet 13:40: every 6 [place] 54 (six) Medical hours as Branch needed. Indication s: 1/2 tablet as needed alendronate 2020-0 Yes 70mg Take 70 mg Univers 70 mg 8-25 by mouth. ity of tablet 13:40: [place] 54 Medical Branch traMADoL 50 2020-0 2020- No [...] Indication s: acute pain DICLOFENAC 2020-0 Yes TAKE 1 Univers 75 mg EC 9-24 TABLET BY ity of tablet 00:00: MOUTH [place] 00 TWICE A Medical DAY WITH A Branch MEAL DICLOFENAC 2020-0 Yes TAKE 1 Univers 75 mg EC 9-24 TABLET BY ity of tablet 00:00: MOUTH [place] 00 TWICE A Medical DAY WITH A Branch MEAL DICLOFENAC 2020-0 Yes [id number] TAKE 1 Univers 75 mg EC 9-24 TABLET BY ity of tablet 00:00: MOUTH [place] 00 TWICE A Medical DAY WITH A Branch MEAL DICLOFENAC 2020-0 Yes [id number] TAKE 1 Univers 75 mg EC 9-24 TABLET BY ity of tablet 00:00: MOUTH [place] 00 TWICE A Medical DAY WITH A Branch MEAL DICLOFENAC 2020-0 Yes TAKE 1 Univers 75 mg EC 9-24 TABLET BY ity of tablet 00:00: MOUTH 00 TWICE A Medical DAY WITH A Branch MEAL DICLOFENAC 2020-0 Yes [id number] TAKE 1 Univers 75 mg EC 9-24 TABLET BY ity of tablet 00:00: MOUTH 00 TWICE A Medical DAY WITH A Branch MEAL DICLOFENAC 2020-0 Yes [id number] TAKE 1 Univers 75 mg EC 9-24 TABLET BY ity of tablet 00:00: MOUTH 00 TWICE A Medical DAY WITH A Branch MEAL DICLOFENAC 2020-0 Yes [id number] TAKE 1 Univers 75 mg EC 9-24 TABLET BY ity of tablet 00:00: MOUTH 00 TWICE A Medical DAY WITH A Branch MEAL DICLOFENAC 2020-0 Yes [id number] TAKE 1 Univers 75 mg EC 9-24 TABLET BY ity of tablet 00:00: MOUTH 00 TWICE A Medical DAY WITH A Branch MEAL DICLOFENAC 2020-0 Yes [id number] TAKE 1 Univers 75 mg EC 9-24 TABLET BY ity of tablet 00:00: MOUTH 00 TWICE A Medical DAY WITH A Branch MEAL DICLOFENAC 2020-0 Yes [id number] TAKE 1 Univers 75 mg EC 9-24 TABLET BY ity of tablet 00:00: MOUTH 00 TWICE A Medical DAY WITH A Branch MEAL DICLOFENAC 2020-0 Yes [id number] TAKE 1 Univers 75 mg EC 9-24 TABLET BY ity of tablet 00:00: MOUTH 00 TWICE A Medical DAY WITH A Branch MEAL DICLOFENAC 2020-0 Yes [id number] TAKE 1 Univers 75 mg EC 9-24 TABLET BY ity of tablet 00:00: MOUTH 00 TWICE A Medical DAY WITH A Branch MEAL DICLOFENAC 2020-0 Yes [id number] TAKE 1 Univers 75 mg EC 9-24 TABLET BY ity of tablet 00:00: MOUTH 00 TWICE A Medical DAY WITH A Branch MEAL DICLOFENAC 2020-0 Yes [id number] TAKE 1 Univers 75 mg EC 9-24 TABLET BY ity of tablet 00:00: MOUTH 00 TWICE A Medical DAY WITH A Branch MEAL DICLOFENAC 2020-0 Yes [id number] TAKE 1 Univers 75 mg EC 9-24 TABLET BY ity of tablet 00:00: MOUTH 00 TWICE A Medical DAY WITH A Branch MEAL DICLOFENAC 2020-0 Yes [id number] TAKE 1 Univers 75 mg EC 9-24 TABLET BY ity of tablet 00:00: MOUTH 00 TWICE A Medical DAY WITH A Branch MEAL DICLOFENAC 2020-0 Yes [id number] TAKE 1 Univers 75 mg EC 9-24 TABLET BY ity of tablet 00:00: MOUTH [place] 00 TWICE A Medical DAY WITH A Branch MEAL DICLOFENAC 2020-0 Yes [id number] TAKE 1 Univers 75 mg EC 9-24 TABLET BY ity of tablet 00:00: MOUTH [place] 00 TWICE A Medical DAY WITH A Branch MEAL DICLOFENAC 2020-0 Yes [id number] TAKE 1 Univers 75 mg EC 9-24 TABLET BY ity of tablet 00:00: MOUTH [place] 00 TWICE A Medical DAY WITH A Branch MEAL DICLOFENAC 2020-0 Yes [id number] TAKE 1 Univers 75 mg EC 9-24 TABLET BY ity of tablet 00:00: MOUTH [place] 00 TWICE A Medical DAY WITH A Branch MEAL DICLOFENAC 2020-0 Yes [id number] TAKE 1 Univers 75 mg EC 9-24 TABLET BY ity of tablet 00:00: MOUTH [place] 00 TWICE A Medical DAY WITH A Branch MEAL DICLOFENAC 2020-0 Yes [id number] TAKE 1 Univers 75 mg EC 9-24 TABLET BY ity of tablet 00:00: MOUTH [place] 00 TWICE A Medical DAY WITH A Branch MEAL DICLOFENAC 2020-0 Yes [id number] TAKE 1 Univers 75 mg EC 9-24 TABLET BY ity of tablet 00:00: MOUTH [place] 00 TWICE A Medical DAY WITH A Branch MEAL peg 2020-0 Yes Colonoscopy Use as Univ ers 3350-electr 11-20 planned directed i ty of olytes 00:00: by [place] (Golytely) 00 ordering [id number] provider. And erso .[address] [facility] DICLOFENAC 2020-0 2020- No [id number] 75mg TAKE 1 Univers 75 mg EC 4-21 05-22 TABLET BY ity o f tablet 00:00: 04:59 MOUTH 2 [place] 00 :00 (TWO) Medical TIMES Branch DAILY WITH MEALS FOR 30 DAYS. diclofenac 2020-0 2020- No [id number] 75mg Take 1 Univers 75 mg EC 3-26 04-26 tablet by ity o f tablet 00:00: 04:59 mouth 2 [place] 00 :00 (two) Medical times Branch daily with meals for 30 days. diclofenac 2020-0 2020- No [id number] 75mg Take 1 Univers 75 mg EC 3-26 04-21 tablet by ity o f tablet 00:00: 00:00 mouth 2 [place] 00 :00 (two) Medical times Branch daily with meals for 30 days. ARIPiprazol 2017- Yes 5mg Take 5 mg U nivers e (ABILIFY) 11-26 by mouth ity of 10 mg 10:37: at [place] tablet 36 bedtime. MD [facility] IBANDRONATE 2017-0 Yes 150mg Take 150 U nivers SODIUM 9-07 mg by ity of (BONIVA 10:37: mouth [place] ORAL) 36 daily. MD Papito ma [facility] Center carvedilol 2017-0 Yes 1{tbl} Take 1 Uni vers (COREG) 11-26 tablet by ity of 3.125 mg 10:37: mouth [place] tablet 36 daily. MD Papito ma [facility] [place] QUEtiapine 2017-0 Yes 25mg Take 25 mg U nivers (SEROquel) 11-26 by mouth ity o f 25 mg 10:37: at [place] tablet 36 bedtime. MD Papito ma [facility] bisacodyl 0 Yes 10mg Take 10 mg Un [place] (DULCOLAX) 11-26 by mouth 3 ity of 5 mg EC 10:37: (three) [place] tablet 36 times a MD day. [facility] calcium 2018-0 Yes 1{tbl} Take 1 Univer s carbonate-v 11-26 tablet by ity of itamin D3 10:37: mouth 2 [place] (calcium-vi 36 (two) MD jm Jara) times a Anderso 1,250 mg day with n (500 mg as meals. Cancer elemental)- Center 200 units tablet rOPINIRole 2017-0 Yes 3mg Take 3 mg [place] (REQUIP) 3 07 by mouth 4 ity of mg tablet 10:37: (four) [place] 36 times a MD day. [facility] tiZANidine 2017-0 Yes 2mg Take 2 mg [place] (ZANAFLEX) 11-26 by mouth 3 ity of 4 MG 10:37: (three) [place] capsule 36 times a MD day. [facility] traMADol 2017-0 Yes 50mg Take 50 mg Uni vers (ULTRAM) 50 11-26 by mouth ity of mg tablet 10:37: every 4 [place] 36 (four) MD hours as Anderso needed. Cancer Center DULoxetine 0 Yes 30mg Take 30 mg U nivers (CYMBALTA) 11-26 by mouth ity o f 30 mg 10:37: daily. [place] capsule 36 MD Papito ma [facility] [place] escitalopra 2018-0 Yes 10mg Take 10 mg Univers m (LEXAPRO) 11-26 by mouth. ity of 10 mg 10:37: [place] tablet 36 MD Papito ma [facility] meloxicam Yes 15mg Take 15 mg Un [place] (MOBIC) 15 11-26 by mouth ity o f mg tablet 10:37: daily. [place] 36 MD Papito ma [facility] aspirin 81 Yes 81mg Take 81 mg U nivers mg EC 11-26 by mouth ity of tablet 10:37: daily. [place] 36 MD Papito ma [facility] cycloSPORIN Yes 1[drp] Administer Univers E 11-26 1 drop to ity of (RESTASIS) 10:37: [place] eyes [place] 0.05% 36 twice MD ophthalmic daily. [facility] alendronate Yes postmenopau 70mg Take 70 mg Univers (FOSAMAX) 11-26 valeria by mouth ity of 70 mg 10:37: osteoporosi every 7 [place] tablet 36 s days. . MD Papito ma [facility] peg Yes Colonoscopy Use as Univ ers 3350-electr 11-16 planned directed i ty of olytes 00:00: by [place] (GOLYTELY) 00 ordering [id number] provider. And erso .74 g n [facility] alendronate Yes 70mg Take 70 mg Univers 70 mg 2-27 by mouth. ity of tablet 20:47: [address] alendronate Yes 70mg Take 70 mg Univers 70 mg 2-27 by mouth. ity of tablet 20:47: [address] alendronate Yes 70mg Take 70 mg Univers 70 mg 2-27 by mouth. ity of tablet 20:47: [address] alendronate Yes 70mg Take 70 mg Univers 70 mg 2-27 by mouth. ity of tablet 20:47: [address] alendronate Yes 70mg Take 70 mg Univers 70 mg 2-27 by mouth. ity of tablet 20:47: [address] alendronate Yes 70mg Take 70 mg Univers 70 mg 2-27 by mouth. ity of tablet 20:47: [address] alendronate Yes 70mg Take 70 mg Univers 70 mg 2-27 by mouth. ity of tablet 20:47: [address] alendronate Yes 70mg Take 70 mg Univers 70 mg 2-27 by mouth. ity of tablet 20:47: [address] alendronate 0 Yes 70mg Take 70 mg Univers 70 mg 2-27 by mouth. ity of tablet 20:47: [address] alendronate Yes 70mg Take 70 mg Univers 70 mg 2-27 by mouth. ity of tablet 20:47: [address] alendronate Yes 70mg Take 70 mg Univers 70 mg 2-27 by mouth. ity of tablet 20:47: [address] alendronate Yes 70mg Take 70 mg Univers 70 mg 2-27 by mouth. ity of tablet 20:47: [address] alendronate Yes 70mg Take 70 mg Univers 70 mg 2-27 by mouth. ity of tablet 20:47: [address] alendronate Yes 70mg Take 70 mg Univers 70 mg 2-27 by mouth. ity of tablet 20:47: [address] alendronate Yes 70mg Take 70 mg Univers 70 mg 2-27 by mouth. ity of tablet 20:47: [address] alendronate Yes 70mg Take 70 mg Univers 70 mg 2-27 by mouth. ity of tablet 20:47: [address] alendronate Yes 70mg Take 70 mg Univers 70 mg 2-27 by mouth. ity of tablet 20:47: [address] alendronate Yes 70mg Take 70 mg Univers 70 mg 2-27 by mouth. ity of tablet 20:47: [address] alendronate Yes 70mg Take 70 mg Univers 70 mg 2-27 by mouth. ity of tablet 20:47: [address] alendronate Yes 70mg Take 70 mg Univers 70 mg 2-27 by mouth. ity of tablet 20:47: [address] alendronate Yes 70mg Take 70 mg Univers 70 mg 2-27 by mouth. ity of tablet 20:47: [address] alendronate Yes 70mg Take 70 mg Univers 70 mg 2-27 by mouth. ity of tablet 20:47: [address] alendronate Yes 70mg Take 70 mg Univers 70 mg 2-27 by mouth. ity of tablet 20:47: [address] alendronate 2017-0 Yes 70mg Take 70 mg Univers 70 mg 2-27 by mouth. ity of tablet 20:47: [address] alendronate Yes 70mg Take 70 mg Univers 70 mg 2-27 by mouth. ity of tablet 20:47: [address] alendronate 0 Yes 70mg Take 70 mg Univers 70 mg 2-27 by mouth. ity of tablet 20:47: [address] alendronate Yes 70mg Take 70 mg Univers 70 mg 2-27 by mouth. ity of tablet 20:47: [address] alendronate Yes 70mg Take 70 mg Univers 70 mg 2-27 by mouth. ity of tablet 20:47: [address] alendronate Yes 70mg Take 70 mg Univers 70 mg 2-27 by mouth. ity of tablet 20:47: [address] alendronate Yes 70mg Take 70 mg Univers 70 mg 2-27 by mouth. ity of tablet 20:47: [address] meloxicam 2017-0 Yes 15mg Take 15 mg [place] (MOBIC) 15 2-26 by mouth ity o f mg tablet 22:08: daily. [address] tiZANidine 2017-0 Yes 4mg Take 4 mg [place] (ZANAFLEX) 2-26 by mouth ity o f 4 mg tablet 22:08: every 6 [place] 29 (six) Medical hours as Branch needed. Indication s: 1/2 tablet as needed meloxicam 2018-0 Yes 15mg Take 15 mg [place] (MOBIC) 15 2-26 by mouth ity o f mg tablet 22:08: daily. [address] tiZANidine 2018-0 Yes 4mg Take 4 mg [place] (ZANAFLEX) 2-26 by mouth ity o f 4 mg tablet 22:08: every 6 [place] 29 (six) Medical hours as Branch needed. Indication s: 1/2 tablet as needed meloxicam 2018-0 Yes 15mg Take 15 mg [place] (MOBIC) 15 2-26 by mouth ity o f mg tablet 22:08: daily. [address] tiZANidine 2018-0 Yes 4mg Take 4 mg [place] (ZANAFLEX) 2-26 by mouth ity o f 4 mg tablet 22:08: every 6 [place] 29 (six) Medical hours as Branch needed. Indication s: 1/2 tablet as needed meloxicam 2018-0 Yes 15mg Take 15 mg [place] (MOBIC) 15 2-26 by mouth ity o f mg tablet 22:08: daily. [address] tiZANidine 2018-0 Yes 4mg Take 4 mg [place] (ZANAFLEX) 2-26 by mouth ity o f 4 mg tablet 22:08: every 6 [place] 29 (six) Medical hours as Branch needed. Indication s: 1/2 tablet as needed meloxicam 2018-0 Yes 15mg Take 15 mg [place] (MOBIC) 15 2-26 by mouth ity o f mg tablet 22:08: daily. [address] tiZANidine 2018-0 Yes 4mg Take 4 mg [place] (ZANAFLEX) 2-26 by mouth ity o f 4 mg tablet 22:08: every 6 [place] 29 (six) Medical hours as Branch needed. Indication s: 1/2 tablet as needed meloxicam 2018-0 Yes 15mg Take 15 mg [place] (MOBIC) 15 2-26 by mouth ity o f mg tablet 22:08: daily. [address] tiZANidine 2018-0 Yes 4mg Take 4 mg [place] (ZANAFLEX) 2-26 by mouth ity o f 4 mg tablet 22:08: every 6 [place] 29 (six) Medical hours as Branch needed. Indication s: 1/2 tablet as needed meloxicam 2018-0 Yes 15mg Take 15 mg [place] (MOBIC) 15 2-26 by mouth ity o f mg tablet 22:08: daily. [address] tiZANidine 2018-0 Yes 4mg Take 4 mg [place] (ZANAFLEX) 2-26 by mouth ity o f 4 mg tablet 22:08: every 6 [place] 29 (six) Medical hours as Branch needed. Indication s: 1/2 tablet as needed meloxicam 2018-0 Yes 15mg Take 15 mg [place] (MOBIC) 15 2-26 by mouth ity o f mg tablet 22:08: daily. [address] tiZANidine 2018-0 Yes 4mg Take 4 mg [place] (ZANAFLEX) 2-26 by mouth ity o f 4 mg tablet 22:08: every 6 [place] 29 (six) Medical hours as Branch needed. Indication s: 1/2 tablet as needed meloxicam 2018-0 Yes 15mg Take 15 mg [place] (MOBIC) 15 2-26 by mouth ity o f mg tablet 22:08: daily. [address] tiZANidine 2018-0 Yes 4mg Take 4 mg [facility] (ZANAFLEX) 2-26 by mouth ity o f 4 mg tablet 22:08: every 6 [place] [facility] (six) Medical hours as Branch needed. Indication s: 1/2 tablet as needed meloxicam 2018-0 Yes 15mg Take 15 mg [facility] (MOBIC) 15 2-26 by mouth ity o f mg tablet 22:08: daily. [address] tiZANidine 2018-0 Yes 4mg Take 4 mg [facility] (ZANAFLEX) 2-26 by mouth ity o f 4 mg tablet 22:08: every 6 [place] (six) Medical hours as Branch needed. Indication s: 1/2 tablet as needed meloxicam 2018-0 Yes 15mg Take 15 mg [facility] (MOBIC) 15 2-26 by mouth ity o f mg tablet 22:08: daily. [address] tiZANidine 2018-0 Yes 4mg Take 4 mg [facility] (ZANAFLEX) 2-26 by mouth ity o f 4 mg tablet 22:08: every 6 [place] (six) Medical hours as Branch needed. Indication s: 1/2 tablet as needed meloxicam 2018-0 Yes 15mg Take 15 mg [facility] (MOBIC) 15 2-26 by mouth ity o f mg tablet 22:08: daily. [address] tiZANidine 2018-0 Yes 4mg Take 4 mg [facility] (ZANAFLEX) 2-26 by mouth ity o f 4 mg tablet 22:08: every 6 [place] (six) Medical hours as Branch needed. Indication s: 1/2 tablet as needed meloxicam 2018-0 Yes 15mg Take 15 mg [facility] (MOBIC) 15 2-26 by mouth ity o f mg tablet 22:08: daily. [address] tiZANidine 2018-0 Yes 4mg Take 4 mg [facility] (ZANAFLEX) 2-26 by mouth ity o f 4 mg tablet 22:08: every 6 [place] (six) Medical hours as Branch needed. Indication s: 1/2 tablet as needed meloxicam 2018-0 Yes 15mg Take 15 mg [facility] (MOBIC) 15 2-26 by mouth ity o f mg tablet 22:08: daily. [address] tiZANidine 2018-0 Yes 4mg Take 4 mg [facility] (ZANAFLEX) 2-26 by mouth ity o f 4 mg tablet 22:08: every 6 [place] (six) Medical hours as Branch needed. Indication s: 1/2 tablet as needed meloxicam 2018-0 Yes 15mg Take 15 mg [facility] (MOBIC) 15 2-26 by mouth ity o f mg tablet 22:08: daily. [address] tiZANidine 2018-0 Yes 4mg Take 4 mg [facility] (ZANAFLEX) 2-26 by mouth ity o f 4 mg tablet 22:08: every 6 [place] (six) Medical hours as Branch needed. Indication s: 1/2 tablet as needed meloxicam 2018-0 Yes 15mg Take 15 mg [facility] (MOBIC) 15 2-26 by mouth ity o f mg tablet 22:08: daily. [address] tiZANidine 2018-0 Yes 4mg Take 4 mg [facility] (ZANAFLEX) 2-26 by mouth ity o f 4 mg tablet 22:08: every 6 [place] (six) Medical hours as Branch needed. Indication s: 1/2 tablet as needed meloxicam 2018-0 Yes 15mg Take 15 mg [facility] (MOBIC) 15 2-26 by mouth ity o f mg tablet 22:08: daily. [address] tiZANidine 2018-0 Yes 4mg Take 4 mg [facility] (ZANAFLEX) 2-26 by mouth ity o f 4 mg tablet 22:08: every 6 [place] (six) Medical hours as Branch needed. Indication s: 1/2 tablet as needed meloxicam 2018-0 Yes 15mg Take 15 mg [facility] (MOBIC) 15 2-26 by mouth ity o f mg tablet 22:08: daily. [address] tiZANidine 2018-0 Yes 4mg Take 4 mg [facility] (ZANAFLEX) 2-26 by mouth ity o f 4 mg tablet 22:08: every 6 [place] (six) Medical hours as Branch needed. Indication s: 1/2 tablet as needed meloxicam 2018-0 Yes 15mg Take 15 mg [facility] (MOBIC) 15 2-26 by mouth ity o f mg tablet 22:08: daily. [address] tiZANidine 2018-0 Yes 4mg Take 4 mg [facility] (ZANAFLEX) 2-26 by mouth ity o f 4 mg tablet 22:08: every 6 [place] (six) Medical hours as Branch needed. Indication s: 1/2 tablet as needed meloxicam 2018-0 Yes 15mg Take 15 mg [facility] (MOBIC) 15 2-26 by mouth ity o f mg tablet 22:08: daily. [address] tiZANidine 2018-0 Yes 4mg Take 4 mg [facility] (ZANAFLEX) 2-26 by mouth ity o f 4 mg tablet 22:08: every 6 [place] (six) Medical hours as Branch needed. Indication s: 1/2 tablet as needed meloxicam 2018-0 Yes 15mg Take 15 mg [facility] (MOBIC) 15 2-26 by mouth ity o f mg tablet 22:08: daily. [address] tiZANidine 2018-0 Yes 4mg Take 4 mg [facility] (ZANAFLEX) 2-26 by mouth ity o f 4 mg tablet 22:08: every 6 [place] (six) Medical hours as Branch needed. Indication s: 1/2 tablet as needed meloxicam 2018-0 Yes 15mg Take 15 mg [facility] (MOBIC) 15 2-26 by mouth ity o f mg tablet 22:08: daily. [address] tiZANidine 2018-0 Yes 4mg Take 4 mg [facility] (ZANAFLEX) 2-26 by mouth ity o f 4 mg tablet 22:08: every 6 [place] (six) Medical hours as Branch needed. Indication s: 1/2 tablet as needed meloxicam 2018-0 Yes 15mg Take 15 mg [facility] (MOBIC) 15 2-26 by mouth ity o f mg tablet 22:08: daily. [address] tiZANidine 2018-0 Yes 4mg Take 4 mg [facility] (ZANAFLEX) 2-26 by mouth ity o f 4 mg tablet 22:08: every 6 [place] (six) Medical hours as Branch needed. Indication s: 1/2 tablet as needed meloxicam 2018-0 Yes 15mg Take 15 mg [facility] (MOBIC) 15 2-26 by mouth ity o f mg tablet 22:08: daily. [address] tiZANidine 2018-0 Yes 4mg Take 4 mg [facility] (ZANAFLEX) 2-26 by mouth ity o f 4 mg tablet 22:08: every 6 [place] (six) Medical hours as Branch needed. Indication s: 1/2 tablet as needed meloxicam 2018-0 Yes 15mg Take 15 mg [facility] (MOBIC) 15 2-26 by mouth ity o f mg tablet 22:08: daily. [address] tiZANidine 2018-0 Yes 4mg Take 4 mg [facility] (ZANAFLEX) 2-26 by mouth ity o f 4 mg tablet 22:08: every 6 [place] (six) Medical hours as Branch needed. Indication s: 1/2 tablet as needed meloxicam 2018-0 Yes 15mg Take 15 mg [facility] (MOBIC) 15 2-26 by mouth ity o f mg tablet 22:08: daily. [address] tiZANidine 2018-0 Yes 4mg Take 4 mg [facility] (ZANAFLEX) 2-26 by mouth ity o f 4 mg tablet 22:08: every 6 [place] (six) Medical hours as Branch needed. Indication s: 1/2 tablet as needed meloxicam 2018-0 Yes 15mg Take 15 mg [facility] (MOBIC) 15 2-26 by mouth ity o f mg tablet 22:08: daily. [address] tiZANidine 2018-0 Yes 4mg Take 4 mg [facility] (ZANAFLEX) 2-26 by mouth ity o f 4 mg tablet 22:08: every 6 [place] (six) Medical hours as Branch needed. Indication s: 1/2 tablet as needed meloxicam 2018-0 Yes 15mg Take 15 mg [facility] (MOBIC) 15 2-26 by mouth ity o f mg tablet 22:08: daily. [address] tiZANidine 2018-0 Yes 4mg Take 4 mg [facility] (ZANAFLEX) 2-26 by mouth ity o f 4 mg tablet 22:08: every 6 [place] (six) Medical hours as Branch needed. Indication s: 1/2 tablet as needed meloxicam 2018-0 Yes 15mg Take 15 mg [facility] (MOBIC) 15 2-26 by mouth ity o f mg tablet 22:08: daily. [address] tiZANidine 2018-0 Yes 4mg Take 4 mg [facility] (ZANAFLEX) 2-26 by mouth ity o f 4 mg tablet 22:08: every 6 [place] (six) Medical hours as Branch needed. Indication s: 1/2 tablet as needed meloxicam 2018-0 Yes 15mg Take 15 mg [facility] (MOBIC) 15 2-26 by mouth ity o f mg tablet 22:08: daily. [address] tiZANidine 2018-0 Yes 4mg Take 4 [...] HOURS FOR [facility] ch 10 DAYS sulfamethox 20180 Yes TAKE 1 [facility] azole-trime 2-21 TABLET BY ity of thoprim 00:00: MOUTH [place] 800-160 mg 00 EVERY 12 Medic al per tablet HOURS FOR [facility] ch 10 DAYS sulfamethox 20180 Yes TAKE 1 [facility] azole-trime 2-21 TABLET BY ity of thoprim 00:00: MOUTH [place] 800-160 mg 00 EVERY 12 Medic al per tablet HOURS FOR [facility] ch 10 DAYS sulfamethox 20180 Yes TAKE 1 [facility] azole-trime 2-21 TABLET BY ity of thoprim 00:00: MOUTH [place] 800-160 mg 00 EVERY 12 Medic al per tablet HOURS FOR [facility] ch 10 DAYS sulfamethox 20180 Yes TAKE 1 [facility] azole-trime 2-21 [...] HOURS FOR [facility] ch 10 DAYS sulfamethox 20180 Yes TAKE 1 [facility] azole-trime 2-21 [...] DAYS promethazin Yes 5mL Take 5 mL U nivers e-codeine 1-20 by mouth ity of (PHENERGAN 00:00: nightly as [place] with 00 needed. CODEINE) Anderso 6.25-10 n mg/5 mL [facility] ARIPiprazol 2014-03 Yes 5mg Take 5 mg U n[facility] e (ABILIFY) 2-10 by mouth ity of 5 mg tablet 17:44: at [place] [address] bedtime. Medical Branch aspirin 81 2014-03 Yes 81mg Take 81 mg [facility] mg chewable 2-10 by mouth ity of tablet 17:44: daily. [place] [address] Medical Branch benztropine 2014-03 Yes .5mg Take 0.5 [facility] (COGENTIN) 2-10 mg by ity of 0.5 mg 17:44: mouth 2 [place] tablet 16 (two) Medical times Branch daily. CALCIUM 2014-03 Yes Take by [facility] CARBONATE/V 2-10 mouth 2 ity o f ITAMIN D3 17:44: (two) [place] (CALCIUM 16 times Medical 500 + D, [...] ity o f 30 mg 17:44: daily. [place] capsule 16 Medical Branch escitalopra 2014-03 Yes 10mg Take 10 mg [facility] m oxalate 2-10 by mouth ity of (LEXAPRO) 17:44: at [place] 10 mg 16 bedtime. Medical tablet Branch ibandronate 2014-03 Yes 150mg Take 150 U nivers (BONIVA) 2-10 mg by ity of 150 mg 17:44: mouth once [place] tablet 16 every Medical month. Branch MULTIVIT-FL 2014-03 Yes Take by Uni vers N/FA/CA 2-10 mouth. ity of CARB/VIT K 17:44: [place] (ONE-A-DAY 16 Medical WOMEN'S 50+ Branch ORAL) bromfenac 2014-[address] in [facility] (PROLENSA) 2-10 left eye. ity of 0.07 % Drop 17:44: [place] [address] Medical Branch QUEtiapine 2014-03 Yes 50mg Take [...] 4 ity of mg tablet 17:44: (four) [place] 16 times Medical daily. Branch ARIPiprazol 2014-03 Yes 5mg Take 5 mg [facility] e (ABILIFY) 2-10 by mouth ity of 5 mg tablet 17:44: at [place] 16 bedtime. Medical Branch aspirin 81 2014-03 Yes 81mg Take 81 mg [facility] mg chewable 2-10 by mouth ity of tablet 17:44: daily. [place] [address] Medical Branch benztropine 2014-03 Yes .5mg Take 0.5 [facility] (COGENTIN) 2-10 mg by ity of 0.5 mg 17:44: mouth 2 [place] tablet 16 (two) Medical times Branch daily. CALCIUM 2014-03 Yes Take by [facility] CARBONATE/V 2-10 mouth 2 ity o f ITAMIN D3 17:44: (two) [place] (CALCIUM 16 times Medical 500 + D, daily. Branch D3, ORAL) carvedilol 2014-03 Yes 3.125mg Take 3.125 [facility] (COREG) 2-10 mg by ity of 3.125 mg 17:44: mouth 2 [place] tablet 16 (two) Medical times [place] daily with meals. docusate 2014-03 Yes 100mg Take 100 [facility] ers (COLACE) 2-10 mg by ity of 100 mg 17:44: mouth 2 [place] capsule 16 (two) Medical times Branch daily. DULoxetine 2014-03 Yes 30mg Take 30 mg [facility] (CYMBALTA) 2-10 by mouth ity o f 30 mg 17:44: daily. [place] capsule Medical Branch escitalopra 2014-03 Yes 10mg Take 10 mg [facility] m oxalate 2-10 by mouth ity of (LEXAPRO) 17:44: at [place] 10 mg 16 bedtime. Medical tablet Branch ibandronate 2014-03 Yes 150mg Take 150 [facility] (BONIVA) 2-10 mg by ity of 150 mg 17:44: mouth once [place] tablet 16 every Medical month. Branch MULTIVIT-FL 2014-03 Yes Take by Uni vers N/FA/CA 2-10 mouth. ity of CARB/VIT K 17:44: [place] (ONE-A-DAY 16 Medical WOMEN'S 50+ Branch ORAL) bromfenac 2014-[address] [facility] ers (PROLENSA) 2-10 left eye. ity of 0.07 % Drop 17:44: [address] Branch QUEtiapine 2014-03 Yes 50mg Take [...] ity of 5 mg tablet 17:44: at [place] 16 bedtime. Medical Branch aspirin 81 2014-03 Yes 81mg Take 81 mg [facility] nivers mg chewable 2-10 by mouth ity of tablet 17:44: daily. [address] Branch benztropine 2014-03 Yes .5mg Take 0.5 [facility] (COGENTIN) 2-10 mg by ity of 0.5 mg 17:44: mouth 2 [place] tablet 16 (two) Medical times Branch daily. CALCIUM 2014-03 Yes Take by Univers CARBONATE/V 2-10 mouth 2 ity o f ITAMIN D3 17:44: (two) [place] (CALCIUM 16 times [facility] 500 + D, daily. Branch D3, ORAL) carvedilol 2014-03 Yes 3.125mg Take 3.125 Univers (COREG) 2-10 mg by ity of 3.125 mg 17:44: mouth 2 [place] tablet 16 (two) Medical times Branch daily with meals. docusate 2014-03 Yes 100mg Take 100 [facility] ers (COLACE) 2-10 mg by ity of 100 mg 17:44: mouth 2 [place] capsule 16 (two) Medical times Branch daily. DULoxetine 2014-03 Yes 30mg Take 30 mg [facility] (CYMBALTA) 2-10 by mouth ity o f 30 mg 17:44: daily. [place] capsule Medical Branch escitalopra 2014-03 Yes 10mg Take 10 mg [facility] m oxalate 2-10 by mouth ity of (LEXAPRO) 17:44: at [place] 10 mg 16 bedtime. Medical tablet Branch ibandronate 2014-03 Yes 150mg Take 150 U nivers (BONIVA) 2-10 mg by ity of 150 mg 17:44: mouth once [place] tablet 16 every Medical month. Branch MULTIVIT-FL 2014-03 Yes Take by Uni vers N/FA/CA 2-10 mouth. ity of CARB/VIT K 17:44: [place] (ONE-A-DAY 16 Medical WOMEN'S 50+ Branch ORAL) bromfenac 2014-[address] in [facility] ers (PROLENSA) 2-10 left eye. ity of 0.07 % Drop 17:44: [place] [address] Medical Branch QUEtiapine 2014-03 Yes 50mg Take [...] 4 ity of mg tablet 17:44: (four) [place] 16 times Medical daily. Branch ARIPiprazol 2014-03 Yes 5mg Take 5 mg U nivers e (ABILIFY) 2-10 by mouth ity of 5 mg tablet 17:44: at [place] 16 bedtime. Medical Branch aspirin 81 2014-03 Yes 81mg Take 81 mg U nivers mg chewable 2-10 by mouth ity of tablet 17:44: daily. [place] [address] Medical Branch benztropine 2014-03 Yes .5mg Take 0.5 [facility] (COGENTIN) 2-10 mg by ity of 0.5 mg 17:44: mouth 2 [place] tablet 16 (two) Medical times Branch daily. CALCIUM 2014-03 Yes Take by Univers CARBONATE/V 2-10 mouth 2 ity o f ITAMIN D3 17:44: (two) [place] (CALCIUM 16 times Medical 500 + D, [...] ity o f 30 mg 17:44: daily. [place] capsule 16 Medical Branch escitalopra 2014-03 Yes 10mg Take 10 mg [facility] m oxalate 2-10 by mouth ity of (LEXAPRO) 17:44: at [place] 10 mg 16 bedtime. Medical tablet Branch ibandronate 2014-03 Yes 150mg Take 150 U nivers (BONIVA) 2-10 mg by ity of 150 mg 17:44: mouth once [place] tablet 16 every Medical month. Branch MULTIVIT-FL 2014-03 Yes Take by Uni vers N/FA/CA 2-10 mouth. ity of CARB/VIT K 17:44: [place] (ONE-A-DAY 16 Medical WOMEN'S 50+ Branch ORAL) bromfenac 2014-[address] in [facility] ers (PROLENSA) 2-10 left eye. ity of 0.07 % Drop 17:44: [place] [address] Medical Branch QUEtiapine 2014-03 Yes 50mg Take 50 mg U nivers (SEROQUEL) 2-10 by mouth ity o f 50 mg 17:44: at [place] tablet 16 bedtime. Medical Branch cycloSPORIN 2014-03 Yes 1[drp] Place 1 U nivers E 2-10 Drop in ity of (RESTASIS) 17:44: [place] eyes [place] 0.05 % 16 every 12 Medical drops (twelve) Branch hours. rOPINIRole 2014-03 Yes 3mg Take 3 mg [facility] (REQUIP) 3 2-10 by mouth 4 ity of mg tablet 17:44: (four) [place] [address] times Medical daily. Branch ARIPiprazol 2014-03 Yes 5mg Take 5 mg U nivers e (ABILIFY) 2-10 by mouth ity of 5 mg tablet 17:44: at [place] 16 bedtime. Medical Branch aspirin 81 2014-03 Yes 81mg Take 81 mg U nivers mg chewable 2-10 by mouth ity of tablet 17:44: daily. [place] [address] Medical Branch benztropine 2014-03 Yes .5mg Take 0.5 [facility] (COGENTIN) 2-10 mg by ity of 0.5 mg 17:44: mouth 2 [place] tablet 16 (two) Medical times Branch daily. CALCIUM 2014-03 Yes Take by Univers CARBONATE/V 2-10 mouth 2 ity o f ITAMIN D3 17:44: (two) [place] (CALCIUM 16 times Medical 500 + D, [...] ity o f 30 mg 17:44: daily. [place] capsule Medical Branch escitalopra 2014-03 Yes 10mg Take 10 mg [facility] m oxalate 2-10 by mouth ity of (LEXAPRO) 17:44: at [place] 10 mg 16 bedtime. Medical tablet Branch ibandronate 2014-03 Yes 150mg Take 150 U nivers (BONIVA) 2-10 mg by ity of 150 mg 17:44: mouth once [place] tablet 16 every Medical month. Branch MULTIVIT-FL 2014-03 Yes Take by Uni vers N/FA/CA 2-10 mouth. ity of CARB/VIT K 17:44: [place] (ONE-A-DAY 16 Medical WOMEN'S 50+ Branch ORAL) bromfenac 2014-[address] in Univ ers (PROLENSA) 2-10 left eye. ity of 0.07 % Drop 17:44: [address] Branch QUEtiapine 2014-03 Yes 50mg Take [...] 4 ity of mg tablet 17:44: (four) [place] 16 times Medical daily. Branch ARIPiprazol 2014-03 Yes 5mg Take 5 mg U nivers e (ABILIFY) 2-10 by mouth ity of 5 mg tablet 17:44: at [place] 16 bedtime. Medical Branch aspirin 81 2014-03 Yes 81mg Take 81 mg U nivers mg chewable 2-10 by mouth ity of tablet 17:44: daily. [place] [address] Medical Branch benztropine 2014-03 Yes .5mg Take 0.5 [facility] (COGENTIN) 2-10 mg by ity of 0.5 mg 17:44: mouth 2 [place] tablet 16 (two) Medical times Branch daily. CALCIUM 2014-03 Yes Take by Univers CARBONATE/V 2-10 mouth 2 ity o f ITAMIN D3 17:44: (two) [place] (CALCIUM 16 times [facility] 500 + D, daily. Branch D3, ORAL) carvedilol 2014-03 Yes 3.125mg Take 3.125 Univers (COREG) 2-10 mg by ity of 3.125 mg 17:44: mouth 2 [place] tablet 16 (two) Medical times Branch daily with meals. docusate 2014-03 Yes 100mg Take 100 Univ ers (COLACE) 2-10 mg by ity of 100 mg 17:44: mouth 2 [place] capsule 16 (two) Medical times Branch daily. DULoxetine 2014-03 Yes 30mg Take 30 mg U nivers (CYMBALTA) 2-10 by mouth ity o f 30 mg 17:44: daily. [place] capsule 16 Medical Branch escitalopra 2014-03 Yes 10mg Take 10 mg [facility] m oxalate 2-10 by mouth ity of (LEXAPRO) 17:44: at [place] 10 mg 16 bedtime. Medical tablet Branch ibandronate 2014-03 Yes 150mg Take 150 U nivers (BONIVA) 2-10 mg by ity of 150 mg 17:44: mouth once [place] tablet 16 every Medical month. Branch MULTIVIT-FL 2014-03 Yes Take by Uni vers N/FA/CA 2-10 mouth. ity of CARB/VIT K 17:44: [place] (ONE-A-DAY 16 Medical WOMEN'S 50+ Branch ORAL) bromfenac 2014-[address] in [facility] ers (PROLENSA) 2-10 left eye. ity of 0.07 % Drop 17:44: [address] Branch QUEtiapine 2014-03 Yes 50mg Take 50 mg U nivers (SEROQUEL) 2-10 by mouth ity o f 50 mg 17:44: at [facility] 16 bedtime. Medical Branch cycloSPORIN 2014-03 Yes 1[drp] Place 1 U nivers E 2-10 Drop in ity of (RESTASIS) 17:44: both eyes [place] 0.05 % 16 every 12 Medical drops (twelve) Branch hours. rOPINIRole 2014-03 Yes 3mg Take 3 mg [facility] (REQUIP) 3 2-10 by mouth 4 ity of mg tablet 17:44: (four) [place] 16 times Medical daily. Branch ARIPiprazol 2014-03 Yes 5mg Take 5 mg U nivers e (ABILIFY) 2-10 by mouth ity of 5 mg tablet 17:44: at [place] [address] bedtime. Medical Branch aspirin 81 2014-03 Yes 81mg Take 81 mg U nivers mg chewable 2-10 by mouth ity of tablet 17:44: daily. [address] Branch benztropine 2014-03 Yes .5mg Take 0.5 [facility] (COGENTIN) 2-10 mg by ity of 0.5 mg 17:44: mouth 2 [place] tablet 16 (two) Medical times Branch daily. CALCIUM 2014-03 Yes Take by Univers CARBONATE/V 2-10 mouth 2 ity o f ITAMIN D3 17:44: (two) [place] (CALCIUM 16 times [facility] 500 + D, daily. Branch D3, ORAL) carvedilol 2014-03 Yes 3.125mg Take 3.125 Univers (COREG) 2-10 mg by ity of 3.125 mg 17:44: mouth 2 [place] tablet 16 (two) Medical times [place] daily with meals. docusate 2014-03 Yes 100mg Take 100 Univ ers (COLACE) 2-10 mg by ity of 100 mg 17:44: mouth 2 [place] capsule 16 (two) Medical times Branch daily. DULoxetine 2014-03 Yes 30mg Take 30 mg U nivers (CYMBALTA) 2-10 by mouth ity o f 30 mg 17:44: daily. [place] capsule 16 Medical Branch escitalopra 2014-03 Yes 10mg Take 10 mg [facility] m oxalate 2-10 by mouth ity of (LEXAPRO) 17:44: at [place] 10 mg 16 bedtime. Medical tablet Branch ibandronate 2014-03 Yes 150mg Take 150 U nivers (BONIVA) 2-10 mg by ity of 150 mg 17:44: mouth once [place] tablet 16 every Medical month. Branch MULTIVIT-FL 2014-03 Yes Take by Uni vers N/FA/CA 2-10 mouth. ity of CARB/VIT K 17:44: [place] (ONE-A-DAY 16 Medical WOMEN'S 50+ Branch ORAL) bromfenac 2014-[address] [facility] ers (PROLENSA) 2-10 left eye. ity of 0.07 % Drop 17:44: [place] [address] Medical Branch QUEtiapine 2014-03 Yes 50mg Take 50 mg U nivers (SEROQUEL) 2-10 by mouth ity o f 50 mg 17:44: at [place] tablet 16 bedtime. Medical Branch cycloSPORIN 2014-03 Yes 1[drp] Place 1 U nivers E 2-10 Drop in ity of (RESTASIS) 17:44: both eyes [place] 0.05 % 16 every 12 Medical drops (twelve) Branch hours. rOPINIRole 2014-03 Yes 3mg Take 3 mg [facility] (REQUIP) 3 2-10 by mouth 4 ity of mg tablet 17:44: (four) [place] 16 times Medical daily. Branch ARIPiprazol 2014-03 Yes 5mg Take 5 mg U nivers e (ABILIFY) 2-10 by mouth ity of 5 mg tablet 17:44: at [place] 16 bedtime. Medical Branch aspirin 81 2014-03 Yes 81mg Take 81 mg U nivers mg chewable 2-10 by mouth ity of tablet 17:44: daily. [place] [address] Medical Branch benztropine 2014-03 Yes .5mg Take 0.5 [facility] (COGENTIN) 2-10 mg by ity of 0.5 mg 17:44: mouth 2 [place] tablet 16 (two) Medical times Branch daily. CALCIUM 2014-03 Yes Take by Univers CARBONATE/V 2-10 mouth 2 ity o f ITAMIN D3 17:44: (two) [place] (CALCIUM 16 times Medical 500 + D, [...] by mouth ity of (LEXAPRO) 17:44: at [place] 10 mg 16 bedtime. Medical tablet Branch ibandronate 2014-03 Yes 150mg Take 150 U nivers (BONIVA) 2-10 mg by ity of 150 mg 17:44: mouth once [place] tablet 16 every Medical month. Branch MULTIVIT-FL 2014-03 Yes Take by Uni vers N/FA/CA 2-10 mouth. ity of CARB/VIT K 17:44: [place] (ONE-A-DAY 16 Medical WOMEN'S 50+ Branch ORAL) bromfenac 2014-[address] in [facility] ers (PROLENSA) 2-10 left eye. ity of 0.07 % Drop 17:44: [place] [address] Medical Branch QUEtiapine 2014-03 Yes 50mg Take [...] 4 ity of mg tablet 17:44: (four) [place] 16 times Medical daily. Branch ARIPiprazol 2014-03 Yes 5mg Take 5 mg U nivers e (ABILIFY) 2-10 by mouth ity of 5 mg tablet 17:44: at [place] 16 bedtime. Medical Branch aspirin 81 2014-03 Yes 81mg Take 81 mg U nivers mg chewable 2-10 by mouth ity of tablet 17:44: daily. [place] [address] Medical Branch benztropine 2014-03 Yes .5mg Take 0.5 [facility] (COGENTIN) 2-10 mg by ity of 0.5 mg 17:44: mouth 2 [place] tablet 16 (two) Medical times Branch daily. CALCIUM 2014-03 Yes Take by Univers CARBONATE/V 2-10 mouth 2 ity o f ITAMIN D3 17:44: (two) [place] (CALCIUM 16 times Medical 500 + D, daily. Branch D3, ORAL) carvedilol 2014-03 Yes 3.125mg Take 3.125 Univers (COREG) 2-10 mg by ity of 3.125 mg 17:44: mouth 2 [place] tablet 16 (two) Medical times Branch daily with meals. docusate 2014-03 Yes 100mg Take 100 Univ ers (COLACE) 2-10 mg by ity of 100 mg 17:44: mouth 2 [place] capsule 16 (two) Medical times Branch daily. DULoxetine 2014-03 Yes 30mg Take 30 mg U nivers (CYMBALTA) 2-10 by mouth ity o f 30 mg 17:44: daily. [place] [address] Medical Branch escitalopra 2014-03 Yes 10mg Take 10 mg Univers m oxalate 2-10 by mouth ity of (LEXAPRO) 17:44: at [place] 10 mg 16 bedtime. Medical tablet Branch ibandronate 2014-03 Yes 150mg Take 150 U nivers (BONIVA) 2-10 mg by ity of 150 mg 17:44: mouth once [place] tablet 16 every Medical month. Branch MULTIVIT-FL 2014-03 Yes Take by Uni vers N/FA/CA 2-10 mouth. ity of CARB/VIT K 17:44: [place] (ONE-A-DAY 16 Medical WOMEN'S 50+ Branch ORAL) bromfenac 2014-[address] in Univ ers (PROLENSA) 2-10 left eye. ity of 0.07 % Drop 17:44: [place] [address] Medical Branch QUEtiapine 2014-03 Yes 50mg Take 50 mg U nivers (SEROQUEL) 2-10 by mouth ity o f 50 mg 17:44: at [place] tablet 16 bedtime. Medical Branch cycloSPORIN 2014-03 [...] by mouth ity of tablet 17:44: daily. [place] [address] Medical Branch benztropine 2014-03 Yes .5mg Take 0.5 [facility] (COGENTIN) 2-10 mg by ity of 0.5 mg 17:44: mouth 2 [place] tablet 16 (two) Medical times Branch daily. CALCIUM 2014-03 Yes Take by Univers CARBONATE/V 2-10 mouth 2 ity o f ITAMIN D3 17:44: (two) [place] (CALCIUM 16 times Medical 500 + D, [...] ity o f 30 mg 17:44: daily. [place] capsule 16 Medical Branch escitalopra 2014-03 Yes 10mg Take 10 mg Univers m oxalate 2-10 by mouth ity of (LEXAPRO) 17:44: at [place] 10 mg 16 bedtime. Medical tablet Branch ibandronate 2014-03 Yes 150mg Take 150 U nivers (BONIVA) 2-10 mg by ity of 150 mg 17:44: mouth once [place] tablet 16 every Medical month. Branch MULTIVIT-FL 2014-03 Yes Take by Uni vers N/FA/CA 2-10 mouth. ity of CARB/VIT K 17:44: [place] (ONE-A-DAY 16 Medical WOMEN'S 50+ Branch ORAL) bromfenac 2014-[address] in Univ ers (PROLENSA) 2-10 left eye. ity of 0.07 % Drop 17:44: [place] [address] Medical Branch QUEtiapine 2014-03 Yes 50mg Take 50 mg U nivers (SEROQUEL) 2-10 by mouth ity o f 50 mg 17:44: at [place] tablet 16 bedtime. Medical Branch cycloSPORIN 2014-03 Yes 1[drp] Place 1 U nivers E 2-10 Drop in ity of (RESTASIS) 17:44: both eyes [place] 0.05 % 16 every 12 Medical drops (twelve) Branch hours. rOPINIRole 2014-03 Yes 3mg Take 3 mg [facility] (REQUIP) 3 2-10 by mouth 4 ity of mg tablet 17:44: (four) [place] [address] times Medical daily. Branch ARIPiprazol 2014-03 Yes 5mg Take 5 mg U nivers e (ABILIFY) 2-10 by mouth ity of 5 mg tablet 17:44: at [place] [address] bedtime. Medical Branch aspirin 81 2014-03 Yes 81mg Take 81 mg U nivers mg chewable 2-10 by mouth ity of tablet 17:44: daily. [address] Branch benztropine 2014-03 Yes .5mg Take 0.5 [facility] (COGENTIN) 2-10 mg by ity of 0.5 mg 17:44: mouth 2 [place] tablet 16 (two) Medical times Branch daily. CALCIUM 2014-03 Yes Take by Univers CARBONATE/V 2-10 mouth 2 ity o f ITAMIN D3 17:44: (two) [place] (CALCIUM 16 times [facility] 500 + D, daily. Branch D3, ORAL) carvedilol 2014-03 Yes 3.125mg Take 3.125 Univers (COREG) 2-10 mg by ity of 3.125 mg 17:44: mouth 2 [place] tablet 16 (two) Medical times [place] daily with meals. docusate 2014-03 Yes 100mg Take 100 Univ ers (COLACE) 2-10 mg by ity of 100 mg 17:44: mouth 2 [place] capsule 16 (two) Medical times Branch daily. DULoxetine 2014-03 Yes 30mg Take 30 mg U nivers (CYMBALTA) 2-10 by mouth ity o f 30 mg 17:44: daily. [place] capsule Medical Branch escitalopra 2014-03 Yes 10mg Take 10 mg [facility] m oxalate 2-10 by mouth ity of (LEXAPRO) 17:44: at [place] 10 mg 16 bedtime. Medical tablet Branch ibandronate 2014-03 Yes 150mg Take 150 U nivers (BONIVA) 2-10 mg by ity of 150 mg 17:44: mouth once [place] tablet 16 every Medical month. Branch MULTIVIT-FL 2014-03 Yes Take by Uni vers N/FA/CA 2-10 mouth. ity of CARB/VIT K 17:44: [place] (ONE-A-DAY 16 Medical WOMEN'S 50+ Branch ORAL) bromfenac 2014-[address] [facility] ers (PROLENSA) 2-10 left eye. ity of 0.07 % Drop 17:44: [place] [address] Medical Branch QUEtiapine 2014-03 Yes 50mg Take 50 mg U nivers (SEROQUEL) 2-10 by mouth ity o f 50 mg 17:44: at [place] tablet 16 bedtime. Medical Branch cycloSPORIN 2014-03 Yes 1[drp] Place 1 U nivers E 2-10 Drop in ity of (RESTASIS) 17:44: both eyes [place] 0.05 % 16 every 12 Medical drops (twelve) Branch hours. rOPINIRole 2014-03 Yes 3mg Take 3 mg Un [place] (REQUIP) 3 2-10 by mouth 4 ity of mg tablet 17:44: (four) [place] [address] times Medical daily. Branch ARIPiprazol 2014-03 Yes 5mg Take 5 mg U nivers e (ABILIFY) 2-10 by mouth ity of 5 mg tablet 17:44: at [place] 16 bedtime. Medical Branch aspirin 81 2014-03 Yes 81mg Take 81 mg U nivers mg chewable 2-10 by mouth ity of tablet 17:44: daily. [place] [address] Medical Branch benztropine 2014-03 Yes .5mg Take 0.5 Un [place] (COGENTIN) 2-10 mg by ity of 0.5 mg 17:44: mouth 2 [place] tablet 16 (two) Medical times Branch daily. CALCIUM 2014-03 Yes Take by Univers CARBONATE/V 2-10 mouth 2 ity o f ITAMIN D3 17:44: (two) [place] (CALCIUM 16 times Medical 500 + D, [...] ity o f 30 mg 17:44: daily. [place] capsule Medical Branch escitalopra 2014-03 Yes 10mg Take 10 mg [facility] m oxalate 2-10 by mouth ity of (LEXAPRO) 17:44: at [place] 10 mg 16 bedtime. Medical tablet Branch ibandronate 2014-03 Yes 150mg Take 150 U nivers (BONIVA) 2-10 mg by ity of 150 mg 17:44: mouth once [place] tablet 16 every Medical month. Branch MULTIVIT-FL 2014-03 Yes Take by Uni vers N/FA/CA 2-10 mouth. ity of CARB/VIT K 17:44: [place] (ONE-A-DAY 16 Medical WOMEN'S 50+ Branch ORAL) bromfenac 2014-[address] in [facility] ers (PROLENSA) 2-10 left eye. ity of 0.07 % Drop 17:44: [place] [address] Medical Branch QUEtiapine 2014-03 Yes 50mg Take 50 mg U nivers (SEROQUEL) 2-10 by mouth ity o f 50 mg 17:44: at [place] tablet 16 bedtime. Medical Branch cycloSPORIN 2014-03 Yes 1[drp] Place 1 U nivers E 2-10 Drop in ity of (RESTASIS) 17:44: both eyes [place] 0.05 % 16 every 12 Medical drops (twelve) Branch hours. rOPINIRole 2014-03 Yes 3mg Take 3 mg Un [place] (REQUIP) 3 2-10 by mouth 4 ity of mg tablet 17:44: (four) [place] 16 times Medical daily. Branch ARIPiprazol 2014-03 Yes 5mg Take 5 mg U nivers e (ABILIFY) 2-10 by mouth ity of 5 mg tablet 17:44: at [place] 16 bedtime. Medical Branch aspirin 81 2014-03 Yes 81mg Take 81 mg U nivers mg chewable 2-10 by mouth ity of tablet 17:44: daily. [place] [address] Medical Branch benztropine 2014-03 Yes .5mg Take 0.5 Un [place] (COGENTIN) 2-10 mg by ity of 0.5 mg 17:44: mouth 2 [place] tablet 16 (two) Medical times Branch daily. CALCIUM 2014-03 Yes Take by Univers CARBONATE/V 2-10 mouth 2 ity o f ITAMIN D3 17:44: (two) [place] (CALCIUM 16 times Medical 500 + D, daily. Branch D3, ORAL) carvedilol 2014-03 Yes 3.125mg Take 3.125 Univers (COREG) 2-10 mg by ity of 3.125 mg 17:44: mouth 2 [place] tablet 16 (two) Medical times [place] daily with meals. docusate 2014-03 Yes 100mg Take 100 Univ ers (COLACE) 2-10 mg by ity of 100 mg 17:44: mouth 2 [place] capsule 16 (two) Medical times Branch daily. DULoxetine 2014-03 Yes 30mg Take 30 mg U nivers (CYMBALTA) 2-10 by mouth ity o f 30 mg 17:44: daily. [place] capsule Medical Branch escitalopra 2014-03 Yes 10mg Take 10 mg [facility] m oxalate 2-10 by mouth ity of (LEXAPRO) 17:44: at [place] 10 mg 16 bedtime. Medical tablet Branch ibandronate 2014-03 Yes 150mg Take 150 U nivers (BONIVA) 2-10 mg by ity of 150 mg 17:44: mouth once [place] tablet 16 every Medical month. Branch MULTIVIT-FL 2014-03 Yes Take by Uni vers N/FA/CA 2-10 mouth. ity of CARB/VIT K 17:44: [place] (ONE-A-DAY 16 Medical WOMEN'S 50+ Branch ORAL) bromfenac 2014-[address] [facility] ers (PROLENSA) 2-10 left eye. ity of 0.07 % Drop 17:44: [place] [address] Medical Branch QUEtiapine 2015-1 Yes 50mg Take 50 mg U nivers [...] ity of 5 mg tablet 17:44: at [place] 16 bedtime. Medical Branch aspirin 81 2014-03 Yes 81mg Take 81 mg U nivers mg chewable 2-10 by mouth ity of tablet 17:44: daily. [place] [address] Medical Branch benztropine 2014-03 Yes .5mg Take 0.5 Un [place] (COGENTIN) 2-10 mg by ity of 0.5 mg 17:44: mouth 2 [place] tablet 16 (two) Medical times Branch daily. CALCIUM 2014-03 Yes Take by Univers CARBONATE/V 2-10 mouth 2 ity o f ITAMIN D3 17:44: (two) [place] (CALCIUM 16 times Medical 500 + D, daily. Branch D3, ORAL) carvedilol 2014-03 Yes 3.125mg Take 3.125 [facility] (COREG) 2-10 mg by ity of 3.125 mg 17:44: mouth 2 [place] tablet 16 (two) Medical times Branch daily with meals. docusate 2014-03 Yes 100mg Take 100 Univ ers (COLACE) 2-10 mg by ity of 100 mg 17:44: mouth 2 [place] capsule 16 (two) Medical times Branch daily. DULoxetine 2014-03 Yes 30mg Take 30 mg U nivers (CYMBALTA) 2-10 by mouth ity o f 30 mg 17:44: daily. [place] capsule 16 Medical Branch escitalopra 2014-03 Yes 10mg Take 10 mg [facility] m oxalate 2-10 by mouth ity of (LEXAPRO) 17:44: at [place] 10 mg 16 bedtime. Medical tablet Branch ibandronate 2014-03 Yes 150mg Take 150 U nivers (BONIVA) 2-10 mg by ity of 150 mg 17:44: mouth once [place] tablet 16 every Medical month. Branch MULTIVIT-FL 2014-03 Yes Take by Uni vers N/FA/CA 2-10 mouth. ity of CARB/VIT K 17:44: [place] (ONE-A-DAY 16 Medical WOMEN'S 50+ Branch ORAL) bromfenac 2014-[address] in [facility] ers (PROLENSA) 2-10 left eye. ity of 0.07 % Drop 17:44: [place] [address] Medical Branch QUEtiapine 2014-03 Yes 50mg Take 50 mg U nivers (SEROQUEL) 2-10 by mouth ity o f 50 mg 17:44: at [place] tablet 16 bedtime. Medical Branch cycloSPORIN 2014-03 Yes 1[drp] Place 1 U nivers E 2-10 Drop in ity of (RESTASIS) 17:44: both eyes [place] 0.05 % 16 every 12 Medical drops (twelve) Branch hours. rOPINIRole 2014-03 Yes 3mg Take 3 mg Un [place] (REQUIP) 3 2-10 by mouth 4 ity of mg tablet 17:44: (four) [place] 16 times Medical daily. Branch ARIPiprazol 2014-03 Yes 5mg Take 5 mg U nivers e (ABILIFY) 2-10 by mouth ity of 5 mg tablet 17:44: at [place] [address] bedtime. Medical Branch aspirin 81 2014-03 Yes 81mg Take 81 mg U nivers mg chewable 2-10 by mouth ity of tablet 17:44: daily. [place] [address] Medical Branch benztropine 2014-03 Yes .5mg Take 0.5 [facility] [place] (COGENTIN) 2-10 mg by ity of 0.5 mg 17:44: mouth 2 [place] tablet 16 (two) Medical times Branch daily. CALCIUM 2014-03 Yes Take by Univers CARBONATE/V 2-10 mouth 2 ity o f ITAMIN D3 17:44: (two) [place] (CALCIUM 16 times Medical 500 + D, daily. Branch D3, ORAL) carvedilol 2014-03 Yes 3.125mg Take 3.125 [facility] (COREG) 2-10 mg by ity of 3.125 mg 17:44: mouth 2 [place] tablet 16 (two) Medical times Branch daily with meals. docusate 2014-03 Yes 100mg Take 100 Univ ers (COLACE) 2-10 mg by ity of 100 mg 17:44: mouth 2 [place] capsule 16 (two) Medical times Branch daily. DULoxetine 2014-03 Yes 30mg Take 30 mg U nivers (CYMBALTA) 2-10 by mouth ity o f 30 mg 17:44: daily. [place] capsule 16 Medical Branch escitalopra 2014-03 Yes 10mg Take 10 mg [facility] m oxalate 2-10 by mouth ity of (LEXAPRO) 17:44: at [place] 10 mg 16 bedtime. Medical tablet Branch ibandronate 2014-03 Yes 150mg Take 150 U nivers (BONIVA) 2-10 mg by ity of 150 mg 17:44: mouth once [place] tablet 16 every Medical month. Branch MULTIVIT-FL 2014-03 Yes Take by Uni vers N/FA/CA 2-10 mouth. ity of CARB/VIT K 17:44: [place] (ONE-A-DAY 16 Medical WOMEN'S 50+ Branch ORAL) bromfenac 2014-[address] in Univ ers (PROLENSA) 2-10 left eye. ity of 0.07 % Drop 17:44: [place] [address] Medical Branch QUEtiapine 2014-03 Yes 50mg Take 50 mg U nivers (SEROQUEL) 2-10 by mouth ity o f 50 mg 17:44: at [place] tablet 16 bedtime. Medical Branch cycloSPORIN 2014-03 Yes 1[drp] Place 1 U nivers E 2-10 Drop in ity of (RESTASIS) 17:44: both eyes [place] 0.05 % 16 every 12 Medical drops (twelve) Branch hours. rOPINIRole 2014-03 Yes 3mg Take 3 mg Un [place] (REQUIP) 3 2-10 by mouth 4 ity of mg tablet 17:44: (four) [place] [address] times Medical daily. Branch ARIPiprazol 2014-03 Yes 5mg Take 5 mg U nivers e (ABILIFY) 2-10 by mouth ity of 5 mg tablet 17:44: at [place] 16 bedtime. Medical Branch aspirin 81 2014-03 Yes 81mg Take 81 mg U nivers mg chewable 2-10 by mouth ity of tablet 17:44: daily. [place] [address] Medical Branch benztropine 2014-03 Yes .5mg Take 0.5 [facility] [place] (COGENTIN) 2-10 mg by ity of 0.5 mg 17:44: mouth 2 [place] tablet 16 (two) Medical times Branch daily. CALCIUM 2014-03 Yes Take by Univers CARBONATE/V 2-10 mouth 2 ity o f ITAMIN D3 17:44: (two) [place] (CALCIUM 16 times Medical 500 + D, daily. Branch D3, ORAL) carvedilol 2014-03 Yes 3.125mg Take 3.125 [facility] (COREG) 2-10 mg by ity of 3.125 mg 17:44: mouth 2 [place] tablet 16 (two) Medical times Branch daily with meals. docusate 2014-03 Yes 100mg Take 100 Univ ers (COLACE) 2-10 mg by ity of 100 mg 17:44: mouth 2 [place] capsule 16 (two) Medical times Branch daily. DULoxetine 2014-03 Yes 30mg Take 30 mg U nivers (CYMBALTA) 2-10 by mouth ity o f 30 mg 17:44: daily. [place] capsule 16 Medical Branch escitalopra 2014-03 Yes 10mg Take 10 mg [facility] m oxalate 2-10 by mouth ity of (LEXAPRO) 17:44: at [place] 10 mg 16 bedtime. Medical tablet Branch ibandronate 2014-03 Yes 150mg Take 150 U nivers (BONIVA) 2-10 mg by ity of 150 mg 17:44: mouth once [place] tablet 16 every Medical month. Branch MULTIVIT-FL 2014-03 Yes Take by Uni vers N/FA/CA 2-10 mouth. ity of CARB/VIT K 17:44: [place] (ONE-A-DAY 16 Medical WOMEN'S 50+ Branch ORAL) bromfenac 2014-[address] in Univ ers (PROLENSA) 2-10 left eye. ity of 0.07 % Drop 17:44: [place] [address] Medical Branch QUEtiapine 2014-03 Yes 50mg Take [...] 4 ity of mg tablet 17:44: (four) [place] 16 times Medical daily. Branch ARIPiprazol 2014-03 Yes 5mg Take 5 mg U nivers e (ABILIFY) 2-10 by mouth ity of 5 mg tablet 17:44: at [place] 16 bedtime. Medical Branch aspirin 81 2014-03 Yes 81mg Take 81 mg U nivers mg chewable 2-10 by mouth ity of tablet 17:44: daily. [place] [address] Medical Branch benztropine 2014-03 Yes .5mg Take 0.5 [facility] [place] (COGENTIN) 2-10 mg by ity of 0.5 mg 17:44: mouth 2 [place] tablet 16 (two) Medical times Branch daily. CALCIUM 2014-03 Yes Take by Univers CARBONATE/V 2-10 mouth 2 ity o f ITAMIN D3 17:44: (two) [place] (CALCIUM 16 times Medical 500 + D, daily. Branch D3, ORAL) carvedilol 2014-03 Yes 3.125mg Take 3.125 [facility] (COREG) 2-10 mg by ity of 3.125 mg 17:44: mouth 2 [place] tablet 16 (two) Medical times Branch daily with meals. docusate 2014-03 Yes 100mg Take 100 Univ ers (COLACE) 2-10 mg by ity of 100 mg 17:44: mouth 2 [place] capsule 16 (two) Medical times Branch daily. DULoxetine 2014-03 Yes 30mg Take 30 mg U nivers (CYMBALTA) 2-10 by mouth ity o f 30 mg 17:44: daily. [place] capsule 16 Medical Branch escitalopra 2014-03 Yes 10mg Take 10 mg [facility] m oxalate 2-10 by mouth ity of (LEXAPRO) 17:44: at [place] 10 mg 16 bedtime. Medical tablet Branch ibandronate 2014-03 Yes 150mg Take 150 U nivers (BONIVA) 2-10 mg by ity of 150 mg 17:44: mouth once [place] tablet every Medical month. Branch MULTIVIT-FL 2014-03 Yes Take by Uni vers N/FA/CA 2-10 mouth. ity of CARB/VIT K 17:44: [place] (ONE-A-DAY 16 Medical WOMEN'S 50+ Branch ORAL) bromfenac 2014-[address] in Univ ers (PROLENSA) 2-10 left eye. ity of 0.07 % Drop 17:44: [place] [address] Medical Branch QUEtiapine 2014-03 Yes 50mg Take 50 mg U nivers (SEROQUEL) 2-10 by mouth ity o f 50 mg 17:44: at [place] tablet 16 bedtime. Medical Branch cycloSPORIN 2014-03 Yes 1[drp] Place 1 U nivers E 2-10 Drop in ity of (RESTASIS) 17:44: both eyes [place] 0.05 % 16 every 12 Medical drops (twelve) Branch hours. rOPINIRole 2014-03 Yes 3mg Take 3 mg Un [place] (REQUIP) 3 2-10 by mouth 4 ity of mg tablet 17:44: (four) [place] [address] times Medical daily. Branch ARIPiprazol 2014-03 Yes 5mg Take 5 mg U nivers e (ABILIFY) 2-10 by mouth ity of 5 mg tablet 17:44: at [place] [address] bedtime. Medical Branch aspirin 81 2014-03 Yes 81mg Take 81 mg U nivers mg chewable 2-10 by mouth ity of tablet 17:44: daily. [address] Branch benztropine 2014-03 Yes .5mg Take 0.5 Un [place] (COGENTIN) 2-10 mg by ity of 0.5 mg 17:44: mouth 2 [place] tablet 16 (two) Medical times Branch daily. CALCIUM 2014-03 Yes Take by Univers CARBONATE/V 2-10 mouth 2 ity o f ITAMIN D3 17:44: (two) [place] (CALCIUM [address] [place] [address] 500 + D, daily. Branch D3, ORAL) carvedilol 2014-03 Yes 3.125mg Take 3.125 [facility] (COREG) 2-10 mg by ity of 3.125 mg 17:44: mouth 2 [place] tablet 16 (two) Medical times Branch daily with meals. docusate 2014-03 Yes 100mg Take 100 Univ ers (COLACE) 2-10 mg by ity of 100 mg 17:44: mouth 2 [place] capsule 16 (two) Medical times Branch daily. DULoxetine 2014-03 Yes 30mg Take 30 mg U nivers (CYMBALTA) 2-10 by mouth ity o f 30 mg 17:44: daily. [place] capsule Medical Branch escitalopra 2014-03 Yes 10mg Take 10 mg [facility] m oxalate 2-10 by mouth ity of (LEXAPRO) 17:44: at [place] 10 mg 16 bedtime. Medical tablet Branch ibandronate 2014-03 Yes 150mg Take 150 U nivers (BONIVA) 2-10 mg by ity of 150 mg 17:44: mouth once [place] tablet 16 every Medical month. Branch MULTIVIT-FL 2014-03 Yes Take by Uni vers N/FA/CA 2-10 mouth. ity of CARB/VIT K 17:44: [place] (ONE-A-DAY 16 Medical WOMEN'S 50+ Branch ORAL) bromfenac 2014-[address] in [facility] ers (PROLENSA) 2-10 left eye. ity of 0.07 % Drop 17:44: [place] [address] Medical Branch QUEtiapine 2014-03 Yes 50mg Take [...] 4 ity of mg tablet 17:44: (four) [place] 16 times Medical daily. Branch ARIPiprazol 2014-03 Yes 5mg Take 5 mg U nivers e (ABILIFY) 2-10 by mouth ity of 5 mg tablet 17:44: at [place] 16 bedtime. Medical Branch aspirin 81 2014-03 Yes 81mg Take 81 mg U nivers mg chewable 2-10 by mouth ity of tablet 17:44: daily. [place] [address] Medical Branch benztropine 2014-03 Yes .5mg Take 0.5 Un [place] (COGENTIN) 2-10 mg by ity of 0.5 mg 17:44: mouth 2 [place] tablet 16 (two) Medical times Branch daily. CALCIUM 2014-03 Yes Take by Univers CARBONATE/V 2-10 mouth 2 ity o f ITAMIN D3 17:44: (two) [place] (CALCIUM 16 times Medical 500 + D, daily. Branch D3, ORAL) carvedilol 2015-1 Yes 3.125mg Take 3.125 Univers (COREG) 2-10 [...] ity o f 30 mg 17:44: daily. [place] capsule 16 Medical Branch escitalopra 2014-03 Yes 10mg Take 10 mg [facility] m oxalate 2-10 by mouth ity of (LEXAPRO) 17:44: at [place] 10 mg 16 bedtime. Medical tablet Branch ibandronate 2014-03 Yes 150mg Take 150 U nivers (BONIVA) 2-10 mg by ity of 150 mg 17:44: mouth once [place] tablet 16 every Medical month. Branch MULTIVIT-FL 2014-03 Yes Take by Uni vers N/FA/CA 2-10 mouth. ity of CARB/VIT K 17:44: [place] (ONE-A-DAY 16 Medical WOMEN'S 50+ Branch ORAL) bromfenac 2014-[address] [facility] ers (PROLENSA) 2-10 left eye. ity of 0.07 % Drop 17:44: [place] [address] Medical Branch QUEtiapine 2014-03 Yes 50mg Take 50 mg U nivers (SEROQUEL) 2-10 by mouth ity o f 50 mg 17:44: at [place] tablet 16 bedtime. Medical Branch cycloSPORIN 2014-03 Yes 1[drp] Place 1 U nivers E 2-10 Drop in ity of (RESTASIS) 17:44: both eyes [place] 0.05 % 16 every 12 Medical drops (twelve) Branch hours. rOPINIRole 2014-03 Yes 3mg Take 3 mg Un [place] (REQUIP) 3 2-10 by mouth 4 ity of mg tablet 17:44: (four) [place] [address] times Medical daily. Branch ARIPiprazol 2014-03 Yes 5mg Take 5 mg U nivers e (ABILIFY) 2-10 by mouth ity of 5 mg tablet 17:44: at [place] 16 bedtime. Medical Branch aspirin 81 2014-03 Yes 81mg Take 81 mg U nivers mg chewable 2-10 by mouth ity of tablet 17:44: daily. [place] [address] Medical Branch benztropine 2014-03 Yes .5mg Take 0.5 [facility] [place] (COGENTIN) 2-10 mg by ity of 0.5 mg 17:44: mouth 2 [place] tablet 16 (two) Medical times Branch daily. CALCIUM 2014-03 Yes Take by Univers CARBONATE/V 2-10 mouth 2 ity o f ITAMIN D3 17:44: (two) [place] (CALCIUM 16 times Medical 500 + D, daily. Branch D3, ORAL) carvedilol 2014-03 Yes 3.125mg Take 3.125 [facility] (COREG) 2-10 mg by ity of 3.125 mg 17:44: mouth 2 [place] tablet 16 (two) Medical times [place] daily with meals. docusate 2014-03 Yes 100mg Take 100 Univ ers (COLACE) 2-10 mg by ity of 100 mg 17:44: mouth 2 [place] capsule 16 (two) Medical times [place] daily. DULoxetine 2014-03 Yes 30mg Take 30 mg U nivers (CYMBALTA) 2-10 by mouth ity o f 30 mg 17:44: daily. [place] capsule Medical Branch escitalopra 2014-03 Yes 10mg Take 10 mg [facility] m oxalate 2-10 by mouth ity of (LEXAPRO) 17:44: at [place] 10 mg 16 bedtime. Medical tablet Branch ibandronate 2014-03 Yes 150mg Take 150 U nivers (BONIVA) 2-10 mg by ity of 150 mg 17:44: mouth once [place] tablet 16 every Medical month. Branch MULTIVIT-FL 2014-03 Yes Take by Uni vers N/FA/CA 2-10 mouth. ity of CARB/VIT K 17:44: [place] (ONE-A-DAY 16 Medical WOMEN'S 50+ Branch ORAL) bromfenac 2014-[address] in [facility] ers (PROLENSA) 2-10 left eye. ity of 0.07 % Drop 17:44: [place] [address] Medical Branch QUEtiapine 2014-03 Yes 50mg Take 50 mg U nivers (SEROQUEL) 2-10 by mouth ity o f 50 mg 17:44: at [place] tablet 16 bedtime. Medical Branch cycloSPORIN 2014-03 [...] by mouth ity of tablet 17:44: daily. [place] [address] Medical Branch benztropine 2014-03 Yes .5mg Take 0.5 Un [place] (COGENTIN) 2-10 mg by ity of 0.5 mg 17:44: mouth 2 [place] tablet 16 (two) Medical times Branch daily. CALCIUM 2014-03 Yes Take by Univers CARBONATE/V 2-10 mouth 2 ity o f ITAMIN D3 17:44: (two) [place] (CALCIUM 16 times Medical 500 + D, [...] ity o f 30 mg 17:44: daily. [place] capsule 16 Medical Branch escitalopra 2014-03 Yes 10mg Take 10 mg [facility] m oxalate 2-10 by mouth ity of (LEXAPRO) 17:44: at [place] 10 mg 16 bedtime. Medical tablet Branch ibandronate 2014-03 Yes 150mg Take 150 U nivers (BONIVA) 2-10 mg by ity of 150 mg 17:44: mouth once [place] tablet 16 every Medical month. Branch MULTIVIT-FL 2014-03 Yes Take by Uni vers N/FA/CA 2-10 mouth. ity of CARB/VIT K 17:44: [place] (ONE-A-DAY 16 Medical WOMEN'S 50+ Branch ORAL) bromfenac 2014-[address] in Univ ers (PROLENSA) 2-10 left eye. ity of 0.07 % Drop 17:44: [place] [address] Medical Branch QUEtiapine 2014-03 Yes 50mg Take 50 mg U nivers (SEROQUEL) 2-10 by mouth ity o f 50 mg 17:44: at [place] tablet bedtime. Medical Branch cycloSPORIN 2014-03 Yes 1[drp] Place 1 U nivers E 2-10 Drop in ity of (RESTASIS) 17:44: both eyes [place] 0.05 % 16 every 12 Medical drops (twelve) Branch hours. rOPINIRole 2014-03 Yes 3mg Take 3 mg Un [place] (REQUIP) 3 2-10 by mouth 4 ity of mg tablet 17:44: (four) [place] [address] times Medical daily. Branch ARIPiprazol 2014-03 Yes 5mg Take 5 mg U nivers e (ABILIFY) 2-10 by mouth ity of 5 mg tablet 17:44: at [place] [address] bedtime. Medical Branch aspirin 81 2014-03 Yes 81mg Take 81 mg U nivers mg chewable 2-10 by mouth ity of tablet 17:44: daily. [address] Branch benztropine 2014-03 Yes .5mg Take 0.5 Un [place] (COGENTIN) 2-10 mg by ity of 0.5 mg 17:44: mouth 2 [place] tablet 16 (two) Medical times Branch daily. CALCIUM 2014-03 Yes Take by Univers CARBONATE/V 2-10 mouth 2 ity o f ITAMIN D3 17:44: (two) [place] (CALCIUM 16 times Medical 500 + D, daily. Branch D3, ORAL) carvedilol 2014-03 Yes 3.125mg Take 3.125 [facility] (COREG) 2-10 mg by ity of 3.125 mg 17:44: mouth 2 [place] tablet 16 (two) Medical times Branch daily with meals. docusate 2014-03 Yes 100mg Take 100 Univ ers (COLACE) 2-10 mg by ity of 100 mg 17:44: mouth 2 [place] capsule 16 (two) Medical times Branch daily. DULoxetine 2014-03 Yes 30mg Take 30 mg U nivers (CYMBALTA) 2-10 by mouth ity o f 30 mg 17:44: daily. [place] [address] Medical Branch escitalopra 2014-03 Yes 10mg Take 10 mg [facility] m oxalate 2-10 by mouth ity of (LEXAPRO) 17:44: at [place] 10 mg 16 bedtime. Medical tablet Branch ibandronate 2014-03 Yes 150mg Take 150 U nivers (BONIVA) 2-10 mg by ity of 150 mg 17:44: mouth once [place] tablet 16 every Medical month. Branch MULTIVIT-FL 2014-03 Yes Take by Uni vers N/FA/CA 2-10 mouth. ity of CARB/VIT K 17:44: [place] (ONE-A-DAY 16 Medical WOMEN'S 50+ Branch ORAL) bromfenac 2014-[address] [facility] ers (PROLENSA) 2-10 left eye. ity of 0.07 % Drop 17:44: [place] [address] Medical Branch QUEtiapine 2014-03 Yes 50mg Take 50 mg U nivers (SEROQUEL) 2-10 by mouth ity o f 50 mg 17:44: at [place] tablet 16 bedtime. Medical Branch cycloSPORIN 2014-03 Yes 1[drp] Place 1 U nivers E 2-10 Drop in ity of (RESTASIS) 17:44: both eyes [place] 0.05 % 16 every 12 Medical drops (twelve) Branch hours. rOPINIRole 2014-03 Yes 3mg Take 3 mg Un [place] (REQUIP) 3 2-10 by mouth 4 ity of mg tablet 17:44: (four) [place] [address] times Medical daily. Branch ARIPiprazol 2014-03 Yes 5mg Take 5 mg U nivers e (ABILIFY) 2-10 by mouth ity of 5 mg tablet 17:44: at [place] 16 bedtime. Medical Branch aspirin 81 2014-03 Yes 81mg Take 81 mg U nivers mg chewable 2-10 by mouth ity of tablet 17:44: daily. [place] [address] Medical Branch benztropine 2014-03 Yes .5mg Take 0.5 [place] (COGENTIN) 2-10 mg by ity of 0.5 mg 17:44: mouth 2 [place] tablet 16 (two) Medical times Branch daily. CALCIUM 2014-03 Yes Take by [facility] CARBONATE/V 2-10 mouth 2 ity o f ITAMIN D3 17:44: (two) [place] (CALCIUM 16 times Medical 500 + D, [...] ity o f 30 mg 17:44: daily. [place] capsule Medical Branch escitalopra 2014-03 Yes 10mg Take 10 mg [facility] m oxalate 2-10 by mouth ity of (LEXAPRO) 17:44: at [place] 10 mg 16 bedtime. Medical tablet Branch ibandronate 2014-03 Yes 150mg Take 150 U nivers (BONIVA) 2-10 mg by ity of 150 mg 17:44: mouth once [place] tablet 16 every Medical month. Branch MULTIVIT-FL 2014-03 Yes Take by Uni vers N/FA/CA 2-10 mouth. ity of CARB/VIT K 17:44: [place] (ONE-A-DAY 16 Medical WOMEN'S 50+ Branch ORAL) bromfenac 2014-[address] in [facility] ers (PROLENSA) 2-10 left eye. ity of 0.07 % Drop 17:44: [place] [address] Medical Branch QUEtiapine 2014-03 Yes 50mg Take 50 mg U nivers (SEROQUEL) 2-10 by mouth ity o f 50 mg 17:44: at [place] tablet 16 bedtime. Medical Branch cycloSPORIN 2014-03 Yes 1[drp] Place 1 U nivers E 2-10 Drop in ity of (RESTASIS) 17:44: both eyes [place] 0.05 % 16 every 12 Medical drops (twelve) Branch hours. rOPINIRole 2014-03 Yes 3mg Take 3 mg Un [place] (REQUIP) 3 2-10 by mouth 4 ity of mg tablet 17:44: (four) [place] 16 times Medical daily. Branch ARIPiprazol 2014-03 Yes 5mg Take 5 mg U nivers e (ABILIFY) 2-10 by mouth ity of 5 mg tablet 17:44: at [place] 16 bedtime. Medical Branch aspirin 81 2014-03 Yes 81mg Take 81 mg U nivers mg chewable 2-10 by mouth ity of tablet 17:44: daily. [place] [address] Medical Branch benztropine 2014-03 Yes .5mg Take 0.5 Un [place] (COGENTIN) 2-10 mg by ity of 0.5 mg 17:44: mouth 2 [place] tablet 16 (two) Medical times Branch daily. CALCIUM 2014-03 Yes Take by Univers CARBONATE/V 2-10 mouth 2 ity o f ITAMIN D3 17:44: (two) [place] (CALCIUM 16 times Medical 500 + D, daily. Branch D3, ORAL) carvedilol 2014-03 Yes 3.125mg Take 3.125 [facility] (COREG) 2-10 mg by ity of 3.125 mg 17:44: mouth 2 [place] tablet 16 (two) Medical times Branch daily with meals. docusate 2014-03 Yes 100mg Take 100 Univ ers (COLACE) 2-10 mg by ity of 100 mg 17:44: mouth 2 [place] capsule 16 (two) Medical times Branch daily. DULoxetine 2014-03 Yes 30mg Take 30 mg U nivers (CYMBALTA) 2-10 by mouth ity o f 30 mg 17:44: daily. [place] capsule Medical Branch escitalopra 2014-03 Yes 10mg Take 10 mg Univers m oxalate 2-10 by mouth ity of (LEXAPRO) 17:44: at [place] 10 mg 16 bedtime. Medical tablet Branch ibandronate 2014-03 Yes 150mg Take 150 U nivers (BONIVA) 2-10 mg by ity of 150 mg 17:44: mouth once [place] tablet 16 every Medical month. Branch MULTIVIT-FL 2014-03 Yes Take by Uni vers N/FA/CA 2-10 mouth. ity of CARB/VIT K 17:44: [place] (ONE-A-DAY 16 Medical WOMEN'S 50+ Branch ORAL) bromfenac 2014-[address] in [facility] ers (PROLENSA) 2-10 left eye. ity of 0.07 % Drop 17:44: [place] [address] Medical Branch QUEtiapine 2014-03 Yes 50mg Take [...] 2014-03 Yes 3mg Take 3 mg Un kayal (REQUIP) 3 2-10 by mouth 4 ity of mg tablet 17:44: (four) [place] 16 times Medical daily. Branch ARIPiprazol 2014-03 Yes 5mg Take 5 mg U nivers e (ABILIFY) 2-10 by mouth ity of 5 mg tablet 17:44: at [place] 16 bedtime. Medical Branch aspirin 81 2014-03 Yes 81mg Take 81 mg U nivers mg chewable 2-10 by mouth ity of tablet 17:44: daily. [place] [address] Medical Branch benztropine 2014-03 Yes .5mg Take 0.5 Un kayla (COGENTIN) 2-10 mg by ity of 0.5 mg 17:44: mouth 2 [place] tablet 16 (two) Medical times Branch daily. CALCIUM 2014-03 Yes Take by Univers CARBONATE/V 2-10 mouth 2 ity o f ITAMIN D3 17:44: (two) [place] (CALCIUM [address] [place] [address] 500 + D, daily. Branch D3, ORAL) carvedilol 2014-03 Yes 3.125mg Take 3.125 Univers (COREG) 2-10 mg by ity of 3.125 mg 17:44: mouth 2 [place] tablet 16 (two) Medical times Branch daily with meals. docusate 2014-03 Yes 100mg Take 100 Univ ers (COLACE) 2-10 mg by ity of 100 mg 17:44: mouth 2 [place] capsule 16 (two) Medical times Branch daily. DULoxetine 2014-03 Yes 30mg Take 30 mg U nivers (CYMBALTA) 2-10 by mouth ity o f 30 mg 17:44: daily. [place] capsule Medical Branch escitalopra 2014-03 Yes 10mg Take 10 mg Univers m oxalate 2-10 by mouth ity of (LEXAPRO) 17:44: at [place] 10 mg 16 bedtime. Medical tablet Branch ibandronate 2014-03 Yes 150mg Take 150 U nivers (BONIVA) 2-10 mg by ity of 150 mg 17:44: mouth once [place] tablet 16 every Medical month. Branch MULTIVIT-FL 2014-03 Yes Take by Uni vers N/FA/CA 2-10 mouth. ity of CARB/VIT K 17:44: [place] (ONE-A-DAY 16 Medical WOMEN'S 50+ Branch ORAL) bromfenac 2014-[address] in Univ ers (PROLENSA) 2-10 left eye. ity of 0.07 % Drop 17:44: [place] [address] Medical Branch QUEtiapine 2014-03 Yes 50mg Take 50 mg U nivers (SEROQUEL) 2-10 by mouth ity o f 50 mg 17:44: at [place] tablet 16 bedtime. Medical Branch cycloSPORIN 2014-03 Yes 1[drp] Place 1 U nivers E 2-10 Drop in ity of (RESTASIS) 17:44: [place] eyes [place] 0.05 % 16 every 12 Medical drops (twelve) Branch hours. rOPINIRole 2014-03 Yes 3mg Take 3 mg Un kayla (REQUIP) 3 2-10 by mouth 4 ity of mg tablet 17:44: (four) [place] [address] times Medical daily. Branch ARIPiprazol 2014-03 Yes 5mg Take 5 mg U nivers e (ABILIFY) 2-10 by mouth ity of 5 mg tablet 17:44: at [place] [address] bedtime. Medical Branch aspirin 81 2014-03 Yes 81mg Take 81 mg U nivers mg chewable 2-10 by mouth ity of tablet 17:44: daily. [place] [address] Medical Branch benztropine 2014-03 Yes .5mg Take 0.5 Un kayla (COGENTIN) 2-10 mg by ity of 0.5 mg 17:44: mouth 2 [place] tablet 16 (two) Medical times Branch daily. CALCIUM 2014-03 Yes Take by Univers CARBONATE/V 2-10 mouth 2 ity o f ITAMIN D3 17:44: (two) [place] (CALCIUM 16 times [facility] 500 + D, daily. Branch D3, ORAL) carvedilol 2014-03 Yes 3.125mg Take 3.125 Univers (COREG) 2-10 mg by ity of 3.125 mg 17:44: mouth 2 [place] tablet 16 (two) Medical times [place] daily with meals. docusate 2014-03 Yes 100mg Take 100 Univ ers (COLACE) 2-10 mg by ity of 100 mg 17:44: mouth 2 [place] capsule 16 (two) Medical times Branch daily. DULoxetine 2014-03 Yes 30mg Take 30 mg U nivers (CYMBALTA) 2-10 by mouth ity o f 30 mg 17:44: daily. [place] capsule 16 Medical Branch escitalopra 2014-03 Yes 10mg Take 10 mg Univers m oxalate 2-10 by mouth ity of (LEXAPRO) 17:44: at [place] 10 mg 16 bedtime. Medical tablet Branch ibandronate 2014-03 Yes 150mg Take 150 U nivers (BONIVA) 2-10 mg by ity of 150 mg 17:44: mouth once [place] tablet 16 every Medical month. Branch MULTIVIT-FL 2014-03 Yes Take by Uni vers N/FA/CA 2-10 mouth. ity of CARB/VIT K 17:44: [place] (ONE-A-DAY 16 Medical WOMEN'S 50+ Branch ORAL) bromfenac 2014-[address] in [facility] ers (PROLENSA) 2-10 left eye. ity of 0.07 % Drop 17:44: [place] [address] Medical Branch QUEtiapine 2014-03 Yes 50mg Take 50 mg U nivers (SEROQUEL) 2-10 by mouth ity o f 50 mg 17:44: at [place] tablet 16 bedtime. Medical Branch cycloSPORIN 2014-03 Yes 1[drp] Place 1 U nivers E 2-10 Drop in ity of (RESTASIS) 17:44: [place] eyes [place] 0.05 % 16 every 12 Medical drops (twelve) Branch hours. rOPINIRole 2014-03 Yes 3mg Take 3 mg Un kayla (REQUIP) 3 2-10 by mouth 4 ity of mg tablet 17:44: (four) [place] [address] times Medical daily. Branch ARIPiprazol 2014-03 Yes 5mg Take 5 mg U nivers e (ABILIFY) 2-10 by mouth ity of 5 mg tablet 17:44: at [place] 16 bedtime. Medical Branch aspirin 81 2014-03 Yes 81mg Take 81 mg U nivers mg chewable 2-10 by mouth ity of tablet 17:44: daily. [place] [address] Medical Branch benztropine 2014-03 Yes .5mg Take 0.5 Un kayla (COGENTIN) 2-10 mg by ity of 0.5 mg 17:44: mouth 2 [place] tablet 16 (two) Medical times Branch daily. CALCIUM 2014-03 Yes Take by Univers CARBONATE/V 2-10 mouth 2 ity o f ITAMIN D3 17:44: (two) [place] (CALCIUM 16 times Medical 500 + D, daily. Branch D3, ORAL) carvedilol 2014-03 Yes 3.125mg Take 3.125 Univers (COREG) 2-10 mg by ity of 3.125 mg 17:44: mouth 2 [place] tablet 16 (two) Medical times Branch daily with meals. docusate 2014-03 Yes 100mg Take 100 Univ ers (COLACE) 2-10 mg by ity of 100 mg 17:44: mouth 2 [place] capsule 16 (two) Medical times Branch daily. DULoxetine 2014-03 Yes 30mg Take 30 mg U nivers (CYMBALTA) 2-10 by mouth ity o f 30 mg 17:44: daily. [place] capsule Medical Branch escitalopra 2014-03 Yes 10mg Take 10 mg Univers m oxalate 2-10 by mouth ity of (LEXAPRO) 17:44: at [place] 10 mg 16 bedtime. Medical tablet Branch ibandronate 2014-03 Yes 150mg Take 150 U nivers (BONIVA) 2-10 mg by ity of 150 mg 17:44: mouth once [place] tablet 16 every Medical month. Branch MULTIVIT-FL 2014-03 Yes Take by Uni vers N/FA/CA 2-10 mouth. ity of CARB/VIT K 17:44: [place] (ONE-A-DAY 16 Medical WOMEN'S 50+ Branch ORAL) bromfenac 2014-[address] in Univ ers (PROLENSA) 2-10 left eye. ity of 0.07 % Drop 17:44: [place] [address] Medical Branch QUEtiapine 2014-03 Yes 50mg Take [...] ity of 5 mg tablet 17:44: at [place] 16 bedtime. Medical Branch aspirin 81 2014-03 Yes 81mg Take 81 mg U nivers mg chewable 2-10 by mouth ity of tablet 17:44: daily. [place] [address] Medical Branch benztropine 2014-03 Yes .5mg Take 0.5 Un kayla (COGENTIN) 2-10 mg by ity of 0.5 mg 17:44: mouth 2 [place] tablet 16 (two) Medical times Branch daily. CALCIUM 2014-03 Yes Take by Univers CARBONATE/V 2-10 mouth 2 ity o f ITAMIN D3 17:44: (two) [place] (CALCIUM 16 times Medical 500 + D, daily. Branch D3, ORAL) carvedilol 2014-03 Yes 3.125mg Take 3.125 Univers (COREG) 2-10 mg by ity of 3.125 mg 17:44: mouth 2 [place] tablet 16 (two) Medical times Branch daily with meals. docusate 2014-03 Yes 100mg Take 100 Univ ers (COLACE) 2-10 mg by ity of 100 mg 17:44: mouth 2 [place] capsule 16 (two) Medical times Branch daily. DULoxetine 2014-03 Yes 30mg Take 30 mg U nivers (CYMBALTA) 2-10 by mouth ity o f 30 mg 17:44: daily. [place] capsule Medical Branch escitalopra 2014-03 Yes 10mg Take 10 mg Univers m oxalate 2-10 by mouth ity of (LEXAPRO) 17:44: at [place] 10 mg 16 bedtime. Medical tablet Branch ibandronate 2014-03 Yes 150mg Take 150 U nivers (BONIVA) 2-10 mg by ity of 150 mg 17:44: mouth once [place] tablet 16 every Medical month. Branch MULTIVIT-FL 2014-03 Yes Take by Uni vers N/FA/CA 2-10 mouth. ity of CARB/VIT K 17:44: [place] (ONE-A-DAY 16 Medical WOMEN'S 50+ Branch ORAL) bromfenac 2014-[address] in [facility] ers (PROLENSA) 2-10 left eye. ity of 0.07 % Drop 17:44: [address] Branch QUEtiapine 2014-03 Yes 50mg Take [...] 4 ity of mg tablet 17:44: (four) [place] 16 times Medical daily. Branch ARIPiprazol 2014-03 Yes 5mg Take 5 mg U nivers e (ABILIFY) 2-10 by mouth ity of 5 mg tablet 17:44: at [place] [address] bedtime. Medical Branch aspirin 81 2014-03 Yes 81mg Take 81 mg U nivers mg chewable 2-10 by mouth ity of tablet 17:44: daily. [address] Branch benztropine 2014-03 Yes .5mg Take 0.5 Un kayla (COGENTIN) 2-10 mg by ity of 0.5 mg 17:44: mouth 2 [place] tablet 16 (two) Medical times Branch daily. CALCIUM 2014-03 Yes Take by Univers CARBONATE/V 2-10 mouth 2 ity o f ITAMIN D3 17:44: (two) [place] (CALCIUM 16 times [facility] 500 + D, daily. Branch D3, ORAL) carvedilol 2014-03 Yes 3.125mg Take 3.125 Univers (COREG) 2-10 mg by ity of 3.125 mg 17:44: mouth 2 [place] tablet 16 (two) Medical times Branch daily with meals. docusate 2014-03 Yes 100mg Take 100 Univ ers (COLACE) 2-10 mg by ity of 100 mg 17:44: mouth 2 [place] capsule 16 (two) Medical times Branch daily. DULoxetine 2014-03 Yes 30mg Take 30 mg U nivers (CYMBALTA) 2-10 by mouth ity o f 30 mg 17:44: daily. [place] [address] Medical Branch escitalopra 2014-03 Yes 10mg Take 10 mg Univers m oxalate 2-10 by mouth ity of (LEXAPRO) 17:44: at [place] 10 mg 16 bedtime. Medical tablet Branch ibandronate 2014-03 Yes 150mg Take 150 U nivers (BONIVA) 2-10 mg by ity of 150 mg 17:44: mouth once [place] tablet 16 every Medical month. Branch MULTIVIT-FL 2014-03 Yes Take by Uni vers N/FA/CA 2-10 mouth. ity of CARB/VIT K 17:44: [place] (ONE-A-DAY 16 Medical WOMEN'S 50+ Branch ORAL) bromfenac 2014-[address] in [facility] ers (PROLENSA) 2-10 left eye. ity of 0.07 % Drop 17:44: [place] [address] Medical Branch QUEtiapine 2014-03 Yes 50mg Take 50 mg U nivers (SEROQUEL) 2-10 by mouth ity o f 50 mg 17:44: at [place] tablet 16 bedtime. Medical Branch cycloSPORIN 2014-03 Yes 1[drp] Place 1 U nivers E 2-10 Drop in ity of (RESTASIS) 17:44: [place] eyes [place] 0.05 % 16 every 12 Medical drops (twelve) Branch hours. rOPINIRole 2014-03 Yes 3mg Take 3 mg Un kayla (REQUIP) 3 2-10 by mouth 4 ity of mg tablet 17:44: (four) [place] 16 times Medical daily. Branch ARIPiprazol 2014-03 Yes 5mg Take 5 mg U nivers e (ABILIFY) 2-10 by mouth ity of 5 mg tablet 17:44: at [place] 16 bedtime. Medical Branch aspirin 81 2014-03 Yes 81mg Take 81 mg U nivers mg chewable 2-10 by mouth ity of tablet 17:44: daily. [place] [address] Medical Branch benztropine 2014-03 Yes .5mg Take 0.5 Un kayla (COGENTIN) 2-10 mg by ity of 0.5 mg 17:44: mouth 2 [place] tablet 16 (two) Medical times Branch daily. CALCIUM 2014-03 Yes Take by Univers CARBONATE/V 2-10 mouth 2 ity o f ITAMIN D3 17:44: (two) [place] (CALCIUM 16 times Medical 500 + D, [...] [place] tablet 16 every Medical month. Branch MULTIVIT-FL 2014-03 Yes Take by Uni vers N/FA/CA 2-10 mouth. ity of CARB/VIT K 17:44: [place] (ONE-A-DAY 16 Medical WOMEN'S 50+ Branch ORAL) bromfenac 2014-[address] in Univ ers (PROLENSA) 2-10 left eye. ity of 0.07 % Drop 17:44: [place] [address] Medical Branch QUEtiapine 2014-03 Yes 50mg Take [...] 18:41:00 120 mm[Hg] Univer sity of pressure [facility] Diastolic blood 2020-11-13 18:41:00 79 mm[Hg] Unive rsity of [facility] Heart rate 2020-11-13 18:41:00 71 /min [facility] Respiratory rate 2020-11-13 18:41:00 20 /min Univ ersity of [facility] Body height 2020-11-13 18:41:00 147.3 cm [facility] Body weight 2020-11-13 18:41:00 61.236 kg [facility] BMI 2020-11-13 18:41:00 28.22 kg/m2 [facility] Oxygen saturation in 2020-11-13 18:41:00 93 /min [facility] Arterial blood by [facility] Pulse oximetry Branch Respiratory rate 2020-10-16 19:35:00 20 /min Univ ersity of [facility] Body weight 2020-10-16 19:35:00 61.236 kg Universi ty of [place] [facility] BMI 2020-10-16 19:35:00 28.22 kg/m2 [facility] ty [facility] [place] [facility] Systolic blood 2020-08-02 15:33:00 155 mm[Hg] Univer sity of pressure [place] [facility] Diastolic blood 2020-08-02 15:33:00 79 mm[Hg] Unive rsity of pressure [facility] Branch Heart rate 2020-08-02 15:31:00 71 /min [facility]i ty of [place] [facility] Body height 2020-08-02 15:31:00 147.3 cm [facility] [place] [facility] Body weight 2020-08-02 15:31:00 61.236 kg Universi ty of [place] [facility] BMI 2020-08-02 15:31:00 28.22 kg/m2 Universi ty of [facility] Branch Systolic blood 2020-07-15 19:58:00 149 mm[Hg] Univer sity of pressure [facility] Branch Diastolic blood 2020-07-15 19:58:00 77 mm[Hg] Unive rsity of pressure [facility] Branch Heart rate 2020-07-15 19:55:00 72 /min [facility] [place] [facility] Body weight 2020-07-15 19:55:00 60.782 kg [facility] [place] [facility] BMI 2020-07-15 19:55:00 27.06 kg/m2 Universi ty of [facility] Branch Systolic blood 2020-05-17 15:52:00 131 mm[Hg] Univer sity of pressure [facility] Branch Diastolic blood 2020-05-17 15:52:00 75 mm[Hg] Unive rsity of pressure [facility] Branch Body height 2020-05-17 15:48:00 149.9 cm [facility] [place] [facility] Body weight 2020-05-17 15:48:00 61.236 kg [facility] [place] [facility] BMI 2020-05-17 15:48:00 27.27 kg/m2 Universi ty of [facility] Branch Systolic blood 2019-11-01 19:59:00 137 mm[Hg] Univer sity of pressure [facility] Branch Diastolic blood 2019-11-01 19:59:00 80 mm[Hg] Unive rsity of pressure [place] [facility] Heart rate 2019-11-01 19:59:00 80 /min [facility] [place] [facility] Body height 2019-11-01 19:51:00 149.9 cm [facility] [place] [facility] Body weight 2019-11-01 19:51:00 61.236 kg stated [facility] [place] [facility] BMI 2019-11-01 19:51:00 27.27 kg/m2 [facility] [place] [facility] Systolic blood 2019-11-01 19:59:00 137 mm[Hg] Univer sity of pressure [place] [facility] Diastolic blood 2019-11-01 19:59:00 80 mm[Hg] Unive rsity of pressure [place] [facility] Heart rate 2019-11-01 19:59:00 80 /min [facility] [place] [facility] Body height 2019-11-01 19:51:00 149.9 cm [facility] [place] [facility] Body weight 2019-11-01 19:51:00 61.236 kg stated [facility] [place] [facility] BMI 2019-11-01 19:51:00 27.27 kg/m2 [facility] [place] [facility] Procedures Procedure Date / Time Performed Performing Clinician [facility] e EXTERNAL PROVIDER 2021-04-15 06:01:00 Doctor Unassigned, No Univ ersity of [place] RECORDS Name Medical Branch [id number] 2021-03-03 00:00:00 [facility] MEDICAL 2020-11-27 05:01:00 Doctor Unassigned, No Univer sity [...] 2020-08-02 15:30:41 Desiree Larios [facility] [place] [facility] XR HAND <3 VW LEFT 2020-08-02 15:30:40 Desiree Larios [facility] [place] [facility] MEDICAL 2020-01-15 05:01:00 Doctor Unassigned, [...] Planned Date Details Comments Source Future Scheduled 2021-09-24 COVID-19 Vaccination Uni versity of [place] Test 04:12:24 (#1) [code = COVID-19 MD [facility] Vaccination (#1)] Center Encounters Start End Encounter Admission Attending Care Care Encounter Source Date/Time Date/Time Type Type Clinicians Facility Department ID 2021-04-24 Outpatient [facility] [id number] 18:39:06 Papito ma 2021-04-24 Outpatient [facility] [id number] 18:39:06 Papito ma 2019-09-14 Outpatient [facility] Tommy/Hep/Nu [id number] 06:51:13 TAHIRA ma 2021-04-15 2021-04-15 Orders Doctor SHEIKH 1.2.840.114 [id number] [facility] 00:00:00 00:00:00 Only Unassigned, [place] [id number] ity of [place] [facility] 4.2.7.2.686 Burt as [phone] [place] [address] Branch 2021-03-03 2021-03-05 Inpatient EL Stocks, HCATO ADMI [id number] [facility] 08:35:00 13:36:00 Gavin [id number] [place] [facility] 2021-03-03 2021-03-05 Inpatient EL Stocks, HCATO ADMI [id number] [facility] 08:35:00 13:36:00 Gavin Recio [place] [facility] 2021-02-18 2021-02-18 Outpatient EL Stocks, HCATO 3DAY [id number] [facility] 09:00:00 23:00:00 Gavin [id number] [place] [facility] 2021-02-18 2021-02-18 Outpatient PADILLA Levy [id number] [facility] 19:00:00 19:00:00 Gavin [id number] [facility] 2020-11-27 2020-11-27 Orders Doctor AGUILAR 1.2.840.114 [id number] Univers 00:00:00 00:00:00 Only Unassigned, [place] [id number] ity of [place] [facility] 4.2.7.2.686 B[place] as [id number] [address] 2020-11-13 2020-11-13 [facility] [id number] Univers 13:30:34 14:09:00 Visit [facility] [id number] it y of [place] 4.2.7.2.686 Burt as Jessee?Blea [phone] Wi dical [address] Medical Office Building 2020-11-13 2020-11-13 [facility] [id number] Univers 13:15:00 13:15:00 DESIREE [id number] ity [facility] 2020-11-13 2020-11-13 [facility] [id number] Univers 13:15:00 13:15:00 DESIREE ity [facility] 2020-11-11 2020-11-11 Letter Doctor AGUILAR 1.2.840.114 [id number] Univers 00:00:00 00:00:00 (Out) Unassigned, [place] [id number] ity of [place] [facility] 4.2.7.2.686 [place] as [phone] [address] 2020-11-11 2020-11-11 Letter Doctor AGUILAR 1.2.840.114 [id number] Univers 00:00:00 00:00:00 (Out) Unassigned, [place] [id number] ity of [place] [facility] 4.2.7.2.686 B[place] as [id number] [address] 2020-11-07 2020-11-07 Telephone Ric [facility] 1.2.840.114 [id number] Univers 00:00:00 00:00:00 Desiree Rowe 350.1.13.10 it y of Surgical 4.2.7.2.686 [place] as Specialti [phone] Wi dical es 198 [facility] 2020-10-16 2020-10-16 [facility] [id number] Univers 14:32:41 14:55:40 Visit Desiree Rowe 350.1.13.10 it y of Surgical 4.2.7.2.686 [place] as Specialti [phone] Wi dical es 198 [facility] 2020-10-16 2020-10-16 [facility] [id number] Univers 14:45:00 14:45:00 DESIREE [id number] ity [facility] 2020-10-16 2020-10-16 [facility] [id number] Univers 14:45:00 14:45:00 [facility]-10-[facility] 2020-10-16 Orders Doctor SHEIKH 1.2.840.114 [id number] Univers 00:00:00 00:00:00 Only Unassigned, [place] 350.1.13.10 ity of [place] [facility] 4.2.7.2.686 Burt as [phone] [address] 2020-09-25 2020-09-25 Orders Doctor SHEIKH 1.2.840.114 [id number] Univers 00:00:00 00:00:00 Only Unassigned, [place] 350.1.13.10 ity of [place] [facility] 4.2.7.2.686 B[place] as [id number] [address] 2020-09-04 2020-09-04 Orders Doctor SHEIKH 1.2.840.114 [id number] Univers 00:00:00 00:00:00 Only Unassigned, [place] 350.1.13.10 ity of [place] [facility] 4.2.7.2.686 Burt as [phone] [address] 2020-08-05 2020-08-05 [facility] [id number] Univers 13:30:00 13:30:00 DESIREE [id number] ity of [facility] 2020-08-02 2020-08-02 [facility] 1.2.840.114 [id number] Univers 10:30:41 23:59:00 Encounter Desiree Rowe 350.1.13.10 ity of Surgical 4.2.7.2.686 [place] as Specialti [phone] Me dical es 809 [facility] 2020-08-02 2020-08-02 [facility] 1.2.840.114 [id number] Univers 10:30:40 23:59:00 Encounter Desiree [facility] 350.1.13.10 ity of Surgical 4.2.7.2.686 [place] as Specialti [phone] Wi dical es 809 [facility] 2020-08-02 2020-08-02 Office [facility] [id number] [id number] Univers 10:23:58 10:57:05 Visit Desiree Rowe 350.1.13.10 it y of Surgical 4.2.7.2.686 [place] as Specialti [id number] Me dical es 198 [facility] 2020-08-02 2020-08-02 [facility] [id number] Univers 10:30:00 10:30:00 DESIREE [id number] ity of [facility] 2020-08-02 2020-08-02 [facility] [id number] Univers 10:30:00 10:30:00 DESIREE ity of [facility] 2020-07-15 2020-07-15 [facility] 1.2.840.114 [id number] Univers 15:20:13 23:59:00 Encounter Desiree [facility] 350.1.13.10 ity of Surgical 4.2.7.2.686 [place] as Specialti [phone] Me dical es 809 [facility] 2020-07-15 2020-07-15 [facility] 1.2.840.114 [id number] Univers 15:20:12 23:59:00 Encounter Desiree [facility] [id number] ity of Surgical 4.2.7.2.686 [place] as Specialti [phone] Wi dical es 809 [facility] 2020-07-15 2020-07-15 [facility] [id number] Univers 14:45:06 15:29:11 Visit Desiree [facility] 350.1.13.10 it y of Surgical 4.2.7.2.686 [place] as Specialti [id number] Wi dical es 198 [facility] 2020-07-15 2020-07-15 [facility] [id number] Univers 14:45:00 14:45:00 DESIREE [id number] [facility] 2020-07-15 2020-07-15 [facility] [id number] Univers 14:45:00 14:45:00 [facility] 2020-05-17 2020-05-17 Office [facility] [id number] Univers 09:44:09 10:14:20 Visit Desiree [facility] 350.1.13.10 it y of Surgical 4.2.7.2.686 [place] as Specialti [phone] Wi dical es 198 [facility] 2020-05-17 2020-05-17 [facility] [id number] Univers 09:45:00 09:45:00 [facility]IREE [id number] [facility] 2020-05-17 2020-05-17 [facility] [id number] Univers 09:45:00 09:45:00 [facility] 2020-01-15 2020-01-15 Orders Doctor SHEIKH 1.2.840.114 [id number] Univers 00:00:00 00:00:00 Only Unassigned, [place] 350.1.13.10 ity of [place] [facility] 4.2.7.2.686 Burt as [id number] [address] 2020-01-15 2020-01-15 Orders Doctor SHEIKH 1.2.840.114 [id number] 00:00:00 00:00:00 Only Unassigned, [place] 350.1.13.10 [place] [facility] 4.2.7.2.686 [id number] 2019-12-13 2019-12-13 [facility] 1.2.840.114 [id number] 00:00:00 00:00:00 [facility] 350.1.13.10 Surgical 4.2.7.2.686 Specialti [phone] es [address] [place] 2019-12-13 2019-12-13 [facility] 1.2.840.114 [id number] Univers 00:00:00 00:00:00 [facility] 350.1.13.10 it y of Surgical 4.2.7.2.686 [place] as Specialti [id number] Wi dical es 198 [facility] 2019-12-04 2019-12-04 Outpatient MDA MDA [id number] MD 00:00:00 00:00:00 Aashish ma 2019-11-09 2019-11-09 Orders Doctor AGUILAR 1.2.840.114 [id number] 00:00:00 00:00:00 Only Unassigned, [place] 350.1.13.10 [place] [facility] 4.2.7.2.686 [id number] 2019-11-09 2019-11-09 Orders Doctor AGUILAR 1.2.840.114 [id number] [facility] 00:00:00 00:00:00 Only Unassigned, [place] 350.1.13.10 ity of [place] [facility] 4.2.7.2.686 B[place] as [id number] [address] 2019-11-01 2019-11-01 [facility] 1.2.840.114 [id number] Univers 15:11:43 23:59:00 Encounter Desiree [facility] 350.1.13.10 ity of Surgical 4.2.7.2.686 [place] as Specialti [phone] Wi dical es 809 [facility] 2019-11-01 2019-11-01 Office [facility] [id number] 14:43:31 15:28:43 Visit Desiree L [facility] 350.1.13.10 Surgical 4.2.7.2.686 Specialti [phone] es 198 [place] 2019-11-01 2019-11-01 [facility] 1[facility]2.556.246 [id number] Univers 14:43:31 15:28:43 Visit Desiree [facility] [id number] it y of Surgical [id number] Burt as Specialti [phone] Wi dical es 198 [facility] 2019-11-01 2019-11-01 [facility] [id number] Univers 15:00:00 15:00:00 DESIREE [id number] ity [facility] 2019-11-01 2019-11-01 [facility] [id number] Univers 15:00:00 15:00:00 DESIREE [facility] 2019-08-30 2019-08-30 [facility] [id number] Univers 15:30:00 15:30:00 DESIREE [facility] 2019-08-30 2019-08-30 [facility] [id number] Univers 15:30:00 15:30:00 [facility] 2019-07-09 2019-07-09 [facility] [id number] Univers 00:00:00 00:00:00 Svetlana [facility] [id number] it y of Surgical [id number] Burt as Specialti [phone] Wi dical es 198 [facility] 2019-06-15 2019-06-15 [facility]ici [facility] [id number] Univers 13:17:07 13:55:44 ne Visit Svetlana [facility] [id number] i ty of Surgical [id number] Burt as Specialti [phone] Wi dical es 198 [facility] 2019-06-15 2019-06-15 [facility] [id number] Univers 13:15:00 13:15:00 SVETLANA [id number] [facility] 2019-06-15 2019-06-15 Outpatient R LUIZ [facility] [id number] Univers 13:15:00 13:15:00 SVETLANA ity [facility] 2019-06-14 2019-06-14 Telephone [facility] [id number] Univers 00:00:00 00:00:00 Desiree [facility] [id number] it y of Surgical 4.2.7.2.686 Burt as Specialti [phone] Wi dical [address] 2019-06-07 2019-06-07 [facility] [id number] Univers 13:30:00 13:30:00 DESIREE [id number] ity [facility] 2019-06-07 2019-06-07 [facility] [id number] Univers 13:30:00 13:30:00 DESIREE ity [facility] 2019-06-05 2019-06-05 [facility] [id number] Univers 15:45:00 15:45:00 DESIREE [id number] ity [facility] 2019-06-05 2019-06-05 [facility] [id number] Univers 15:45:00 15:45:00 DESIREE [facility] 2019-05-22 2019-05-22 Orders Doctor SHEIKH [id number] [id number] Univers 00:00:00 00:00:00 Only Unassigned, [place] 350.1.13.10 ity of [place] [facility] 4.2.7.2.686 Burt as [phone] [address] 2019-04-26 2019-04-26 Orders Doctor SHEIKH 1.2.840.114 [id number] Univers 00:00:00 00:00:00 Only Unassigned, [place] [id number] ity of [place] [facility] 4.2.7.2.686 Burt as [phone] [address] 2019-04-03 2019-04-03 Orders Doctor SHEIKH 1.2.840.114 [id number] Univers 00:00:00 00:00:00 Only Unassigned, [place] 350.1.13.10 ity of [place] [facility] 4.2.7.2.686 Burt as [phone] [place] [address] [address] 2019-03-23 2019-03-23 Outpatient O RIC, [facility] [id number] [facility] 10:46:59 23:59:00 DESIREE efejanet [facility] Results Test Description Test Time Test [...] RATE 57.6 >60 U nit of measure: mL/min/1.73 (test code = GFR) [id number] Range:Healthy Adults >90 mL/m in/1.73 m2 For Chronic Kidney Disease: Stage II Mild Decreas e in GFR 60-90 Stage III Moder ate Decrease in GFR 30-59 St age IV Severe Decrease in GFR 15-29 Stage V Kidney Failure <15 CREATININE (test code = CREAT) 0.93 mg/dL 0.55-1.30 N CALCIUM (test code = CA) 7.8 mg/dL 8.2-10.1 L SPECIMEN COMMENT: POD #1HGB [id number] 06:15:00 Test Item Value Reference Range Interpretation Comments HEMOGLOBIN (test code = HGB) 10.5 g/dL 12-16 L HEMATOCRIT (test code = HCT) 33.2 % 37-47 L SPECIMEN COMMENT: POD #1VITAMIN D 25-HYDROXY (TOTAL)2021-02-19 07:05:00 Test Item Value Reference Range Interpretation Comments VITAMIN D 45.2 ng/mL 30.0-100.0 Vitamin D defic iency has 25-HYDROXY (TOTAL) been defi kimberlyn by the (test code = [place] ofMed icine and VITD25) an Endocrine So ciety practice guidel ine as alevel of serum 25-OH vitamin D less than 20 ng/mL (1,2).The Endocrine Society went on to further define vitamin Dinsufficiency as a level between 21 and 29 ng/mL (2).1. IOM (Ins titute of Medicine). 2010 . Dietary reference intak es for calcium and D. Merc[place]: The [employer] .2. Arelis MINOR, Bryon ORTIZ, Danilo freeman BRAUN, et al. Evaluation, treatment, and prevention of vitamin D de ficiency: an Endocrine So [facility] clinical practi ce guideline. JCEM . 2010; 96):1911-30.P erformed At: [facility] [id number] [place], [place] [id number] Esvin Knight MD Ph:[phone] COMPREHENSIVE METABOLIC [id number] 18:29:00 Test Item Value Reference Range Interpretation [...] RATE (test code = GFR) mL/mi n/1.73 [id number] Range:Healthy Adults >90 mL/min/1.73 m2 For Chronic Kidney Disease: Stage II Mild Decrease i n GFR 60-90 Stage III Moderate Decrea se in GFR 30-59 St age IV Severe Decre ase in GFR 15-29 St age V Kidney Failur e <15 CREATININE (test code 0.83 mg/dL 0.55-1.30 [...] TOTAL (test code = ALKP) CBC W/AUTO [id number] 17:51:00 Test Item Value Reference Range Interpretation [...] % 0-0 N code = NRBC) PROTHROMBIN [id number] 17:51:00 Test Item Value Reference Range Interpretation Comments PROTHROMBIN TIME 11.0 secs 10.1-12.5 N PATIENT (test code = PTP) INTERNATIONAL NORMAL 0.96 <2.0 RECOMME NDED THERAPEUTIC RATIO (test code = RANGE FOR ORAL INR) ANTICOAGULANTTR EATMENT: CONDITION INRPr ophylaxis of venous throm bosis in 2.0 - 3.0 high- risk medical or surg ical patientsTreatme nt of venous thrombos is 2.0 - 3.0Prevention o f embolism 2.0 - 3.0Prevention o f recurrent embol ism, or 3.0 - 4.5 patie nts with mechanical pros thetic intravascular v fairchild IS PATIENT ON ANTICOAGULANTS ? [facility] been notified if Patient is on Heparin Drip? NOIf Yes, orderCBC, OCCULT BLOOD, PT every other day NTHROMBOPLASTIN TIME [id number] 17:51:00 Test Item Value Reference Range Interpretation Comments PTT ACTIVATED (test code = APTT) 32.5 secs 24.9-37.0 N IS PATIENT ON ANTICOAGULANTS ? [facility] been notified if Patient is on Heparin Drip? NOIf Yes, orderCBC, OCCULT BLOOD, PT every other day NXR HAND <3 VW [id number] 16:40:53Fracture in acceptable [facility]UnP[facility] CenterXR KNEE <3 VW [id number] 16:40:31Fracture healing well [facility]
--- NOTE | 2021-10-22 08:04 | RAD REPORT ---
EXAM DESCRIPTION: CT - Head C Spine Cap Wo Con - 10/22/2021 7:38 am CLINICAL HISTORY: Head and neck injury with chest and abdominal pain status post fall TECHNIQUE: Computed axial tomography of head, neck, chest, abdomen and pelvis obtained. IV and oral contrast not requested. Coronal and sagittal reconstruction performed. All CT scans are performed using dose optimization technique as appropriate and may include automated exposure control or mA/KV adjustment according to patient size. COMPARISON: 2018, 2020 and 2021 FINDINGS: An intracranial bleed is not seen. The ventricles are normal in caliber. An extra-axial fluid collection is not noted. . Fluid within the sinuses/mastoids is not seen. A cervical fracture is not seen. No dislocation is noted. Mild anterior subluxation C3 on C4 unchange d. . Spondylosis The evaluation of mediastinum, laney, vessels, solid organs and bowel are limited secondary to the lac k of contrast administration. A mediastinal hematoma is not noted. A pleural effusion is not seen. A lung contusion is not present. 17 millimeter left upper lobe opacity. The liver,spleen, pancreas, adrenals,kidneys and bladder do not demonstrate a traumatic injury Marked right hydronephrosis. Proximal and mid right ureter are dilated. Right ureter is narrowed as i t crosses right common iliac artery. Right renal cortical thinning. No significant change since prior exam. Calcified fibroid uterus. Old pelvic fractures. Mild chronic anterior subluxation L5 on S1. Spondylolysis L5 IMPRESSION: No acute intracranial abnormality is seen. A cervical fracture is not visualized. If the patient continues have symptoms to suggest intracrania l/spinal cord pathology MRI be recommended No traumatic abnormality involving the chest/abdomen/pelvis. 17 millimeter left upper lobe opacity probably infectious or inflammatory. As neoplasm can have this appearance it is recommended that the patient have a followup CT chest in 3 months for re-evaluation
--- NOTE | 2021-10-22 08:34 | RAD REPORT ---
EXAM DESCRIPTION: Carey Single View10/22/2021 8:28 am CLINICAL HISTORY: Chest pain COMPARISON: 2018 FINDINGS: A small left upper lobe opacity seen on the CT chest same date is not as well depicted on this exam. Refer to the CT report for recommendation Remainder of the lungs appear clear of acute infiltrate. Heart is mildly enlarged
[2021-10-22 09:56] VITALS: TEMP 97.5
[2021-10-22 09:59] VITALS: BP 118/69; O2SAT 95
--- NOTE | 2021-10-22 10:48 | ER ---
Nurse's Notes [facility] Name: Ember Meade Age: 81 yrs Sex: Female : 1940 Arrival Date: 10/22/2021 Time: 06:57 Bed 6 Private MD: Diagnosis: Fall on same level, unspecified;Contusion of other part of head-frontal;Abnormal findings on diagnostic imaging of other specified body structures-17 mm left upper lobe opacity Presentation: 10/22 07:02 Chief complaint: Patient states: tripped and fell in bathroom witnessed fall negative kl LOC. Coronavirus screen:. Initial Sepsis Screen: Does the patient meet any 2 criteria? RR > 20 per min. No. Patient's initial sepsis screen is negative. Does the patient have a suspected source of infection? No. Patient's initial sepsis screen is negative. Risk Assessment: Do you want to hurt yourself or someone else? Patient reports no desire to harm self or others. Onset of symptoms was October 22, 2021 at 06:30. 07:02 Method Of Arrival: EMS: [facility] 07:02 Acuity: SANT[facility] 3 kl 07:30 Ebola Screen: Patient negative for fever greater than or equal to 101.5 degrees em6 Fahrenheit, and additional compatible Ebola Virus Disease symptoms Patient denies exposure to infectious person. Patient denies travel to an Ebola-affected area in the 21 days before illness onset. Triage Assessment: 07:04 General: Appears in no apparent distress. Behavior is calm, cooperative. Pain: kl Complains of pain in forehead. Derm: redness to right forehead and left knee. Historical: - Allergies: 07:16 NKA; jd3 - Home Meds: 07:16 alendronate 70 mg oral tab once wkly [Active]; aripiprazole 5 mg oral tab 1 tab once jd3 daily [Active]; alprazolam 0.25 mg Oral tab 1 tab daily [Active]; aspirin 81 mg Oral cap 1 cap once daily [Active]; benztropine 0.5 mg Oral tab 1 tab once daily [Active]; carvedilol 12.5 mg oral tab 1 tab daily [Active]; Centrum Chewables oral daily [Active]; [place] Calcium-Vitamin D3 200 mg-6.25 mcg (250 unit) oral tab daily [Active]; duloxetine 30 mg oral cpDR 1 cap once daily [Active]; Restasis 0.05 % ophthalmic (eye) dpet daily [Active]; ropinirole 3 mg oral tab 1 tab daily [Active]; trazodone 50 mg Oral tab 1 tab once daily [Active]; acetaminophen 500 mg Oral tab 1 tabs as needed [Active]; alprazolam 0.25 mg Oral tab 1 tab as needed [Active]; Nyamyc 100,000 unit/gram topical powd as needed [Active]; - PMHx: 07:16 Anemia; Depression; Esophagitis; Hypertension; Schizophrenia; jd3 - PSHx: 07:16 Left knee replacement; jd3 - Immunization history:: Adult Immunizations unknown. - Social history:: Smoking status: unknown. - Family history:: not pertinent. Screenin:30 Abuse screen: Denies threats or abuse. Nutritional screening: No deficits noted. em6 Tuberculosis screening: No symptoms or risk factors identified. 07:30 Fall Risk Fall in past 12 months (25 points). No secondary diagnosis (0 pts). No IV (0 em6 pts). Ambulatory Aid- None/Bed Rest/Nurse Assist (0 pts). Gait- Normal/Bed Rest/Wheelchair (0 pts) Mental Status- Oriented to own ability (0 pts). Total Velasquez Fall Scale indicates No Risk (0-24 pts). Assessment: 07:15 General: Appears in no apparent distress. comfortable, Behavior is calm, cooperative. em6 Pain: Denies pain. Neuro: Aguilar Agitation-Sedation Scale (RASS): 0 - Alert and Calm Level of Consciousness is awake, alert, obeys commands, Oriented to person, place, time, situation, Speech is normal, Pupils are PERRLA, Reports dizziness, Denies blurred vision headache. Cardiovascular: Heart tones present Capillary refill < 3 seconds Patient's skin is warm and dry. Chest pain is denied. Respiratory: Airway is patent Respiratory effort is even, unlabored, Respiratory pattern is regular, symmetrical, Breath sounds are clear bilaterally. GI: No signs and/or symptoms were reported involving the gastrointestinal system. : No signs and/or symptoms were reported regarding the genitourinary system. EENT: No signs and/or symptoms were reported regarding the EENT system. Derm: Bruising that is small purple/red bruising noted on the right forehead.. 07:15 Musculoskeletal: Circulation, motion, and sensation intact. em6 08:08 Reassessment: patient refused blood work. provider notified. no new orders.. em6 08:58 Reassessment: Patient and/or family updated on plan of care and expected duration. Pain jd3 level reassessed. Patient is alert, oriented x 3, equal unlabored respirations, skin warm/dry/pink. Patient states feeling better. Vital Signs: 07:02 BP 113 / 69; Pulse 67; Resp 20; Temp 97.5(O); Pulse Ox 99% ; kl 08:15 BP 118 / 69; Pulse 72; Resp 15; Pulse Ox 95% on R/A; Pain 0/10; em6 Shabbir Coma Score: 08:25 Eye Response: spontaneous(4). Verbal Response: oriented(5). Motor Response: obeys alicia commands(6). Total: 15. 08:32 Eye Response: spontaneous(4). Verbal Response: oriented(5). Motor Response: obeys alicia commands(6). Total: 15. ED Course: 06:57 Patient arrived in ED. mw2 07:04 Triage completed. kl 07:14 Kevin Rosado, RN is Primary Nurse. jd3 07:14 Arm band placed on. jd3 07:18 Elan Montgomery MD is Attending Physician. alicia 07:30 Patient has correct armband on for positive identification. Bed in low position. Call em6 light in reach. Side rails up X2. Adult w/ patient. Pulse ox on. NIBP on. Warm blanket given. 07:40 CT Traumagram (Head C Spine CAP wo con) In Process Unspecified. EDMS 08:31 Chest Single View In Process Unspecified. EDMS 08:34 Bert Shay MD is Referral Physician. alicia 08:38 Yoshi Harrington MD is Referral Physician. alicia 08:58 No provider procedures requiring assistance completed. Patient did not have IV access jd3 during this emergency room visit. Administered Medications: 08:10 Not Given (Patient Refused): NS 0.9% 500 ml IV at bolus once em6 Medication: 07:30 VIS not applicable for this client. em6 Outcome: 08:37 Discharge ordered by . alicia 08:58 Discharged to home via wheelchair, with family. jd3 08:58 Condition: stable 08:58 Discharge instructions given to patient, family, Instructed on discharge instructions, follow up and referral plans. Demonstrated understanding of instructions, follow-up care. 08:58 Patient left the ED. jd3 Signatures: Dispatcher [employer] Elidia Griggs, RN RN Elan Rosa MD MD cha Davies, Jonathon, RN RN jd3 Dion Ramires 2 Jennifer Moctezuma RN RN em6
--- NOTE | 2021-10-22 10:48 | EDPHYS ---
Physician Documentation [facility] Name: Ember Meade Age: 81 yrs Sex: Female : 1940 Arrival Date: 10/22/2021 Time: 06:57 Bed 6 Private MD: ED Physician Elan Montgomery HPI: 10/22 08:25 This 81 yrs old Female presents to ER via EMS with complaints of fall in [facility] bathroom, hit head. 08:25 The patient or guardian reports abrasion, swelling, tenderness. The complaints affect [facility] the forehead. Context of injury: The problem was sustained at home. Onset: The symptoms/episode began/occurred just prior to arrival. Associated signs and symptoms: The patient has no apparent associated signs or symptoms. Details of fall: The patient fell from an upright position. Associated injuries: The patient sustained injury to the head. Severity of symptoms: At their worst the symptoms were very mild, in the emergency department the symptoms have resolved, and did so just prior to arrival. Historical: - Allergies: 07:16 NKA; jd3 - Home Meds: 07:16 alendronate 70 mg oral tab once wkly [Active]; aripiprazole 5 mg oral tab 1 tab once jd3 daily [Active]; alprazolam 0.25 mg Oral tab 1 tab daily [Active]; aspirin 81 mg Oral cap 1 cap once daily [Active]; benztropine 0.5 mg Oral tab 1 tab once daily [Active]; carvedilol 12.5 mg oral tab 1 tab daily [Active]; Centrum Chewables oral daily [Active]; Ziebach Calcium-Vitamin D3 200 mg-6.25 mcg (250 unit) oral tab daily [Active]; duloxetine 30 mg oral cpDR 1 cap once daily [Active]; Restasis 0.05 % ophthalmic (eye) dpet daily [Active]; ropinirole 3 mg oral tab 1 tab daily [Active]; trazodone 50 mg Oral tab 1 tab once daily [Active]; acetaminophen 500 mg Oral tab 1 tabs as needed [Active]; alprazolam 0.25 mg Oral tab 1 tab as needed [Active]; Nyamyc 100,000 unit/gram topical powd as needed [Active]; - PMHx: 07:16 Anemia; Depression; Esophagitis; Hypertension; Schizophrenia; jd3 - PSHx: 07:16 Left knee replacement; jd3 - Immunization history:: Adult Immunizations unknown. - Social history:: Smoking status: unknown. - Family history:: not pertinent. ROS: 08:25 Constitutional: Negative for fever, chills, and weight loss, Eyes: Negative for injury, alicia pain, redness, and discharge, ENT: Negative for injury, pain, and discharge, Neck: Negative for injury, pain, and swelling, Cardiovascular: Negative for chest pain, palpitations, and edema, Respiratory: Negative for shortness of breath, cough, wheezing, and pleuritic chest pain, Abdomen/GI: Negative for abdominal pain, nausea, vomiting, diarrhea, and constipation, Back: Negative for injury and pain, : Negative for injury, bleeding, discharge, and swelling, MS/Extremity: Negative for injury and deformity, Skin: Negative for injury, rash, and discoloration, Neuro: Negative for headache, weakness, numbness, tingling, and seizure, Psych: Negative for depression, anxiety, suicide ideation, homicidal ideation, and hallucinations, Allergy/Immunology: Negative for hives, rash, and allergies, Endocrine: Negative for neck swelling, polydipsia, polyuria, polyphagia, and marked weight changes, Hematologic/Lymphatic: Negative for swollen nodes, abnormal bleeding, and unusual bruising. Exam: 08:25 Constitutional: This is a well developed, well nourished patient who is awake, alert, alicia and in no acute distress. Head/Face: Normocephalic, atraumatic. Eyes: Pupils equal round and reactive to light, extra-ocular motions intact. Lids and lashes normal. Conjunctiva and sclera are non-icteric and not injected. Cornea within normal limits. Periorbital areas with no swelling, redness, or edema. ENT: Nares patent. No nasal discharge, no septal abnormalities noted. Tympanic membranes are normal and external auditory canals are clear. Oropharynx with no redness, swelling, or masses, exudates, or evidence of obstruction, uvula midline. Mucous membranes moist. Neck: Trachea midline, no thyromegaly or masses palpated, and no cervical lymphadenopathy. Supple, full range of motion without nuchal rigidity, or vertebral point tenderness. No Meningismus. Chest/axilla: Normal chest wall appearance and motion. Nontender with no deformity. No lesions are appreciated. Cardiovascular: Regular rate and rhythm with a normal S1 and S2. No gallops, murmurs, or rubs. Normal PMI, no JVD. No pulse deficits. Respiratory: Lungs have equal breath sounds bilaterally, clear to auscultation and percussion. No rales, rhonchi or wheezes noted. No increased work of breathing, no retractions or nasal flaring. Abdomen/GI: Soft, non-tender, with normal bowel sounds. No distension or tympany. No guarding or rebound. No evidence of tenderness throughout. Back: No spinal tenderness. No costovertebral tenderness. Full range of motion. Female : Normal external genitalia. Skin: Warm, dry with normal turgor. Normal color with no rashes, no lesions, and no evidence of cellulitis. MS/ Extremity: Pulses equal, no cyanosis. Neurovascular intact. Full, normal range of motion. Neuro: Awake and alert, GCS 15, oriented to person, place, time, and situation. Cranial nerves II-XII grossly intact. Motor strength 5/5 in all extremities. Sensory grossly intact. Cerebellar exam normal. Normal gait. Psych: Awake, alert, with orientation to person, place and time. Behavior, mood, and affect are within normal limits. 08:25 ECG was reviewed by the Attending Physician. Vital Signs: 07:02 BP 113 / 69; Pulse 67; Resp 20; Temp 97.5(O); Pulse Ox 99% ; kl 08:15 BP 118 / 69; Pulse 72; Resp 15; Pulse Ox 95% on R/A; Pain 0/10; em6 Shabbir Coma Score: 08:25 Eye Response: spontaneous(4). Verbal Response: oriented(5). Motor Response: obeys alicia commands(6). Total: 15. 08:32 Eye Response: spontaneous(4). Verbal Response: oriented(5). Motor Response: obeys alicia commands(6). Total: 15. MDM: 07:18 Patient medically screened. alicia 08:32 Differential diagnosis: Contusion of head. Differential diagnosis: abrasion, closed alicia head injury, contusion, fracture, multiple trauma, sprain, strain. Data reviewed: vital signs, nurses notes. Data interpreted: lunchroom monitor: rate is 72 beats/min, rhythm is regular. Test interpretation: by ED physician or midlevel provider: ECG, plain radiologic studies. Counseling: I had a detailed discussion with the patient and/or guardian regarding: the historical points, exam findings, and any diagnostic results supporting the discharge/admit diagnosis, lab results, radiology results, the need for outpatient follow up, for definitive care, an car tracer, a document analyst. 10/22 07:21 Order name: EKG; Complete Time: 08:29 [facility] 10/22 07:21 Order name: Cardiac monitoring; Complete Time: 08:09 [facility] 10/22 07:21 Order name: EKG - Nurse/Tech; Complete Time: 08:09 alicia 10/22 07:21 Order name: O2 Per Protocol; Complete Time: 08: [facility] 10/22 07:21 Order name: O2 Sat Monitoring; Complete Time: 08: [facility] 10/22 07:21 Order name: CT Traumagram (Head C Spine CAP wo con); Complete Time: 08:14 [facility] 10/22 08:16 Interpretation: Abnormal. [facility] 10/22 07:37 Order name: EKG Electrocardiogram EDMS 10/22 07:37 Order name: Chest Single View EDMS EC: Rate is 72 beats/min. Rhythm is regular. QRS [place] is Normal. RI interval is normal. QRS alicia interval is normal. QT interval is normal. No Q waves. T waves are Normal. No ST changes noted. Clinical impression: NSR w/ Non-specific ST/T Changes and No evidence of ischemia. Interpreted by me. Reviewed by me. Administered Medications: 08:10 Not Given (Patient Refused): NS 0.9% 500 ml IV at bolus once em6 Disposition Summary: 10/22/21 08:37 Discharge Ordered Location: Home alicia Problem: new alicia Symptoms: have improved alicia Condition: Stable alicia Diagnosis - Fall on same level, unspecified alicia - Contusion of other part of head - frontal alicia - Abnormal findings on diagnostic imaging of other specified body structures - 17 mm alicia left upper lobe opacity Followup: alicia - With: Bert Shay MD - When: 2 - 3 days - Reason: Recheck today's complaints, Continuance of care, Re-evaluation by your physician Followup: alicia - With: Yoshi Harrington MD - When: 5 - 6 days - Reason: Recheck today's complaints, Re-evaluation by your physician Discharge Instructions: - Discharge Summary Sheet alicia - Head Injury, Adult alicia - Fall Prevention in the Home, Adult alicia - Fall Prevention in the Home, Adult, [id number] alicia - Incidental Abnormal Radiological Finding alicia - Head Injury, Adult, [id number] alicia Forms: - Medication Reconciliation Form alicia - Thank You Letter alicia - Antibiotic Education alicia - Prescription Opioid Use alicia Signatures: Dispatcher [employer] EDElan Lacey MD MD cha Davies, Jonathon, RN RN jd3 Jennifer Moctezuma RN em6 Corrections: (The following items were deleted from the chart) 08:09 07:21 IV Saline Lock ordered. alicia hernandez 08:09 07:21 Labs collected and sent ordered. alicia hernandez 08:12 07:37 Basic Metabolic Panel ordered. EDMO EDMS 08:12 07:37 CBC with Automated Diff ordered. EDMS EDMS 08:12 07:37 Liver (Hepatic) Function ordered. EDMS EDMS 08:12 07:37 Magnesium ordered. EDMS EDMS 08:12 07:37 Protime (+INR) ordered. EDMS EDMS 08:12 07:37 Troponin High Sensitivity ordered. EDMS EDMS 08:42 08:29 Chest Single View+RAD.RAD.BRZ ordered. EDMS EDMS 08:51 07:21 Urine Dipstick-Ancillary ordered. alicia hernandez
--- NOTE | 2021-10-23 10:34 | EKG ---
Test Date: 2021-10-22 Test Time: 07:58:28 Back Digger Operator: MARLO MEASUREMENT RESULTS: Intervals: Rate: 72 OR: 138 QRSD: 132 QT: 460 QTc: 503 Artemas: P: 30 OR: 138 QRS: 39 T: 8 INTERPRETIVE STATEMENTS: Sinus rhythm with premature atrial complexes with aberrant conduction Right bundle branch block Abnormal ECG Compared to ECG 04/26/2021 10:09:26 Atrial premature complex(es) now present Aberrant conduction of supraventricular beat(s) now present Electronically Signed On 10-23-21 10:31:31 CDT by Andi Casey
== END 2021-10-22 08:58 | disposition home or self-care (01) ==
LOC: ER 06:56
DX: S00.83XA Contusion of other part of head, initial encounter (principal); R93.89 Abnormal findings on diagnostic imaging of other specified body structures; W18.30XA Fall on same level, unspecified, initial encounter; I10 Essential (primary) hypertension; F20.9 Schizophrenia, unspecified
CPT/HCPCS: 70450; 71045; 71250; 72125; 93005

== ENCOUNTER → 2023-04-08 | Emergency (ER) | payer OTHER ==
[~2023-04-08] MED LIST: ASPIRIN 81 MG CHEWABLE TABLET ONE; FAMOTIDINE 20 MG/2 ML VIAL IV ONE
--- OUTSIDE RECORDS SUMMARY | 2023-04-08 14:07 | XMS REPORT | Clinical Summary ---
Author Name Unknown Organization [facility] Address [address] [place] [address] Care Team Providers Care Internet Assessor Name Role Phone Rojas Peña MD Primary Care Provider [phone] Hola Valdovinos MD Unavailable [phone] Hola Valdovinos MD Unavailable [phone] Kirk Hastings MD Unavailable Meng Radford MD Unavailable [phone] Joi Martinez NP Unavailable [phone] Archana Arriaga Unavailable [phone] Rojas Peña MD Unavailable [phone] Allergies No known active allergies Medications Medication Sig Dispensed Refills Start Date End Date Status promethazine-codeine (PHENERGAN with CODEINE) 6.25-10 mg/5 mL syrup Take 5 mL by mouth nightly as needed. 0 04/10/2015 Active ARIPiprazole (ABILIFY) 10 mg tablet Take 5 mg by mouth at bedtime. 0 Active IBANDRONATE SODIUM (BONIVA ORAL) Take 150 mg by mouth daily. 0 Active carvedilol (COREG) 3.125 mg tablet Take 1 tablet by mouth daily. 0 Active QUEtiapine (SEROquel) 25 mg tablet Take 25 mg by mouth at bedtime. 0 Active bisacodyl (DULCOLAX) 5 mg EC tablet Take 10 mg by mouth 3 (three) times a day. 0 Active calcium carbonate-vitamin D3 (calcium-vitamin D) 1,250 mg (500 mg as elemental)-200 units tablet Take 1 tablet by mouth 2 (two) times a day with meals. 0 Active rOPINIRole (REQUIP) 3 mg tablet Take 3 mg by mouth 4 (four) times a day. 0 Active tiZANidine (ZANAFLEX) 4 MG capsule Take 2 mg by mouth 3 (three) times a day. 0 Active traMADol (ULTRAM) 50 mg tablet Take 50 mg by mouth every 4 (four) hours as needed. 0 Active DULoxetine (CYMBALTA) 30 mg capsule Take 30 mg by mouth daily. 0 Active escitalopram (LEXAPRO) 10 mg tablet Take 10 mg by mouth. 0 Active meloxicam (MOBIC) 15 mg tablet Take 15 mg by mouth daily. 0 Active aspirin 81 mg EC tablet Take 81 mg by mouth daily. 0 Active cycloSPORINE (RESTASIS) 0.05% ophthalmic emulsion Administer 1 drop to both eyes twice daily. 0 Active alendronate (FOSAMAX) 70 mg tabletIndications:pos tmenopausal osteoporosis Take 70 mg by mouth every 7 days. . 0 Active peg 3350-electrolytes (GOLYTELY) 236-22.74-6.74 g solutionIndications:C olonoscopy planned Use as directed by ordering provider. 4000 mL 0 11/16/2017 Active peg 3350-electrolytes (Golytely) 236-22.74-6.74 g solutionIndications:C olonoscopy planned Use as directed by ordering provider. 4000 mL 0 11/21/2019 Active Active Problems Problem Noted Date Diagnosed Date Personal history of colonic polyp 12/28/2016 Overview: Added automatically from request for surgery [id number] Surgical History Surgery Date Site/Laterality Comments COLONOSCOPY 02/11/2015 multiple OTHER SURGICAL HISTORY 02/11/2015 EMR w/ Colonoscopy APPENDECTOMY TIBIA FRACTURE SURGERY 03/22/2012 - 03/21/2013 Right w/ right tibial ludy insertion MI SIGMOIDOSCOPY FLX DX W/COLLJ SPEC BR/WA IF PFRMD 09/20/2015 Anus/N/A Procedure: DIAGNOSTIC FLEXIBLE SIGMOIDOSCOPY, WITH OR WITHOUT COLLECTION OF SPECIMEN(S) BY BRUSHING OR WASHING; Surgeon: Esperanza Allred MD; Location: MAIN ENDOSCOPY; Service: GASTROENTEROLOGY MI EGD TRANSORAL ENDOSCOPIC MUCOSAL RESECTION 09/20/2015 Anus/N/A Procedure: FLEXIBLE ESOPHAGOGASTRODUODENOSCOPY WITH MUCOSAL RESECTION; Surgeon: Esperanza Allred MD; Location: MAIN ENDOSCOPY; Service: GASTROENTEROLOGY MI SIGMOIDOSCOPY FLX DX W/COLLJ SPEC BR/WA IF PFRMD 01/15/2016 Anus/N/A Procedure: DIAGNOSTIC FLEXIBLE SIGMOIDOSCOPY, WITH OR WITHOUT COLLECTION OF SPECIMEN(S) BY BRUSHING OR WASHING; Surgeon: Esperanza Allred MD; Location: MAIN ENDOSCOPY; Service: GASTROENTEROLOGY MI COLONOSCOPY FLX W/ENDOSCOPIC MUCOSAL RESECTION 04/17/2016 N/A Procedure: FLEXIBLE COLONOSCOPY WITH ENDOSCOPIC MUCOSAL RESECTION; Surgeon: Esperanza Allred MD; Location: MAIN ENDOSCOPY; Service: GASTROENTEROLOGY MI COLONOSCOPY FLX W/ENDOSCOPIC MUCOSAL RESECTION 11/06/2016 N/A Procedure: FLEXIBLE COLONOSCOPY WITH ENDOSCOPIC MUCOSAL RESECTION; Surgeon: Esperanza Allred MD; Location: MAIN ENDOSCOPY; Service: GASTROENTEROLOGY MI COLONOSCOPY FLX DX W/COLLJ SPEC WHEN PFRMD 11/26/2017 N/A Procedure: DIAGNOSTIC FLEXIBLE COLONOSCOPY PROXIMAL TO SPLENIC FLEXURE; Surgeon: Esperanza Allred MD; Location: MAIN ENDOSCOPY; Service: GASTROENTEROLOGY Medical History Medical History Date Comments Polyp Tubulovillous Ad enoma Sciatica Schizophrenia mild since 1970s Hypertension Schizophrenia Family History Medical History Relation Name Comments Heart disease Father Heart disease Mother Relation Name Status Comments Father Mother Social History Tobacco Use Types Packs/Day Years Used Date Smoking Tobacco: Never Smokeless Tobacco: Never Alcohol Use Standard Drinks/Week Comments Yes 0 (1 standard drink = 0.6 oz pur e alcohol) rare Sex and Gender Information Value Date Recorded Sex Assigned at Not on file Gender Identity Not on file Sexual Orientation Not on file Obstetrics History Plan of Treatment Health Maintenance Due Date Last Done Comments COVID-19 Vaccination (#1) 1940 Advance Directives Documents on File Type Date Recorded Patient Ethical Hacker Expl anation Advance Directives: Medical Power of It Integration Architect 01/17/2015 Historical Care Teams Internet Assessor Relationship Specialty Start Date End Date Rojas Peña MD PCP - General 05/22/15 Hola Valdovinos MD [address] [address] PCP - External Referring 12/24/14 Hola Valdovinos MD [address] [facility] [address] [place] [address] PCP - External Follow Up A 12/24/14 Kirk Hastings MD [address] [facility] [address] [place] [address] PCP - External Follow Up B 01/01/15 Meng Radford MD [address] [place] [address] Physician 05/29/15 Joi Martinez, MARINE DESIGN ENGINEER [address] [place] [address] Nurse Practitioner 05/29/15 Archana Arriaga PA [address] [place] [address] Physician Tentering Machine Off Bearer 05/29/15 Rojas Peña MD [address] [place] [address] [place] [id number] Physician 05/29/15
[2023-04-08 15:07] LABS: Absolute Lymphocytes (CBC) 1.2 K/uL (0.7-4.9); Hematocrit 39.1 % (36.0-45.0); Lymphocytes % 22.2 % (15.3-44.8); MCV 91.2 fL (80-100); MPV 8.7 fL (7.6-11.3); Platelets 261 thou/uL (152-406); RBC Red Blood Cell Count 4.28 M/uL (3.86-4.86)
[2023-04-08 15:44] LABS: Albumin 3.2 g/dL (3.4-5.0); Bilirubin Direct 0.1 mg/dL (0-0.2); Bilirubin Indirect, Calculated 0.3 mg/dL (0.2-0.8); Bilirubin Total 0.4 mg/dL (0.2-1.0); Magnesium 2.2 mg/dL (1.6-2.4); Potassium 3.9 mEq/L (3.5-5.1); Protein, Total 6.9 g/dL (6.4-8.2); Troponin High Sensitivity 8.2 pg/mL (<58.9)
--- NOTE | 2023-04-08 16:08 | RAD REPORT ---
EXAM DESCRIPTION: Carey Single View04/08/2023 3:47 pm CLINICAL HISTORY: Chest pain COMPARISON: August 2022 FINDINGS: Mid to lower lungs are hazy. Upper lobes appear clear. Heart mildly enlarged IMPRESSION: Mid to lower lungs are hazy. This all could be secondary to overlying soft tissue. Infil trates can have this appearance as well. PA and lateral chest series recommended
--- NOTE | 2023-04-08 17:27 | RAD REPORT ---
EXAM DESCRIPTION: Carey Montano And Tim (2 Views)04/08/2023 5:09 pm CLINICAL HISTORY: Chest pain COMPARISON: April 08, 2023 chest x-ray FINDINGS: The lungs appear clear of acute infiltrate. The heart is mildly to moderately enlarged IMPRESSION: No acute abnormalities displayed
--- NOTE | 2023-04-08 18:08 | EDPHYS ---
Physician Documentation [facility] Name: Ember Meade Age: 83 yrs Sex: Female : 1940 Arrival Date: 04/08/2023 Time: 14:04 Bed 15 Private MD: Bert Shay ED Physician Paty eBst HPI: 04/08 17:42 This 83 yrs old Female presents to ER via Ambulatory with complaints of Abnormal ekg. ci 17:42 Patient is an 83-year-old female with PMH depression, esophagitis, hypertension, anemia ci who presents to the ED from her cutter out office for chest pain. Patient reports that she had midsternal burning sensation that was relieved after she burped. She was at her cutter out office getting a routine echo when she mentioned the chest pain and was told to come to the ER. Did have associated shortness of breath, lightheadedness. Patient reports chest pain has eased up.. Historical: - Allergies: 14:08 NKA; ll1 - PMHx: 14:08 Depression; Esophagitis; Anemia; Hypertension; Schizophrenia; ll1 - PSHx: 14:08 Left knee replacement; ll1 - Immunization history:: Adult Immunizations up to date. - Social history:: Smoking status: Patient denies any tobacco usage or history of. - History obtained from: sister. ROS: 17:42 Constitutional: Positive for Negative for body aches, fatigue, fever, ci 17:42 Cardiovascular: Positive for chest pain, Negative for edema, palpitations, 17:42 Respiratory: Positive for cough, hemoptysis, orthopnea, shortness of breath, 17:42 Abdomen/GI: Negative for abdominal pain, nausea, vomiting, and diarrhea, Exam: 17:42 Constitutional: This is a well developed, well nourished patient who is awake, alert, ci and in no acute distress. Head/Face: Normocephalic, atraumatic. Eyes: Pupils equal round and reactive to light, extra-ocular motions intact. Lids and lashes normal. Conjunctiva and sclera are non-icteric and not injected. Cornea within normal limits. Periorbital areas with no swelling, redness, or edema. ENT: Nares patent. No nasal discharge, no septal abnormalities noted. Tympanic membranes are normal and external auditory canals are clear. Oropharynx with no redness, swelling, or masses, exudates, or evidence of obstruction, uvula midline. Mucous membranes moist. Neck: Trachea midline, no thyromegaly or masses palpated, and no cervical lymphadenopathy. Supple, full range of motion without nuchal rigidity, or vertebral point tenderness. No Meningismus. Chest/axilla: Normal chest wall appearance and motion. Nontender with no deformity. No lesions are appreciated. Cardiovascular: Regular rate and rhythm with a normal S1 and S2. No gallops, murmurs, or rubs. Normal PMI, no JVD. No pulse deficits. Respiratory: Lungs have equal breath sounds bilaterally, clear to auscultation and percussion. No rales, rhonchi or wheezes noted. No increased work of breathing, no retractions or nasal flaring. Abdomen/GI: Soft, non-tender, with normal bowel sounds. No distension or tympany. No guarding or rebound. No evidence of tenderness throughout. Back: No spinal tenderness. No costovertebral tenderness. Full range of motion. Skin: Warm, dry with normal turgor. Normal color with no rashes, no lesions, and no evidence of cellulitis. MS/ Extremity: Pulses equal, no cyanosis. Neurovascular intact. Full, normal range of motion. Neuro: Awake and alert, GCS 15, oriented to person, place, time, and situation. Cranial nerves II-XII grossly intact. Motor strength 5/5 in all extremities. Sensory grossly intact. Cerebellar exam normal. Normal gait. Psych: Awake, alert, with orientation to person, place and time. Behavior, mood, and affect are within normal limits. Vital Signs: 14:09 BP 147 / 68; Pulse 75; Resp 18; Temp 97.7; Pulse Ox 95% on R/A; Weight 64.86 kg; Height ll1 4 ft. 10 in. ; Pain 0/10; 16:00 BP 150 / 84; Pulse 75; Resp 18; Pulse Ox 98% ; nj1 17:00 BP 142 / 78; Pulse 69; Resp 14; Pulse Ox 99% on R/A; nj1 14:09 Body Mass Index 29.89 (64.86 kg, 147.32 cm) ll1 14:09 Pain Scale: Adult ll1 MDM: 14:18 Patient medically screened. ci 17:42 Differential Diagnosis ACS, esophagitis, pneumonia, gastritis, aortic dissection. Data ci reviewed: vital signs, old medical records, lab test result(s), EKG, radiologic studies. 17:55 ED course: Discussed case with patient's cutter out who stated to discharge ci and have patient follow-up in the office at 9 AM tomorrow.. 04/08 14:39 Order name: Basic Metabolic Panel; Complete Time: 16:05 ci 04/08 14:39 Order name: CBC with Diff; Complete Time: 16:05 ci 04/08 14:39 Order name: LFT's; Complete Time: 16:05 ci 04/08 14:39 Order name: Magnesium; Complete Time: 16:05 ci 04/08 14:39 Order name: NT PRO-BNP; Complete Time: 16:05 ci 04/08 14:39 Order name: Troponin HS; Complete Time: 16:05 ci 04/08 14:39 Order name: XRAY Chest (1 view); Complete Time: 16:21 ci 04/08 16:22 Order name: Chest Pa And Lat (2 Views) XRAY; Complete Time: 17:41 ci 04/08 14:27 Order name: EKG; Complete Time: 14:27 ll1 04/08 14:27 Order name: EKG - Nurse/Tech; Complete Time: 14:27 ll1 04/08 14:39 Order name: Cardiac monitoring; Complete Time: 16:25 ci 04/08 14:39 Order name: IV Saline Lock; Complete Time: 14:58 ci 04/08 14:39 Order name: Labs collected and sent; Complete Time: 14:58 ci 04/08 14:39 Order name: O2 Per Protocol; Complete Time: 16:26 ci 04/08 14:39 Order name: O2 Sat Monitoring; Complete Time: 16:26 ci Administered Medications: 16:34 Drug: Famotidine IVP 20 mg IVP once; dilute with 10 mL 0.9% NaCl; give over 2 minutes nj1 Route: IVP; Site: left wrist; 16:35 Drug: Aspirin PO Chewable Tablet 324 mg PO once; 81 mg tablets x 4 Route: PO; nj1 Disposition Summary: 04/08/23 18:07 Discharge Ordered Notes: Location: Home ci Condition: Stable ci Diagnosis - Chest pain, unspecified ci - Gastro-esophageal reflux disease with esophagitis ci Followup: ci - With: Private Physician - When: 1 - 2 days - Reason: Recheck today's complaints, Re-evaluation by your physician Followup: ci - With: Bjorn Holland MD - When: Tomorrow - Reason: Re-evaluation by your physician Discharge Instructions: - Discharge Summary Sheet ci - Nonspecific Chest Pain, Adult, Ipsq-[id number] ci - Gastroesophageal Reflux Disease, Adult, [id number] ci Forms: - Medication Reconciliation Form ci - Thank You Letter ci - Antibiotic Education ci - Prescription Opioid Use ci - Patient Portal Instructions ci - Leadership Thank You Letter ci Prescriptions: - Pepcid 20 mg Oral Tablet - take 1 tablet ORAL route once daily; 20 tablet; Refills: 0, Product Selection ci Permitted Signatures: Dispatcher [employer] Celestine Griggs RN RN ll1 Kristine Galicia RN RN nj1 Paty Best ci
--- NOTE | 2023-04-08 18:08 | ER ---
Nurse's Notes [facility] Name: Ember Meade Age: 83 yrs Sex: Female : 1940 Arrival Date: 04/08/2023 Time: 14:04 Bed 15 Private MD: Bert Shay Diagnosis: Chest pain, unspecified;Gastro-esophageal reflux disease with esophagitis Presentation: 04/08 14:09 Chief complaint: Patient states: CP started around noon. No energy for a couple days. ll1 Went to [facility], sent for abnormal EKG. Coronavirus screen: Vaccine status: Patient reports receiving the 2nd dose of the covid vaccine. Client denies travel out of the [place] in the last 14 days. cough unrelated to allergies, Client presents with at least one sign or symptom that may indicate coronavirus-19. Standard/surgical mask placed on the client. Ebola Screen: Patient denies travel to an Ebola-affected area in the 21 days before illness onset. Initial Sepsis Screen: Does the patient meet any 2 criteria? No. Patient's initial sepsis screen is negative. Does the patient have a suspected source of infection? No. Patient's initial sepsis screen is negative. Risk Assessment: Do you want to hurt yourself or someone else? Patient reports no desire to harm self or others. Onset of symptoms was April 08, 2023. 14:09 Method Of Arrival: Ambulatory ll1 14:09 Acuity: SANTOSH 3 ll1 Triage Assessment: 14:28 General: Appears in no apparent distress. Behavior is calm, cooperative, appropriate ll1 for age. Pain: Denies pain. Neuro: Reports weakness. Cardiovascular: Chest pain resolved now. Historical: - Allergies: 14:08 NKA; ll1 - PMHx: 14:08 Depression; Esophagitis; Anemia; Hypertension; Schizophrenia; ll1 - PSHx: 14:08 Left knee replacement; ll1 - Immunization history:: Adult Immunizations up to date. - Social history:: Smoking status: Patient denies any tobacco usage or history of. - History obtained from: sister. Screenin:00 [facility] ED Fall Risk Assessment (Adult) Score/Fall Risk Level 0 - 2 = Low Risk nj1 Oriented to surroundings, Maintained a safe environment, Hourly rounding (assess needs \T\ fall precautionary measures) done. Abuse screen: Denies threats or abuse. Denies injuries from another. Nutritional screening: No deficits noted. Tuberculosis screening: No symptoms or risk factors identified. Assessment: 16:00 General: Appears in no apparent distress. comfortable, Behavior is calm, cooperative, nj1 appropriate for age. Pain: Denies pain. Neuro: Level of Consciousness is awake, alert, obeys commands, Oriented to person, place, situation, Appropriate for age. Cardiovascular: Patient's skin is warm and dry. Respiratory: Airway is patent Respiratory effort is even, unlabored. 17:00 Reassessment: Patient appears in no apparent distress at this time. No changes from nj1 previously documented assessment. Patient and/or family updated on plan of care and expected duration. Pain level reassessed. Vital Signs: 14:09 BP 147 / 68; Pulse 75; Resp 18; Temp 97.7; Pulse Ox 95% on R/A; Weight 64.86 kg; Height ll1 4 ft. 10 in. ; Pain 0/10; 16:00 BP 150 / 84; Pulse 75; Resp 18; Pulse Ox 98% ; nj1 17:00 BP 142 / 78; Pulse 69; Resp 14; Pulse Ox 99% on R/A; nj1 14:09 Body Mass Index 29.89 (64.86 kg, 147.32 cm) ll1 14:09 Pain Scale: Adult ll1 ED Course: 14:06 Patient arrived in ED. mr 14:06 Bert Shay MD is Private Physician. mr 14:08 Arm band placed on. ll1 14:12 Triage completed. ll1 14:18 Paty Best is Attending Physician. ci 14:58 Basic Metabolic Panel Sent. bc6 14:58 CBC with Diff Sent. bc6 14:58 LFT's Sent. bc6 14:58 Magnesium Sent. bc6 14:58 NT PRO-BNP Sent. bc6 14:58 Inserted saline lock: 22 gauge in left hand, using aseptic technique. Blood collected. bc6 15:49 XRAY Chest (1 view) In Process Unspecified. EDMS 16:00 Patient has correct armband on for positive identification. Bed in low position. Call nj1 light in reach. Provided Education on: call light, fall precautions. 16:01 Kristine Galicia, EDIE is Primary Nurse. nj1 17:11 Chest Pa And Lat (2 Views) XRAY In Process Unspecified. EDMS 18:06 Bjorn Holland MD is Referral Physician. ci Administered Medications: 16:34 Drug: Famotidine IVP 20 mg IVP once; dilute with 10 mL 0.9% NaCl; give over 2 minutes nj1 Route: IVP; Site: left wrist; 16:35 Drug: Aspirin PO Chewable Tablet 324 mg PO once; 81 mg tablets x 4 Route: PO; nj1 Outcome: 18:07 Discharge ordered by . ci 18:48 Patient left the ED. nj1 Signatures: Dispatcher [employer] EDWY JustinAngie, Reg Reg mr Celestine Peña, RN RN ll1 Carolyn Nevarez [facility] Kristine Galicia RN RN nj1 Paty Best ci Corrections: (The following items were deleted from the chart) 14:28 14:09 64.86 kg; Height 4 ft. 10 in.; BMI: 29.8; Pain 0/10, Adult; ll1 ll1
[2023-04-08 21:50] VITALS: BP 142/78; TEMP 97.7; O2SAT 99
--- NOTE | 2023-04-12 17:07 | EKG ---
Test Date: 2023-04-08 Test Time: 14:22:44 Airport Manager: JIL MEASUREMENT RESULTS: Intervals: Rate: 74 NV: 130 QRSD: 126 QT: 424 QTc: 470 [place]: P: 22 NV: 130 QRS: 21 T: 9 INTERPRETIVE STATEMENTS: Normal sinus rhythm Right bundle branch block Abnormal ECG Compared to ECG 10/22/2021 07:58:28 Atrial premature complex(es) no longer present Aberrant conduction of supraventricular beat(s) no longer present Electronically Signed On 04-12-23 16:56:15 SOCIAL WORKER ASSISTANT by Bjorn Holland
== END ==
LOC: ER 14:04
DX: R07.9 Chest pain, unspecified (principal); K21.00 Gastro-esophageal reflux disease with esophagitis, without bleeding; R94.31 Abnormal electrocardiogram [ECG] [EKG]; F32.A Depression, unspecified; D64.9 Anemia, unspecified; I10 Essential (primary) hypertension; F20.9 Schizophrenia, unspecified
CPT/HCPCS: 36415; 71045; 71046; 80048; 80076; 83735; 83880; 84484; 85025; 93005; 96374; 99284

== ENCOUNTER 2023-07-16 16:32 | Emergency (ER) | payer OTHER ==
--- OUTSIDE RECORDS SUMMARY | 2023-07-16 16:35 | XMS REPORT | Clinical Summary ---
Author Name Unknown Organization [facility] [place] Address [address] [place] [address] Care Team Providers Care Hvac Operations Technician Name Role Phone Rojas Peña MD Primary Care Provider [phone] Hola Valdovinos MD Unavailable [phone] Hola Valdovinos MD Unavailable [phone] Kirk Hastings MD Unavailable [phone] Meng Radford MD Unavailable [phone] Joi Martinez NP Unavailable [phone] Archana Arriaga Unavailable Rojas Peña MD Unavailable [phone] Allergies No known active allergies Medications [...] Overview: Added automatically from request for surgery [id number] Surgical History Surgery Date Site/Laterality Comments COLONOSCOPY 02/11/2015 multiple OTHER SURGICAL HISTORY 02/11/2015 EMR w/ Colonoscopy APPENDECTOMY TIBIA FRACTURE SURGERY 03/22/2012 - 03/21/2013 Right w/ right tibial ludy insertion AL SIGMOIDOSCOPY FLX DX W/COLLJ SPEC BR/WA IF PFRMD 09/20/2015 Anus/N/A Procedure: DIAGNOSTIC FLEXIBLE SIGMOIDOSCOPY, WITH OR WITHOUT COLLECTION OF SPECIMEN(S) BY BRUSHING OR WASHING; Surgeon: Esperanza Allred MD; Location: MAIN ENDOSCOPY; Service: GASTROENTEROLOGY AL EGD TRANSORAL ENDOSCOPIC MUCOSAL RESECTION 09/20/2015 Anus/N/A Procedure: FLEXIBLE ESOPHAGOGASTRODUODENOSCOPY WITH MUCOSAL RESECTION; Surgeon: Esperanza Allred MD; Location: MAIN ENDOSCOPY; Service: GASTROENTEROLOGY AL SIGMOIDOSCOPY FLX DX W/COLLJ SPEC BR/WA IF PFRMD 01/15/2016 Anus/N/A Procedure: DIAGNOSTIC FLEXIBLE SIGMOIDOSCOPY, WITH OR WITHOUT COLLECTION OF SPECIMEN(S) BY BRUSHING OR WASHING; Surgeon: Esperanza Allred MD; Location: MAIN ENDOSCOPY; Service: GASTROENTEROLOGY AL COLONOSCOPY FLX W/ENDOSCOPIC MUCOSAL RESECTION 04/17/2016 N/A Procedure: FLEXIBLE COLONOSCOPY WITH ENDOSCOPIC MUCOSAL RESECTION; Surgeon: Esperanza Allred MD; Location: MAIN ENDOSCOPY; Service: GASTROENTEROLOGY AL COLONOSCOPY FLX W/ENDOSCOPIC MUCOSAL RESECTION 11/06/2016 N/A Procedure: FLEXIBLE COLONOSCOPY WITH ENDOSCOPIC MUCOSAL RESECTION; Surgeon: Esperanza Allred MD; Location: MAIN ENDOSCOPY; Service: GASTROENTEROLOGY AL COLONOSCOPY FLX DX W/COLLJ SPEC WHEN PFRMD [...] Maintenance Due Date Last Done Comments COVID-19 Vaccine (#1) 1940 Influenza Vaccine 11/20/2022 Advance Directives Documents on File Type Date Recorded Patient Room Clerk Expl anation Advance Directives: Medical Power of Oracle Applications Developer 01/17/2015 Historical Care Teams Hvac Operations Technician Relationship Specialty Start Date End Date Rojas Peña MD PCP - General 05/22/15 Hola Valdovinos MD [address] [address] PCP - External Referring 12/24/14 Hola Valdovinos MD [address] [address] PCP - External Follow Up A 12/24/14 Kirk Hastings MD [address] [address] PCP - External Follow Up B 01/01/15 Meng Radford MD [address] [place] [address] Physician 05/29/15 Joi Martinez, DRAPERY CUTTER MACHINE [address] [place] [address] Nurse Practitioner 05/29/15 Archana Arriaga PA [address] [place], [place] [id number] Physician Box Truck Owner Operator 05/29/15 Rojas Peña MD [address] [place] [address] [address] [place] [id number] Physician 05/29/15
[2023-07-16] MEDS ORDERED: NA CHLORIDE 0.9% 1,000 ML ONE (17:26)
[2023-07-16 17:33] LABS: Absolute Basophils 0.1 K/uL (0-0.5); Absolute Eosinophils 0.2 K/uL (0-0.5); Absolute Monocytes 0.7 K/uL (0.1-1.3); Absolute Neutrophil 4.2 K/uL (1.8-8.0); Basophils % 1.2 % (0-1.3); Eosinophils % 3.1 % (0-4.4); Hematocrit 28.4 % (36.0-45.0); Hemoglobin 9.3 g/dL (12.0-15.0); Lymphocytes % 16.9 % (15.3-44.8); MCH 29.6 pg (27.0-35.0); MCHC 32.7 g/dL (32.0-36.0); MCV 90.5 fL (80-100); MPV 8.3 fL (7.6-11.3); Monocytes % 10.8 % (3.3-12.3); Nucleated Red Blood Cells % 0.1 % (0-0); Platelets 336 thou/uL (152-406); RBC Red Blood Cell Count 3.13 M/uL (3.86-4.86); Red Cell Distribution Width 15.3 % (12.1-15.2)
[2023-07-16 17:54] LABS: Albumin 3.2 g/dL (3.4-5.0); Albumin/Globulin Ratio 0.9 (1.1-1.8); Anion Gap 8.9 mEq/L (5.0-15.0); Bilirubin Total 0.3 mg/dL (0.2-1.0); Globulin 3.5 g/dL (2.3-3.5); Potassium 3.9 mEq/L (3.5-5.1); Protein, Total 6.7 g/dL (6.4-8.2); Troponin High Sensitivity 9.1 pg/mL (<58.9)
--- NOTE | 2023-07-16 18:21 | RAD REPORT ---
EXAM DESCRIPTION: CT - Abdomen Pelvis W Contrast - 07/16/2023 6:07 pm CLINICAL HISTORY: Abdominal pain COMPARISON: 2021 TECHNIQUE: Computed axial tomography of the abdomen pelvis was obtained. 100 cc Isovue-300 was admin istered intravenously. Oral contrast was not requested which limits evaluation of bowel and appendix All CT scans are performed using dose optimization technique as appropriate and may include automated exposure control or mA/KV adjustment according to patient size. FINDINGS: The liver, spleen, pancreas, and adrenals unremarkable Chronic calcifications left kidney. Small cysts. No hydronephrosis. Marked chronic right hydronephrosis with cortical thinning. Chronic parenchymal calcification. Portio n of the right ureter is dilated. Calcified fibroids uterus. Stomach is distended. Wall of the distal stomach appears thickened. Mild anterior subluxation L5 on S1. Spondylolysis L5. A small hiatal hernia Old pelvic fractures IMPRESSION: Marked gastric distention. Thickening of the wall of the distal stomach could indicate i nflammation or mass Chronic marked right hydronephrosis. Portion of the right ureter is dilated.
[2023-07-16 18:53] LABS: Specific Gravity 1.011 (1.005-1.030); Urine Bilirubin NEGATIVE (Negative); Urine Blood Negative (Negative); Urine Clarity Clear (Clear); Urine Color Colorless (Yellow); Urine Glucose NEGATIVE (Negative); Urine Ketones NEGATIVE (Negative); Urine Microscopic Reflex YN NO UMIC; Urine Nitrite NEGATIVE (Negative); Urine Protein NEGATIVE (Negative); Urine Urobilinogen Normal (Normal); Urine pH 7.5 (5.0-7.0)
--- NOTE | 2023-07-16 19:30 | ER ---
Nurse's Notes [facility] Name: Ember Meade Age: 83 yrs Sex: Female : 1940 Arrival Date: 07/16/2023 Time: 16:32 Bed 13 Private MD: Diagnosis: Acute gastritis Presentation: 07/15 16:37 Chief complaint: Patient states: "I haven't been wanting to eat and I have no energy". aa5 Pt's sister states "she has been complaining of abdominal pain on and off for about 6 weeks now". Coronavirus screen: At this time, the client does not indicate any symptoms associated with coronavirus-19. Ebola Screen: Patient denies travel to an Ebola-affected area in the 21 days before illness onset. Initial Sepsis Screen: Does the patient meet any 2 criteria? No. Patient's initial sepsis screen is negative. Does the patient have a suspected source of infection? No. Patient's initial sepsis screen is negative. Risk Assessment: Do you want to hurt yourself or someone else? Patient reports no desire to harm self or others. Onset of symptoms was June 2023. 16:37 Acuity: SANTOSH 3 aa5 16:37 Method Of Arrival: Ambulatory aa5 Historical: - Allergies: 16:36 NKA; aa5 - PMHx: 16:36 Anemia; Depression; Esophagitis; Hypertension; Schizophrenia; aa5 - PSHx: 16:36 Left knee replacement; Appendectomy; aa5 - Immunization history:: Adult Immunizations unknown. - Infectious Disease History:: Denies. - Social history:: Smoking status: Patient denies any tobacco usage or history of. - Family history:: not pertinent. Screenin:48 [facility] ED Fall Risk Assessment (Adult) History of falling in the last 3 months, kc6 including since admission No falls in past 3 months (0 pts) Confusion or Disorientation No (0 pts) Intoxicated or Sedated No (0 pts) Impaired Gait No (0 pts) Mobility Assist Device Used No (0 pt) Altered Elimination No (0 pt) Score/Fall Risk Level 0 - 2 = Low Risk. Abuse screen: Denies threats or abuse. Denies injuries from another. Nutritional screening: No deficits noted. Tuberculosis screening: No symptoms or risk factors identified. Assessment: 16:48 General: Appears in no apparent distress. comfortable, well groomed, well developed, kc6 Behavior is calm, cooperative, appropriate for age. Pain: Complains of pain in abdomen diffusely. Neuro: Level of Consciousness is awake, alert, obeys commands, Oriented to person, place, time, situation, Appropriate for age. Cardiovascular: Capillary refill < 3 seconds. Respiratory: Airway is patent Trachea midline Respiratory effort is even, unlabored, Respiratory pattern is regular, symmetrical. GI: Abdomen is flat, non-distended, Bowel sounds present X 4 quads. Abd is soft X 4 quads Reports anorexia, intolerance of fluids, intolerance of food, Patient currently denies diarrhea, nausea, vomiting. : No signs and/or symptoms were reported regarding the genitourinary system. EENT: No signs and/or symptoms were reported regarding the EENT system. Derm: No signs and/or symptoms reported regarding the dermatologic system. Skin is intact, is healthy with good turgor, Skin is pink, warm \\T\\ dry. Musculoskeletal: No signs and/or symptoms reported regarding the musculoskeletal system. Circulation, motion, and sensation intact. Capillary refill < 3 seconds, Range of motion: intact in all extremities. 17:48 Reassessment: Patient appears in no apparent distress at this time. No changes from kc6 previously documented assessment. Patient and/or family updated on plan of care and expected duration. Pain level reassessed. Patient is alert, oriented x 3, equal unlabored respirations, skin warm/dry/pink. 18:48 Reassessment: Patient appears in no apparent distress at this time. No changes from kc6 previously documented assessment. Patient and/or family updated on plan of care and expected duration. Pain level reassessed. Patient is alert, oriented x 3, equal unlabored respirations, skin warm/dry/pink. 19:00 General: Appears in no apparent distress. comfortable, well groomed, well developed, pf1 Behavior is calm, cooperative, appropriate for age, quiet. 19:00 Pain: Complains of pain in abdomen Pain currently is 3 out of 10 on a pain scale. pf1 Neuro: No deficits noted. Level of Consciousness is awake, alert, obeys commands, Oriented to person, place, time, situation. Cardiovascular: No deficits noted. Capillary refill < 3 seconds Patient's skin is warm and dry. Respiratory: No deficits noted. Airway is patent Respiratory effort is even, unlabored, Respiratory pattern is regular, symmetrical. GI: Abdomen is round non-distended, Bowel sounds present X 4 quads. Reports upper abdominal pain, intolerance of fluids, intolerance of food, Patient currently denies diarrhea, nausea, vomiting. : No deficits noted. No signs and/or symptoms were reported regarding the genitourinary system. EENT: No deficits noted. No signs and/or symptoms were reported regarding the EENT system. Derm: No deficits noted. Vital Signs: 16:37 BP 178 / 86; Pulse 82; Resp 18 S; Temp 97.5(TE); Pulse Ox 99% on R/A; Weight 61.23 kg aa5 (R); Height 4 ft. 10 in. (R); 17:29 BP 157 / 81; Pulse 81; Resp 16 S; Pulse Ox 100% on R/A; kc6 18:22 Pulse 82; Resp 18 S; Pulse Ox 100% on R/A; kc6 19:30 BP 153 / 74; Pulse 79; Resp 18; Temp 97.9; Pulse Ox 97% on R/A; Pain 3/10; pf1 16:37 Body Mass Index 28.21 (61.23 kg, 147.32 cm) aa5 19:30 Pain Scale: Adult pf1 ED Course: 16:34 Patient arrived in ED. im 16:35 Zackery Villar MD is Attending Physician. rt 16:36 Arm band placed on. aa5 16:38 Triage completed. aa5 16:41 Puja Garcia, EDIE is Primary Nurse. kc6 16:48 Patient has correct armband on for positive identification. Bed in low position. Call kc6 light in reach. Side rails up X2. Adult w/ patient. Client placed on continuous cardiac and pulse oximetry monitoring. NIBP monitoring applied. Warm blanket given. 17:29 Inserted saline lock: 22 gauge in right forearm, using aseptic technique. Blood kc6 collected. 18:08 CT Abd/Pelvis - IV Contrast Only In Process Unspecified. EDMS 18:43 Urinalysis w/ reflexes Sent. kc6 19:14 Report given to Francesca Schmidt RN. kc6 19:29 Kirk Hastings MD is Referral Physician. rt 19:47 Provided Education on: prescriptions. pf1 19:47 No provider procedures requiring assistance completed. IV discontinued, intact, pf1 bleeding controlled, No redness/swelling at site. Pressure dressing applied. Administered Medications: 17:29 Drug: NS 0.9% IV 1000 ml IV at 1 bolus Per protocol; 1000 mL bolus Route: IV; Rate: 1 kc6 bolus; Site: right forearm; 19:14 Follow up: Response: No adverse reaction; IV Status: Completed infusion; IV Intake: kc6 1000ml Medication: 19:47 VIS not applicable for this client. pf1 Intake: 19:14 IV: 1000ml; Total: 1000ml. kc6 Outcome: 19:30 Discharge ordered by . rt 19:47 Discharged to home ambulatory, with family, pf1 19:47 Condition: improved 19:47 Discharge instructions given to patient, family, Instructed on discharge instructions, follow up and referral plans. Demonstrated understanding of instructions, follow-up care, medications, Prescriptions given X 2, 19:48 Patient left the ED. pf1 Signatures: Dispatcher [employer] EDMS Susanne Beach RN RN aa5 Puja Garcia RN RN kc6 Zackery Villar MD MD rt Mariela Schmidt RN RN pf1 Cait Blevins
--- NOTE | 2023-07-16 19:30 | EDPHYS ---
Physician Documentation [facility] Name: Ember Meade Age: 83 yrs Sex: Female : 1940 Arrival Date: 07/16/2023 Time: 16:32 Bed 13 Private MD: ED Physician Zackery Villar HPI: 07/15 17:12 This 83 yrs old Female presents to ER via Ambulatory with complaints of Abdominal Pain. rt 17:12 Patient presents to the ED with several months of intermittent epigastric pain with rt reported burning sensation to the chest, throat. They are concerned for acid reflux. States that the patient has had decreased p.o. intake during that time and feels somewhat weak. Denies other acute complaints at this time, symptoms are moderate in severity, no other aggravating or alleviating factors.. Historical: - Allergies: 16:36 NKA; aa5 - PMHx: 16:36 Anemia; Depression; Esophagitis; Hypertension; Schizophrenia; aa5 - PSHx: 16:36 Left knee replacement; Appendectomy; aa5 - Immunization history:: Adult Immunizations unknown. - Infectious Disease History:: Denies. - Social history:: Smoking status: Patient denies any tobacco usage or history of. - Family history:: not pertinent. ROS: 17:12 Constitutional: Negative for fever, chills, and weight loss, Cardiovascular: Negative rt for chest pain, palpitations, and edema, Respiratory: Negative for shortness of breath, cough, wheezing, and pleuritic chest pain, MS/Extremity: Negative for injury and deformity, Skin: Negative for injury, rash, and discoloration, Neuro: Negative for headache, weakness, numbness, tingling, and seizure, Psych: Negative for depression, anxiety, suicide ideation, homicidal ideation, and hallucinations, 17:12 Abdomen/GI: Positive for abdominal pain, nausea, Exam: 17:12 Constitutional: This is a well developed, well nourished patient who is awake, alert, rt and in no acute distress. Head/Face: Normocephalic, atraumatic. Chest/axilla: Normal chest wall appearance and motion. Nontender with no deformity. No lesions are appreciated. Cardiovascular: Regular rate and rhythm with a normal S1 and S2. No gallops, murmurs, or rubs. Normal PMI, no JVD. No pulse deficits. Respiratory: Lungs have equal breath sounds bilaterally, clear to auscultation and percussion. No rales, rhonchi or wheezes noted. No increased work of breathing, no retractions or nasal flaring. Skin: Warm, dry with normal turgor. Normal color with no rashes, no lesions, and no evidence of cellulitis. MS/ Extremity: Pulses equal, no cyanosis. Neurovascular intact. Full, normal range of motion. Neuro: Awake and alert, GCS 15, oriented to person, place, time, and situation. Cranial nerves II-XII grossly intact. Motor strength 5/5 in all extremities. Sensory grossly intact. Cerebellar exam normal. Normal gait. 17:12 ENT: Dry mucous membranes. 17:47 ECG was reviewed by the Attending Physician. rt Vital Signs: 16:37 BP 178 / 86; Pulse 82; Resp 18 S; Temp 97.5(TE); Pulse Ox 99% on R/A; Weight 61.23 kg aa5 (R); Height 4 ft. 10 in. (R); 17:29 BP 157 / 81; Pulse 81; Resp 16 S; Pulse Ox 100% on R/A; kc6 18:22 Pulse 82; Resp 18 S; Pulse Ox 100% on R/A; kc6 19:30 BP 153 / 74; Pulse 79; Resp 18; Temp 97.9; Pulse Ox 97% on R/A; Pain 3/10; pf1 16:37 Body Mass Index 28.21 (61.23 kg, 147.32 cm) aa5 19:30 Pain Scale: Adult pf1 MDM: 16:49 Patient medically screened. rt 17:12 Differential Diagnosis. rt 19:34 Data reviewed: vital signs, nurses notes, lab test result(s), EKG, radiologic studies. rt Independent interpretation of the following test(s) in the Emergency Department CT Scan: My interpretation is No small bowel obstruction syndrome interpretation of CT scan images. Care significantly affected by the following chronic conditions: Hypertension. Counseling: I had a detailed discussion with the patient and/or guardian regarding the historical points, exam findings, and any diagnostic results supporting the discharge/admit diagnosis, lab results, radiology results, the need for outpatient follow up, Discussed possibilities of gastric mass, patient does see Dr. Hernandes, will try to make an appointment for him with an EGD.. Response to treatment: the patient's symptoms have mildly improved after treatment. 07/15 16:58 Order name: CBC with Diff; Complete Time: 18:24 rt 07/15 16:58 Order name: CMP; Complete Time: 18:24 rt 07/15 16:58 Order name: Lipase; Complete Time: 18:24 rt 07/15 16:58 Order name: Urinalysis w/ reflexes; Complete Time: 18:53 rt 07/15 16:58 Order name: Troponin High Sensitivity; Complete Time: 18:24 rt 07/15 16:58 Order name: CT Abd/Pelvis - IV Contrast Only; Complete Time: 18:24 rt 07/15 16:58 Order name: IV Saline Lock; Complete Time: 17:29 rt 07/15 16:58 Order name: Labs collected and sent; Complete Time: 17:29 rt 07/15 16:58 Order name: EKG - Nurse/Tech; Complete Time: 17:29 rt EC:47 Rate is 82 beats/min. Rhythm is regular, Normal Sinus Rhythm with No ectopy, Right rt bundle branch block. QRS [place] is Normal. [place] interval is normal. QRS interval is normal. QT interval is normal. No Q waves. Administered Medications: 17:29 Drug: NS 0.9% IV 1000 ml IV at 1 bolus Per protocol; 1000 mL bolus Route: IV; Rate: 1 kc6 bolus; Site: right forearm; 19:14 Follow up: Response: No adverse reaction; IV Status: Completed infusion; IV Intake: kc6 1000ml Disposition Summary: 07/16/23 19:30 Discharge Ordered Notes: Location: Home rt Condition: Stable rt Diagnosis - Acute gastritis rt Followup: rt - With: Kirk Hastings MD - When: 2 - 3 days - Reason: Discharge Instructions: - Discharge Summary Sheet rt - Gastritis, Adult rt Forms: - Medication Reconciliation Form rt - Antibiotic Education rt - Prescription Opioid Use rt - Patient Portal Instructions rt - Leadership Thank You Letter rt Prescriptions: - Maalox Advanced 200-200-20 mg/5 mL Oral suspension - take 5 milliliter ORAL route every 4 to 6 hours administer between meals and at rt bedtime; 250 milliliter; Refills: 0, Product Selection Permitted - Pepcid 20 mg Oral Tablet - take 1 tablet ORAL route once daily; 20 tablet; Refills: 0, Product Selection rt Permitted Signatures: Dispatcher [employer] EDMS Susanne Beach, RN RN aa5 Puja Garcia RN RN kc6 Zackery Villar MD MD rt Corrections: (The following items were deleted from the chart) 16:59 16:59 CBC+H.LAB.BRZ ordered. EDMS EDMS 16:59 16:59 COMPREHENSIVE METABOLIC PANEL+C.LAB.BRZ ordered. EDMS EDMS 16:59 16:59 LIPASE+C.LAB.BRZ ordered. EDMS EDMS 16:59 16:59 Urinalysis+U.LAB.BRZ ordered. EDMS EDMS 16:59 16:59 Troponin High Sensitivity+C.LAB.BRZ ordered. EDMS EDMS 16:59 16:59 Abdomen Pelvis W Con+CT.RAD.BRZ ordered. EDMS EDMS
[2023-07-16 20:35] VITALS: BP 153/74; TEMP 97.9; O2SAT 97
--- NOTE | 2023-07-19 13:03 | EKG ---
Test Date: 2023-07-16 Test Time: 17:16:31 Recreation Professor: CIERRA MEASUREMENT RESULTS: Intervals: Rate: 82 UT: 122 QRSD: 122 QT: 398 QTc: 464 [place]: P: 40 UT: 122 QRS: -52 T: 11 INTERPRETIVE STATEMENTS: Normal sinus rhythm Right bundle branch block Left anterior fascicular block Bifascicular block Inferior infarct, age undetermined Abnormal ECG Compared to ECG 04/08/2023 14:22:44 Left anterior fascicular block now present Bifascicular block now present Myocardial infarct finding now present Electronically Signed On 07-19-23 12:56:21 CDT by Bjorn Holland
== END 2023-07-16 19:48 | disposition home or self-care (01) ==
LOC: ER 16:32
DX: K29.00 Acute gastritis without bleeding (principal)
CPT/HCPCS: 93005; 85025; 36415; 81003; 84484; 83690; 80053; 74177; Q9967; J7030

== ENCOUNTER 2023-11-15 20:12 | Emergency (ER) | payer OTHER ==
--- OUTSIDE RECORDS SUMMARY | 2023-11-15 20:15 | XMS REPORT | Clinical Summary ---
Author Name Unknown Organization [facility] Address [address] [place] [address] Care Team Providers Care Manufacturing Intern Name Role Phone Rojas Peña MD Primary Care Provider [phone] Hola Valdovinos MD Unavailable [phone] Hola Valdovinos MD Unavailable Kirk Hastings MD Unavailable Meng Radford MD Unavailable [phone] Joi Martinez NP Unavailable [phone] Archana Arriaga Unavailable Rojas Peña MD Unavailable [phone] Allergies No known active allergies Medications Medication Sig Dispensed Refills Start Date End Date Status promethazine-codeine (PHENERGAN with CODEINE) 6.25-10 mg/5 mL syrup Take 5 mL by mouth nightly as needed. 0 04/10/2015 Active ARIPiprazole (ABILIFY) 10 mg tablet Take 5 mg by mouth at bedtime. Active IBANDRONATE SODIUM (BONIVA ORAL) Take 150 mg by mouth daily. Active carvedilol (COREG) 3.125 mg tablet Take 1 tablet by mouth daily. Active QUEtiapine (SEROquel) 25 mg tablet Take 25 mg by mouth at bedtime. Active bisacodyl (DULCOLAX) 5 mg EC tablet Take 10 mg by mouth 3 (three) times a day. Active calcium carbonate-vitamin D3 (calcium-vitamin D) 1,250 mg (500 mg as elemental)-200 units tablet Take 1 tablet by mouth 2 (two) times a day with meals. Active rOPINIRole (REQUIP) 3 mg tablet Take 3 mg by mouth 4 (four) times a day. Active tiZANidine (ZANAFLEX) 4 MG capsule Take 2 mg by mouth 3 (three) times a day. Active traMADol (ULTRAM) 50 mg tablet Take 50 mg by mouth every 4 (four) hours as needed. Active DULoxetine (CYMBALTA) 30 mg capsule Take 30 mg by mouth daily. Active escitalopram (LEXAPRO) 10 mg tablet Take 10 mg by mouth. Active meloxicam (MOBIC) 15 mg tablet Take 15 mg by mouth daily. Active aspirin 81 mg EC tablet Take 81 mg by mouth daily. Active cycloSPORINE (RESTASIS) 0.05% ophthalmic emulsion Administer 1 drop to both eyes twice daily. Active alendronate (FOSAMAX) 70 mg tabletIndications:pos tmenopausal osteoporosis Take 70 mg by mouth every 7 days. . Active peg 3350-electrolytes (GOLYTELY) 236-22.74-6.74 g solutionIndications:C olonoscopy planned Use as directed by ordering provider. 4000 mL 11/16/2017 Active peg 3350-electrolytes (Golytely) 236-22.74-6.74 g solutionIndications:C olonoscopy planned Use as directed by ordering provider. 4000 mL 11/21/2019 Active Active Problems Problem Noted Date Diagnosed Date Personal history of colonic polyp 12/28/2016 Overview: Added automatically from request for surgery [id number] Surgical History Surgery Date Site/Laterality Comments COLONOSCOPY 02/11/2015 multiple OTHER SURGICAL HISTORY 02/11/2015 EMR w/ Colonoscopy APPENDECTOMY TIBIA FRACTURE SURGERY 03/22/2012 - 03/21/2013 Right w/ right tibial ludy insertion CT SIGMOIDOSCOPY FLX DX W/COLLJ SPEC BR/WA IF PFRMD 09/20/2015 Anus/N/A Procedure: DIAGNOSTIC FLEXIBLE SIGMOIDOSCOPY, WITH OR WITHOUT COLLECTION OF SPECIMEN(S) BY BRUSHING OR WASHING; Surgeon: Esperanza Allred MD; Location: MAIN ENDOSCOPY; Service: GASTROENTEROLOGY CT EGD TRANSORAL ENDOSCOPIC MUCOSAL RESECTION 09/20/2015 Anus/N/A Procedure: FLEXIBLE ESOPHAGOGASTRODUODENOSCOPY WITH MUCOSAL RESECTION; Surgeon: Esperanza Allred MD; Location: MAIN ENDOSCOPY; Service: GASTROENTEROLOGY CT SIGMOIDOSCOPY FLX DX W/COLLJ SPEC BR/WA IF PFRMD 01/15/2016 Anus/N/A Procedure: DIAGNOSTIC FLEXIBLE SIGMOIDOSCOPY, WITH OR WITHOUT COLLECTION OF SPECIMEN(S) BY BRUSHING OR WASHING; Surgeon: Esperanza Allred MD; Location: MAIN ENDOSCOPY; Service: GASTROENTEROLOGY CT COLONOSCOPY FLX W/ENDOSCOPIC MUCOSAL RESECTION 04/17/2016 N/A Procedure: FLEXIBLE COLONOSCOPY WITH ENDOSCOPIC MUCOSAL RESECTION; Surgeon: Esperanza Allred MD; Location: MAIN ENDOSCOPY; Service: GASTROENTEROLOGY CT COLONOSCOPY FLX W/ENDOSCOPIC MUCOSAL RESECTION 11/06/2016 N/A Procedure: FLEXIBLE COLONOSCOPY WITH ENDOSCOPIC MUCOSAL RESECTION; Surgeon: Esperanza Allred MD; Location: MAIN ENDOSCOPY; Service: GASTROENTEROLOGY CT COLONOSCOPY FLX DX W/COLLJ SPEC WHEN PFRMD [...] Health Maintenance Due Date Last Done Comments Pneumococcal Vaccine: 65+ Years (1 of - PCV) 003 COVID-19 Vaccine (2022- season) 2022 Influenza Vaccine 11/21/2023 Advance Directives Documents on File Type Date Recorded 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 Advance Directives: Medical Power of Stretching Machine Tender Frame 01/17/2015 Historical Care Teams Manufacturing Intern Relationship Specialty Start Date End Date Rojas Peña MD [email or web address] PCP - General 05/22/15 Hola Valdovinos MD [address] [place] [id number] [email or web address] PCP - External Referring 12/24/14 Hola Valdovinos MD [address] [place] [phone] [email or web address] PCP - External Follow Up A 12/24/14 Kirk Hastings MD [address] [place] [id number] PCP - External Follow Up B 01/01/15 Meng Radford MD [address] [place] [address] [place] [id number] [email or web address] Physician 05/29/15 Joi Martinez INDUSTRIAL HEALTH AND SAFETY PROFESSOR [address] [place] [phone] [email or web address] Nurse Practitioner 05/29/15 Archana Arriaga PA [address] [place] [phone] [email or web address] Physician Tsa Screener 05/29/15 Rojas Peña MD [address] [place] [phone] [email or web address] Physician 05/29/15
--- NOTE | 2023-11-15 21:28 | RAD REPORT ---
EXAM DESCRIPTION: RAD - Hand Right 3 View - 11/15/2023 9:04 pm CLINICAL HISTORY: Right hand pain FINDINGS: Bones are osteoporotic. Cortical irregularity involves distal radius presumably secondary to an old fracture. No acute fracture or dislocation Mild lateral subluxation second distal phalanx presumably chronic. This should be correlated clinical ly
[2023-11-15] MEDS ORDERED: LIDOCAINE 1% 20 ML MDV ONE (21:53)
[2023-11-15] MEDS ORDERED: ACETAMINOPHEN 500 MG TAB ONE (21:53)
--- NOTE | 2023-11-15 22:10 | RAD REPORT ---
EXAM DESCRIPTION: CT - Head C Spine Mpr Wo Con - 11/15/2023 9:54 pm CLINICAL HISTORY: Head and neck injury status post fall. Head and neck pain COMPARISON: 2021 TECHNIQUE: Computed axial tomography of the head and cervical spine was obtained. Sagittal and coronal reconstruction was performed. All CT scans are performed using dose optimization technique as appropriate and may include automated exposure control or mA/KV adjustment according to patient size. FINDINGS: An intracranial bleed is not seen. The ventricles are normal in caliber. No significant hypodensity within the brain. An extra-axial fluid collection is not noted. Fluid within the visualized sinuses and mastoids is not seen A cervical fracture is not visualized. No dislocation is noted. Mild chronic anterior subluxation C3 on C4 IMPRESSION: No acute intracranial abnormality is seen. A cervical fracture is not visualized. If the patient continues to have symptoms to suggest intracranial /spinal cord pathology then MRI wou ld be recommended
--- NOTE | 2023-11-15 23:04 | EDPHYS ---
Physician Documentation [facility] Name: Ember Meade Age: 83 yrs Sex: Female : 1940 Arrival Date: 11/15/2023 Time: 20:12 Bed 20 Private MD: ED Physician Zackery Shaffer HPI: 11/15 00:59 This 83 yrs old Female presents to ER via EMS with complaints of Fall, laceration. rt 00:59 Patient presents to the ED with fall, laceration. Patient states that she slipped rt causing her to fall. Denies loss of consciousness, near syncopal symptoms. She did sustain a laceration to forehead. Denies other acute complaints at this time, symptoms are mild in severity, no other aggravating alleviating factors.. Historical: - Allergies: 11/14 20:26 NKA; ha1 - Home Meds: 20:26 aspirin 81 mg Oral cap 1 cap once daily [Active]; alendronate 70 mg Oral tab once wkly ha1 [Active]; benztropine 0.5 mg Oral tab 1 tab once daily [Active]; carvedilol 12.5 mg Oral tab 1 tab daily [Active]; - PMHx: 20:26 Anemia; Depression; Esophagitis; Hypertension; Schizophrenia; ha1 - PSHx: 20:26 Appendectomy; Left knee replacement; ha1 - Immunization history:: Adult Immunizations up to date. - Infectious Disease History:: Denies. - Social history:: Smoking status: Patient denies any tobacco usage or history of. - Family history:: not pertinent. ROS: 11/15 00:59 Constitutional: Negative for fever, chills, and weight loss, Cardiovascular: Negative rt for chest pain, palpitations, and edema, Respiratory: Negative for shortness of breath, cough, wheezing, and pleuritic chest pain, Abdomen/GI: Negative for abdominal pain, nausea, vomiting, diarrhea, and constipation, Skin: Negative for injury, rash, and discoloration, Neuro: Negative for headache, weakness, numbness, tingling, and seizure, Exam: 00:59 Constitutional: This is a well developed, well nourished patient who is awake, alert, rt and in no acute distress. Head/Face: Normocephalic, atraumatic. Chest/axilla: Normal chest wall appearance and motion. Nontender with no deformity. No lesions are appreciated. Cardiovascular: Regular rate and rhythm with a normal S1 and S2. No gallops, murmurs, or rubs. Normal PMI, no JVD. No pulse deficits. Respiratory: Lungs have equal breath sounds bilaterally, clear to auscultation and percussion. No rales, rhonchi or wheezes noted. No increased work of breathing, no retractions or nasal flaring. Abdomen/GI: Soft, non-tender, with normal bowel sounds. No distension or tympany. No guarding or rebound. No evidence of tenderness throughout. Skin: Warm, dry with normal turgor. Normal color with no rashes, no lesions, and no evidence of cellulitis. MS/ Extremity: Pulses equal, no cyanosis. Neurovascular intact. Full, normal range of motion. 00:59 Head/face: 3 cm irregular laceration to the forehead, no active bleeding. Vital Signs: 11/14 20:26 BP 188 / 91; Pulse 77; Resp 16 S; Temp 98.2(O); Pulse Ox 99% on R/A; Weight 56.7 kg; ha1 Height 4 ft. 10 in. ; 21:00 BP 167 / 73; Pulse 80; Resp 17 S; Pulse Ox 97% on R/A; ha1 22:00 BP 168 / 82; Pulse 82; Resp 17 S; Pulse Ox 98% on R/A; ha1 23:00 BP 158 / 73; Pulse 74; Resp 17 S; Pulse Ox 98% on R/A; ha1 20:26 Body Mass Index 26.12 (56.70 kg, 147.32 cm) [facility] Laceration: 11/15 00:59 Wound Repair of 3cm ( 1.2in ) subcutaneous laceration to forehead. Irregularly shaped.. rt Distal neuro/vascular/tendon intact. Anesthesia: Wound infiltrated with 2 mls of 1% lidocaine w/ Epi. Wound prep: Copious irrigation. Skin closed with 8 5-0 Prolene using simple sutures and sterile technique. Patient tolerated well. MDM: 11/14 20:34 Patient medically screened. rt 11/15 00:59 Differential Diagnosis Laceration, intracranial hemorrhage. Data reviewed: vital signs, rt nurses notes, radiologic studies. I considered the following discharge prescriptions or medication management in the emergency department Medications were administered in the Emergency Department. See MAR. Independent interpretation of the following test(s) in the Emergency Department CT Scan: My interpretation is No intracranial hemorrhage seen on interpretation of CT scan images. Test considered but Not performed: Other Details Patient denies near syncopal symptoms, EKG, labs not indicated. Care significantly affected by the following chronic conditions: Hypertension. Counseling: I had a detailed discussion with the patient and/or guardian regarding the historical points, exam findings, and any diagnostic results supporting the discharge/admit diagnosis, radiology results, the need for outpatient follow up. Response to treatment: the patient's symptoms have markedly improved after treatment. 11/14 20:45 Order name: CT Head C Spine; Complete Time: 22:12 rt 11/14 20:45 Order name: Hand Right 3 View XRAY; Complete Time: 21:31 rt Administered Medications: 11/14 21:30 Drug: Acetaminophen PO 1000 mg PO once Route: PO; [facility] 22:30 Follow up: Response: No adverse reaction; Pain is decreased [facility] 22:40 Drug: Lidocaine Infiltration (1 %) 5 mg Infiltration once {Note: ADMINISTERED BY DR. fer SHAFFER .} Route: Infiltration; 23:00 Follow up: Response: No adverse reaction [facility] Disposition Summary: 11/15/23 23:03 Discharge Ordered Notes: Location: Home rt Problem: new rt Symptoms: have improved rt Condition: Stable rt Diagnosis - Facial Laceration rt Followup: rt - With: Private Physician - When: 7 - 10 days - Reason: Staple/Suture removal Discharge Instructions: - Discharge Summary Sheet rt - Facial Laceration rt Forms: - Medication Reconciliation Form rt - Antibiotic Education rt - Prescription Opioid Use rt - Patient Portal Instructions rt - Leadership Thank You Letter rt Signatures: Dispatcher [employer] EDZahida Salguero RN RN ha1 [place], Ryan, MD MD rt Corrections: (The following items were deleted from the chart) 20:45 20:45 Head C Spine MPR Wo Con+CT.RAD.BRZ ordered. EDMS EDMS 20:45 20:45 Hand Right 3 View+RAD.RAD.BRZ ordered. EDMS EDMS
--- NOTE | 2023-11-15 23:04 | ER ---
Nurse's Notes [facility] Name: Ember Meade Age: 83 yrs Sex: Female : 1940 Arrival Date: 11/15/2023 Time: 20:12 Bed 20 Private MD: Diagnosis: Facial Laceration Presentation: 11/14 20:26 Chief complaint: EMS states: 83 year old female report falling from sitting position ha1 and going forward and hitting her forehead . NO LOC. NO BLOOD THINNERS. 20:26 Coronavirus screen: Vaccine status:. Ebola Screen: No symptoms or risks identified at [facility] this time. Initial Sepsis Screen: Does the patient meet any 2 criteria? No. Patient's initial sepsis screen is negative. Does the patient have a suspected source of infection? No. Patient's initial sepsis screen is negative. Risk Assessment: Do you want to hurt yourself or someone else? Patient reports no desire to harm self or others. Onset of symptoms was November 15, 2023. 20:26 Method Of Arrival: EMS: [place] [address] 20:26 Acuity: SANTOSH 3 ha1 Triage Assessment: 20:23 General: Appears uncomfortable, Behavior is calm, cooperative. Pain: Complains of pain ha1 in HEADACHE Pain does not radiate. Pain currently is 8 out of 10 on a pain scale. Quality of pain is described as heavy, pressure. Neuro: Level of Consciousness is awake, alert, obeys commands, Oriented to person, place, time, situation. Neuro: Reports headache. Cardiovascular: Patient's skin is warm and dry. Respiratory: Airway is patent Respiratory effort is even, unlabored, Respiratory pattern is regular, symmetrical. GI: No signs and/or symptoms were reported involving the gastrointestinal system. Abdomen is round non-distended. Injury Description: Laceration sustained to forehead is clean, bleeding moderately, a small amount of bleeding noted at this time. A dressing was applied. Historical: - Allergies: 20: NKA; ha1 - Home Meds: 20:26 aspirin 81 mg Oral cap 1 cap once daily [Active]; alendronate 70 mg Oral tab once wkly ha1 [Active]; benztropine 0.5 mg Oral tab 1 tab once daily [Active]; carvedilol 12.5 mg Oral tab 1 tab daily [Active]; - PMHx: 20:26 Anemia; Depression; Esophagitis; Hypertension; Schizophrenia; ha1 - PSHx: 20:26 Appendectomy; Left knee replacement; ha1 - Immunization history:: Adult Immunizations up to date. - Infectious Disease History:: Denies. - Social history:: Smoking status: Patient denies any tobacco usage or history of. - Family history:: not pertinent. Screenin/25 20:26 [facility] ED Fall Risk Assessment (Adult) History of falling in the last 3 months, ha1 including since admission Yes- single mechanical fall (1 pt) Confusion or Disorientation No (0 pts) Intoxicated or Sedated No (0 pts) Impaired Gait Yes (1 pt) Mobility Assist Device Used Yes (1 pt) Altered Elimination No (0 pt) Score/Fall Risk Level 3 or more points = High Risk Oriented to surroundings, Maintained a safe environment, Educated pt \T\ family on fall prevention, incl call for assistance when getting out of bed, Hourly rounding (assess needs \T\ fall precautionary measures) done. Abuse screen: Denies threats or abuse. Denies injuries from another. Nutritional screening: No deficits noted. Tuberculosis screening: No symptoms or risk factors identified. Assessment: 11/14 20:26 Reassessment: SEE TRIAGE ASSESSMENT. ha1 21:39 Reassessment: going to CT. ha1 22:20 Reassessment: Patient and/or family updated on plan of care and expected duration. Pain ha1 level reassessed. Patient is alert, oriented x 3, equal unlabored respirations, skin warm/dry/pink. 23:25 Reassessment: Patient and/or family updated on plan of care and expected duration. Pain ha1 level reassessed. Patient is alert, oriented x 3, equal unlabored respirations, skin warm/dry/pink. Patient denies pain at this time. Patient states feeling better. Patient states symptoms have improved. Vital Signs: 20:26 BP 188 / 91; Pulse 77; Resp 16 S; Temp 98.2(O); Pulse Ox 99% on R/A; Weight 56.7 kg; ha1 Height 4 ft. 10 in. ; 21:00 BP 167 / 73; Pulse 80; Resp 17 S; Pulse Ox 97% on R/A; ha1 22:00 BP 168 / 82; Pulse 82; Resp 17 S; Pulse Ox 98% on R/A; ha1 23:00 BP 158 / 73; Pulse 74; Resp 17 S; Pulse Ox 98% on R/A; ha1 20:26 Body Mass Index 26.12 (56.70 kg, 147.32 cm) ha1 ED Course: 20:26 Patient arrived in ED. rt 20:26 Zackery Shaffer MD is Attending Physician. rt 20:26 Patient has correct armband on for positive identification. Placed in gown. Bed in low ha1 position. Call light in reach. Side rails up X2. Adult w/ patient. 20:26 Arm band placed on right wrist. ha1 21:06 Hand Right 3 View XRAY In Process Unspecified. EDMS 21:37 Zahida Urban RN is Primary Nurse. ha1 21:51 Triage completed. ha1 21:56 CT Head C Spine In Process Unspecified. EDMS 23:28 No provider procedures requiring assistance completed. Patient did not have IV access ha1 during this emergency room visit. 23:29 Provided Education on: FOLLOW UPS FOR SUTURE REMOVAL . ha1 Administered Medications: 21:30 Drug: Acetaminophen PO 1000 mg PO once Route: PO; ha1 22:30 Follow up: Response: No adverse reaction; Pain is decreased ha1 22:40 Drug: Lidocaine Infiltration (1 %) 5 mg Infiltration once {Note: ADMINISTERED BY DR. fer SHAFFER .} Route: Infiltration; 23:00 Follow up: Response: No adverse reaction ha1 Medication: 23:29 VIS not applicable for this client. ha1 Outcome: 23:03 Discharge ordered by MD. rt 23:28 Discharged to home via wheelchair, with family, ha1 23:28 Condition: stable 23:28 Discharge instructions given to patient, family, Instructed on discharge instructions, follow up and referral plans. Demonstrated understanding of instructions, follow-up care, wound care, 23:32 Patient left the ED. ha1 Signatures: Dispatcher [employer] EDMS Zahida Urban RN RN 1 Zackery Shaffer MD MD rt Corrections: (The following items were deleted from the chart) 23:28 22:00 BP 158 / 73; Pulse 74bpm; Resp 17bpm; Spontaneous; Pulse Ox 98% RA; ha1 ha1 23:28 21:50 BP 168 / 82; Pulse 82bpm; Resp 17bpm; Spontaneous; Pulse Ox 98% RA; ha1 ha1 23:28 20:45 BP 167 / 73; Pulse 80bpm; Resp 17bpm; Spontaneous; Pulse Ox 97% RA; ha1 ha1
[2023-11-16 00:33] VITALS: TEMP 98.2
[2023-11-16 00:52] VITALS: BP 158/73; O2SAT 98
== END 2023-11-15 23:32 | disposition home or self-care (01) ==
LOC: ER 20:12
DX: S01.81XA Laceration without foreign body of other part of head, initial encounter (principal); W01.0XXA Fall on same level from slipping, tripping and stumbling without subsequent striking against object, initial encounter; Z79.82 Long term (current) use of aspirin
CPT/HCPCS: 70450; 72125; 73130; 99284; 12013; J2001

== ENCOUNTER 2024-07-04 22:00 | Emergency (ER) | payer OTHER ==
--- NOTE | 2024-07-05 00:34 | EDPHYS ---
Physician Documentation [facility] Name: Ember Meade Age: 84 yrs Sex: Female : 1940 Arrival Date: 07/04/2024 Time: 22:00 Bed 18 Private MD: ED Physician Elan Montgomery HPI: 07/05 00:23 This 84 yrs old Female presents to ER via Ambulatory with complaints of Fall alicia Injury, Low Back Pain. 00:23 Details of fall: The patient fell from an upright position, while standing, while alicia walking. Onset: The symptoms/episode began/occurred just prior to arrival. Associated injuries: The patient sustained injury to the chest, left subscapular area, left low back and left mid back, contusion, decreased range of motion, painful injury, swelling. Severity of symptoms: At their worst the symptoms were moderate, in the emergency department the symptoms are unchanged. The patient has not experienced similar symptoms in the past. Historical: - Allergies: 07/04 22:39 NKA; vc1 - PMHx: 22:39 Anemia; Schizophrenia; Hypertension; Esophagitis; Depression; vc1 - PSHx: 22:39 Left knee replacement; Appendectomy; vc1 - Immunization history:: Adult Immunizations unknown. - Infectious Disease History:: Denies. - Social history:: Smoking status: Patient denies any tobacco usage or history of. ROS: 07/05 00:27 Constitutional: Negative for fever, chills, and weight loss, Eyes: Negative for injury, alicia pain, redness, and discharge, ENT: Negative for injury, pain, and discharge, Neck: Negative for injury, pain, and swelling, Cardiovascular: Negative for chest pain, palpitations, and edema, Abdomen/GI: Negative for abdominal pain, nausea, vomiting, diarrhea, and constipation, : Negative for injury, bleeding, discharge, and swelling, MS/Extremity: Negative for injury and deformity, Skin: Negative for injury, rash, and discoloration, Neuro: Negative for headache, weakness, numbness, tingling, and seizure, Psych: Negative for depression, anxiety, suicide ideation, homicidal ideation, and hallucinations, Allergy/Immunology: Negative for hives, rash, and allergies, Endocrine: Negative for neck swelling, polydipsia, polyuria, polyphagia, and marked weight changes, Hematologic/Lymphatic: Negative for swollen nodes, abnormal bleeding, and unusual bruising, Respiratory: Positive for cough, shortness of breath, at rest. Back: Positive for decreased range of motion, pain at rest, pain with movement, of the left subscapular area, lumbar area, left low back and left mid back, MS/extremity: Negative for acute changes, Exam: 00:28 Constitutional: This is a well developed, well nourished patient who is awake, alert, alicia and in no acute distress. Head/Face: Normocephalic, atraumatic. Eyes: Pupils equal round and reactive to light, extra-ocular motions intact. Lids and lashes normal. Conjunctiva and sclera are non-icteric and not injected. Cornea within normal limits. Periorbital areas with no swelling, redness, or edema. ENT: Nares patent. No nasal discharge, no septal abnormalities noted. Tympanic membranes are normal and external auditory canals are clear. Oropharynx with no redness, swelling, or masses, exudates, or evidence of obstruction, uvula midline. Mucous membranes moist. Neck: Trachea midline, no thyromegaly or masses palpated, and no cervical lymphadenopathy. Supple, full range of motion without nuchal rigidity, or vertebral point tenderness. No Meningismus. Chest/axilla: Normal chest wall appearance and motion. Nontender with no deformity. No lesions are appreciated. Cardiovascular: Regular rate and rhythm with a normal S1 and S2. No gallops, murmurs, or rubs. Normal PMI, no JVD. No pulse deficits. Respiratory: Lungs have equal breath sounds bilaterally, clear to auscultation and percussion. No rales, rhonchi or wheezes noted. No increased work of breathing, no retractions or nasal flaring. Abdomen/GI: Soft, non-tender, with normal bowel sounds. No distension or tympany. No guarding or rebound. No evidence of tenderness throughout. Female : Normal external genitalia. Skin: Warm, dry with normal turgor. Normal color with no rashes, no lesions, and no evidence of cellulitis. MS/ Extremity: Pulses equal, no cyanosis. Neurovascular intact. Full, normal range of motion., bilateral aka Neuro: Awake and alert, GCS 15, oriented to person, place, time, and situation. Cranial nerves II-XII grossly intact. Motor strength 5/5 in all extremities. Sensory grossly intact. Cerebellar exam normal. Normal gait. Psych: Awake, alert, with orientation to person, place and time. Behavior, mood, and affect are within normal limits. 00:28 Back: pain, that is moderate, ROM is painful, normal spinal alignment noted, CVA tenderness, that is mild, is noted on the left, Vital Signs: 07/04 22:37 Weight 58.97 kg; Height 4 ft. 10 in. ; vc1 22:40 BP 195 / 93; Pulse 82; Resp 16; Temp 97.9; Pulse Ox 98% ; vc1 07/05 00:51 BP 189 / 71; Pulse 77; Resp 18; Temp 97.9; Pulse Ox 96% ; Pain 4/10; bm8 02:20 BP 188 / 80; Pulse 78; Resp 15; Temp 97.9; Pulse Ox 96% ; Pain 6/10; bm8 07/04 22:37 Body Mass Index 27.17 (58.97 kg, 147.32 cm) vc1 07/05 00:51 Pain Scale: Adult bm8 02:20 Pain Scale: Adult bm8 07/04 22:37 "hurting quite a bit" vc1 Shabbir Coma Score: 07/05 00:51 Eye Response: spontaneous(4). Motor Response: obeys commands(6). Verbal Response: bm8 oriented(5). Total: 15. 02:20 Eye Response: spontaneous(4). Motor Response: obeys commands(6). Verbal Response: bm8 oriented(5). Total: 15. MDM: 07/04 22:27 Medical Screening Exam initiated [facility] 07/05 00:29 Differential diagnosis: intra-abdominal injury, closed head injury, cardiac contusion, alicia extremity fracture, C spine fracture, T spine fracture, L spine fracture. Differential diagnosis: abrasion, closed head injury, contusion, fracture, laceration, multiple trauma, sprain, strain. Data reviewed: vital signs, nurses notes, lab test result(s), radiologic studies, CT scan. Consideration of Admission/Observation Escalation of care including admission/observation considered. I considered the following discharge prescriptions or medication management in the emergency department Medications were administered in the Emergency Department. See MAR. Independent interpretation of the following test(s) in the Emergency Department EKG: See my EKG interpretation above. Test considered but Not performed: Ultrasound no fast exam. Care significantly affected by the following chronic conditions: Hypertension, depression, htn, esophgitis, anemia. Counseling: I had a detailed discussion with the patient and/or guardian regarding the historical points, exam findings, and any diagnostic results supporting the discharge/admit diagnosis, lab results, radiology results, the need to transfer to another facility, for higher level of care, [facility] does not immediately have the required specialist. 07/04 22:28 Order name: Basic Metabolic Panel; Complete Time: 02:17 [facility] 07/04 22:28 Order name: CBC with Diff; Complete Time: 02: [facility] 07/04 22:28 Order name: Type And Screen; Complete Time: 02:17 [facility] 07/04 22:29 Order name: LFT's; Complete Time: 02:17 [facility] 07/04 22:37 Order name: Chest Abd Pelvis Wo Con; Complete Time: 02:17 [facility]AL 07/04 22:38 Order name: Head C Spine Mpr Wo Con; Complete Time: 02:17 EDAL 07/04 22:28 Order name: Labs collected and sent; Complete Time: 00:51 [facility] 07/05 00:09 Order name: NPO; Complete Time: 00:49 [facility] Administered Medications: 00:49 Drug: NS 0.9% IV 500 ml 500 ml IV at 1 bolus once; to be given as a bolus over 30 bm8 minutes Volume: 500 ml; Route: IV; Rate: 1 bolus; Site: right forearm; 02:19 Follow up: Response: No adverse reaction; IV Status: Completed infusion bm8 02:19 Not Given (Duplicate Order): morphineor iv 2 mg IVP once over 4 mins bm8 02:19 Drug: morphine IVP or IV 2 mg IVP once over 4 mins Route: IVP; Infused Over: 4 mins; bm8 Site: right forearm; 02:20 Follow up: Response: No adverse reaction; Medication Administered at Departure bm8 02:19 Drug: Ondansetron IVP 4 mg IVP once; over 2 minutes Route: IVP; Site: right forearm; bm8 02:19 Follow up: Response: No adverse reaction; Medication Administered at Departure bm8 Disposition: 00:30 Critical Care:. alicia Disposition Summary: 07/05/24 00:34 Transfer Ordered Notes: Transfer Location: [facility] alicia Reason: Higher level of care alicia Condition: Fair alicia Problem: new alicia Symptoms: are unchanged alicia Accepting Physician: to bulmaro trauma(07/05/24 02:21) bm8 Diagnosis - Fall due to bumping against object alicia - Multiple fractures of ribs, left side alicia - Traumatic hemothorax, initial encounter alicia - Traumatic hemopneumothorax, initial encounter alicia - Traumatic pneumothorax, initial encounter alicia - Other injury of spleen, initial encounter alicia Forms: - Medication Reconciliation Form alicia - SBAR form alicia Critical care time excluding procedures: 00:30 Critical care time: Bedside Care: 20 minutes, Consultation: 10 minutes, Family alicia Intervention: 10 minutes. Total time: 40 minutes Signatures: Dispatcher [employer] EDElan Lacey MD MD cha Calcote, Vanessa, RN RN vc1 Mono Bar, RN RN bm8 Corrections: (The following items were deleted from the chart) 07/04 22:38 22:29 Head C Spine Cap Wo Con+CT.RAD.BRZ ordered. [facility] EDAL 07/05 02:21 00:34 to bulmaro , trauma alicia bm8
--- NOTE | 2024-07-05 00:34 | ER ---
Nurse's Notes [facility] Name: Ember Meade Age: 84 yrs Sex: Female : 1940 Arrival Date: 07/04/2024 Time: 22:00 Bed 18 Private MD: Diagnosis: Fall due to bumping against object;Multiple fractures of ribs, left side;Traumatic hemothorax, initial encounter;Traumatic hemopneumothorax, initial encounter;Traumatic pneumothorax, initial encounter;Other injury of spleen, initial encounter Presentation: 07/04 22:37 Chief complaint: Patient's son or daughter states: fell backwards into the wall and now vc1 left shoulder and left middle back hurts. Coronavirus screen: Client denies travel out of the [place] in the last 14 days. At this time, the client does not indicate any symptoms associated with coronavirus-19. Ebola Screen: Patient negative for fever greater than or equal to 101.5 degrees Fahrenheit, and additional compatible Ebola Virus Disease symptoms Patient denies exposure to infectious person. Patient denies travel to an Ebola-affected area in the 21 days before illness onset. No symptoms or risks identified at this time. Initial Sepsis Screen: Does the patient meet any 2 criteria? Yes Does the patient have a suspected source of infection? No. Patient's initial sepsis screen is negative. Risk Assessment: Do you want to hurt yourself or someone else? Patient reports no desire to harm self or others. Onset of symptoms was July 04, 2024. 22:37 Method Of Arrival: Ambulatory vc1 22:37 Acuity: SANTOSH 3 vc1 Historical: - Allergies: 22:39 NKA; vc1 - PMHx: 22:39 Anemia; Schizophrenia; Hypertension; Esophagitis; Depression; vc1 - PSHx: 22:39 Left knee replacement; Appendectomy; vc1 - Immunization history:: Adult Immunizations unknown. - Infectious Disease History:: Denies. - Social history:: Smoking status: Patient denies any tobacco usage or history of. Screenin/16 00:51 [facility] ED Fall Risk Assessment (Adult) History of falling in the last 3 months, bm8 including since admission Yes- single mechanical fall (1 pt) Confusion or Disorientation No (0 pts) Intoxicated or Sedated No (0 pts) Impaired Gait No (0 pts) Mobility Assist Device Used No (0 pt) Altered Elimination No (0 pt) Score/Fall Risk Level 0 - 2 = Low Risk Oriented to surroundings, Maintained a safe environment, Educated pt \\T\\ family on fall prevention, incl call for assistance when getting out of bed, Assessed \\T\\ reinforced patient's understanding of fall precautions, Hourly rounding (assess needs \\T\\ fall precautionary measures) done, Used ambulatory aids as needed (educated on \\T\\ assisted with), Used gait belt as appropriate. Abuse screen: Denies threats or abuse. Nutritional screening: No deficits noted. Tuberculosis screening: No symptoms or risk factors identified. Assessment: 00:51 General: Appears in no apparent distress. uncomfortable, Behavior is calm, cooperative, bm8 appropriate for age. Pain: Complains of pain in lumbar area and left mid back and left low back and left subscapular area Pain currently is 4 out of 10 on a pain scale. Quality of pain is described as aching, crampy, throbbing. Neuro: No deficits noted. Level of Consciousness is awake, alert, obeys commands, Oriented to person, place, time, situation, Appropriate for age. Cardiovascular: Denies chest pain, Heart tones S1 S2 Capillary refill < 3 seconds in bilateral fingers toes Patient's skin is warm and dry. Respiratory: Airway is patent Respiratory effort is even, unlabored, Respiratory pattern is regular, symmetrical, Breath sounds are diminished in left posterior lower lobe. GI: No signs and/or symptoms were reported involving the gastrointestinal system. GI: Abdomen is round non-distended, Bowel sounds present X 4 quads. Abdomen is tender to palpation in anterior aspect of left lateral abdomen Reports Pain is 4 out of 10 on a pain scale. : No signs and/or symptoms were reported regarding the genitourinary system. EENT: No signs and/or symptoms were reported regarding the EENT system. Derm: No signs and/or symptoms reported regarding the dermatologic system. Musculoskeletal: Reports pain in lumbar area and left mid back and left low back and left subscapular area. 01:13 Reassessment: report given to EDIE Schuler at [facility]. bm8 02:20 Reassessment: Patient appears in no apparent distress at this time. Patient and/or bm8 family updated on plan of care and expected duration. Pain level reassessed. Patient is alert, oriented x 3, equal unlabored respirations, skin warm/dry/pink. Pain: Pain currently is 6 out of 10 on a pain scale. Vital Signs: 07/04 22:37 Weight 58.97 kg; Height 4 ft. 10 in. ; vc1 22:40 BP 195 / 93; Pulse 82; Resp 16; Temp 97.9; Pulse Ox 98% ; vc1 07/05 00:51 BP 189 / 71; Pulse 77; Resp 18; Temp 97.9; Pulse Ox 96% ; Pain 4/10; bm8 02:20 BP 188 / 80; Pulse 78; Resp 15; Temp 97.9; Pulse Ox 96% ; Pain 6/10; bm8 07/04 22:37 Body Mass Index 27.17 (58.97 kg, 147.32 cm) vc1 07/05 00:51 Pain Scale: Adult bm8 02:20 Pain Scale: Adult bm8 07/04 22:37 "hurting quite a bit" vc1 Shabbir Coma Score: 07/05 00:51 Eye Response: spontaneous(4). Motor Response: obeys commands(6). Verbal Response: bm8 oriented(5). Total: 15. 02:20 Eye Response: spontaneous(4). Motor Response: obeys commands(6). Verbal Response: bm8 oriented(5). Total: 15. ED Course: 07/04 22:03 Patient arrived in ED. gm2 22:27 Elan Montgomery MD is Attending Physician. alicia 22:39 Triage completed. vc1 22:40 Arm band placed on right wrist. vc1 23:07 Chest Abd Pelvis Wo Con In Process Unspecified. EDMS 23:07 Head C Spine Mpr Wo Con In Process Unspecified. EDMS 07/05 00:29 Mono Bar, RN is Primary Nurse. bm8 00:51 Patient has correct armband on for positive identification. Bed in low position. Call bm8 light in reach. Side rails up X2. Adult w/ patient. Client placed on continuous cardiac and pulse oximetry monitoring. NIBP monitoring applied. Pulse ox on. NIBP on. Door closed. Noise minimized. Warm blanket given. Pillow given. Verbal reassurance given. Diet: Patient is NPO. 00:51 No provider procedures requiring assistance completed. Inserted saline lock: 22 gauge bm8 in right forearm, using aseptic technique. Blood collected. Flushed with 10 mL NS. Patient maintains SpO2 saturation greater than 95% on room air. 01:44 initiated transfer with Augustine \\T\\ [facility] \\T\\ [id number]. Pt was accepted by Dr. kriss Barcenas, Sydni \\T\\[id number]. Admin approval given by Augustine Isbell \\T\\ [id number]. Number for nurse to nurse report [phone].. [facility] transfer pt. 02:20 Provided Education on: need for transfer. bm8 02:20 Patient transferred, IV remains in place. bm8 Administered Medications: 00:49 Drug: NS 0.9% IV 500 ml 500 ml IV at 1 bolus once; to be given as a bolus over 30 bm8 minutes Volume: 500 ml; Route: IV; Rate: 1 bolus; Site: right forearm; 02:19 Follow up: Response: No adverse reaction; IV Status: Completed infusion bm8 02:19 Not Given (Duplicate Order): morphineor iv 2 mg IVP once over 4 mins bm8 02:19 Drug: morphine IVP or IV 2 mg IVP once over 4 mins Route: IVP; Infused Over: 4 mins; bm8 Site: right forearm; 02:20 Follow up: Response: No adverse reaction; Medication Administered at Departure bm8 02:19 Drug: Ondansetron IVP 4 mg IVP once; over 2 minutes Route: IVP; Site: right forearm; bm8 02:19 Follow up: Response: No adverse reaction; Medication Administered at Departure bm8 Medication: 00:51 VIS not applicable for this client. bm8 Outcome: 00:34 ER care complete, transfer ordered by MD. vargas 02:20 Transferred by ground EMS to [facility], Transfer form completed. X-rays sent bm8 w/ patient. 02:20 Condition: stable 02:20 Instructed on follow up and referral plans. the need for transfer, Demonstrated understanding of instructions, follow-up care, medications, 02:21 Patient left the ED. bm8 Signatures: Dispatcher [employer] Elan Fuentes MD MD cha Calcote, Vanessa, RN RN 1 Franca Dominguez 2 Rosita Griggs [facility] Mono Bar, RN RN bm8
--- NOTE | 2024-07-05 00:37 | RAD REPORT ---
ADDENDUM #1 Addendum: These findings were relayed to Dr. Elan Montgomery on July 05, 2024 at 12:03 AM Electronically signed by: Skinny Dillon MD 07/05/2024 12:06 AM CDT RP End of Addendum Clinical Indication: ; FALL Comparison: None TECHNIQUE: Sequential trans-axial images were obtained through the chest, abdomen and pelvis without iodinated contrast or oral contrast. Coronal and sagittal reconstructions were obtained and provided as separate series. All CT scans at this location are performed using dose optimization techniques as appropriate to perf orm the study. Radiation dose reduction technique was utilized including one or more of the following: Automated exp osure control, adjustment of the mA and/or kV according to patient size and use of iterative reconstruction technique. CT Radiation Dose DLP 1812.6 mGy-cm FINDINGS: CT CHEST: LUNG PARENCHYMA AND PLEURA: Bilateral scattered areas of groundglass opacity are noted, likely atelec tasis. Septal thickening is noted within the lung bases, consistent with fibrotic changes. A 7 mm spiculated nodule is noted within the left upper lobe on image 40 of series 401. Tiny left pleural effusion is noted. A small left pneumothorax is also noted. AIRWAY: The central airway is patent. MEDIASTINUM: No mediastinal lymphadenopathy is noted. HEART: The heart is enlarged. Mitral valve calcifications are noted.. There is trace pericardial effu cheryl. VASCULAR STRUCTURES: The pulmonary arteries and great vessels are normal in caliber. The thoracic a shun is normal in caliber. The superior vena cava is unremarkable. OSSEOUS STRUCTURES: A left posterior fifth rib fracture is noted. A left posterior comminuted seventh rib fracture is noted. The rib is fractured adjacent to the costovertebral junction and approximately 2 cm distal to this. Left posterior eighth and ninth rib fractures are noted. Deformity of the posterolateral 10th rib with some sclerosing may be due to old fracture. ESOPHAGUS: No gross abnormalities. CT ABDOMEN/PELVIS: NON-CONTRAST ENHANCED SOLID ORGANS: LIVER: Unremarkable. GALLBLADDER: The gallbladder is contracted. INTRAHEPATIC BILE DUCT AND EXTRAHEPATIC BILE DUCT: Unremarkable. PANCREAS: Unremarkable. SPLEEN: Evaluation of the spleen is limited due to lack of IV contrast. Small amount of fluid is note d along the inferior aspect of the spleen. This can be seen on image 92 of series 401. The spleen is noted adjacent to the posterior rib fractures and splenic laceration is highly suspected. ADRENALS: Unremarkable. KIDNEYS: The right kidney is malrotated with the renal pelvis anteriorly. There is moderate to august re right hydronephrosis. Stagnant calcifications are noted in the lower pole on image 127 of series 401. There is moderate right hydroureter. Proximal calcifications are noted within the left anterior mid kidney. An exophytic hyperdense area is noted on image 111 of series 401. This measures 10 mm in diameter and 62 Hounsfield units. This most likely represents a small renal neoplasm. STOMACH: Evaluation of the stomach and bowel is limited due to lack of oral contrast. No gross abno rmalities of the stomach are noted. BOWEL: The non-contrast opacified small bowel loops in the abdomen and pelvis appear unremarkable. Th e noncontrast opacified colonic loops in the abdomen and pelvis appear unremarkable. Scattered diverticuli are noted within the sigmoid colon. No surrounding inflammatory changes are seen to sugge st acute diverticulitis. APPENDIX: Not well seen on the exam. PERITONEUM AND RETROPERITONEUM: Small amount of fluid is noted along the inferior aspect of the splee n. No large amount of ascites is noted. No free air is noted in the abdomen. No loculated fluid collection noted. The abdominal aorta is normal in caliber. LYMPH NODES: Unremarkable. PELVIS: No pelvic mass or adenopathy. . Probable calcified uterine fibroid in the lower uterine seg ment is seen on image 146 of series 401. This is noted along the posterior aspect of the uterus and somewhat displaces the rectum to the right. BLADDER: Unremarkable. OSSEOUS STRUCTURES: No acute abnormality seen. Grade 1 anterolisthesis of L4 on L5 is noted of approx imately 5 mm. SOFT TISSUES: Unremarkable. IMPRESSION: 1. Left posterior rib fractures with small pleural effusion and pneumothorax. 2. Highly suspected splenic laceration. Evaluation is limited due to lack of IV contrast. Small amoun t of hyperdense fluid along the inferior aspect of the spleen would be consistent with an AAST grade 5 laceration. 3. 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 4. Diverticulosis without CT evidence of acute diverticulitis. 5. Left upper pole 7 mm spiculated nodule. 6. Probable 10 mm left renal neoplasm. Electronically signed by: Skinny Dillon MD 07/04/2024 11:56 PM CDT RP Due to temporary technical issues with the PACS/[employer] reporting system, reports are being elias d by the in-house radiologist without review as a courtesy to ensure prompt reporting the interpreting radiologist is fully responsible for the content of the report. Transcribed Date/Time: 07/05/2024 12:36 AM
[2024-07-05] MEDS ORDERED: NA CHLORIDE 0.9% 500 ML ONE (00:47)
[2024-07-05 01:10] LABS: Absolute Basophils 0.1 K/uL (0-0.5); Absolute Eosinophils 0.2 K/uL (0-0.5); Absolute Lymphocytes (CBC) 1.7 K/uL (0.7-4.9); Absolute Monocytes 0.6 K/uL (0.1-1.3); Absolute Neutrophil 6.6 K/uL (1.8-8.0); Basophils % 0.7 % (0-1.3); Eosinophils % 2.5 % (0-4.4); Hematocrit 37.3 % (36.0-45.0); Hemoglobin 12.6 g/dL (12.0-15.0); Lymphocytes % 18.3 % (15.3-44.8); MCH 28.8 pg (27.0-35.0); MCHC 33.8 g/dL (32.0-36.0); MCV 85.5 fL (80-100); MPV 8.6 fL (7.6-11.3); Monocytes % 6.3 % (3.3-12.3); Neutrophils % 72.2 % (41.7-73.7); Platelets 285 thou/uL (152-406); RBC Red Blood Cell Count 4.36 M/uL (3.86-4.86); Red Cell Distribution Width 14.5 % (12.1-15.2)
[2024-07-05 01:19] LABS: ALT/SGPT 28 U/L (13-56); AST/SGOT 24 U/L (15-37); Albumin 3.3 g/dL (3.4-5.0); Albumin/Globulin Ratio 0.8 (1.1-1.8); Alkaline Phosphatase 68 U/L (45-117); Anion Gap 7.9 mEq/L (5.0-15.0); BUN Blood Urea Nitrogen 26 mg/dL (7-18); Bicarbonate 29 mEq/L (21-32); Bilirubin Total 0.3 mg/dL (0.2-1.0); Globulin 4.1 g/dL (2.3-3.5); Glomerular Filtration Rate 69 ml/min (=/>90); Glucose Level 107 mg/dL (74-106); Potassium 3.9 mEq/L (3.5-5.1); Protein, Total 7.4 g/dL (6.4-8.2); Sodium Level 138 mEq/L (136-145)
[2024-07-05 01:24] LABS: Bilirubin Direct < 0.2 mg/dL (0-0.2); Bilirubin Indirect, Calculated 0.1 mg/dL (0.2-0.8)
--- NOTE | 2024-07-05 01:41 | RAD REPORT ---
EXAM: CT Head and Cervical Spine Without Intravenous Contrast CLINICAL HISTORY: The patient is 84 years old and is Female; PAIN TECHNIQUE: Axial computed tomography images of the head/brain and cervical spine without intravenous contrast. Sagittal and coronal reformatted images were created and reviewed. This CT exam was performed using one or more of the following dose reduction techniques: automated exposure control, adjustmen t of the mA and/or kV according to patient size, and/or use of iterative reconstruction technique. COMPARISON: CT performed the same day. FINDINGS: BRAIN: There is diffuse cerebral atrophy present, consistent with this patient's age. There is patchy hypoattenuation of the deep white matter which is non-specific, but most likely owing to chronic small vessel ischemic change in a patient of this age group. No intracranial hemorrhage, ma ss effect or midline shift is seen. There are no extra-axial fluid collections. The ellis-white differentiation is maintained. VENTRICLES: Unremarkable. No ventriculomegaly. SKULL: No acute fracture. SINUSES: Unremarkable as visualized. No acute sinusitis. MASTOID AIR CELLS: Unremarkable as visualized. No mastoid effusion. VERTEBRAE: Anterolisthesis of C3 on C4 and C4 on C5 secondary to facet arthropathy is present. Th e vertebral body heights and alignment are otherwise maintained. There is no acute fracture. DISCS/SPINAL CANAL/NEURAL FORAMINA: There is multi-level intervertebral disc height loss. There a re disc-osteophyte complexes at several levels, with associated mild spinal canal narrowing. There is also facet hypertrophy and uncovertebral joint osteophytosis, with associated multilevel pito ral foraminal narrowing. SOFT TISSUES: The soft tissues are normal. LUNG APICES: Unremarkable as visualized. PLEURAL SPACE: A left apical pneumothorax is present. This was reported as seen on prior CT. IMPRESSION: 1. No acute intracranial findings. 2. Moderate spondylosis of the cervical spine without acute findings. Electronically signed by: Bettina Perez MD 07/05/2024 01:31 AM CDT Due to temporary technical issues with the PACS/[employer] reporting system, reports are being elias d by the in-house radiologist without review as a courtesy to ensure prompt reporting the interpreting radiologist is fully responsible for the content of the report. Transcribed Date/Time: 07/05/2024 1:41 AM
[2024-07-05] MEDS ORDERED: ONDANSETRON 4 MG/2 ML VIAL ONE (02:17)
[2024-07-05] MEDS ORDERED: MORPHINE 2 MG/ML SYR ONE (02:17)
[2024-07-05 02:28] VITALS: TEMP 97.9
[2024-07-05 02:29] VITALS: O2SAT 96
[2024-07-05 02:31] VITALS: BP 188/80
== END 2024-07-05 02:21 | disposition short-term general hospital (02) ==
LOC: ER 22:00
DX: S22.42XA Multiple fractures of ribs, left side, initial encounter for closed fracture (principal); S27.2XXA Traumatic hemopneumothorax, initial encounter; S36.09XA Other injury of spleen, initial encounter; W18.00XA Striking against unspecified object with subsequent fall, initial encounter; M54.50 Low back pain, unspecified; Z96.652 Presence of left artificial knee joint
CPT/HCPCS: 85025; 80048; 36415; 86900; 86850; 86901; 80076; 70450; 71250; 72125; 74176; J2270; J2405; J7040

== ENCOUNTER 2024-07-27 20:09 | Emergency (ER) | payer OTHER ==
--- OUTSIDE RECORDS SUMMARY | 2024-07-27 20:10 | XMS REPORT | Clinical Summary ---
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 0 6 Active ARIPiprazole (ABILIFY) 10 mg tablet Take [...] twice daily. Active alendronate (FOSAMAX) 70 mg tabletIndications :postmenopausal osteoporosis Take 70 mg by mouth every 7 days. . Active peg 3350-electrolytes (GOLYTELY) 236-22.74-6.74 g solutionIndicatio ns:Colonoscopy planned Use as directed by ordering provider. 4000 mL 8 Active peg 3350-electrolytes (Golytely) 236-22.74-6.74 g solutionIndicatio ns:Colonoscopy planned Use as directed by ordering provider. 4000 mL 0 Active Active Problems Problem Noted Date Diagnosed Date Personal history of colon polyp 12/28/2016 Overview (12/28/2016): Added automatically from request for surgery [id number] Surgical History Surgery Date Site/Laterality Comments COLONOSCOPY 02/11/2015 multiple OTHER SURGICAL HISTORY 02/11/2015 EMR w/ Colonoscopy APPENDECTOMY TIBIA FRACTURE SURGERY 03/22/2012 - 03/21/2013 Right w/ right tibial ludy insertion VT SIGMOIDOSCOPY FLX DX W/COLLJ SPEC BR/WA IF PFRMD 09/20/2015 Anus/N/A Procedure: DIAGNOSTIC FLEXIBLE SIGMOIDOSCOPY, WITH OR WITHOUT COLLECTION OF SPECIMEN(S) BY BRUSHING OR WASHING; Surgeon: Esperanza Allred MD; Location: MAIN ENDOSCOPY; Service: GASTROENTEROLOGY VT EGD TRANSORAL ENDOSCOPIC MUCOSAL RESECTION 09/20/2015 Anus/N/A Procedure: FLEXIBLE ESOPHAGOGASTRODUODENOSCOPY WITH MUCOSAL RESECTION; Surgeon: Esperanza Allred MD; Location: MAIN ENDOSCOPY; Service: GASTROENTEROLOGY VT SIGMOIDOSCOPY FLX DX W/COLLJ SPEC BR/WA IF PFRMD 01/15/2016 Anus/N/A Procedure: DIAGNOSTIC FLEXIBLE SIGMOIDOSCOPY, WITH OR WITHOUT COLLECTION OF SPECIMEN(S) BY BRUSHING OR WASHING; Surgeon: Esperanza Allred MD; Location: MAIN ENDOSCOPY; Service: GASTROENTEROLOGY VT COLONOSCOPY FLX W/ENDOSCOPIC MUCOSAL RESECTION 04/17/2016 N/A Procedure: FLEXIBLE COLONOSCOPY WITH ENDOSCOPIC MUCOSAL RESECTION; Surgeon: Esperanza Allred MD; Location: MAIN ENDOSCOPY; Service: GASTROENTEROLOGY VT COLONOSCOPY FLX W/ENDOSCOPIC MUCOSAL RESECTION 11/06/2016 N/A Procedure: FLEXIBLE COLONOSCOPY WITH ENDOSCOPIC MUCOSAL RESECTION; Surgeon: Esperanza Allred MD; Location: MAIN ENDOSCOPY; Service: GASTROENTEROLOGY VT COLONOSCOPY FLX DX W/COLLJ SPEC WHEN PFRMD [...] = 0.6 oz pur e alcohol) rare Comments No Sex and Gender Information Value Date Recorded Sex Assigned at Not on file Legal Sex 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 Gender Identity Not on file Sexual Orientation Not on file Obstetrics History Plan of Treatment Health Maintenance Due Date Last Done Comments Pneumococcal Vaccine: 50+ Years (1 of - PCV) 988 COVID-19 Vaccine ( - 2023- season) 2023 Influenza Vaccine (Season Ended) 2024 Insurance MEDICARE [place] B [place] [employer] [employer] [employer] [employer] [employer] [employer] Advance Directives Documents on File Type Date Recorded 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 PCP - General 05/22/15 Hola Valdovinos MD [address] [place] [id number] [email or web address] - External Referring 12/24/14 Hola Valdovinos MD [address] [place] [phone] [email or web address] - External Follow Up A 12/24/14 Kirk Hastings MD [address] [place] [id number] PCP - External Follow Up B 01/01/15 Meng Radford MD [address] [place] [phone] [email or web address] Physician 05/29/15 Joi Martinez NP [address] [place] [phone] [email or web address] Nurse Practitioner 05/29/15 Archana Arriaga PA [address] [place] [id number] [email or web address] Physician Certifed Refrigeration Operator 05/29/15 Rojas Peña MD [address] [place] [id number] [email or web address] Physician 05/29/15
--- NOTE | 2024-07-27 21:01 | RAD REPORT ---
EXAMINATION: ONE VIEW CHEST XR CLINICAL INDICATION: Female, 84 years old.,ABDOMINAL DISTENTION TECHNIQUE: Frontal chest projection is submitted. Examination is limited by patient positioning and t echnique. COMPARISON: 04/08/2023 FINDINGS: The lungs are well inflated. Patchy left basilar opacities, somewhat progressive since the prior exam although superimposition of soft tissues somewhat limiting evaluation. Central interstitial prominence appears stable. No pneumothorax or sizable effusion. The heart is normal in size. Mediast inal contours are unremarkable. IMPRESSION: Patchy left basilar opacities could reflect atelectasis or early pneumonia. Stable central interstiti al prominence which may reflect mild central congestion.
[2024-07-27] MEDS ORDERED: NA CHLORIDE 0.9% 500 ML ONE (21:13)
[2024-07-27] MEDS ORDERED: NA CHLORIDE 0.9% 250 ML ONE (21:13)
[2024-07-27] MEDS ORDERED: PANTOPRAZOLE 40 MG INJ ONE (21:13)
[2024-07-27] MEDS ORDERED: ONDANSETRON 4 MG/2 ML VIAL ONE (21:24)
--- NOTE | 2024-07-27 21:34 | EDPHYS ---
Physician Documentation [facility] Name: Ember Meade Age: 84 yrs Sex: Female : 1940 Arrival Date: 07/27/2024 Time: 19:47 Bed 16 Private MD: ED Physician Elan Montgomery HPI: 07/27 21:27 This 84 yrs old Female presents to ER via EMS with complaints of vomiting alicia black , blood, black stools. 21:27 The patient presents with abdominal pain abdominal distention in the lower abdomen. alicia Onset: The symptoms/episode began/occurred 2 day(s) ago. The patient presents to the emergency department vomiting blood, a moderate amount, black. Onset: The symptoms/episode began/occurred 2 day(s) ago. Abdominal pain: described as crampy. Modifying factors: The symptoms are alleviated by nothing, the symptoms are aggravated by movement, pressure. Associated signs and symptoms: Pertinent positives: dizziness at rest, vomiting. Associated signs and symptoms: none. Historical: - Allergies: 20:16 NKA; vc1 - PMHx: 20:16 Anemia; Depression; Esophagitis; Hypertension; Schizophrenia; vc1 - PSHx: 20:16 Appendectomy; Left knee replacement; vc1 - Immunization history:: Adult Immunizations up to date. - Infectious Disease History:: Denies. - Social history:: Smoking status: unknown. - Family history:: not pertinent. ROS: 21:27 Constitutional: Negative for fever, chills, and weight loss, Eyes: Negative for injury, alicia pain, redness, and discharge, ENT: Negative for injury, pain, and discharge, Neck: Negative for injury, pain, and swelling, Cardiovascular: Negative for chest pain, palpitations, and edema, Respiratory: Negative for shortness of breath, cough, wheezing, and pleuritic chest pain, Back: Negative for injury and pain, : Negative for injury, bleeding, discharge, and swelling, MS/Extremity: Negative for injury and deformity, Skin: Negative for injury, rash, and discoloration, Neuro: Negative for headache, weakness, numbness, tingling, and seizure, Psych: Negative for depression, anxiety, suicide ideation, homicidal ideation, and hallucinations, Allergy/Immunology: Negative for hives, rash, and allergies, Endocrine: Negative for neck swelling, polydipsia, polyuria, polyphagia, and marked weight changes, Hematologic/Lymphatic: Negative for swollen nodes, abnormal bleeding, and unusual bruising, 21:27 Abdomen/GI: Positive for abdominal pain, nausea and vomiting, abdominal cramps, hematemesis, black/tarry stool, Exam: 21:27 Constitutional: This is a well developed, well nourished patient who is awake, alert, alicia and in no acute distress. Head/Face: Normocephalic, atraumatic. Eyes: Pupils equal round and reactive to light, extra-ocular motions intact. Lids and lashes normal. Conjunctiva and sclera are non-icteric and not injected. Cornea within normal limits. Periorbital areas with no swelling, redness, or edema. ENT: Nares patent. No nasal discharge, no septal abnormalities noted. Tympanic membranes are normal and external auditory canals are clear. Oropharynx with no redness, swelling, or masses, exudates, or evidence of obstruction, uvula midline. Mucous membranes moist. Neck: Trachea midline, no thyromegaly or masses palpated, and no cervical lymphadenopathy. Supple, full range of motion without nuchal rigidity, or vertebral point tenderness. No Meningismus. Chest/axilla: Normal chest wall appearance and motion. Nontender with no deformity. No lesions are appreciated. Cardiovascular: Regular rate and rhythm with a normal S1 and S2. No gallops, murmurs, or rubs. Normal PMI, no JVD. No pulse deficits. Respiratory: Lungs have equal breath sounds bilaterally, clear to auscultation and percussion. No rales, rhonchi or wheezes noted. No increased work of breathing, no retractions or nasal flaring. Back: No spinal tenderness. No costovertebral tenderness. Full range of motion. Skin: Warm, dry with normal turgor. Normal color with no rashes, no lesions, and no evidence of cellulitis. MS/ Extremity: Pulses equal, no cyanosis. Neurovascular intact. Full, normal range of motion., bilateral aka Neuro: Awake and alert, GCS 15, oriented to person, place, time, and situation. Cranial nerves II-XII grossly intact. Motor strength 5/5 in all extremities. Sensory grossly intact. Cerebellar exam normal. Normal gait. Psych: Awake, alert, with orientation to person, place and time. Behavior, mood, and affect are within normal limits. 21:27 Abdomen/GI: Inspection: abdomen appears normal, Bowel sounds: normal, Palpation: abdomen is soft and non-tender, Rectal exam: rectal tone normal, the exam is chaperoned by the nurse, melena. Liver: no appreciated palpable abnormalities, Hernia: not appreciated, 23:19 ECG was reviewed by the Attending Physician. [facility] Vital Signs: 20:09 BP 138 / 69; Pulse 84; Resp 14; Temp 98.5; Pulse Ox 100% ; Weight 61.23 kg; vc1 21:08 BP 135 / 68; Pulse 93; Resp 16; Pulse Ox 100% on R/A; Pain 4/10; jj7 22:00 BP 106 / 60; Pulse 104; Resp 17; Pulse Ox 95% ; jj7 23:30 BP 112 / 59; Pulse 113; Resp 17; Pulse Ox 98% ; jj7 07/28 00:30 BP 106 / 66; Pulse 106; Resp 16; Pulse Ox 97% ; jj7 01:30 BP 103 / 56; Pulse 106; Resp 17; Pulse Ox 96% ; jj7 02:30 BP 118 / 55; Pulse 95; Resp 16; Temp 98.3; Pulse Ox 99% ; jj7 21:08 Pain Scale: Adult jj7 MDM: 07/27 20:15 Medical Screening Exam initiated [facility] 21:30 Differential diagnosis: gastritis, diverticulitis, hemorrhoids, hemorrhagic shock, alicia varices, bowel obstruction, gastritis, gastroesophageal reflux disease, GI Bleed, Mesenteric ischemia or infarction, non-specific abd pain, pancreatitis, Peptic Ulcer Disease, Perf. Duodenal Ulcer, Perf. Gastric Ulcer, Pyelonephritis, Ureterolithiasis, urinary tract infection. Data reviewed: vital signs, nurses notes, lab test result(s). Consideration of Admission/Observation Escalation of care including admission/observation considered. I considered the following discharge prescriptions or medication management in the emergency department Medications were administered in the Emergency Department. See MAR. Independent interpretation of the following test(s) in the Emergency Department EKG: See my EKG interpretation above. Test considered but Not performed: Ultrasound no abd usg. Historians other than the Patient: Family Member: family in room , well informed. Care significantly affected by the following chronic conditions: Hypertension, Obesity, anemia, depression, schizophrenia. 07/28 00:29 ED course: transfer center said since dc from [facility] for trauma, rib fx 7,8,9,10..... alicia had gi bleed in hospital , had scope there , send to [facility] no beds.... will trans kendrick to [facility]. 07/27 20:24 Order name: Basic Metabolic Panel; Complete Time: 22:49 [facility] 07/27 20:24 Order name: CBC with Diff; Complete Time: 22:49 [facility] 07/27 20:24 Order name: LFT's; Complete Time: 22:49 [facility] 07/27 20:24 Order name: Magnesium; Complete Time: 22:49 [facility] 07/27 20:24 Order name: NT PRO-BNP; Complete Time: 22:49 [facility] 07/27 20:24 Order name: PT-INR; Complete Time: 22:49 [facility] 07/27 20:24 Order name: Troponin HS; Complete Time: 22:49 [facility] 07/27 20:24 Order name: Lipase; Complete Time: 22:49 [facility] 07/27 20:24 Order name: UA Rfx Wagner Cult if indicated; Complete Time: 22:49 [facility] 07/27 20:24 Order name: Type And Screen [facility] 07/27 22:45 Order name: Urine Culture [facility] 07/28 00:47 Order name: Blood Culture Adult (2) [facility] 07/28 00:53 Order name: CBC with Diff [facility] 07/28 01:00 Order name: Packed RBC Leukored [facility] 07/27 20:24 Order name: XRAY Chest (1 view); Complete Time: 22:26 [facility] 07/27 21:25 Order name: CT Chest, Abdomen, Pelvis - W/Contrast [facility] 07/27 20:24 Order name: Cardiac monitoring; Complete Time: 00:09 [facility] 07/27 20:24 Order name: EKG - Nurse/Tech; Complete Time: 00:09 [facility] 07/27 20:24 Order name: IV Saline Lock; Complete Time: 00:09 [facility] 07/27 20:24 Order name: Labs collected and sent; Complete Time: 22:11 [facility] 07/27 20:24 Order name: O2 Per Protocol; Complete Time: 00:09 [facility] 07/27 20:24 Order name: O2 Sat Monitoring; Complete Time: 00:09 [facility] 07/27 20:24 Order name: IV Saline Lock - Large Bore; Complete Time: 23:34 [facility] 07/28 00:29 Order name: Nasogastric Tube; Complete Time: 02:41 alicia EC/08 23:19 Rate is 119 beats/min. Rhythm is regular. QRS [place] is Normal. MS interval is normal. alicia QRS interval is normal. QT interval is normal. No Q waves. T waves are Normal. No ST changes noted. Clinical impression: Abnormal EKG without significant change and Sinus tachycardia. Interpreted by me. Reviewed by me. Administered Medications: 21:33 Drug: NS 0.9% IV 500 ml 500 ml IV at 1 bolus once; to be given as a bolus over 30 [facility] minutes Volume: 500 ml; Route: IV; Rate: 1 bolus; Site: right forearm; 23:34 Follow up: IV Status: Completed infusion [facility] 21:34 Drug: Pantoprazole IVP 80 mg IVP once Route: IVP; Site: right forearm; [facility] 23:34 Follow up: Response: Marked relief of symptoms; Pain is decreased [facility] 21:34 Drug: Pantoprazole IV 8 mg/hr IV at 25 ml/hr continuous; (Standard dilution is 80 mg in [facility] 250 mL NS) Route: IV; Rate: 25 ml/hr; Site: right forearm; 07/28 02:05 Follow up: IV Pause: 07/28/2024 02:05; IV Pause Reason: Limited IV access/Medication [facility] interaction 02:40 Follow up: IV Resume: 07/28/2024 02:40; IV Resume Reason: Additional IV access/No [facility] medication interaction 02:43 Follow up: IV Status: Infusion continued upon transfer [facility] 07/27 21:34 Drug: Ondansetron IVP 8 mg IVP once; over 2 minutes Route: IVP; Site: right forearm; [facility] 23:34 Follow up: Response: Marked relief of symptoms; Nausea is decreased [facility] 23:34 Drug: NS 0.9% IV 1000 ml IV at 125 ml/hr once Route: IV; Rate: 125 ml/hr; Site: right [facility] forearm; 07/28 02:43 Follow up: IV Status: Infusion continued upon transfer [facility] 01:58 Drug: Acetaminophen MS Suppository 650 mg MS once Route: MS; [facility] 02:42 Follow up: Response: Marked relief of symptoms [facility] 02:05 Drug: Meropenem IV 1 grams IV at per protocol once; (mix in NS 100 mL) Route: IV; Rate: jj7 per protocol; Site: right forearm; 02:40 Follow up: IV Status: Completed infusion j7 02:05 Drug: diphenhydrAMINE IVP 25 mg IVP once Route: IVP; Site: right forearm; jj7 02:43 Follow up: Response: Marked relief of symptoms j7 Disposition Summary: 07/27/24 21:34 Transfer Ordered Notes: Reason: Higher level of care alicia Condition: Fair alicia Problem: new alicia Symptoms: have improved alicia Transfer Location: [facility](07/27/24 22:11) alicia Accepting Physician: to [facility](07/28/24 03:06) jj7 Diagnosis - GI Bleed/ Gastrointestinal hemorrhage, unspecified - upper alicia - Vomiting alicia - Anemia, unspecified alicia - UTI/ Urinary tract infection, site not specified alicia - Pleural effusion, not elsewhere classified alicia - Multiple fractures of ribs, left side alicia - Pneumonia due to other specified bacteria - left lower alicia Forms: - Medication Reconciliation Form alicia - SBAR form alicia Signatures: Dispatcher [employer] EDMS Elan Montgomery MD MD cha Calcote, Vanessa RN RN vc1 Ivelisse Montana RN RN jj7 Corrections: (The following items were deleted from the chart) 07/27 20:24 20:24 BASIC METABOLIC PANEL+C.LAB.BRZ ordered. EDMS EDMS 20:24 20:24 CBC+H.LAB.BRZ ordered. EDMS EDMS 20:24 20:24 HEPATIC FUNCTION+C.LAB.BRZ ordered. EDMS EDMS 20:24 20:24 MAGNESIUM+C.LAB.BRZ ordered. EDMS EDMS 20:24 20:24 PROBNP+C.LAB.BRZ ordered. EDMS EDMS 20:24 20:24 PROTIME (+INR)+COAG.LAB.BRZ ordered. EDMS EDMS 20:24 20:24 Troponin High Sensitivity+C.LAB.BRZ ordered. EDMS EDMS 20:24 20:24 LIPASE+C.LAB.BRZ ordered. EDMS EDMS 20:24 20:24 UA Rfx Wagner Cult if indicated+U.LAB.BRZ ordered. EDMS EDMS 20:24 20:24 TYPE AND SCREEN+BB.LAB.BRZ ordered. EDMS EDMS 20:24 20:24 Chest Single View+RAD.RAD.BRZ ordered. EDMS EDMS 21:34 20:25 Abdomen Pelvis W Con+CT.RAD.BRZ ordered. EDMS EDMS 22:11 21:34 to [facility] 22:11 21:34 [facility] 22:50 22:11 to icu, [facility] 07/28 00:29 00:29 Abdomen 1 View (KUB)+RAD.RAD.BRZ ordered. EDOH EDOH 00:33 05/08 22:50 to icu, [facility] 07/28 00:48 00:33 to icu, [facility] 00:58 00:55 PACKED RBC LEUKORED+BB.LAB.BRZ ordered. EDOH EDMS 00:58 00:57 ABO/RH typing ordered. EDOH EDMS 00:58 00:57 Antibody Screen ordered. EDOH EDMS 03:05 00:54 Blood Transfusion Consent ordered. [facility] jj7 03:06 00:48 to icu, [facility] jj7
--- NOTE | 2024-07-27 21:34 | ER ---
Nurse's Notes [facility] Name: Ember Meade Age: 84 yrs Sex: Female : 1940 Arrival Date: 07/27/2024 Time: 19:47 Bed 16 Private MD: Diagnosis: GI Bleed/ Gastrointestinal hemorrhage, unspecified-upper;Vomiting;Anemia, unspecified;UTI/ Urinary tract infection, site not specified;Pleural effusion, not elsewhere classified;Multiple fractures of ribs, left side;Pneumonia due to other specified bacteria-left lower Presentation: 07/27 20:09 Chief complaint: EMS states: c/o abdominal pain that started yesterday, today vomited a vc1 large amount of blood and having bloody diarrhea. Coronavirus screen: Client denies travel out of the [place] in the last 14 days. At this time, the client does not indicate any symptoms associated with coronavirus-19. Ebola Screen: Patient negative for fever greater than or equal to 101.5 degrees Fahrenheit, and additional compatible Ebola Virus Disease symptoms Patient denies exposure to infectious person. Patient denies travel to an Ebola-affected area in the 21 days before illness onset. No symptoms or risks identified at this time. Initial Sepsis Screen: Does the patient meet any 2 criteria? No. Patient's initial sepsis screen is negative. Does the patient have a suspected source of infection? No. Patient's initial sepsis screen is negative. Risk Assessment: Do you want to hurt yourself or someone else? Patient reports no desire to harm self or others. Onset of symptoms was July 27, 2024. Care prior to arrival: Medication(s) given: Droperidol 1.25mg, 200CC NS IV initiated. 20 GA, in the right wrist, Glucose check: 127. Activity prior to arrival: vomiting. Mechanism of Injury: No Mechanism of Injury. 20:09 Method Of Arrival: EMS: [facility] vc1 20:09 Acuity: SANTOSH 3 vc1 Triage Assessment: 20:19 General: Appears in no apparent distress. comfortable, Behavior is calm, cooperative, vc1 appropriate for age. Pain: Complains of pain in abdomen. EENT: No deficits noted. No signs and/or symptoms were reported regarding the EENT system. Neuro: Level of Consciousness is awake, alert, obeys commands, Oriented to person, place, time, situation, Appropriate for age. Cardiovascular: Capillary refill < 3 seconds Patient's skin is warm and dry. Respiratory: Airway is patent Respiratory effort is even, unlabored, Respiratory pattern is regular, symmetrical, Breath sounds are clear bilaterally. GI: Abdomen is flat, non-distended, Bowel sounds present X 4 quads. Reports bloody stool, vomiting, vomiting blood. : No deficits noted. No signs and/or symptoms were reported regarding the genitourinary system. Derm: Skin is intact, is healthy with good turgor, Skin is dry, Skin is normal, Skin temperature is warm. Musculoskeletal: Circulation, motion, and sensation intact. Range of motion: intact in all extremities. Historical: - Allergies: 20:16 NKA; vc1 - PMHx: 20:16 Anemia; Depression; Esophagitis; Hypertension; Schizophrenia; vc1 - PSHx: 20:16 Appendectomy; Left knee replacement; vc1 - Immunization history:: Adult Immunizations up to date. - Infectious Disease History:: Denies. - Social history:: Smoking status: unknown. - Family history:: not pertinent. Screenin:21 Abuse screen: Denies threats or abuse. Nutritional screening: No deficits noted. vc1 Tuberculosis screening: No symptoms or risk factors identified. 21:00 [facility] ED Fall Risk Assessment (Adult) History of falling in the last 3 months, jj7 including since admission Yes- single mechanical fall (1 pt) Confusion or Disorientation No (0 pts) Intoxicated or Sedated No (0 pts) Impaired Gait Yes (1 pt) Mobility Assist Device Used Yes (1 pt) Altered Elimination Score/Fall Risk Level 3 or more points = High Risk Oriented to surroundings, Maintained a safe environment, Educated pt \T\ family on fall prevention, incl call for assistance when getting out of bed, Assessed \T\ reinforced patient's understanding of fall precautions. Assessment: 20:30 General: Appears in no apparent distress. comfortable, Behavior is calm, cooperative, jj7 appropriate for age. Pain: Complains of pain in abdomen. Musculoskeletal: Reports pain in left lateral anterior chest AND RIB AREA PT STATES SHE FEEL 3 WK AGO AND BROKEN SOME RIBS ON HER LEFT SIDE. HAVING TENDERNESS TO HER LEFT RIB AREA. 21:25 Reassessment:. GI: Pt is actively vomiting dark brown liquid. jj7 22:30 Reassessment: Patient and/or family updated on plan of care and expected duration. Pain jj7 level reassessed. Patient states feeling better. Patient states symptoms have improved. 23:35 Reassessment: Patient is alert, oriented x 3, equal unlabored respirations, skin jj7 warm/dry/pink. SITTING UP IN BED TALKING TO FAMILY. 07/28 00:30 Reassessment: Patient and/or family updated on plan of care and expected duration. Pain jj7 level reassessed. Patient is alert, oriented x 3, equal unlabored respirations, skin warm/dry/pink. Patient states feeling better. Patient states symptoms have improved. 01:30 Reassessment: No changes from previously documented assessment. jj7 02:30 Reassessment: [facility] AT BEDSIDE TO TRANSFER PT TO [facility]. jj7 02:49 Reassessment: REPORT GIVEN TO WON Patton AT [facility]. jj7 Vital Signs: 07/27 20:09 BP 138 / 69; Pulse 84; Resp 14; Temp 98.5; Pulse Ox 100% ; Weight 61.23 kg; vc1 21:08 BP 135 / 68; Pulse 93; Resp 16; Pulse Ox 100% on R/A; Pain 4/10; jj7 22:00 BP 106 / 60; Pulse 104; Resp 17; Pulse Ox 95% ; jj7 23:30 BP 112 / 59; Pulse 113; Resp 17; Pulse Ox 98% ; jj7 07/28 00:30 BP 106 / 66; Pulse 106; Resp 16; Pulse Ox 97% ; jj7 01:30 BP 103 / 56; Pulse 106; Resp 17; Pulse Ox 96% ; jj7 02:30 BP 118 / 55; Pulse 95; Resp 16; Temp 98.3; Pulse Ox 99% ; jj7 21:08 Pain Scale: Adult jj7 ED Course: 07/27 20:09 Patient arrived in ED. vc1 20:15 Elan Montgomery MD is Attending Physician. alicia 20:16 Triage completed. vc1 20:18 Arm band placed on left wrist. vc1 20:35 XRAY Chest (1 view) In Process Unspecified. EDMS 21:00 Patient has correct armband on for positive identification. Placed in gown. Bed in low jj7 position. Call light in reach. Side rails up X2. Adult w/ patient. Provided Education on: USE OF CALL CHIN. Warm blanket given. 21:06 Ivelisse Montana, RN is Primary Nurse. j7 22:04 Tranfer initiated \T\2155, Called [facility] transfer center, Natalioperezyoselyn suggested hw transfering patient to [facility], will follow up with MD. 22:12 Basic Metabolic Panel Sent. oe 22:12 CBC with Diff Sent. oe 22:12 LFT's Sent. oe 22:12 Magnesium Sent. oe 22:12 NT PRO-BNP Sent. oe 22:12 PT-INR Sent. oe 22:12 Troponin HS Sent. oe 22:49 Transfer initiated W/ [facility] \T\ 2248. hw 23:08 CT Chest, Abdomen, Pelvis - W/Contrast In Process Unspecified. EDMS 07/28 00:58 Radiology exam delayed due to ng tube not placed yet . will check back with nurse. ml 02:00 Missed attempt(s): 20 gauge in left antecubital area. vk 02:00 Initial lab(s) drawn, by ED staff, vk 02:01 inserted purewick. vk 02:15 NGT: inserted 16 Fr. via right nare. verified placement of air over stomach, verified jj7 return of gastric contents, to continuous suction. Returned gastric contents. Patient tolerated well. 02:51 No provider procedures requiring assistance completed. Patient transferred, IV remains jj7 in place. Administered Medications: 07/27 21:33 Drug: NS 0.9% IV 500 ml 500 ml IV at 1 bolus once; to be given as a bolus over 30 jj7 minutes Volume: 500 ml; Route: IV; Rate: 1 bolus; Site: right forearm; 23:34 Follow up: IV Status: Completed infusion jj7 21:34 Drug: Pantoprazole IVP 80 mg IVP once Route: IVP; Site: right forearm; jj 23:34 Follow up: Response: Marked relief of symptoms; Pain is decreased jj7 21:34 Drug: Pantoprazole IV 8 mg/hr IV at 25 ml/hr continuous; (Standard dilution is 80 mg in jj7 250 mL NS) Route: IV; Rate: 25 ml/hr; Site: right forearm; 07/28 02:05 Follow up: IV Pause: 07/28/2024 02:05; IV Pause Reason: Limited IV access/Medication jj7 interaction 02:40 Follow up: IV Resume: 07/28/2024 02:40; IV Resume Reason: Additional IV access/No jj7 medication interaction 02:43 Follow up: IV Status: Infusion continued upon transfer jj7 07/27 21:34 Drug: Ondansetron IVP 8 mg IVP once; over 2 minutes Route: IVP; Site: right forearm; jj7 23:34 Follow up: Response: Marked relief of symptoms; Nausea is decreased jj7 23:34 Drug: NS 0.9% IV 1000 ml IV at 125 ml/hr once Route: IV; Rate: 125 ml/hr; Site: right [facility] forearm; 07/28 02:43 Follow up: IV Status: Infusion continued upon transfer jj7 01:58 Drug: Acetaminophen NM Suppository 650 mg NM once Route: NM; jj7 02:42 Follow up: Response: Marked relief of symptoms jj7 02:05 Drug: Meropenem IV 1 grams IV at per protocol once; (mix in NS 100 mL) Route: IV; Rate: jj7 per protocol; Site: right forearm; 02:40 Follow up: IV Status: Completed infusion jj7 02:05 Drug: diphenhydrAMINE IVP 25 mg IVP once Route: IVP; Site: right forearm; jj7 02:43 Follow up: Response: Marked relief of symptoms jj7 Medication: 02:51 VIS not applicable for this client. jj7 Outcome: 07/27 21:34 ER care complete, transfer ordered by MD. vargas 07/28 02:49 Transferred by [facility] [place] to [facility], Transfer jj7 form completed. X-rays sent w/ patient. Condition: good 03:06 Patient left the ED. jj7 Signatures: Dispatcher [employer] EDMS Elan Montgomery MD MD cha Lopez, Melissa ml Espinosa, Orlando oe Calcote, Vanessa, RN RN vc1 Ivelisse Montana RN RN jj7 Debra Shields Hailey hw
[2024-07-27 22:26] LABS: Absolute Basophils 0.1 K/uL (0-0.5); Absolute Eosinophils 0.1 K/uL (0-0.5); Absolute Neutrophil 7.4 K/uL (1.8-8.0); Basophils % 0.9 % (0-1.3); Eosinophils % 1.1 % (0-4.4); Hematocrit 26.4 % (36.0-45.0); Hemoglobin 8.9 g/dL (12.0-15.0); Lymphocytes % 18.4 % (15.3-44.8); MCH 29.8 pg (27.0-35.0); MCHC 33.8 g/dL (32.0-36.0); MCV 88.2 fL (80-100); MPV 8.3 fL (7.6-11.3); Monocytes % 9.5 % (3.3-12.3); Neutrophils % 70.1 % (41.7-73.7); Platelets 503 thou/uL (152-406); Red Cell Distribution Width 15.1 % (12.1-15.2)
[2024-07-27 22:32] LABS: PT Prothrombin Time 12.4 SECONDS (10-13.0); Protime INR 1.09
[2024-07-27 22:41] LABS: Specific Gravity 1.009 (1.005-1.030); Sqamous Epithelial None Seen /HPF (None Seen); Urine Bacteria None Seen /HPF (<20); Urine Bilirubin NEGATIVE (Negative); Urine Blood Negative (Negative); Urine Clarity Extremely Turbid (Clear); Urine Color Light-Yellow (Yellow); Urine Culture Reflex Order REFLEXED; Urine Glucose NEGATIVE (Negative); Urine Ketones NEGATIVE (Negative); Urine Microscopic Reflex YN ORDER UMIC; Urine Nitrite 1+ (Negative); Urine Protein 1+ (Negative); Urine RBC <5 /HPF (None Seen); Urine Urobilinogen Normal (Normal); Urine WBC >50 /HPF (<5); Urine pH 7.5 (5.0-7.0)
[2024-07-27 22:46] LABS: Albumin 2.5 g/dL (3.4-5.0); Albumin/Globulin Ratio 0.7 (1.1-1.8); Bilirubin Direct 0.2 mg/dL (0-0.2); Bilirubin Indirect, Calculated 0.2 mg/dL (0.2-0.8); Bilirubin Total 0.4 mg/dL (0.2-1.0); Globulin 3.5 g/dL (2.3-3.5)
[2024-07-27] MEDS ORDERED: NA CHLORIDE 0.9% 1,000 ML ONE (23:25)
--- NOTE | 2024-07-28 00:28 | RAD REPORT ---
Clinical Indication: Bed Name: 16; upper gi bleed;Blunt chest trauma Comparison: July 16, 2023 TECHNIQUE: Sequential trans-axial images were obtained through the chest, abdomen and pelvis after in travenous administration of iodinated contrast. Oral contrast was not administered. Coronal and sagittal reconstructions were obtained and provided as separate series. IV CONTRAST: IV contrast dose was not provided All CT scans at this location are performed using dose optimization techniques as appropriate to perf orm the study. Radiation dose reduction technique was utilized including one or more of the following: Automated exp osure control, adjustment of the mA and/or kV according to patient size and use of iterative reconstruction technique. CT Radiation Dose DLP 641.7 mGy-cm FINDINGS: CT CHEST WITH CONTRAST: LUNG PARENCHYMA AND PLEURA: Consolidation is noted in the left lower lobe. 4 mm soft tissue pulmonary nodule is noted within the left upper lobe on image 37 of series 201. 4 mm soft tissue pulmonary nodule is noted within the right middle lobe on image 52. 4 mm soft tissue nodule is noted in the rig ht costophrenic sulcus on image 81. There is no significant interstitial lung disease. Tiny left pleural effusion is noted. There is no pneumothorax. Mild nonspecific elevation of the left hemidi aphragm is noted. AIRWAY: The central airway is patent. MEDIASTINUM: No significant mediastinal lymphadenopathy. HEART: The heart is borderline enlarged. Mitral valve calcifications are noted.. There is trace per icardial effusion. VASCULAR STRUCTURES: The pulmonary arteries and great vessels are unremarkable. The thoracic aorta is within normal limits.. The superior vena cava is unremarkable. OSSEOUS STRUCTURES: Left posterior fifth, seventh, eighth, ninth and 10th rib fractures are noted. CT ABDOMEN AND PELVIS WITH CONTRAST: LIVER: Unremarkable. GALLBLADDER: The gallbladder is contracted. INTRAHEPATIC BILE DUCT AND EXTRAHEPATIC BILE DUCT: Unremarkable. PANCREAS: Unremarkable. SPLEEN: Several splenic clefts are noted. No definite splenic laceration is seen. No perisplenic flui d is noted. ADRENALS: Unremarkable. KIDNEYS AND URETERS: There is moderate chronic right hydronephrosis. Cortical thinning is noted. This is grossly unchanged compared to July 16, 2023. 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 Tahmina ceal stones are noted in the lower pole. Focal cortical thinning with calcification is noted in the left kidney, consistent with scarring. Lik fish due to prior pyelonephritis. There is no left hydronephrosis. Small left renal cysts are noted. STOMACH: Evaluation of the stomach and bowel is limited due to lack of oral contrast. Moderate gas an d fluid distention of the stomach is noted.. BOWEL: The small bowel loops in the abdomen and pelvis appear unremarkable. The colonic loops in the abdomen and pelvis appear unremarkable. Scattered diverticuli are noted throughout the colon. No surrounding inflammatory changes are seen to suggest acute diverticulitis. APPENDIX: Not well seen on the exam. PERITONEUM AND RETROPERITONEUM: No ascites or free air. There is no aortic aneurysm or dissection. PELVIS: Partially calcified fibroid is noted. The uterus and adnexa are otherwise unremarkable. BLADDER: Unremarkable LYMPH NODES: Unremarkable. OSSEOUS STRUCTURES: No acute abnormality seen. Grade 1 anterolisthesis of L4 on L5 is noted of approx imately 6 mm. SOFT TISSUES: Unremarkable. IMPRESSION: 1. Previous CT dated July 04, 2024 was not available for comparison. 2. Left lower lobe consolidation is consistent with pneumonia. 3. Left posterior rib fractures with small pleural effusion as noted above. No pneumothorax is noted. 4. Moderate gas and fluid distended stomach. 5. Malrotated right kidney with chronic hydronephrosis, cortical thinning and calyceal stones. 6. Mild diverticulosis without CT evidence of acute diverticulitis. Electronically signed by: Skinny Dillon MD 07/28/2024 12:24 AM CDT Due to temporary technical issues with the PACS/Muxlim reporting system, reports are being elias d by the in-house radiologist without review as a courtesy to ensure prompt reporting the interpreting radiologist is fully responsible for the content of the report. Transcribed Date/Time: 07/28/2024 12:28 AM
[2024-07-28] MEDS ORDERED: DIPHENHYDRAMINE 50 MG/ML VIAL ONE (01:01)
[2024-07-28] MEDS ORDERED: Meropenem 1000 MG/VIAL IV ONE (01:01)
[2024-07-28] MEDS ORDERED: NA CHLORIDE 0.9% 100 ML ONE (01:01)
[2024-07-28] MEDS ORDERED: ACETAMINOPHEN 650MG/RECT SUPP PR ONE (01:01)
[2024-07-28 02:09] LABS: Absolute Basophils 0.1 K/uL (0-0.5); Absolute Lymphocytes (CBC) 1.3 K/uL (0.7-4.9); Absolute Monocytes 0.5 K/uL (0.1-1.3); Absolute Neutrophil 6.1 K/uL (1.8-8.0); Basophils % 1.2 % (0-1.3); Eosinophils % 0.5 % (0-4.4); Hematocrit 20.4 % (36.0-45.0); Hemoglobin 6.8 g/dL (12.0-15.0); Lymphocytes % 16.6 % (15.3-44.8); MCH 29.3 pg (27.0-35.0); MCV 88.7 fL (80-100); MPV 7.9 fL (7.6-11.3); Monocytes % 5.6 % (3.3-12.3); Neutrophils % 76.1 % (41.7-73.7); Platelets 395 thou/uL (152-406); Red Cell Distribution Width 14.5 % (12.1-15.2)
[2024-07-28 03:21] VITALS: BP 118/55; TEMP 98.3; O2SAT 99
--- NOTE | 2024-07-31 12:08 | EKG ---
Test Date: 2024-07-27 Test Time: 22:48:33 Labor Relations Worker: IDRIS MEASUREMENT RESULTS: Intervals: Rate: 119 AL: 152 QRSD: 114 QT: 362 QTc: 509 [place]: P: AL: 152 QRS: 68 T: 3 INTERPRETIVE STATEMENTS: Sinus tachycardia with premature atrial complexes Incomplete right bundle branch block T wave abnormality, consider anterior ischemia Abnormal ECG Compared to ECG 07/16/2023 17:16:31 Atrial premature complex(es) now present Incomplete right bundle-branch block now present T-wave abnormality now present Possible ischemia now present Sinus rhythm no longer present Right bundle-branch block no longer present Left anterior fascicular block no longer present Bifascicular block no longer present Myocardial infarct finding no longer present Electronically Signed On 07-31-24 12:06:17 CDT by Axel Rios
== END 2024-07-28 03:06 | disposition short-term general hospital (02) ==
LOC: ER 20:09
DX: K92.0 Hematemesis (principal); D64.9 Anemia, unspecified; N39.0 Urinary tract infection, site not specified; S22.42XA Multiple fractures of ribs, left side, initial encounter for closed fracture; J90 Pleural effusion, not elsewhere classified; J15.8 Pneumonia due to other specified bacteria; I10 Essential (primary) hypertension; F20.9 Schizophrenia, unspecified
CPT/HCPCS: 96365; 96367; 96368; 93005; 87040 ×2; 87088; 85025 ×2; 81001; 87086; 80048; 36415; 86900; 83735; 86850; 85610; 86901; 80076; 86920 ×2; 87077; 87186; 84484; 83690; 83880; 71260; 74177; 71045; 96375; 99285; 96366; Q9967; J1200; J2470; J2185; J2405; J7050; J7040; J7030

== ENCOUNTER 2024-08-11 14:57 | Emergency (ER) | payer OTHER ==
--- OUTSIDE RECORDS SUMMARY | 2024-08-11 15:03 | XMS REPORT | Clinical Summary ---
Author Name Unknown Organization [facility] Address [address] [place] [address] Care Team Providers Care Consulting Application Engineer Name Role Phone Rojas Peña MD Primary Care Provider [phone] Hola Valdovinos MD Unavailable Hola Valdovinos MD Unavailable Kirk Hastigns MD Unavailable Meng Radford MD Unavailable [phone] Joi Martinez NP Unavailable [phone] Archana Arriaga Unavailable [phone] Rojas Peña MD Unavailable [phone] Allergies No known active allergies Medications [...] (12/28/2016): Added automatically from request for surgery [id number] Surgical History Surgery Date Site/Laterality Comments COLONOSCOPY 02/11/2015 multiple OTHER SURGICAL HISTORY 02/11/2015 EMR w/ Colonoscopy APPENDECTOMY TIBIA FRACTURE SURGERY 03/22/2012 - 03/21/2013 Right w/ right tibial ludy insertion PA SIGMOIDOSCOPY FLX DX W/COLLJ SPEC BR/WA IF PFRMD 09/20/2015 Anus/N/A Procedure: DIAGNOSTIC FLEXIBLE SIGMOIDOSCOPY, WITH OR WITHOUT COLLECTION OF SPECIMEN(S) BY BRUSHING OR WASHING; Surgeon: Esperanza Allred MD; Location: MAIN ENDOSCOPY; Service: GASTROENTEROLOGY PA EGD TRANSORAL ENDOSCOPIC MUCOSAL RESECTION 09/20/2015 Anus/N/A Procedure: FLEXIBLE ESOPHAGOGASTRODUODENOSCOPY WITH MUCOSAL RESECTION; Surgeon: Esperanza Allred MD; Location: MAIN ENDOSCOPY; Service: GASTROENTEROLOGY PA SIGMOIDOSCOPY FLX DX W/COLLJ SPEC BR/WA IF PFRMD 01/15/2016 Anus/N/A Procedure: DIAGNOSTIC FLEXIBLE SIGMOIDOSCOPY, WITH OR WITHOUT COLLECTION OF SPECIMEN(S) BY BRUSHING OR WASHING; Surgeon: Esperanza Allred MD; Location: MAIN ENDOSCOPY; Service: GASTROENTEROLOGY PA COLONOSCOPY FLX W/ENDOSCOPIC MUCOSAL RESECTION 04/17/2016 N/A Procedure: FLEXIBLE COLONOSCOPY WITH ENDOSCOPIC MUCOSAL RESECTION; Surgeon: Esperanza Allred MD; Location: MAIN ENDOSCOPY; Service: GASTROENTEROLOGY PA COLONOSCOPY FLX W/ENDOSCOPIC MUCOSAL RESECTION 11/06/2016 N/A Procedure: FLEXIBLE COLONOSCOPY WITH ENDOSCOPIC MUCOSAL RESECTION; Surgeon: Esperanza Allred MD; Location: MAIN ENDOSCOPY; Service: GASTROENTEROLOGY PA COLONOSCOPY FLX DX W/COLLJ SPEC WHEN PFRMD [...] on file Legal Sex Female 5:41 PM TIER IN Gender Identity Not on file Sexual Orientation [...] Documents on File Type Date Recorded Patient Pantograph Ii Engraver Expl anation Advance Directives: Medical Power of Branch Service Representative 01/17/2015 Historical Care Teams Consulting Application Engineer Relationship Specialty Start Date End Date Rojas Peña MD [email or web address] PCP - General 05/22/15 Hola Valdovinos MD [address] [place] [id number] [email or web address] PCP - External Referring 12/24/14 Hola Valdovinos MD [address] [place] [phone] [email or web address] PCP - External Follow Up A 12/24/14 Kirk Hastings MD [address] [place] [id number] PCP - External Follow Up B 01/01/15 Meng Radford MD [address] [place] [id number] [email or web address] 05/29/15 Joi Martinez NP [address] [place] [id number] [email or web address] Practitioner 05/29/15 Archana Arriaga PA [address] [place] [id number] [email or web address] Physician Drafter Chief Design 05/29/15 Rojas Peña MD [address] [place] [phone] [email or web address] [email or web address] 05/29/15
[2024-08-11 16:34] LABS: Absolute Basophils 0.1 K/uL (0-0.5); Absolute Eosinophils 0.2 K/uL (0-0.5); Absolute Lymphocytes (CBC) 1.7 K/uL (0.7-4.9); Absolute Monocytes 0.7 K/uL (0.1-1.3); Absolute Neutrophil 4.2 K/uL (1.8-8.0); Basophils % 1.2 % (0-1.3); Hematocrit 23.8 % (36.0-45.0); Lymphocytes % 24.5 % (15.3-44.8); MCH 29.3 pg (27.0-35.0); MCHC 33.6 g/dL (32.0-36.0); MCV 87.2 fL (80-100); MPV 8.1 fL (7.6-11.3); Monocytes % 10.5 % (3.3-12.3); Neutrophils % 60.8 % (41.7-73.7); Platelets 359 thou/uL (152-406); RBC Red Blood Cell Count 2.73 M/uL (3.86-4.86); Red Cell Distribution Width 15.9 % (12.1-15.2)
[2024-08-11 16:51] LABS: Albumin 2.7 g/dL (3.4-5.0); Albumin/Globulin Ratio 0.8 (1.1-1.8); Anion Gap 10.1 mEq/L (5.0-15.0); Bilirubin Total 0.3 mg/dL (0.2-1.0); Globulin 3.5 g/dL (2.3-3.5); Potassium 4.1 mEq/L (3.5-5.1); Protein, Total 6.2 g/dL (6.4-8.2)
--- NOTE | 2024-08-11 17:53 | RAD REPORT ---
EXAMINATION: CT ABDOMEN AND PELVIS WITH CONTRAST CLINICAL INDICATION: ABD PAIN TECHNIQUE: CT abdomen and pelvis was performed, after the administration of IV contrast, as [facility]. Axial, sagittal and coronal reconstructions were obtained. One or more of the following dose reduction techniques were used: Automated exposure control, adjustment of the mA and k V according to patient size, and iterative reconstruction. Unless otherwise specified, incidental findings do not require dedicated imaging follow-up. COMPARISON: 08/11/2024 FINDINGS: LOWER CHEST: Mild atelectasis in both lung bases. Small left pleural effusion. LIVER: Mild fatty liver is present. No focal lesion or biliary dilatation is seen. Grossly unremark able gallbladder. SPLEEN: Normal size. No focal lesion. PANCREAS: No mass, ductal dilation, or yulisa-pancreatic fluid. ADRENALS: Normal; no mass. KIDNEYS: Left-sided calcifications unchanged. Moderate/severe chronic appearing hydronephrosis and hy droureter is unchanged. GASTROINTESTINAL TRACT: No evidence of free air, significant intra-abdominal free fluid, bowel obstru ction or abscess. Moderate stool is present throughout the colon. APPENDIX: Appendix not visualized, but no inflammatory changes in region of appendix. LYMPH NODES: No lymphadenopathy. MUSCULOSKELETAL: Mild anterolisthesis L4 on 5. Mild levoscoliosis is present. ADDITIONAL FINDINGS: Calcified fibroid in the uterus. IMPRESSION: No acute abnormalities seen in the abdomen or pelvis. Moderate/severe chronic right hydronephrosis and hydroureter.
--- NOTE | 2024-08-11 18:10 | EDPHYS ---
Physician Documentation [facility] Name: Ember Meade Age: 84 yrs Sex: Female : 1940 Arrival Date: 08/11/2024 Time: 14:57 Bed 5 Private MD: ED Physician Elan Montgmoery HPI: 08/11 16:01 This 84 yrs old Female presents to ER via Ambulatory with complaints of blood in stool. sb4 16:01 Patient states that she had a bowel movement this morning and there was blood in it. sb4 States that she has been dealing with a bleeding ulcer on and off for a month or so now. Has been seen by GI at [facility] in [place] and [facility]. Did have a scope done and some sort of repair done on the ulcer a few weeks ago. Has been taking her PPIs as prescribed. States that she did have some sort of GI bug this past week, had questionable hematemesis then. Is not on any blood thinners. Denies any current abdominal pain. Historical: - Allergies: 15:32 NKA; dd2 - PMHx: 15:32 Anemia; Depression; Esophagitis; Hypertension; Schizophrenia; dd2 - PSHx: 15:32 Appendectomy; Left knee replacement; dd2 - Immunization history:: Adult Immunizations up to date. - Infectious Disease History:: Denies. - Social history:: Smoking status: Patient denies any tobacco usage or history of. ROS: 16:01 Constitutional: Negative for fever, chills, and weight loss, sb4 16:01 Abdomen/GI: Positive for black/tarry stool, 16:01 All other systems are negative, Exam: 16:01 Constitutional: This is a well developed, well nourished patient who is awake, alert, sb4 and in no acute distress. Head/Face: Normocephalic, atraumatic. Eyes: Extra-ocular motions intact. Periorbital areas with no swelling, redness, or edema. ENT: Mucous membranes moist. Cardiovascular: Regular rate and rhythm with a normal S1 and S2. Respiratory: No increased work of breathing, no retractions or nasal flaring. Abdomen/GI: Soft, non-tender, no distension. Skin: Warm, dry with normal turgor. Normal color with no rashes, no lesions, and no evidence of cellulitis. 18:18 Abdomen/GI: Rectal exam: is unremarkable, rectal tone normal, Stool: brown, the exam is sb4 chaperoned by the nurse, Vital Signs: 15:29 BP 124 / 68; Pulse 85; Resp 16; Temp 98.3; Pulse Ox 98% on R/A; Weight 55.79 kg; Height dd2 5 ft. 0 in. ; Pain 0/10; 18:21 BP 122 / 84; Pulse 81; Resp 16; Temp 98.1; Pulse Ox 100% on R/A; iw 15:29 Body Mass Index 24.02 (55.79 kg, 152.4 cm) dd2 15:29 Pain Scale: Adult dd2 MDM: 15:28 Medical Screening Exam initiated sb4 18:18 Data reviewed: vital signs, nurses notes, lab test result(s), radiologic studies, and sb4 as a result, I will discharge patient. Consideration of Admission/Observation Escalation of care including admission/observation considered. Counseling: I had a detailed discussion with the patient and/or guardian regarding the historical points, exam findings, and any diagnostic results supporting the discharge/admit diagnosis, lab results, radiology results, the need for outpatient follow up, for definitive care, to return to the emergency department if symptoms worsen or persist or if there are any questions or concerns that arise at home. ED course: Stool was nonmelanotic on my examination. Hemoglobin is 8. Patient states that that is what her hemoglobin was when she was discharged from [facility] 2 weeks ago. She has no complaints of weakness, dizziness, shortness of breath. She has a follow-up appointment with her GI doctor in 3 days. Will safely discharge home with her family at this time with strict return precautions. They are all in agreement with plan. 08/11 16:00 Order name: CBC with Diff; Complete Time: 16:39 sb4 08/11 16:00 Order name: CMP; Complete Time: 16:52 sb4 08/11 16:00 Order name: Lipase; Complete Time: 16:52 sb4 08/11 16:52 Order name: CT Abd/Pelvis - IV Contrast Only; Complete Time: 17:54 sb4 08/11 16:00 Order name: IV Saline Lock; Complete Time: 16:31 sb4 08/11 16:00 Order name: Labs collected and sent; Complete Time: 16:31 sb4 Administered Medications: No medications were administered Disposition Summary: 08/11/24 18:09 Discharge Ordered Notes: Location: Home sb4 Problem: new sb4 Symptoms: have improved sb4 Condition: Stable sb4 Diagnosis - Anemia, unspecified sb4 Followup: sb4 - With: Emergency Department - When: As needed - Reason: Trouble breathing, Worsening of condition Discharge Instructions: - Discharge Summary Sheet sb4 - Anemia sb4 Forms: - Patient Portal Instructions sb4 - Leadership Thank You Letter sb4 Addendum: 08/14/2024 12:32 Co-signature as Attending Physician, Elan Montgomery MD I agree with the assessment and c zacarias plan of care. Signatures: Dispatcher [employer] EDElan Lacey MD MD cha Brown, Sophia, PA-C PA-C sb4 LINO BURK, RN RN dd2
--- NOTE | 2024-08-11 18:10 | ER ---
Nurse's Notes [facility] Name: Ember Meade Age: 84 yrs Sex: Female : 1940 Arrival Date: 08/11/2024 Time: 14:57 Bed 5 Private MD: Diagnosis: Anemia, unspecified Presentation: 08/11 15:29 Chief complaint: Patient states: WAS D/C FROM [facility] LAST WEEK FOR dd2 ABDOMINAL BLOCKAGE AND BEGAN HAVING BLACK STOOLS AGAIN TODAY. Coronavirus screen: At this time, the client does not indicate any symptoms associated with coronavirus-19. Ebola Screen: No symptoms or risks identified at this time. Initial Sepsis Screen: Does the patient meet any 2 criteria? No. Patient's initial sepsis screen is negative. Does the patient have a suspected source of infection? No. Patient's initial sepsis screen is negative. Risk Assessment: Do you want to hurt yourself or someone else? Patient reports no desire to harm self or others. Onset of symptoms was August 11, 2024. 15:29 Method Of Arrival: Ambulatory dd2 15:29 Acuity: SANTOSH 3 dd2 Triage Assessment: 15:32 General: Appears in no apparent distress. Behavior is calm, cooperative, appropriate dd2 for age. Pain: Denies pain. GI: Reports BLACK STOOLS. Historical: - Allergies: 15:32 NKA; dd2 - PMHx: 15:32 Anemia; Depression; Esophagitis; Hypertension; Schizophrenia; dd2 - PSHx: 15:32 Appendectomy; Left knee replacement; dd2 - Immunization history:: Adult Immunizations up to date. - Infectious Disease History:: Denies. - Social history:: Smoking status: Patient denies any tobacco usage or history of. Screenin:33 [facility] ED Fall Risk Assessment (Adult) History of falling in the last 3 months, iw including since admission No falls in past 3 months (0 pts) Confusion or Disorientation No (0 pts) Intoxicated or Sedated No (0 pts) Impaired Gait No (0 pts) Mobility Assist Device Used No (0 pt) Altered Elimination No (0 pt) Score/Fall Risk Level 0 - 2 = Low Risk Oriented to surroundings, Maintained a safe environment. Abuse screen: Denies threats or abuse. Denies injuries from another. Nutritional screening: No deficits noted. Tuberculosis screening: No symptoms or risk factors identified. Assessment: 16:32 General: Appears in no apparent distress. Behavior is calm, cooperative. Pain: Denies iw pain. Neuro: Level of Consciousness is awake, alert, obeys commands, Oriented to person, place, time. Cardiovascular: Patient's skin is warm and dry. Respiratory: Respiratory effort is even, unlabored, Respiratory pattern is regular. GI: Reports bloody stool. Derm: Skin is intact, is fragile, is thin. Musculoskeletal: Range of motion: intact in all extremities. Vital Signs: 15:29 BP 124 / 68; Pulse 85; Resp 16; Temp 98.3; Pulse Ox 98% on R/A; Weight 55.79 kg; Height dd2 5 ft. 0 in. ; Pain 0/10; 18:21 BP 122 / 84; Pulse 81; Resp 16; Temp 98.1; Pulse Ox 100% on R/A; iw 15:29 Body Mass Index 24.02 (55.79 kg, 152.4 cm) dd2 15:29 Pain Scale: Adult dd2 ED Course: 15:06 Patient arrived in ED. cj3 15:08 Tyra Servin PA-C is PHCP. sb4 15:08 Elan Montgomery MD is Attending Physician. sb4 15:32 Triage completed. dd2 15:32 Arm band placed on right wrist. dd2 15:45 Patient has correct armband on for positive identification. Provided Education on: . iw 16:00 Initial lab(s) drawn, by me, sent to lab. Inserted saline lock: 22 gauge in right iw wrist, using aseptic technique. Blood collected. Flushed with 10 mL NS. 16:31 Serena Henry, RN is Primary Nurse. iw 17:36 Radiology exam delayed due to. nj 17:47 CT Abd/Pelvis - IV Contrast Only In Process Unspecified. 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 kc6 18:21 IV discontinued, intact, bleeding controlled, No redness/swelling at site. Pressure iw dressing applied. Administered Medications: No medications were administered Medication: 16:33 VIS not applicable for this client. iw Outcome: 18:09 Discharge ordered by . sb4 18:21 Discharged to home ambulatory, with family, iw 18:21 Condition: good 18:21 Discharge instructions given to patient, family, Instructed on discharge instructions, follow up and referral plans. Demonstrated understanding of instructions, follow-up care, 18:22 Patient left the ED. iw Signatures: Dispatcher [employer] Serena Frye, RN Kory Scott Kaitlyn RN RN [id number] Tyra Servin, PA-C PA-C sb4 LINO BURK RN RN dd2 Terrie Montana cj3
[2024-08-11 18:42] VITALS: BP 122/84; TEMP 98.1; O2SAT 100
== END 2024-08-11 18:22 | disposition home or self-care (01) ==
LOC: ER 14:57
DX: D64.9 Anemia, unspecified (principal)
CPT/HCPCS: 85025; 36415; 83690; 80053; 74177; 99284; Q9967